=== PATIENT | female | born 1995 | race African-American/Black ===

== ENCOUNTER 2022-12-20 11:45 | Emergency (ER) | payer OTHER, SELFPAY ==
--- NOTE | ~2022-12-20 | CT_ITS ---
EXAMINATION: CT ABDOMEN AND PELVIS WITH CONTRAST CLINICAL INFORMATION: Abdominal pain. COMPARISON: None available. TECHNIQUE: Multidetector volumetric images were obtained from the superior aspect of the liver through the pubic symphysis following administration 85 mL of Omnipaque 350 intravenous contrast. Sagittal and coronal reformatted images were obtained on the technologist's workstation. Oral Contrast: No. This CT examination was performed using dose optimization techniques as appropriate, variously including the following: *Automated exposure control. *Adjustment of mA and/or kV according to patient size (this includes techniques or standardized protocols for targeted exams where dose is matched to indication/reason for exam; i.e. extremities or head). *Use of iterative reconstruction technique. DLP: 360.24 mGy-cm FINDINGS: LUNG BASES: Bilateral breast prosthesis. LIVER, GALLBLADDER, AND BILIARY TREE: The liver is normal in size, shape, and attenuation. No focal hepatic lesion or biliary ductal dilatation is present. The gallbladder is unremarkable with no evidence of radiopaque gallstones, gallbladder wall thickening, or obvious pericholecystic inflammatory changes. PANCREAS: Unremarkable. SPLEEN: Unremarkable. ADRENAL GLANDS: Unremarkable. KIDNEYS AND URETERS: The kidneys are normal in size, shape, and attenuation. No hydronephrosis, hydroureter, or calculi seen. No perinephric stranding. BLADDER: Unremarkable. GASTROINTESTINAL TRACT: Wall thickening and hyperemia of multiple loops of small bowel involving the lower abdomen as well as terminal ileum and sigmoid colon with mesenteric congestion and vasculature engorgement. No pneumatosis or organized extraluminal collection. The appendix is not confidentially identified. ABDOMINAL WALL: Cosmetic surgery in the anterior and posterior abdominal combs. Multiple soft tissue nodules, likely injection sites with fat necrosis in the gluteal regions; there is mild fat stranding surrounding some of these nodules. LYMPH NODES: No lymphadenopathy. VASCULAR: Abdominal aorta is normal in caliber. As above, there is diffuse mesenteric haziness with vasculature engorgement. PELVIC VISCERA: Ovaries are enlarged and heterogeneous with surrounding fat stranding and free fluid. The myometrium is heterogeneous with multiple low density observations. For instance, measuring 1.3 cm along the anterior uterine fundus on axial image 65, series 3 and 1.3 cm along the lower anterior uterus/cervix on axial image 72 series 3. Fat-containing nodules are noted in the right, greater than left, ischioanal fossae. For instance, measuring up to 2.2 cm on the right side on axial image 82 series 3, suspect related with sequela of cosmetic injections. OSSEOUS STRUCTURES: No acute or aggressive-appearing osseous findings. CT/CT abdomen pelvis w IV con IMPRESSION: Complex examination. Multiple loops of the small bowel as well as sigmoid colon are wall-thickened and hyperemic with associated mesenteric inflammatory changes. Additionally, there are inflammatory changes in the pelvis surrounding the uterus and adnexa. The ovaries are heterogeneous and enlarged and the myometrium is quite heterogeneous with multiple low density observations. There is a small amount of free-fluid in the abdomen/pelvis. Constellation of findings are nonspecific. Differential considerations include pelvic inflammatory disease with tubo-ovarian phlegmonous changes and reactive bowel changes versus inflammatory bowel disease/enteritis. The appendix is not confidentially identified and, therefore, acute appendicitis cannot be entirely excluded in this examination.
--- NOTE | 2022-12-20 11:49 | ED.ABDPAIN ---
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 Patient reports lower abdominal pain for the last 4 days. Reports she has abdominal pain with bowel movements but no rectal pain. Denies any rectal bleeding Reports remote history of appendectomy but no other abdominal surgeries. She states that she is sexually active and reports abnormal vaginal bleeding. She states that her last menstrual period was December 06 and then 1 week later she had further vaginal bleeding Denies any difficulty urinating Denies any fevers, chills nausea vomiting The patient reports her last bowel movement was yesterday and was normal for her with the exception of the abdominal pain The patient reports her pain is also worse after eating Related Data Previous Rx's Medication Instructions Recorded doxycycline hyclate 100 mg tablet 100 mg PO BID #28 tabs 12/20/22 hydroxychloroquine 200 mg tablet 200 mg PO DAILY #30 tabs 12/20/22 levothyroxine 25 mcg tablet 25 mcg PO DAILY #30 tabs 12/20/22 (Synthroid) metronidazole 500 mg tablet 500 mg PO BID #28 tabs 12/20/22 Allergies Allergy/AdvReac Type Severity Reaction Status Date / Time No Known Allergies Allergy Verified 12/20/22 11:56 Review of Systems Constitutional: Reports as per HPI, Denies chills, Denies fatigue, Denies fever(s) and Denies headache(s) Denies headache(s) Cardiovascular: Denies chest pain and Denies dyspnea Respiratory: Denies cough and Denies dyspnea Gastrointestinal: Reports abdominal pain, Denies hematochezia, Denies constipation, Denies nausea and Denies vomiting Genitourinary: Denies dysuria Denies headache(s) and Denies focal weakness Endocrine: Denies fatigue PMFSH Social History Social History Smoked in Last 30 Days: No Use of substances other than those prescribed or required for medical reasons: No Advance Directives: No Advance Directives Information Provided: No Patient : No Physical Exam ED Vital Signs: Vital Signs - 24 hr 12/20/22 11:50 12/20/22 16:08 12/20/22 18:44 Temperature 97.3 F 98.5 F 98.6 F Pulse Rate 89 83 78 Respiratory Rate 14 16 14 Blood Pressure 111/80 114/82 105/66 Pulse Oximetry 100 100 98 Oxygen Delivery Method Room Air Room Air Room Air BMI result Body Mass Index 20.0 Const General: healthy appearing, comfortable, no acute distress, alert and awake Nutritional Appearance: well nourished Orientation/consciousness: patient oriented x3 HENMT Head: Yes normocephalic and Yes atraumatic Eyes Eyelids: Yes eyelids normal Conjunctivae: conjunctivae normal Sclerae: sclerae normal Corneas: corneas normal Pupils: Equal, round and reactive pupils present EOM: EOMs intact bilaterally Neck Neck: Yes full ROM Resp Effort & Inspection: normal respiratory effort, able to speak in complete sentences and not labored GI Inspection: No distended Palpation (GI): Soft to palpation, Firmness to palpation present (GI), Tenderness to palpation present (GI) in the LLQ, in the RLQ and periumbilically and Guarding due to palpation present (GI) in the LLQ and in the RLQ External Female Exam: normal external appearance, normal appearance of the urethra and No erythema Speculum Exam - Vagina: normal appearance of the vagina, abnormal vaginal discharge white and clear; not boody, no cysts, no foreign bodies and No vaginal bleeding Speculum Exam - Cervix: normal appearance of the cervix and no masses OB/external & speculum: no foreign bodies and vaginal bleeding Skin General skin exam: no rashes or lesions noted and elasticity normal Neuro General: patient oriented x3 Cranial nerves: Yes Equal, round and reactive pupils present and Yes Bilaterally intact EOM present Cognition (Neuro): normal cognition Extrem Other: Moving all extremities well without any obvious deformities Course Course Course Narrative: RME: 27 yo female no sig PMHx, c/o constant b/l lower abdominal pain, back pain with BM, liquidy vaginal discharge x4 days. No N/V, constipation, diarrhea, vaginal bleeding. Admits sexually active, LMP 6/10. Sent here from this morning. Labs, UA, STI testing Full HPI, ROS and PE to be performed by primary ED provider. Reevaluation(s) Reevaluation #1: Received call from [facility] the patient has inflammation in the pelvis that is affecting the small bowel. The differential includes PID inflammatory bowel disease. The patient has no GI symptoms but does have pelvic pain and vaginal discharge. PID is the more likely diagnosis at this time. The patient is not septic. The radiologist specifically states that there is no evidence of free air or abscess. Will get a pelvic examination with gonorrhea and chlamydia swabs as well as BD and yeast. This was explain using the shell mold bonder and the patient is agreeable to pelvic examination. Time: 19:15 Reevaluation #2: Patient requested that I refill her outpatient medications of hydroxychloroquine 200 mg daily which he takes for lupus as well as Synthroid 25 mcg daily for hypothyroidism. She does not have a local PCP Time: 19:41 Medical Decision Making Medical Decision Making [facility] Narrative: 27-year-old female presents for evaluation abdominal pain. She reports irregular periods as well. She denies any nausea, vomiting, diarrhea or constipation. Denies any black or bloody stool. She is tender in the lower to mid abdomen bilaterally. But abdomen is soft and nondistended. Her labs are without significant abnormality. Given her level discomfort with a CT scan of the abdomen pelvis. A UA does not show any sign of infection or hematuria. Patient also had gonorrhea and chlamydia testing sent which will not result today. The patient is not Differential Diagnosis Constipation Colitis Diverticulitis Uterine fibroids Ovarian cyst PID less likely Dysmenorrhea Lab Data [facility] Lab Attestation statement: I reviewed the patient's lab results. (No leukocytosis, no anemia. No electrolyte abnormalities. Normal renal function) 12/20/22 12:08 12/20/22 12:08 Labs: Lab Results 12/20/22 12/20/22 12/20/22 Range/Units 12:08 12:08 13:48 WBC 5.7 (4.8-10.8) X10*3/uL RBC 4.16 L (4.20-5.50) X10*6/uL Hgb 12.7 (12.0-16.0) g/dl Hct 38.6 (37.0-47.0) % MCV 92.8 (80.0-98.0) fL MCH 30.5 (27.0-33.0) pg MCHC 32.9 (31.0-35.0) g/dl RDW 13.3 (11.0-16.0) % Plt Count 246 (160-400) X10*3/uL MPV 10.0 (9.4-12.3) fL Immature Gran % (Auto) 0.5 H (0.0-0.4) % Neut % (Auto) 74.7 H (45-73) % Lymph % (Auto) 13.8 L (20-40) % [place] % (Auto) 10.2 (2-11) % Eos % (Auto) 0.4 (0-4) % Baso % (Auto) 0.4 (0-2) % Lymph # (Auto) 0.8 L (1.2-4.9) X10*3/uL [place] # (Auto) 0.6 (0.1-1.2) X10*3/uL Eos # (Auto) 0.0 (0.0-0.4) X10*3/uL Baso # (Auto) 0.0 (0.0-0.2) X10*3/uL Abs Immat Gran (auto) 0.03 (0.00-0.03) X10*3/uL Absolute Neuts (auto) 4.2 (2.0-8.3) x10*3/uL Absolute Nucleated RBC 0.000 (0.0-0.012) X10*3/uL Nucleated RBC % (auto) 0.0 (0.0-0.2) /100WBC Sodium 140 (135-145) mmol/L Potassium 4.0 (3.3-5.1) mmol/L Chloride 105 (96-108) mmol/L Carbon Dioxide 27 (22-29) mmol/L Anion Gap 12 (12-20) BUN 10 (9-16) mg/dL Creatinine 0.71 (0.5-1.4) mg/dL Estim Creat Clear Calc 100.4 Estimated GFR > 60 Random Glucose 64 (60-115) mg/dL Calcium 10.4 H (8.4-10.2) mg/dL Magnesium 1.8 (1.6-2.6) mg/dL Total Bilirubin 0.4 (0.0-1.0) mg/dL Direct Bilirubin 0.1 (0.0-0.5) mg/dL AST 19 (5-31) U/L ALT 11 (0-31) U/L Alkaline Phosphatase 76 (39-117) U/L Total Protein 8.2 H (6.5-8.0) g/dL Albumin 4.4 (3.5-5.0) g/dL Lipase 15 (8-78) U/L Urine Color Yellow Urine Appearance Clear Urine pH 6.5 (5.0-9.0) Ur Specific [place] 1.010 (1.005-1.025) Urine Protein Negative (Neg-Trace) mg/dL Urine Glucose (UA) Negative (Negative) mg/dL Urine Ketones Negative (Negative) mg/dL Urine Blood Negative (Negative) Urine Nitrite Negative (Negative) Ur Leukocyte Esterase Negative (Negative) Urine Test (NEGATIVE) 12/20/22 Range/Units 13:48 WBC (4.8-10.8) X10*3/uL RBC (4.20-5.50) X10*6/uL Hgb (12.0-16.0) g/dl Hct (37.0-47.0) % MCV (80.0-98.0) fL MCH (27.0-33.0) pg MCHC (31.0-35.0) g/dl RDW (11.0-16.0) % Plt Count (160-400) X10*3/uL MPV (9.4-12.3) fL Immature Gran % (Auto) (0.0-0.4) % Neut % (Auto) (45-73) % Lymph % (Auto) (20-40) % [place] % (Auto) (2-11) % Eos % (Auto) (0-4) % Baso % (Auto) (0-2) % Lymph # (Auto) (1.2-4.9) X10*3/uL [place] # (Auto) (0.1-1.2) X10*3/uL Eos # (Auto) (0.0-0.4) X10*3/uL Baso # (Auto) (0.0-0.2) X10*3/uL Abs Immat Gran (auto) (0.00-0.03) X10*3/uL Absolute Neuts (auto) (2.0-8.3) x10*3/uL Absolute Nucleated RBC (0.0-0.012) X10*3/uL Nucleated RBC % (auto) (0.0-0.2) /100WBC Sodium (135-145) mmol/L Potassium (3.3-5.1) mmol/L Chloride (96-108) mmol/L Carbon Dioxide (22-29) mmol/L Anion Gap (12-20) BUN (9-16) mg/dL Creatinine (0.5-1.4) mg/dL Estim Creat Clear Calc Estimated GFR Random Glucose (60-115) mg/dL Calcium (8.4-10.2) mg/dL Magnesium (1.6-2.6) mg/dL Total Bilirubin (0.0-1.0) mg/dL Direct Bilirubin (0.0-0.5) mg/dL AST (5-31) U/L ALT (0-31) U/L Alkaline Phosphatase (39-117) U/L Total Protein (6.5-8.0) g/dL Albumin (3.5-5.0) g/dL Lipase (8-78) U/L Urine Color Urine Appearance Urine pH (5.0-9.0) Ur Specific [place] (1.005-1.025) Urine Protein (Neg-Trace) mg/dL Urine Glucose (UA) (Negative) mg/dL Urine Ketones (Negative) mg/dL Urine Blood (Negative) Urine Nitrite (Negative) Ur Leukocyte Esterase (Negative) Urine Test NEGATIVE (NEGATIVE) Medications Administered Discontinued Medications Generic Name Dose Route Start Last Admin Trade Name Freq PRN Reason Stop Dose Admin Iohexol 100 ml 12/20/22 17:35 12/20/22 17:36 Iohexol 350 Mg/Ml 100 Ml Infus..Btl IV 12/20/22 17:36 85 ml ONCE ONE Administration Ketorolac Tromethamine 30 mg 12/20/22 16:46 12/20/22 18:10 Ketorolac Tromethamine 30 Mg/Ml Vial IVPUSH 12/20/22 16:47 30 mg ONCE ONE Administration Discharge Plan Discharge Clinical Impression: Acute pelvic inflammatory disease, Hypothyroidism, Lupus Patient Disposition: Home, Self-Care Instructions: Pelvic Inflammatory Disease (ED) Additional Instructions: Your symptoms are likely related to pelvic inflammatory disease This is usually caused by gonorrhea and or chlamydia Take both antibiotics twice daily for the next 14 days Do not drink alcohol while taking these medications Take them with food as they may cause upset stomach Do not have sexual intercourse until you finish the antibiotic regimen Follow-up with Dr Angelique LOMBARDO at the number provided Prescriptions: New doxycycline hyclate 100 mg tablet 100 mg PO BID Qty: 28 0RF metronidazole 500 mg tablet 500 mg PO BID Qty: 28 0RF hydroxychloroquine 200 mg tablet 200 mg PO DAILY Qty: 30 0RF levothyroxine [Synthroid] 25 mcg tablet 25 mcg PO DAILY Qty: 30 0RF
[2022-12-20 11:50] VITALS: BP 111/80; PULSE 89; RESP 14; TEMP 36.3; O2SAT 100
[2022-12-20 12:11] LABS: MANUAL DIFF FLAG NO
[2022-12-20 12:14] LABS: Basophils Percent Auto 0.4 % (0-2); Eosinophils Percent Auto 0.4 % (0-4); Hematocrit 38.6 % (37.0-47.0); Hemoglobin 12.7 g/dl (12.0-16.0); Imm Gran Abs Auto 0.03 X10*3/uL (0.00-0.03); Imm Gran Pct Auto 0.5 % (0.0-0.4); Lymphocytes Absolute Auto 0.8 X10*3/uL (1.2-4.9); Lymphocytes Percent Auto 13.8 % (20-40); Mean Corpuscular HGB Conc 32.9 g/dl (31.0-35.0); Mean Corpuscular Hemoglobin 30.5 pg (27.0-33.0); Mean Corpuscular Volume 92.8 fL (80.0-98.0); Monocytes Absolute Auto 0.6 X10*3/uL (0.1-1.2); Monocytes Percent Auto 10.2 % (2-11); Neutrophils Absolute Auto 4.2 x10*3/uL (2.0-8.3); Neutrophils Percent Auto 74.7 % (45-73); Platelet Count 246 X10*3/uL (160-400); Red Blood Count 4.16 X10*6/uL (4.20-5.50); Red Cell Distribution Width 13.3 % (11.0-16.0); White Blood Count 5.7 X10*3/uL (4.8-10.8)
[2022-12-20 12:45] LABS: Alanine Aminotransferase 11 U/L (0-31); Albumin Level 4.4 g/dL (3.5-5.0); Alkaline Phosphatase 76 U/L (39-117); Anion Gap 12 (12-20); Aspartate Amino Transferase 19 U/L (5-31); Bilirubin Direct 0.1 mg/dL (0.0-0.5); Bilirubin Total 0.4 mg/dL (0.0-1.0); Blood Urea Nitrogen 10 mg/dL (9-16); Calcium 10.4 mg/dL (8.4-10.2); Carbon Dioxide 27 mmol/L (22-29); Chloride 105 mmol/L (96-108); Creatinine Clr Calc Pharmacy 100.4; Estimated Glomerular Filt Rate > 60; Glucose Random 64 mg/dL (60-115); Lipase 15 U/L (8-78); Magnesium 1.8 mg/dL (1.6-2.6); Sodium 140 mmol/L (135-145); Total Protein 8.2 g/dL (6.5-8.0)
[2022-12-20 13:57] LABS: UPreg QC Valid YES; Urine Pregnancy NEGATIVE (NEGATIVE)
[2022-12-20 13:58] LABS: Appearance Urine Clear; Color Urine Yellow; Glucose Urine UA Negative (Negative); Leukocyte Esterase Urine Negative (Negative); Nitrite Urine Negative (Negative); PH 6.5 (5.0-9.0); Urine Blood Negative (Negative); Urine Ketones Negative (Negative); Urine Protein Negative (Neg-Trace)
[2022-12-20 16:08] VITALS: BP 114/82; PULSE 83; RESP 16; TEMP 36.9; O2SAT 100
[2022-12-20] MEDS: iohexoL 350 MG/ML 100 ML INFUS..BTL IV (17:36)
[2022-12-20] MEDS: Ketorolac Tromethamine 30 MG/ML VIAL IVPUSH (18:10)
[2022-12-20 18:44] VITALS: BP 105/66; PULSE 78; RESP 14; TEMP 37; O2SAT 98
--- NOTE | 2022-12-20 18:46 | PC.NURSE ---
Pt resting, stated pain medication had positive effect. Call vargas with in reach.
[2022-12-20] MEDS: metroNIDAZOLE 500 MG TABLET PO (21:07)
[2022-12-20] MEDS: Doxycycline Monohydrate 100 MG CAPSULE PO (21:07)
[2022-12-20 21:17] VITALS: BP 115/80; PULSE 84; RESP 16; TEMP 36.5; O2SAT 98
[2022-12-20] MEDS: cefTRIAXone sodium 500 MG, Lidocaine HCl 1 % MPF 1 ML IM (21:40)
[2022-12-21 12:10] LABS: BV Int Neg Control Negative (Negative); BV Int Pos Control Positive (Positive)
[2022-12-21 12:32] LABS: CT PCR NOT DETECTED (Not Detect.); NG PCR NOT DETECTED (Not Detect.)
== END 2022-12-20 21:42 | disposition home or self-care (01) ==
PROVIDERS: Physician Assistant; Emergency Provider Emergency Medicine
DX: N73.9 Female pelvic inflammatory disease, unspecified (principal); R10.2 Pelvic and perineal pain; E03.9 Hypothyroidism, unspecified; A18.4 Tuberculosis of skin and subcutaneous tissue; Z79.899 Other long term (current) drug therapy
CPT/HCPCS: 0353U; 36415; 74177; 80048; 80076; 81003; 81025; 83690; 83735; 85025; 87480; 87510; 87660; 96372; 96374; 99285; J0696; J1885; Q9967

== ENCOUNTER 2023-01-28 11:57 | Outpatient (REF) | payer OTHER, SELFPAY | END 2023-01-28 11:58 | disposition home or self-care (01) | LOC: HO.LNP 11:57 | PROVIDERS: Visit Provider Obstetrics & Gynecology | DX: Z30.09 Encounter for other general counseling and advice on contraception (principal) | CPT/HCPCS: 99202 ==

== ENCOUNTER 2023-01-28 11:57 | Outpatient (AMB) | payer OTHER, SELFPAY ==
[2023-01-28 12:16] VITALS: BP 110/70; BMI 19.8
--- NOTE | 2023-01-28 12:16 | A.OFFVIS_ITS ---
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 PID with ceftriaxone 500 mg IM and Flagyl/doxycycline for 14 days. The patient's pain has completely resolved since then is doing well and is interested in discussing different options of control PFSH Medical History Thai's disease Lupus Surgical History History of appendectomy Hx of section Family History Maternal Grandmother Diabetes Maternal Grandfather Diabetes Mother Hypothyroidism Social History Household Members: Significant Other Housing: Apartment Alcohol intake: never Patient Tobacco Use Status: Never used Tobacco Substance Use Type: Marijuana Current occupational status: employed Current occupation: [employer] Sexual orientation: Straight/Heterosexual Gender identity: Female Female Reproductive History Menstrual Date of last menstrual period: 01/07/23 Total pregnancies: 1 Full term: 1 Number of Living Children: 1 Review of Systems Const All systems reviewed & are unremarkable except as noted in HPI and below Physical Exam Vital Signs: Last Vital Signs BP 110/70 01/28/23 12:16 BMI result Body Mass Index 19.8 General: Yes no CVA tenderness External Female Exam: normal external appearance and normal appearance of the urethra Speculum Exam - Vagina: normal appearance of the vagina, normal palpation, no lesions and no masses Speculum Exam - Cervix: normal appearance of the cervix, normal palpation, no lesions, no masses and nontender Bimanual exam- vagina & uterus: normal bimanual exam, normal palpation, uterine size normal, normal palpation, uterine shape normal, No Cervical tenderness present and non-tender Bimanual Exam- Adnexa, other: normal adnexae Back/Spine/Pelvis Back: no CVA tenderness Assessment & Plan Assessment & Plan (1) Screen for STD (sexually transmitted disease): Code(s): Z11.3 - Encounter for screening for infections with a predominantly sexual mode of transmission Plan: Since the patient was diagnosed ? PID will screen with STD. STD screening tests done includes: BV panel for trichomonas, GC/CT will send patient for s erology std screening for HIV, RPR, Hep b s Ag, HepC Ab. Instructions given the patient to schedule a follow-up appointment for repeat serology screen in 6 months for possible false negatives. (2) Family planning: Code(s): Z30.09 - Encounter for other general counseling and advice on contraception Plan: Discussed with the patient the different options of control including control pills/Nuvaring (contraindicated with lupus because of the risk of thrombosis), DMPA, different types of IUD ?s ( Cu vs Progesterone IUD). All the pros, cons, risks and benefits of each were discussed with the patient. The patient decided to think about but is leaning more towards Paraguard IUD, so a more detailed discussion about the mechanism of action, risks (infection, uterine perforation, failure with ectopic , septic AB, others) benefits (efficient contraceptive method, others) GC/CG were taken, the patient was instructed to call once she decides to proceed with ParaGard IUD for signing the paperwork for insurance and to call day one of next cycle for IUD insertion. All questions answered, the patient verbalized understanding Orders: Orders Hepatitis B Surface Antigen Today Z20.2 - Contact with and (suspected) exposure to infections with a predominantly sexual mode of transmission Hepatitis C Antibody Today Z20.2 - Contact with and (suspected) exposure to infections with a predominantly sexual mode of transmission HIV Ab/Ag Today Z20.2 - Contact with and (suspected) exposure to infections with a predominantly sexual mode of transmission Syphilis Screen Today Z20.2 - Contact with and (suspected) exposure to infections with a predominantly sexual mode of transmission Coding Level of Care Code New Pt Level 3 (70802) Diagnoses Screen for STD (sexually transmitted disease) Z11.3 Family planning Z30.09
== END 2023-01-28 12:54 | disposition home or self-care (01) ==
LOC: HO.HWS 11:58
PROVIDERS: Visit Provider Obstetrics & Gynecology
DX: Z30.09 Encounter for other general counseling and advice on contraception (principal)
CPT/HCPCS: 99203

== ENCOUNTER 2023-01-28 12:55 | Outpatient (REF) | payer OTHER, SELFPAY ==
[2023-01-28 15:41] LABS: CT PCR NOT DETECTED (Not Detect.); NG PCR NOT DETECTED (Not Detect.)
[2023-01-29 03:51] LABS: HBsAGNum1 0.35 S/CO (0.00-0.99); HIV AB/AG Nonreactive (Nonreactive); HIV Num 1 0.06 S/CO (0.00-0.99); Hepatitis B Surface Antigen Negative (Negative); ~HepC Num1 0.18 S/CO (0.00-0.79); ~Hepatitis C Antibody Nonreactive (Nonreactive)
[2023-01-29 04:09] LABS: Syphilis Screen Nonreactive (Nonreactive)
[2023-01-29 10:46] LABS: BV Int Neg Control Negative (Negative); BV Int Pos Control Positive (Positive)
== END 2023-01-28 12:56 | disposition home or self-care (01) ==
LOC: HO.LAB 12:55
PROVIDERS: Visit Provider Obstetrics & Gynecology
DX: Z11.3 Encounter for screening for infections with a predominantly sexual mode of transmission (principal); Z11.4 Encounter for screening for human immunodeficiency virus [HIV]; Z20.2 Contact with and (suspected) exposure to infections with a predominantly sexual mode of transmission
CPT/HCPCS: 0353U; 86780; 86803; 87340; 87389; 87480; 87510; 87660

== ENCOUNTER 2023-01-28 14:32 | Emergency (ER) | payer OTHER, SELFPAY ==
[2023-01-28 14:45] VITALS: BP 121/82; PULSE 92; RESP 19; TEMP 36.6; O2SAT 98; BMI 20.2
--- NOTE | 2023-01-28 14:45 | ED_ITS ---
HPI - General Adult General Chief complaint: General Medical Stated complaint: Rash Needs Medication for Lupus Time Seen by Provider: 01/28/23 15:00 Source: patient, RN notes reviewed and old records reviewed Mode of arrival: ambulatory History of Present Illness HPI narrative: 27-year-old female with past medical history of lupus, hypothyroid, presenting to ED requesting medication refill of her Hydrochloroquine, Synthroid, and Mycophenolate. Admits has been out of her Hydrochloroquine and Synthroid for 3 days. Admits recently moved here from [place], is having difficulty obtaining PCP and internal salesperson with current insurance, states soonest PCP appointment is in 1 year. Admits was previously prescribed Mycophenolate by her internal salesperson in [place]. Reports slight facial a erythematous lupus rash. Denies other complaints at present. Onset (ago): day(s) Related Data Previous Rx's Medication Instructions Recorded hydroxychloroquine 200 mg tablet 200 mg PO DAILY #30 tabs 12/20/22 levothyroxine 25 mcg tablet 25 mcg PO DAILY #30 tabs 12/20/22 (Synthroid) metronidazole 500 mg tablet 500 mg PO BID #28 tabs 12/20/22 hydroxychloroquine 200 mg tablet 200 mg PO DAILY 30 days #30 tabs 01/28/23 levothyroxine 25 mcg tablet 25 mcg PO DAILY 30 days #30 tabs 01/28/23 (Synthroid) Allergies Allergy/AdvReac Type Severity Reaction Status Date / Time No Known Allergies Allergy Verified 01/28/23 14:44 Review of Systems Review of Systems: Constitutional: No Fever, No Chills ENT/Mouth: No Ear Pain, No Nasal Congestion, No Sinus Pain, No sore throat, No Rhinorrhea, No Swallowing Difficulty Cardiovascular: No Chest Pain, No SOB Respiratory: No Cough Gastrointestinal: No Nausea, No Vomiting, No Abdominal pain Genitourinary: No Dysuria, No Urinary Frequency, No Flank Pain Musculoskeletal: No joint pain, No Myalgias, No Joint Swelling Skin: No Skin Lesions, + rash Neuro: No Weakness, No Numbness, No Paresthesias Yes all other systems are reviewed and are negative Constitutional: Constitutional: Reports as per [facility] Past Medical History Attestation statement: The following information was validated with the patient. Source: old records reviewed Medical History Thai's disease Lupus Surgical History History of appendectomy Hx of section Family History Family History Maternal Grandmother Diabetes Maternal Grandfather Diabetes Mother Hypothyroidism Social History Social History Household Members: Significant Other Housing: Apartment Alcohol intake: never Patient Tobacco Use Status: Never used Tobacco Substance Use Type: Marijuana Current occupational status: employed Current occupation: [employer] Sexual orientation: Straight/Heterosexual Gender identity: Female Physical Exam ED Vital Signs: Vital Signs - 24 hr 01/28/23 14:45 Temperature 98 F Pulse Rate 92 Respiratory Rate 19 Blood Pressure 121/82 Pulse Oximetry 98 Oxygen Delivery Method Room Air BMI result Body Mass Index 20.2 Const General: cooperative, healthy appearing and no acute distress Orientation/consciousness: patient oriented x3 Limitations: no limitations HENMT Other: + slight erythematous rash noted to forehead and bilateral cheeks. No sloughing, no warmth/cellulitis, no pustules/vesicles Head: Yes normal to inspection and Yes atraumatic Ears: hearing grossly normal bilaterally General nose exam: Normal external nose present Face and sinus: Yes normal facial exam Eyes General: appearance normal, both eyes and all related structures EOM: EOMs intact bilaterally Neck Neck: Yes normal visual inspection and Yes no meningeal signs Resp Effort & Inspection: normal respiratory effort and no respiratory distress Cardio Rate: regular rate Skin Wounds: no wounds Neuro General: patient oriented x3, tone normal and no meningeal signs Cranial nerves: Yes CN's II-XII intact bilaterally Gait exam (Neuro): Normal gait present Extrem General: Yes normal to inspection Medical Decision Making Medical Decision Making MDM Narrative: 27-year-old female with past medical history of lupus, hypothyroid, presenting to ED requesting medication refill of her Hydrochloroquine, Synthroid, and Mycophenolate. On exam vital signs stable, NAD, nontoxic appearing, physical exam as noted above. Patient admits rash is consistent with her lupus rash, unchanged. Patient presented with empty bottles, also Mycophenolate bottle with her which has a few tabs left. Discussed with patient can refill her Synthroid/hydrochloroquine when however other medication needs to be prescribed by internal salesperson/specialist due to black box warnings. Will provide patient with PCP/rheumatology and community navigator information Results discussed with patient including worrisome signs and symptoms and strict return precautions, and when to return to the emergency department. They verbalized understanding and feel safe for discharge at this time. Differential Diagnosis Differential Diagnoses: The differential diagnosis associated with the prese ntation includes As above External Record Review External record reviewed: Inpatient record, Office record, Outpatient record, Prior outpatient labs, Prior outpatient radiology, Primary care record and Outside ED record Tests considered The following testing was considered but not selected: As above Prescription Management I considered prescription management with: Other Chronic Conditions Patient?s care impacted by: Other (Lupus, hypothyroid) Discharge Plan Discharge Clinical Impression: Medication refill Patient Disposition: Home, Self-Care Additional Instructions: We refilled her to medications for 1 month Please establish care with a primary care doctor and rheumatology La recargamos con medicamentos por 1 mes. Favor establecer atenci?n con m?dico de atenci?n primaria y reumatolog?a Prescriptions: New hydroxychloroquine 200 mg tablet 200 mg PO DAILY 30 Days Qty: 30 0RF levothyroxine [Synthroid] 25 mcg tablet 25 mcg PO DAILY 30 Days Qty: 30 0RF No Action metronidazole 500 mg tablet 500 mg PO BID Qty: 28 0RF hydroxychloroquine 200 mg tablet 200 mg PO DAILY Qty: 30 0RF levothyroxine [Synthroid] 25 mcg tablet 25 mcg PO DAILY Qty: 30 0RF Referrals: [facility] [Provider Group] [facility] [place] Primary [facility] [Provider Group] [facility] [place] Primary [facility] [Provider Group] [facility] [Provider Group] Print Language: Tongan
== END 2023-01-28 15:05 | disposition home or self-care (01) ==
PROVIDERS: Emergency Provider Emergency Medicine
DX: Z76.0 Encounter for issue of repeat prescription (principal); R21 Rash and other nonspecific skin eruption; M32.9 Systemic lupus erythematosus, unspecified
CPT/HCPCS: 99282; 99283

== ENCOUNTER 2023-02-10 16:32 | Emergency (ER) | payer OTHER, SELFPAY ==
[2023-02-10 16:48] VITALS: BP 106/72; PULSE 92; RESP 16; TEMP 36.9; O2SAT 98
--- NOTE | 2023-02-10 16:48 | ED.GENADULT ---
HPI - General Adult General Chief complaint: General Medical Stated complaint: Has Lupus and it is affecting her right hand Time Seen by Provider: 02/10/23 21:28 Source: patient Mode of arrival: ambulatory Limitations: no limitations History of Present Illness HPI narrative: Patient with History of lupus and hypothyroidism complaining of increased joint pain for last 2 days the right hand also complaining of pain in right shoulder and right jaw Related Data Previous Rx's Medication Instructions Recorded hydroxychloroquine 200 mg tablet 200 mg PO DAILY #30 tabs 12/20/22 levothyroxine 25 mcg tablet 25 mcg PO DAILY #30 tabs 12/20/22 (Synthroid) metronidazole 500 mg tablet 500 mg PO BID #28 tabs 12/20/22 hydroxychloroquine 200 mg tablet 200 mg PO DAILY 30 days #30 tabs 01/28/23 levothyroxine 25 mcg tablet 25 mcg PO DAILY 30 days #30 tabs 01/28/23 (Synthroid) hydroxychloroquine 200 mg tablet 200 mg PO DAILY #90 tabs 02/10/23 levothyroxine 25 mcg capsule 25 mcg PO DAILY #90 caps 02/10/23 prednisone 20 mg tablet 40 mg PO DAILY #10 tabs 02/10/23 Allergies Allergy/AdvReac Type Severity Reaction Status Date / Time No Known Allergies Allergy Verified 02/10/23 16:54 Review of Systems Review of Systems: Yes all other systems are reviewed and are negative REPLACED BY [facility] Past Medical History Medical History Thai's disease Lupus Surgical History History of appendectomy Hx of section Family History Family History Maternal Grandmother Diabetes Maternal Grandfather Diabetes Mother Hypothyroidism Social History Social History Household Members: Significant Other Housing: Apartment Alcohol intake: never Patient Tobacco Use Status: Never used Tobacco Substance Use Type: Marijuana Advance Directives: No Advance Directives Information Provided: No Current occupational status: employed Current occupation: [employer] Sexual orientation: Straight/Heterosexual Gender identity: Female Physical Exam ED Vital Signs: Vital Signs - 24 hr 02/10/23 16:48 02/10/23 20:51 Temperature 98.5 F 98.6 F Pulse Rate 92 89 Respiratory Rate 16 17 Blood Pressure 106/72 103/73 Pulse Oximetry 98 99 Oxygen Delivery Method Room Air Room Air BMI result Body Mass Index 20.0 Appearance: Alert. Oriented X3. No acute distress. Neck: Normal inspection. Neck supple. CVS: Normal heart rate and rhythm. Pulses normal. Respiratory: No respiratory distress. Equal air entry bilateral, Abdomen: Soft and nontender. Bowel sounds are present, Skin: Skin warm and dry. Normal skin color. Normal skin turgor. Extremities: No lower extremity edema. No calf tenderness diffuse tenderness and synovial thickening of right hand fingers Neuro: Oriented X 3. No motor deficit. Course Course Course Narrative: This is a rapid medical exam: Additional HPI, ROS, PE not included below will be deferred to primary provider. Patient is a 27-year-old Romanian-speaking female with history of Lupus, hypothyroid presenting to the emergency department with complaint of joint pain and decreased ROM to right thumb at MCP joint. Reports pain to right shoulder and jaw as well. Patient was seen in this ED on 01/28 and given refills for some of her medications as she recently moved here from [place] and is having issues with insurance. Plan: labs Medications Administered Discontinued Medications Generic Name Dose Route Start Last Admin Trade Name Jony PRN Reason Stop Dose Admin Prednisone 40 mg 02/10/23 21:41 02/10/23 21:51 Prednisone 20 Mg Tablet PO 02/10/23 21:42 40 mg ONCE ONE Administration Medical Decision Making Medical Decision Making [facility] Narrative: Patient with lupus on Hydroxychloroquine possible CellCept before which she is not taking for last 2 months does not have any PCP or drier and grinder tender will prescribe prednisone advised to continue her hydroxychloroquine Lab Data [facility] Lab Attestation statement: I reviewed the patient's lab results. 02/10/23 17:17 02/10/23 17:17 Labs: Lab Results 02/10/23 02/10/23 02/10/23 Range/Units 17:17 17:17 17:17 WBC 2.9 L (4.8-10.8) X10*3/uL RBC 3.87 L (4.20-5.50) X10*6/uL Hgb 11.9 L (12.0-16.0) g/dl Hct 35.2 L (37.0-47.0) % MCV 91.0 (80.0-98.0) fL MCH 30.7 (27.0-33.0) pg MCHC 33.8 (31.0-35.0) g/dl RDW 14.1 (11.0-16.0) % Plt Count 231 (160-400) X10*3/uL MPV 10.1 (9.4-12.3) fL Immature Gran % (Auto) 0.3 (0.0-0.4) % Neut % (Auto) 62.6 (45-73) % Lymph % (Auto) 23.5 (20-40) % Reynolds % (Auto) 12.2 H (2-11) % Eos % (Auto) 0.7 (0-4) % Baso % (Auto) 0.7 (0-2) % Lymph # (Auto) 0.7 L (1.2-4.9) X10*3/uL Reynolds # (Auto) 0.4 (0.1-1.2) X10*3/uL Eos # (Auto) 0.0 (0.0-0.4) X10*3/uL Baso # (Auto) 0.0 (0.0-0.2) X10*3/uL Abs Immat Gran (auto) 0.01 (0.00-0.03) X10*3/uL Absolute Neuts (auto) 1.8 L (2.0-8.3) x10*3/uL Absolute Nucleated RBC 0.000 (0.0-0.012) X10*3/uL Nucleated RBC % (auto) 0.0 (0.0-0.2) /100WBC ESR 17 (0-20) MM/HR Sodium 142 (135-145) mmol/L Potassium 4.2 (3.3-5.1) mmol/L Chloride 110 H (96-108) mmol/L Carbon Dioxide 24 (22-29) mmol/L Anion Gap 12 (12-20) BUN 7 L (9-16) mg/dL Creatinine 0.75 (0.5-1.4) mg/dL Estim Creat Clear Calc 95.0 Estimated GFR > 60 Random Glucose 90 (60-115) mg/dL Calcium 9.6 D (8.4-10.2) mg/dL Total Bilirubin 0.4 (0.0-1.0) mg/dL AST 27 (5-31) U/L ALT 25 (0-31) U/L Alkaline Phosphatase 58 (39-117) U/L C-Reactive Protein 0.26 (< or = 0.50) mg/dL Total Protein 7.5 (6.5-8.0) g/dL Albumin 4.2 (3.5-5.0) g/dL Discharge Plan Discharge Clinical Impression: Exacerbation of systemic lupus erythematosus Patient Disposition: Home, Self-Care Instructions: Lupus Erythematosus (DC) Additional Instructions: Continue hydroxychloroquine and levothyroxine Start taking prednisone for 5 days as prescribed Follow-up with office services clerk and PCP Continuar con hidroxicloroquina y levotiroxina. Comience a gerald prednisona mayda 5 d?as seg?n lo recetado. Seguimiento con reumat?logo y PCP. Prescriptions: New hydroxychloroquine 200 mg tablet 200 mg PO DAILY Qty: 90 0RF levothyroxine 25 mcg capsule 25 mcg PO DAILY Qty: 90 0RF prednisone 20 mg tablet 40 mg PO DAILY Qty: 10 0RF No Action hydroxychloroquine 200 mg tablet 200 mg PO DAILY 30 Days Qty: 30 0RF levothyroxine [Synthroid] 25 mcg tablet 25 mcg PO DAILY 30 Days Qty: 30 0RF metronidazole 500 mg tablet 500 mg PO BID Qty: 28 0RF hydroxychloroquine 200 mg tablet 200 mg PO DAILY Qty: 30 0RF levothyroxine [Synthroid] 25 mcg tablet 25 mcg PO DAILY Qty: 30 0RF Referrals: Cari Patel MD [Physician] - 1 week Ralph Rees MD [Physician] - Stand Alone Forms: Work/School Release Interventions: ED Discharge Assessment Last Done: 02/10/23 22:26 Discharge Date/Time: 02/10/23 22:27 Print Language: Romanian
[2023-02-10 17:23] LABS: MANUAL DIFF FLAG NO
[2023-02-10 17:24] LABS: Basophils Percent Auto 0.7 % (0-2); Eosinophils Percent Auto 0.7 % (0-4); Hematocrit 35.2 % (37.0-47.0); Hemoglobin 11.9 g/dl (12.0-16.0); Imm Gran Abs Auto 0.01 X10*3/uL (0.00-0.03); Imm Gran Pct Auto 0.3 % (0.0-0.4); Lymphocytes Absolute Auto 0.7 X10*3/uL (1.2-4.9); Lymphocytes Percent Auto 23.5 % (20-40); Mean Corpuscular HGB Conc 33.8 g/dl (31.0-35.0); Mean Corpuscular Hemoglobin 30.7 pg (27.0-33.0); Mean Platelet Volume 10.1 fL (9.4-12.3); Monocytes Absolute Auto 0.4 X10*3/uL (0.1-1.2); Monocytes Percent Auto 12.2 % (2-11); Neutrophils Absolute Auto 1.8 x10*3/uL (2.0-8.3); Neutrophils Percent Auto 62.6 % (45-73); Platelet Count 231 X10*3/uL (160-400); Red Blood Count 3.87 X10*6/uL (4.20-5.50); Red Cell Distribution Width 14.1 % (11.0-16.0); White Blood Count 2.9 X10*3/uL (4.8-10.8)
[2023-02-10 17:50] LABS: Alanine Aminotransferase 25 U/L (0-31); Albumin Level 4.2 g/dL (3.5-5.0); Alkaline Phosphatase 58 U/L (39-117); Anion Gap 12 (12-20); Aspartate Amino Transferase 27 U/L (5-31); Bilirubin Total 0.4 mg/dL (0.0-1.0); Blood Urea Nitrogen 7 mg/dL (9-16); C Reactive Protein 0.26 mg/dL (< or = 0.50); Calcium 9.6 mg/dL (8.4-10.2); Carbon Dioxide 24 mmol/L (22-29); Chloride 110 mmol/L (96-108); Estimated Glomerular Filt Rate > 60; Glucose Random 90 mg/dL (60-115); Potassium 4.2 mmol/L (3.3-5.1); Sodium 142 mmol/L (135-145); Total Protein 7.5 g/dL (6.5-8.0)
[2023-02-10 18:05] LABS: Erythrocyte Sedimentation Rate 17 MM/HR (0-20)
[2023-02-10 20:51] VITALS: BP 103/73; PULSE 89; RESP 17; TEMP 37; O2SAT 99
[2023-02-10] MEDS: predniSONE 20 MG TABLET 40 MG PO (21:51)
--- NOTE | 2023-02-10 21:52 | PC.NURSE ---
pt medicated per MAR.
== END 2023-02-10 22:27 | disposition home or self-care (01) ==
PROVIDERS: Registered Nurse Emergency; Emergency Provider Internal Medicine
DX: M32.9 Systemic lupus erythematosus, unspecified (principal); Z79.899 Other long term (current) drug therapy
CPT/HCPCS: 36415; 80053; 85025; 85652; 86140; 99282; 99283

== ENCOUNTER 2023-03-10 14:28 | Emergency (ER) | payer OTHER, SELFPAY | END 2023-03-10 15:35 | disposition left against medical advice (07) | PROVIDERS: Emergency Provider Emergency Medicine | DX: Z76.0 Encounter for issue of repeat prescription (principal) ==

== ENCOUNTER 2023-03-12 16:14 | Emergency (ER) | payer OTHER, SELFPAY ==
[2023-03-12 16:55] VITALS: BP 112/81; PULSE 85; RESP 16; TEMP 36.9; O2SAT 100
--- NOTE | 2023-03-12 16:55 | ED.GENADULT ---
HPI - General Adult General Chief complaint: General Medical Stated complaint: lupus, seeking prescription Time Seen by Provider: 03/12/23 17:00 Source: patient, RN notes reviewed and old records reviewed Mode of arrival: ambulatory History of Present Illness HPI narrative: 27-year-old female with past medical history of lupus, hypothyroid, presenting to ED requesting medication refill of her Hydrochloroquine & Synthroid. Reports has been without medications x5 days. Recently moved here from [place], 1st PCP appointment in April. Patient has been evaluated in our ED for similar symptoms in the past, most recently had refills on 02/10/2023. Reports slight facial lupus rash. Denies other complaints at present Onset (ago): day(s) Related Data Previous Rx's Medication Instructions Recorded hydroxychloroquine 200 mg tablet 200 mg PO DAILY #30 tabs 12/20/22 levothyroxine 25 mcg tablet 25 mcg PO DAILY #30 tabs 12/20/22 (Synthroid) metronidazole 500 mg tablet 500 mg PO BID #28 tabs 12/20/22 hydroxychloroquine 200 mg tablet 200 mg PO DAILY 30 days #30 tabs 01/28/23 levothyroxine 25 mcg tablet 25 mcg PO DAILY 30 days #30 tabs 01/28/23 (Synthroid) hydroxychloroquine 200 mg tablet 200 mg PO DAILY #90 tabs 02/10/23 levothyroxine 25 mcg capsule 25 mcg PO DAILY #90 caps 02/10/23 prednisone 20 mg tablet 40 mg (2 x 20 mg) PO DAILY #10 tabs 02/10/23 hydroxychloroquine 200 mg tablet 200 mg PO DAILY 30 days #30 tabs 03/12/23 levothyroxine 25 mcg tablet 25 mcg PO DAILY 30 days #30 tabs 03/12/23 (Synthroid) Allergies Allergy/AdvReac Type Severity Reaction Status Date / Time No Known Allergies Allergy Verified 03/12/23 16:55 Review of Systems Review of Systems: Constitutional: No Fever, No Chills Cardiovascular: No Chest Pain, No SOB Respiratory: No Cough Gastrointestinal: No Nausea, No Vomiting, No Abdominal pain Musculoskeletal: No joint pain, No Myalgias, No Joint Swelling Skin: No Skin Lesions, + rash Neuro: No Weakness Yes all other systems are reviewed and are negative Constitutional: Constitutional: Reports as per [facility] Past Medical History Attestation statement: The following information was validated with the patient. Source: old records reviewed Medical History Thai's disease Lupus Surgical History History of appendectomy Hx of section Family History Family History Maternal Grandmother Diabetes Maternal Grandfather Diabetes Mother Hypothyroidism Social History Social History Household Members: Significant Other Housing: Apartment Alcohol intake: never Patient Tobacco Use Status: Never used Tobacco Substance Use Type: Marijuana Current occupational status: employed Current occupation: [employer] Sexual orientation: Straight/Heterosexual Gender identity: Female Physical Exam ED Vital Signs: Vital Signs - 24 hr 03/12/23 16:55 Temperature 98.4 F Pulse Rate 85 Respiratory Rate 16 Blood Pressure 112/81 Pulse Oximetry 100 Oxygen Delivery Method Room Air BMI result Body Mass Index 20.0 Const General: cooperative, healthy appearing and no acute distress Orientation/consciousness: patient oriented x3 Limitations: no limitations HENMT Other: + slight erythematous rash to bilateral cheeks. No warmth/cellulitis, no vesicles, no sloughing Head: Yes normal to inspection and Yes atraumatic Ears: hearing grossly normal bilaterally General nose exam: Normal external nose present Face and sinus: Yes normal facial exam Eyes General: appearance normal, both eyes and all related structures EOM: EOMs intact bilaterally Neck Neck: Yes normal visual inspection and Yes no meningeal signs Resp Effort & Inspection: normal respiratory effort and no respiratory distress Cardio Rate: regular rate Skin Rashes: no rashes Wounds: no wounds Neuro General: patient oriented x3, tone normal and no meningeal signs Cranial nerves: Yes CN's II-XII intact bilaterally Gait exam (Neuro): Normal gait present Extrem General: Yes normal to inspection Medical Decision Making Medical Decision Making MDM Narrative: 27-year-old female with past medical history of lupus, hypothyroid, presenting to ED requesting medication refill of her Hydrochloroquine & Synthroid. On exam NAD, nontoxic appearing, physical exam as noted above. Slight appreciable facial rash. Unchanged per patient. Will refill medications for 1 month. Recommended close PCP/rheumatology follow-up Results discussed with patient including worrisome signs and symptoms and strict return precautions, and when to return to the emergency department. They verbalized understanding and feel safe for discharge at this time. Differential Diagnosis Differential Diagnoses: The differential diagnosis associated with the presentation includes As above External Record Review External record reviewed: Inpatient record, Office record, Outpatient record, Prior outpatient labs, Prior outpatient radiology, Primary care record and Outside ED record Tests considered The following testing was considered but not selected: As above Discharge Plan Discharge Clinical Impression: Medication refill Patient Disposition: Home, Self-Care Instructions: Medicine Refill (ED) Additional Instructions: Your meds were refilled for 1 month. Please establish care with a primary care doctor and rheumatology Linda medicamentos fueron reabastecidos mayda 1 mes. Por favor establecer atenci?n con m?dico de atenci?n primaria y reumatolog?a. Prescriptions: New levothyroxine [Synthroid] 25 mcg tablet 25 mcg PO DAILY 30 Days Qty: 30 0RF hydroxychloroquine 200 mg tablet 200 mg PO DAILY 30 Days Qty: 30 0RF No Action hydroxychloroquine 200 mg tablet 200 mg PO DAILY 30 Days Qty: 30 0RF levothyroxine [Synthroid] 25 mcg tablet 25 mcg PO DAILY 30 Days Qty: 30 0RF metronidazole 500 mg tablet 500 mg PO BID Qty: 28 0RF hydroxychloroquine 200 mg tablet 200 mg PO DAILY Qty: 30 0RF levothyroxine [Synthroid] 25 mcg tablet 25 mcg PO DAILY Qty: 30 0RF hydroxychloroquine 200 mg tablet 200 mg PO DAILY Qty: 90 0RF levothyroxine 25 mcg capsule 25 mcg PO DAILY Qty: 90 0RF prednisone 20 mg tablet 40 mg PO DAILY Qty: 10 0RF Referrals: [facility] [Provider Group] [facility] Primary [facility] [Provider Group] [facility] Primary [facility] [Provider Group] Discharge Date/Time: 03/12/23 17:11 Print Language: Venezuelan
== END 2023-03-12 17:11 | disposition home or self-care (01) ==
PROVIDERS: Emergency Provider Emergency Medicine
DX: Z76.0 Encounter for issue of repeat prescription (principal)
CPT/HCPCS: 99282

== ENCOUNTER 2023-05-13 13:01 | Outpatient (AMB) | payer OTHER, SELFPAY ==
[2023-05-13 13:11] VITALS: BP 118/70; BMI 19.8
--- NOTE | 2023-05-13 13:11 | A.OFFVIS_ITS ---
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 Complaining of vulvovaginal itching associated with vaginal discharge with no foul smell Last Pap smear was many years ago [facility] Medical History Thai's disease Lupus Surgical History History of appendectomy Hx of section Family History Maternal Grandmother Diabetes Maternal Grandfather Diabetes Mother Hypothyroidism Social History Household Members: Significant Other Housing: Apartment Alcohol intake: never Patient Tobacco Use Status: Never used Tobacco Substance Use Type: Marijuana Current occupational status: employed Current occupation: [employer]. Sexual orientation: Straight/Heterosexual Gender identity: Female Female Reproductive History Menstrual Duration of menses: 3-5 days Date of last menstrual period: 05/07/23 control method: none Total pregnancies: 1 Full term: 1 Number of Living Children: 1 Review of Systems Const All systems reviewed & are unremarkable except as noted in HPI and below Card Reports as per HPI Resp Reports as per HPI GI Reports as per HPI and Reports no additional complaints Reports as per HPI Physical Exam Vital Signs: Last Vital Signs BP 118/70 05/13/23 13:11 BMI result Body Mass Index 19.8 Const General: cooperative, healthy appearing and comfortable Chest Chest palpation & inspection: normal inspection of the chest and normal palpation of entire chest wall Breast/axilla inspection: normal inspection of the breasts and normal inspection of the axillae Breast/axilla palpation: normal palpation of the breasts, normal palpation of the axillae and no axillary lymphadenopathy Resp Effort & Inspection: normal respiratory effort Auscultation: clear to auscultation bilaterally Percussion: percussion normal Cardio Palpation: normal PMI Rate: regular rate Rhythm: regular rhythm Heart sounds: no murmurs and no rubs Peripheral pulses: Peripheral pulses 2+ throughout GI Inspection: Yes normal to inspection Palpation (GI): Soft to palpation, nontender, no guarding, not rigid and No hepatosplenomegaly present Percussion: Yes normal to percussion Auscultation: normal bowel sounds Rectal Exam - Female: deferred General: Yes bladder normal to palpation External Female Exam: No lesion Speculum Exam - Vagina: normal appearance of the vagina, normal palpation, normal vaginal discharge and not erythematous Speculum Exam - Cervix: normal appearance of the cervix and normal palpation Bimanual exam- vagina & uterus: normal bimanual exam, normal palpation, uterine size normal, bladder normal to palpation, consistency normal and normal palpation Bimanual Exam- Adnexa, other: normal adnexae, no masses and no tenderness Assessment & Plan Assessment & Plan (1) Well woman exam: Code(s): Z01.419 - Encounter for gynecological examination (general) (routine) without abnormal findings Plan: Pap smear taken. Counseled the patient about the recommended dietary allowance of 1000 mg of Calcium & 600 IU of vitamin D. The patient was instructed to perform monthly self-breast exams , use a backup method for control till next IUD insertion and to call for any changes in menstrual patterns and to schedule an annual exam in a year; all questions answered and the patient verbalized understanding. (2) Vulvovaginitis: Code(s): N76.0 - Acute vaginitis Plan: GC/CT, Bacterial Vaginosis panel taken, Terazol 0.8% q.h.s. for 3 days was sent to the patient's pharmacy. The patient was instructed to call if symptoms don't improve in 48 hours. Medications: New terconazole 0.8% 1 appful vaginal BEDTIME 20 grams 0RF 3 days Coding Level of Care Code Est Pt Prev Care 18-39y(55386) Diagnoses Well woman exam Z01.419 Vulvovaginitis N76.0
== END 2023-05-13 13:59 | disposition home or self-care (01) ==
PROVIDERS: Visit Provider Obstetrics & Gynecology
DX: Z01.419 Encounter for gynecological examination (general) (routine) without abnormal findings (principal); N76.0 Acute vaginitis
CPT/HCPCS: 99395

== ENCOUNTER 2023-05-13 13:01 | Outpatient (REF) | payer OTHER, SELFPAY ==
[2023-05-13 18:49] LABS: CT PCR NOT DETECTED (Not Detect.); NG PCR NOT DETECTED (Not Detect.)
[2023-05-14 14:22] LABS: BV Int Neg Control Negative (Negative); BV Int Pos Control Positive (Positive)
[2023-05-24 00:48] LABS: HPV 16 RNA NOT DETECTED (NOT DETECTED); HPV mRNA E6/E7 rflx Detected (Not Detected)
== END 2023-05-13 13:02 | disposition home or self-care (01) ==
LOC: HO.LNP 13:01
PROVIDERS: Visit Provider Obstetrics & Gynecology
DX: Z01.419 Encounter for gynecological examination (general) (routine) without abnormal findings (principal); N76.0 Acute vaginitis; Z11.3 Encounter for screening for infections with a predominantly sexual mode of transmission
CPT/HCPCS: 0353U; 87480; 87510; 87624; 87625; 87660; 88142

== ENCOUNTER 2023-05-27 16:42 | Emergency (ER) | payer OTHER, SELFPAY ==
[2023-05-27 17:07] VITALS: BP 116/76; PULSE 94; RESP 18; TEMP 37; O2SAT 97; BMI 21.1
--- NOTE | 2023-05-27 17:07 | ED.GENADULT ---
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 is supposed to be on plaquenil 200mg and takes prednisone taper when she needs it. Comes in with joint pain, fatigue, rash on face and arms which occurs when her lupus flares. No fevers. complaint: lupus flare Onset (ago): week(s) (2) Radiation: non-radiation Severity: moderate Quality: aching Pain Consistency: intermittent Relieving factors: rest Exacerbating factors: none Associated symptoms: loss of appetite, malaise, rash and weakness Treatments prior to arrival: none Related Data Previous Rx's Medication Instructions Recorded hydroxychloroquine 200 mg tablet 200 mg PO DAILY 30 days #30 tabs 03/12/23 levothyroxine 25 mcg tablet 25 mcg PO DAILY 30 days #30 tabs 03/12/23 (Synthroid) terconazole 0.8 % vaginal cream 1 appful vaginal BEDTIME 3 days 05/13/23 #20 grams metronidazole 500 mg tablet 500 mg PO BID 7 days #14 tabs 05/14/23 hydroxychloroquine 200 mg tablet 200 mg PO DAILY #30 tabs 05/27/23 (Plaquenil) prednisone 10 mg tablets in a dose 10 mg PO DIRECTED #30 ea 05/27/23 pack Allergies Allergy/AdvReac Type Severity Reaction Status Date / Time No Known Allergies Allergy Verified 05/13/23 13:14 Review of Systems Review of Systems: Constitutional : No Fever, No Chills, pos fatigue ENT/Mouth : No sore throat, No Rhinorrhea Eyes: No Eye Pain, No Swelling, No Redness Cardiovascular : No Chest Pain, No SOB Respiratory : No Cough, No Sputum Gastrointestinal : No Nausea, No Vomiting, No Diarrhea, No abdominal Pain Genitourinary : No Dysuria, No Hematuria Musculoskeletal : pos joint pain, pos Myalgias, No Joint Swelling Skin : No Skin Lesions, positive skin rash Neuro : No Weakness, No Numbness, No Headache Psych : No Anxiety, No Depression Heme/Lymph: No Bruising, No Bleeding,No Lymphadenopathy All other systems reviewed and are negative [facility] Past Medical History Attestation statement: The following information was validated with the patient. Source: old records reviewed Medical History Thai's disease Lupus Surgical History History of appendectomy Hx of section Family History Family History Maternal Grandmother Diabetes Maternal Grandfather Diabetes Mother Hypothyroidism Social History Social History Household Members: Significant Other Housing: Apartment Alcohol intake: never Patient Tobacco Use Status: Never used Tobacco Substance Use Type: Marijuana Advance Directives: No Advance Directives Information Provided: No Current occupational status: employed Current occupation: [employer] Sexual orientation: Straight/Heterosexual Gender identity: Female Physical Exam ED Vital Signs: Vital Signs - 24 hr 05/27/23 17:07 05/27/23 19:27 Temperature 98.6 F 98.3 F Pulse Rate 94 86 Respiratory Rate 18 18 Blood Pressure 116/76 116/74 Pulse Oximetry 97 100 Oxygen Delivery Method Room Air Room Air BMI result Body Mass Index 21.1 Appearance: Alert. Oriented X3. No acute distress. Eyes: Pupils equal, round and reactive to light. ENT: Pharynx normal. Malar rash on both cheek areas Neck: Normal inspection. Neck supple. CVS: Normal heart rate and rhythm. Pulses normal. Respiratory: No respiratory distress. Breath sounds normal. Abdomen: Soft and nontender. Skin: Skin warm and dry. Normal skin color. Normal skin turgor. Extremities: No lower extremity edema. No calf ttp Rash noted on both upper arms scaly red rash not warm or hot to touch Neuro: Oriented X 3. No motor deficit. No sensory deficit. Course Course Course Narrative: RME- 27 year old female presents for evaluation of body aches and a sore throat Medical Decision Making Medical Decision Making MDM Narrative: 27 yo female with PMH of lupus here with c/o running out of her plaquenil and prednisone x 2 weeks as she does not have a PCP and no appointment x 2 weeks - she has joint pain and rash. She has no chest pain/dyspnea. She is not toxic but clearly has joint pain and malar rash with UE rash no signs of cellulitis. She has appointment on 06/18. At this time given concern her disease could worsen or cause renal issues she already has hematuria will start back on her home meds and prednisone taper. Benefits outweigh risks. Differential Diagnosis Differential Diagnoses: The differential diagnosis associated with the presentation includes lupus, joint pain Admission/Observation Consideration of admission/observation: Escalation of care including admission/observation considered VS stable, 2 weeks of symptoms, labs trending around baseline can be managed as outpatient Lab Data MDM Lab Attestation statement: I reviewed the patient's lab results. 05/27/23 18:56 05/27/23 18:56 Labs: Lab Results 05/27/23 05/27/23 Range/Units 18:55 18:56 WBC 3.2 L (4.8-10.8) X10*3/uL RBC 3.90 L (4.20-5.50) X10*6/uL Hgb 12.1 (12.0-16.0) g/dl Hct 36.2 L (37.0-47.0) % MCV 92.8 (80.0-98.0) fL MCH 31.0 (27.0-33.0) pg MCHC 33.4 (31.0-35.0) g/dl RDW 12.8 (11.0-16.0) % Plt Count 203 (160-400) X10*3/uL MPV 10.0 (9.4-12.3) fL Immature Gran % (Auto) 0.3 (0.0-0.4) % Neut % (Auto) 63.4 (45-73) % Lymph % (Auto) 25.7 (20-40) % [place] % (Auto) 10.0 (2-11) % Eos % (Auto) 0.3 (0-4) % Baso % (Auto) 0.3 (0-2) % Lymph # (Auto) 0.8 L (1.2-4.9) X10*3/uL [place] # (Auto) 0.3 (0.1-1.2) X10*3/uL Eos # (Auto) 0.0 (0.0-0.4) X10*3/uL Baso # (Auto) 0.0 (0.0-0.2) X10*3/uL Abs Immat Gran (auto) 0.01 (0.00-0.03) X10*3/uL Absolute Neuts (auto) 2.0 (2.0-8.3) x10*3/uL Absolute Nucleated RBC 0.000 (0.0-0.012) X10*3/uL Nucleated RBC % (auto) 0.0 (0.0-0.2) /100WBC ESR 18 (0-20) MM/HR Sodium 139 (135-145) mmol/L Potassium 3.9 (3.3-5.1) mmol/L Chloride 109 H (96-108) mmol/L Carbon Dioxide 25 (22-29) mmol/L Anion Gap 9 L (12-20) BUN 14 (9-16) mg/dL Creatinine 0.78 (0.5-1.4) mg/dL Estim Creat Clear Calc 95.7 Estimated GFR > 60 Random Glucose 138 H (60-115) mg/dL Calcium 9.0 D (8.4-10.2) mg/dL Total Bilirubin 0.3 (0.0-1.0) mg/dL AST 37 H (5-31) U/L ALT 34 H (0-31) U/L Alkaline Phosphatase 55 (39-117) U/L C-Reactive Protein < 0.10 (< or = 0.50) mg/dL Total Protein 7.2 (6.5-8.0) g/dL Albumin 3.9 (3.5-5.0) g/dL Lipase 16 (8-78) U/L Urine Color Dark Yellow Urine Appearance Clear Urine pH 6.5 (5.0-9.0) Ur Specific [place] >= 1.030 H (1.005-1.025) Urine Protein 300 (3+) H (Neg-Trace) mg/dL Urine Glucose (UA) Negative (Negative) mg/dL Urine Ketones 15 (Negative) mg/dL Urine Blood Moderate (2+) H (Negative) Urine Nitrite Negative (Negative) Ur Leukocyte Esterase Small (1+) H (Negative) Urine RBC >20 H (0-2) /HPF Urine WBC 6-10 H (0-5) /HPF Ur Squamous Epith Cells 6-10 (0-2) /HPF Urine Bacteria 1+ (None Seen) Hyaline Casts 0-2 (0-2) /LPF Influenza Type A (PCR) NEGATIVE (Negative) Influenza Type B (PCR) NEGATIVE (Negative) RSV RNA Qual (PCR) NEGATIVE (Negative) SARS-CoV-2 RNA (RT-PCR) NEGATIVE (Negative) S. pyogenes GrpA HAZEL Negative (Negative) External Record Review External record reviewed: Inpatient record Prescription Management I considered prescription management with: Other Discharge Plan Discharge Clinical Impression: Lupus Patient Disposition: Home, Self-Care Instructions: Lupus Erythematosus (DC) Additional Instructions: return for fevers, worsening pain, yellow eyes, unable to urinate. you need to keep your appointment in June - you need your kidneys and liver rechecked at that time. Please do not miss appointment. Regresa por fiebre, dolor que empeora, ojos amarillos, incapacidad para orinar. debe acudir a aden kulwinder en enero; necesita que le vuelvan a examinar los ri?ones y el h?gado en beti momento. Por favor no falte a la kulwinder. Prescriptions: New hydroxychloroquine [Plaquenil] 200 mg tablet 200 mg PO DAILY Qty: 30 0RF prednisone 10 mg tablets,dose pack 10 mg PO DIRECTED Qty: 30 0RF Rx Instructions: see taper instructions 40mg every day for 3 days, 30mg every day for 3 days, 20mg every day for 3 days, 10mg every day for 3 days. No Action metronidazole 500 mg tablet 500 mg PO BID 7 Days Qty: 14 0RF levothyroxine [Synthroid] 25 mcg tablet 25 mcg PO DAILY 30 Days Qty: 30 0RF hydroxychloroquine 200 mg tablet 200 mg PO DAILY 30 Days Qty: 30 0RF terconazole 0.8 % cream 1 appful vaginal BEDTIME 3 Days Qty: 20 0RF Print Language: Pashto
[2023-05-27 19:08] LABS: MANUAL DIFF FLAG NO
[2023-05-27 19:11] LABS: Basophils Percent Auto 0.3 % (0-2); Eosinophils Percent Auto 0.3 % (0-4); Hematocrit 36.2 % (37.0-47.0); Hemoglobin 12.1 g/dl (12.0-16.0); Imm Gran Abs Auto 0.01 X10*3/uL (0.00-0.03); Imm Gran Pct Auto 0.3 % (0.0-0.4); Lymphocytes Absolute Auto 0.8 X10*3/uL (1.2-4.9); Lymphocytes Percent Auto 25.7 % (20-40); Mean Corpuscular HGB Conc 33.4 g/dl (31.0-35.0); Mean Corpuscular Volume 92.8 fL (80.0-98.0); Monocytes Absolute Auto 0.3 X10*3/uL (0.1-1.2); Neutrophils Percent Auto 63.4 % (45-73); Platelet Count 203 X10*3/uL (160-400); Red Cell Distribution Width 12.8 % (11.0-16.0); White Blood Count 3.2 X10*3/uL (4.8-10.8)
[2023-05-27 19:12] LABS: Appearance Urine Clear; Color Urine Dark Yellow; Glucose Urine UA Negative (Negative); Leukocyte Esterase Urine Small (1+) (Negative); Nitrite Urine Negative (Negative); PH 6.5 (5.0-9.0); Specific Gravity - Urine >= 1.030 (1.005-1.025); UMIC TRIGGER UACC YES; Urine Blood Moderate (2+) (Negative); Urine Ketones 15 mg/dL (Negative); Urine Protein 300 (3+) mg/dL (Neg-Trace)
[2023-05-27 19:14] LABS: Bacteria Urine 1+ (None Seen); Hyaline Casts Urine 0-2 /LPF (0-2); RBC Urine >20 /HPF (0-2); UACC Culture Trigger YES
[2023-05-27 19:24] LABS: Alanine Aminotransferase 34 U/L (0-31); Albumin Level 3.9 g/dL (3.5-5.0); Alkaline Phosphatase 55 U/L (39-117); Anion Gap 9 (12-20); Aspartate Amino Transferase 37 U/L (5-31); Bilirubin Total 0.3 mg/dL (0.0-1.0); Blood Urea Nitrogen 14 mg/dL (9-16); C Reactive Protein < 0.10 mg/dL (< or = 0.50); Carbon Dioxide 25 mmol/L (22-29); Chloride 109 mmol/L (96-108); Creatinine Clr Calc Pharmacy 95.7; Estimated Glomerular Filt Rate > 60; Glucose Random 138 mg/dL (60-115); Lipase 16 U/L (8-78); Potassium 3.9 mmol/L (3.3-5.1); Sodium 139 mmol/L (135-145); Total Protein 7.2 g/dL (6.5-8.0)
[2023-05-27 19:27] VITALS: BP 116/74; PULSE 86; RESP 18; TEMP 36.8; O2SAT 100
[2023-05-27 19:28] LABS: IDNOW Serial# 08D9AD1C; Strep A Nucleic Acid Negative (Negative)
[2023-05-27 19:46] LABS: Influenza A PCR NEGATIVE (Negative); Influenza B PCR NEGATIVE (Negative); Resp Syncy Virus RNA Qual PCR NEGATIVE (Negative); SARS COV2 PCR INHOUSE NEGATIVE (Negative)
[2023-05-27 19:50] LABS: Erythrocyte Sedimentation Rate 18 MM/HR (0-20)
== END 2023-05-27 21:40 | disposition home or self-care (01) ==
PROVIDERS: Physician Assistant; Emergency Provider Emergency Medicine
DX: M32.9 Systemic lupus erythematosus, unspecified (principal); M79.10 Myalgia, unspecified site; Z79.899 Other long term (current) drug therapy; Z20.822 Contact with and (suspected) exposure to COVID-19; Z20.828 Contact with and (suspected) exposure to other viral communicable diseases
CPT/HCPCS: 0241U; 36415; 80053; 81001; 83690; 85025; 85652; 86140; 87086; 87147; 87651; 99283

== ENCOUNTER 2023-06-23 12:09 | Outpatient (REF) | payer OTHER, SELFPAY ==
[2023-06-24 08:06] LABS: Syphilis Screen Nonreactive (Nonreactive)
[2023-06-24 08:07] LABS: HBsAGNum1 0.34 S/CO (0.00-0.99); HIV AB/AG Nonreactive (Nonreactive); HIV Num 1 0.05 S/CO (0.00-0.99); Hepatitis B Surface Antigen Negative (Negative)
[2023-06-24 10:00] LABS: ~HepC Num1 0.18 S/CO (0.00-0.79); ~Hepatitis C Antibody Nonreactive (Nonreactive)
== END 2023-06-23 12:10 | disposition home or self-care (01) ==
LOC: HO.LAB 12:09
PROVIDERS: PCP Internal Medicine; Visit Provider Obstetrics & Gynecology
DX: Z20.2 Contact with and (suspected) exposure to infections with a predominantly sexual mode of transmission (principal)
CPT/HCPCS: 36415; 86780; 86803; 87340; 87389

== ENCOUNTER 2023-06-30 11:50 | Outpatient (REF) | payer OTHER, SELFPAY | END 2023-06-30 11:51 | disposition home or self-care (01) | LOC: HO.LNP 11:50 | PROVIDERS: PCP Internal Medicine; Visit Provider Obstetrics & Gynecology | DX: R87.810 Cervical high risk human papillomavirus (HPV) DNA test positive (principal); R87.610 Atypical squamous cells of undetermined significance on cytologic smear of cervix (ASC-US) | CPT/HCPCS: 57454; 81025; 88305 ==

== ENCOUNTER 2023-06-30 11:50 | Outpatient (AMB) | payer OTHER, SELFPAY ==
--- NOTE | 2023-06-30 12:07 | MHC.OFFVIS ---
Intake Vital Signs 06/30/23 12:14 Height 5 ft 5 in Weight 125 lb 10.616 oz BMI 20.9 BP 110/60 Intake Visit Reasons: Colposcopy Laydown Machine Operator Required: Yes Laydown Machine Operator Language: Corn Husker Machine Operator Name: Reyna CHACON Information Interpreted: non-clinical & clinical Putaway Driver: Putaway Driver Present (Reyna CHACON) Accompanied by: Self / Same As Patient Allergies No Known Allergies Allergy (Verified 06/30/23 12:15) Is last menstrual period known: Yes Last menstrual period: 06/07/23 HPI HPI Comments History of Present Illness Details Presenting for colposcopy for abnormal Pap smear, ascus/HPV E6/E7 positive, HPV 16/18/45 negative PFSH Medical History Thai's disease Lupus Surgical History History of appendectomy Hx of section Family History Maternal Grandmother Diabetes Maternal Grandfather Diabetes Mother Hypothyroidism Social History Household Members: Significant Other Housing: Apartment Alcohol intake: never Patient Tobacco Use Status: Never used Tobacco Substance Use Type: Marijuana Current occupational status: employed Current occupation: [employer] Sexual orientation: Straight/Heterosexual Gender identity: Female Female Reproductive History Menstrual Date of last menstrual period: 06/07/23 Review of Systems Const All systems reviewed & are unremarkable except as noted in HPI and below Reports as per HPI and Reports no additional complaints GI Reports no additional complaints Reports no additional complaints Office Procedures Colposcopy Before the procedure was started discussed with the patient the procedure, alternatives & all the risks associated with the procedure (bleeding, infection, injury to vagina, bladder, vessels, possible need for transfusion with all its risks) then patient signed the consent Pap smear = ascus/HPV positive Urine test done in the office was negative Speculum inserted, acetic acid used Colposcopy done Transformation zone seen, acetowhite lesions identified at 12+6 o?clock, cervical biopsies taken from 12+6 o?clock, ECC done afterwards. Vaginoscopy of the upper vagina showed no evidence of any aceto-white lesions Monsel solution used for hemostasis. The patient tolerated well . At the end the patient was instructed to call if temp>100.4, abdominal pain, n/v, bleeding; The patient was given the following instructions: nothing per vagina, no intercourse or bath tub use. All questions answered the patient verbalized understanding. Instructed the patient to make an appointment in 2 weeks for follow-up This note was generated with a voice recognition program. Some errors may have been overlooked during the review of this note. Sometimes these errors may affect the content or meaning of a given sentence. 02139-[id number] of cervix including upper vagina with biopsy and ECC Procedure code (CPT) selection complete Assessment & Plan Assessment & Plan (1) ASCUS with positive high risk HPV cervical: Code(s): R87.610 - Atypical squamous cells of undetermined significance on cytologic smear of cervix (ASC-US); R87.810 - Cervical high risk human papillomavirus (HPV) DNA test positive Plan: Discussed with the patient the result of her abnormal pap, its significance, risk of progression, persistence, and regression if untreated. the false positive/negative rate being a screening test, the indication for diagnostic test -colposcopy, biopsy, endocervical curettage. The patient verbalized understanding and agreed with the plan, all questions answered. Colposcopy done, see procedure note Orders: Orders AMB Colposcopy Today R87.610 - Atypical squamous cells of undetermined significance on cytologic smear of cervix (ASC-US), R87.810 - Cervical high risk human papillomavirus (HPV) DNA test positive Coding Level of Care Code Procedure Only Diagnoses ASCUS with positive high risk HPV cervical R87.610; R87.810 CPT Codes Colposcopy - CPT: 08809-Wsblscosu of cervix including upper vagina with biopsy and ECC ([id number])
[2023-06-30 12:14] VITALS: BP 110/60; BMI 20.9
== END 2023-06-30 12:32 | disposition home or self-care (01) ==
LOC: HO.HWS 11:50
PROVIDERS: PCP Internal Medicine; Visit Provider Obstetrics & Gynecology
DX: R87.610 Atypical squamous cells of undetermined significance on cytologic smear of cervix (ASC-US) (principal); R87.810 Cervical high risk human papillomavirus (HPV) DNA test positive; Z32.02 Encounter for pregnancy test, result negative
CPT/HCPCS: 57454

== ENCOUNTER 2023-07-08 11:40 | Outpatient (AMB) | payer OTHER, SELFPAY ==
--- NOTE | 2023-07-08 11:52 | MHC.OFFVIS ---
Intake Vital Signs 07/08/23 11:57 Height 5 ft 5 in Weight 125 lb 10.616 oz BMI 20.9 BP 112/66 Intake Visit Reasons: Paragard insertion Hat Body Inspector Required: Yes Hat Body Inspector Language: Events And Promotions Assistant Name: Reyna CHACON Information Interpreted: non-clinical & clinical Child Center Assistant: Child Center Assistant Present (Reyna Travis CHACON) Accompanied by: Self / Same As Patient Allergies No Known Allergies Allergy (Verified 07/08/23 11:58) Is last menstrual period known: Yes Last menstrual period: 07/06/23 HPI HPI Comments History of Present Illness Details Presenting for ParaGard IUD insertion, LMP was 2 days ago PFSH Medical History Thai's disease Lupus Surgical History History of appendectomy Hx of section Family History Maternal Grandmother Diabetes Maternal Grandfather Diabetes Mother Hypothyroidism Social History Household Members: Significant Other Housing: Apartment Alcohol intake: never Patient Tobacco Use Status: Never used Tobacco Substance Use Type: Marijuana Current occupational status: employed Current occupation: [employer] Sexual orientation: Straight/Heterosexual Gender identity: Female Female Reproductive History Menstrual Date of last menstrual period: 07/06/23 Physical Exam Vital Signs: Last Vital Signs BP 112/66 07/08/23 11:57 BMI result Body Mass Index 20.9 Office Procedures IUD Insert/Removal Details Details: The patient is presenting for Paraguard IUD insertion. Her last menstrual period was within the last 5 days, Urine test was done in the office and was negative; All the contraindications were excluded. The following possible complications were discussed with the patient: Intrauterine , Ectopic , Sepsis, Pelvic Infection, Irregular Bleeding, Perforation, Expulsion. The possible adverse effects were discussed with the patient including but not limited to: increased uterine bleeding, dysmenorrhea , others Alternative options were discussed with the patient including but not limited: control pills, patch, NuvaRing, Depo-medroxyprogesterone acetate, Nexplanon, copper IUD, sterilization, vasectomy, others The procedure was explained in detail to patient , at the end patient signed the informed consent obtained. Urine test was done in the office and was negative A no touch technique was used throughout the procedure. A speculum was placed into vagina and cervix was cleaned with betadine). A tenaculum was placed. A plastic sound was advanced through the external and internal os until it reached the fundus of the uterus, the depth was 7 cm. The sound was then withdrawn. The ParaGard IUD was loaded in a sterile manner and advanced into position. The string was visualized and cut to 3 cm. Tenaculum site hemostatic. All instruments removed from vagina. Patient tolerated the procedure well. NO complications were noted. Patient was instructed to call for fever over 100.4, significant pain unrelieved by Motrin, IUD expulsion, heavy bleeding, or abnormal discharge. In addition, the following clinical considerations were discussed with the patient to call for removal: Unexplained fever , or suspected , Pelvic pain or pain during sex ,HIV positive seroconversion in herself or her partner , Possible exposure to sexually transmitted infections Unusual vaginal discharge or genital sores , severe vaginal bleeding or bleeding that lasts a long time, or if she misses a menstrual period, Inability to feel IUD s threads Counseled the patient that the IUD does not protect against STI's, recommended use of condoms for the first 7 days post insertion and explained to the patient that condoms are recommended for patients at risk for sexually transmitted infections. Follow up appointment made for 6 weeks following insertion. This note was generated with a voice recognition program. Some errors may have been overlooked during the review of this note. Sometimes these errors may affect the content or meaning of a given sentence. [id number] Insertion Procedure code (CPT) selection complete Office Meds ParaGard T 380A 380 square mm intrauterine device Performing Provider: Ludwig Merino MD Performing Location: [facility] – [place] [facility] Documented (not given) by: Ludwig Merino MD on 07/08/23 12:14 Dose Route Admin Location Dispensed Lot Number Expiration Date [facility] [place] [employer] 1 device intrauterine ea Assessment & Plan Assessment & Plan (1) Encounter for IUD insertion: Code(s): Z30.430 - Encounter for insertion of intrauterine contraceptive device Plan: ParaGard IUD inserted, see procedure note Orders: Orders AMB IUD Insertion/Removal - Practice Supplied Today Z30.430 - Encounter for insertion of intrauterine contraceptive device Medications: New ParaGard T 380A (copper) 1 device intrauterine ONCE 1 ea 0RF IUD insertion NS Z30.430 - Encounter for insertion of intrauterine contraceptive device Coding Level of Care Code Procedure Only Diagnoses Encounter for IUD insertion Z30.430 CPT Codes Details - CPT: 78263-ZCN Insertion ([id number])
[2023-07-08 11:57] VITALS: BP 112/66; BMI 20.9
== END 2023-07-08 12:18 | disposition home or self-care (01) ==
LOC: HO.HWS 11:40
PROVIDERS: PCP Internal Medicine; Visit Provider Obstetrics & Gynecology
DX: Z30.430 Encounter for insertion of intrauterine contraceptive device (principal)
CPT/HCPCS: 58300

== ENCOUNTER → 2023-07-08 11:40 | Outpatient (BNVA) | payer OTHER, SELFPAY | PROVIDERS: PCP Internal Medicine; Visit Provider Obstetrics & Gynecology | DX: Z30.430 Encounter for insertion of intrauterine contraceptive device (principal) | CPT/HCPCS: 58300; 81025; J7300 ==

== ENCOUNTER 2023-07-11 18:43 | Emergency (ER) | payer OTHER, SELFPAY ==
[2023-07-11 19:42] VITALS: BP 134/89; PULSE 103; RESP 18; TEMP 36.8; O2SAT 99; BMI 21.2
--- NOTE | 2023-07-11 19:52 | ED.GENADULT ---
HPI - General Adult General Chief complaint: Skin/Abscess/Foreign Body Stated complaint: chest and back rash Time Seen by Provider: 07/11/23 21:05 Source: patient, old records reviewed and site interpreter Mode of arrival: ambulatory Limitations: no limitations History of Present Illness HPI narrative: 27 yo female with PMH of lupus currently on plaquenil has been having confluent pruritic hives across face and back along chest - her joints are swollen she is due to see rheum hopefully in october her PCP refuses per her reports to start prednisone. she is able to get plaquenil Rx now MD complaint: rash Onset (ago): week(s) (1) Location: face, chest, back, left, right and upper extremity Radiation: non-radiation Severity: moderate Quality: other (pruritic) Pain Consistency: constant Relieving factors: none Exacerbating factors: none Associated symptoms: other (hx of similar episodes with lupus) Treatments prior to arrival: none Related Data Previous Rx's Medication Instructions Recorded levothyroxine 25 mcg tablet 25 mcg PO DAILY 30 days #30 tabs 03/12/23 (Synthroid) terconazole 0.8 % vaginal cream 1 appful vaginal BEDTIME 3 days 05/13/23 #20 grams metronidazole 500 mg tablet 500 mg PO BID 7 days #14 tabs 05/14/23 hydroxychloroquine 200 mg tablet 200 mg PO DAILY #30 tabs 05/27/23 (Plaquenil) levothyroxine 25 mcg tablet 25 mcg PO DAILY #30 tabs 05/27/23 (Synthroid) prednisone 10 mg tablets in a dose 10 mg PO DIRECTED #30 ea 05/27/23 pack mupirocin 2 % topical ointment 1 appl topical BID 7 days #15 grams 07/11/23 prednisone 10 mg tablet 10 mg PO DIRECTED #30 tabs 07/11/23 Allergies Allergy/AdvReac Type Severity Reaction Status Date / Time No Known Allergies Allergy Verified 07/11/23 19:42 Review of Systems Review of Systems: Constitutional : No Fever, No Chills ENT/Mouth : No sore throat, No Rhinorrhea Eyes: No Eye Pain, No Swelling, No Redness Cardiovascular : No Chest Pain, No SOB Respiratory : No Cough, No Sputum Gastrointestinal : No Nausea, No Vomiting, No Diarrhea, No abdominal Pain Genitourinary : No Dysuria, No Hematuria Musculoskeletal : pos joint pain, No Myalgias, No Joint Swelling Skin : pos Skin Lesions, positive skin rash Neuro : No Weakness, No Numbness, No Headache Psych : No Anxiety, No Depression Heme/Lymph: No Bruising, No Bleeding,No Lymphadenopathy Endocrine : No Polyuria, No Polydipsia All other systems reviewed and are negative PENDING SALE TO [facility] Past Medical History Attestation statement: The following information was validated with the patient. Source: old records reviewed Medical History Thai's disease Lupus Surgical History History of appendectomy Hx of section Family History Family History Maternal Grandmother Diabetes Maternal Grandfather Diabetes Mother Hypothyroidism Social History Social History Household Members: Significant Other Housing: Apartment Alcohol intake: never Patient Tobacco Use Status: Never used Tobacco Substance Use Type: Marijuana Current occupational status: employed Current occupation: [employer] Sexual orientation: Straight/Heterosexual Gender identity: Female Physical Exam ED Vital Signs: Vital Signs - 24 hr 07/11/23 19:42 07/11/23 20:47 Temperature 98.3 F 99.1 F Pulse Rate 103 H 84 Respiratory Rate 18 16 Blood Pressure 134/89 137/91 H Pulse Oximetry 99 99 Oxygen Delivery Method Room Air Room Air BMI result Body Mass Index 21.2 Appearance: Alert. Oriented X3. No acute distress. Eyes: Pupils equal, round and reactive to light. ENT: Pharynx normal. malar type rash to face on both cheeks but spotty not confluent no petechia Neck: Normal inspection. Neck supple. CVS: Normal heart rate and rhythm. Pulses normal. Respiratory: No respiratory distress. Breath sounds normal. Abdomen: Soft and nontender. Skin: Skin warm and dry. Normal skin color. across chest back and both arms confluent pink raised patches on R upper arm one area is excoriated open but no abscess, purulence or signs of infection Extremities: No lower extremity edema. No calf ttp Neuro: Oriented X 3. No motor deficit. No sensory deficit. Course Course Course Narrative: RME performed by Pamela Webb PA-C. Patient is a 27 year old assigned female at presenting to the emergency department with bilateral hand swelling, pain, and diffuse rash. Patient does have a history of lupus. Detailed physical exam and review of systems are deferred to the supervisor type photography. [Labs/imaging/swabs] ordered. Patient placed back in the waiting room pending room availability and results. Medications Administered Discontinued Medications Generic Name Dose Route Start Last Admin Trade Name Jony PRN Reason Stop Dose Admin Methylprednisolone Sodium Succinate 125 mg 07/11/23 21:22 07/11/23 21:38 Methylprednisolone Sod Succ 125 Mg/2 Ml Vial IVPUSH 07/11/23 21:23 125 mg ONCE ONE Administration Medical Decision Making Medical Decision Making [facility] Narrative: 27 yo female with PMH of lupus here with confluent pruritic rash and painful joints she is already on plaquenil no fevers or chest pain - labs reassuring at baseline normal kidney function ESR and CRP negative at this time she is hopefully going to see rheum but based off symptoms and rash she will need steroid taper and continue her prednisone. she is aware, no signs of cellulitis, mupirocin Rx for open lesions Differential Diagnosis Differential Diagnoses: The differential diagnosis associated with the presentation includes lupus exacerbation Admission/Observation Consideration of admission/observation: Escalation of care including admission/observation considered no chest pain, VS stable, kidney function normal, can be managed as outpatient Lab Data [facility] Lab Attestation statement: I reviewed the patient's lab results. 07/11/23 20:15 07/11/23 20:15 Labs: Lab Results 07/11/23 Range/Units 20:15 WBC 2.8 L (4.8-10.8) X10*3/uL RBC 3.46 L (4.20-5.50) X10*6/uL Hgb 10.9 L (12.0-16.0) g/dl Hct 31.0 L (37.0-47.0) % MCV 89.6 (80.0-98.0) fL MCH 31.5 (27.0-33.0) pg MCHC 35.2 H (31.0-35.0) g/dl RDW 12.4 (11.0-16.0) % Plt Count 179 (160-400) X10*3/uL MPV 10.1 (9.4-12.3) fL Immature Gran % (Auto) 0.4 (0.0-0.4) % Neut % (Auto) 56.6 (45-73) % Lymph % (Auto) 29.2 (20-40) % Bryan % (Auto) 11.3 H (2-11) % Eos % (Auto) 2.1 (0-4) % Baso % (Auto) 0.4 (0-2) % Lymph # (Auto) 0.8 L (1.2-4.9) X10*3/uL Bryan # (Auto) 0.3 (0.1-1.2) X10*3/uL Eos # (Auto) 0.1 (0.0-0.4) X10*3/uL Baso # (Auto) 0.0 (0.0-0.2) X10*3/uL Abs Immat Gran (auto) 0.01 (0.00-0.03) X10*3/uL Absolute Neuts (auto) 1.6 L (2.0-8.3) x10*3/uL Absolute Nucleated RBC 0.000 (0.0-0.012) X10*3/uL Nucleated RBC % (auto) 0.0 (0.0-0.2) /100WBC ESR 16 (0-20) MM/HR Sodium 140 (135-145) mmol/L Potassium 3.9 (3.3-5.1) mmol/L Chloride 109 H (96-108) mmol/L Carbon Dioxide 26 (22-29) mmol/L Anion Gap 9 L (12-20) BUN 17 H (9-16) mg/dL Creatinine 0.85 (0.5-1.4) mg/dL Estim Creat Clear Calc 87.8 Estimated GFR > 60 Random Glucose 98 (60-115) mg/dL Calcium 8.3 L D (8.4-10.2) mg/dL Total Bilirubin 0.2 (0.0-1.0) mg/dL AST 23 (5-31) U/L ALT 15 (0-31) U/L Alkaline Phosphatase 53 (39-117) U/L C-Reactive Protein < 0.04 (< or = 0.50) mg/dL Total Protein 6.0 L (6.5-8.0) g/dL Albumin 3.1 L (3.5-5.0) g/dL External Record Review External record reviewed: Inpatient record Prescription Management I considered prescription management with: Other Discharge Plan Discharge Clinical Impression: Exacerbation of systemic lupus Patient Disposition: Home, Self-Care Instructions: Lupus Erythematosus (DC) Additional Instructions: continue your plaquenil. return for worsening rash, chest pain, difficulty urinating, increased redness, swelling, fevers or any other complaints. follow up and call the chip mucker to confirm your appointment contin?a con tu plaquenil. Regrese si el sarpullido empeora, dolor en el pecho, dificultad para orinar, aumento del enrojecimiento, hinchaz?n, fiebre o cualquier otra queja. marybel un seguimiento y llame al reumat?logo para confirmar aden kulwinder Prescriptions: New mupirocin 2 % ointment 1 appl topical BID 7 Days Qty: 15 0RF prednisone 10 mg tablet 10 mg PO DIRECTED Qty: 30 0RF Rx Instructions: see taper instructions 40mg for 3 days, 30mg for 3 days, 20mg for 3 days, 10mg for 3 days No Action metronidazole 500 mg tablet 500 mg PO BID 7 Days Qty: 14 0RF levothyroxine [Synthroid] 25 mcg tablet 25 mcg PO DAILY 30 Days Qty: 30 0RF hydroxychloroquine [Plaquenil] 200 mg tablet 200 mg PO DAILY Qty: 30 0RF prednisone 10 mg tablets,dose pack 10 mg PO DIRECTED Qty: 30 0RF Rx Instructions: see taper instructions 40mg every day for 3 days, 30mg every day for 3 days, 20mg every day for 3 days, 10mg every day for 3 days. levothyroxine [Synthroid] 25 mcg tablet 25 mcg PO DAILY Qty: 30 0RF terconazole 0.8 % cream 1 appful vaginal BEDTIME 3 Days Qty: 20 0RF Print Language: Azeri
[2023-07-11 20:20] LABS: Basophils Percent Auto 0.4 % (0-2); Eosinophils Absolute Auto 0.1 X10*3/uL (0.0-0.4); Eosinophils Percent Auto 2.1 % (0-4); Hemoglobin 10.9 g/dl (12.0-16.0); Imm Gran Abs Auto 0.01 X10*3/uL (0.00-0.03); Imm Gran Pct Auto 0.4 % (0.0-0.4); Lymphocytes Absolute Auto 0.8 X10*3/uL (1.2-4.9); Lymphocytes Percent Auto 29.2 % (20-40); MANUAL DIFF FLAG NO; Mean Corpuscular HGB Conc 35.2 g/dl (31.0-35.0); Mean Corpuscular Hemoglobin 31.5 pg (27.0-33.0); Mean Corpuscular Volume 89.6 fL (80.0-98.0); Mean Platelet Volume 10.1 fL (9.4-12.3); Monocytes Absolute Auto 0.3 X10*3/uL (0.1-1.2); Monocytes Percent Auto 11.3 % (2-11); Neutrophils Absolute Auto 1.6 x10*3/uL (2.0-8.3); Neutrophils Percent Auto 56.6 % (45-73); Platelet Count 179 X10*3/uL (160-400); Red Blood Count 3.46 X10*6/uL (4.20-5.50); Red Cell Distribution Width 12.4 % (11.0-16.0); White Blood Count 2.8 X10*3/uL (4.8-10.8)
[2023-07-11 20:36] LABS: Alanine Aminotransferase 15 U/L (0-31); Albumin Level 3.1 g/dL (3.5-5.0); Alkaline Phosphatase 53 U/L (39-117); Anion Gap 9 (12-20); Aspartate Amino Transferase 23 U/L (5-31); Bilirubin Total 0.2 mg/dL (0.0-1.0); Blood Urea Nitrogen 17 mg/dL (9-16); C Reactive Protein < 0.04 mg/dL (< or = 0.50); Calcium 8.3 mg/dL (8.4-10.2); Carbon Dioxide 26 mmol/L (22-29); Chloride 109 mmol/L (96-108); Creatinine Clr Calc Pharmacy 87.8; Estimated Glomerular Filt Rate > 60; Glucose Random 98 mg/dL (60-115); Potassium 3.9 mmol/L (3.3-5.1); Sodium 140 mmol/L (135-145)
[2023-07-11 20:47] VITALS: BP 137/91; PULSE 84; RESP 16; TEMP 37.3; O2SAT 99
[2023-07-11 20:57] LABS: Erythrocyte Sedimentation Rate 16 MM/HR (0-20)
[2023-07-11] MEDS: methylPREDNISolone Sod Succ 125 MG/2 ML VIAL IVPUSH (21:38)
[2023-07-11 21:59] VITALS: BP 126/88; PULSE 82; RESP 16; TEMP 36.8; O2SAT 99
== END 2023-07-11 22:06 | disposition home or self-care (01) ==
PROVIDERS: Physician Assistant Medical; Emergency Provider Emergency Medicine
DX: M32.9 Systemic lupus erythematosus, unspecified (principal); Z79.899 Other long term (current) drug therapy
CPT/HCPCS: 36415; 80053; 85025; 85652; 86140; 96374; 99284; J2930

== ENCOUNTER 2023-07-24 10:46 | Outpatient (AMB) | payer OTHER, SELFPAY ==
[2023-07-24 10:53] VITALS: BP 120/80; BMI 21.1
--- NOTE | 2023-07-24 10:53 | MHC.OFFVIS ---
Intake Vital Signs 07/24/23 10:53 Height 5 ft 5 in Weight 127 lb BMI 21.1 BP 120/80 Intake Visit Reasons: colpo results County Commissioner Required: Yes County Commissioner Language: Environmental Compliance Officer Name: Reyna Robles Allergies No Known Allergies Allergy (Verified 07/24/23 10:53) Is last menstrual period known: Yes Last menstrual period: 07/06/23 Post menopausal: No HPI HPI Comments History of Present Illness Details Presenting post colpo for follow-up. The patient is doing well with no complaints. The pathology showed the following: A. Endocervix, curettage: Endocervical glandular and squamous epithelium with inflammation and reactive changes; negative for dysplasia. B. Cervix, 6:00, biopsy: Squamous and endocervical glandular mucosa with inflammation and reactive changes; negative for dysplasia. C. Cervix, 12:00, biopsy: Squamous and endocervical glandular mucosa with focal reactive changes; negative for dysplasia PFSH Medical History Thai's disease Lupus Surgical History History of appendectomy Hx of section Family History Maternal Grandmother Diabetes Maternal Grandfather Diabetes Mother Hypothyroidism Social History Household Members: Significant Other Housing: Apartment Alcohol intake: never Patient Tobacco Use Status: Never used Tobacco Substance Use Type: Marijuana Current occupational status: employed Current occupation: [employer] Sexual orientation: Straight/Heterosexual Gender identity: Female Female Reproductive History Menstrual Date of last menstrual period: 07/06/23 control method: none Date of last pap smear: 05/15/23 (negative) Review of Systems Const All systems reviewed & are unremarkable except as noted in HPI and below Reports as per HPI and Reports no additional complaints GI Reports no additional complaints Reports no additional complaints Physical Exam Vital Signs: BMI result Body Mass Index 21.1 Assessment & Plan Assessment & Plan (1) ASCUS with positive high risk HPV cervical: Code(s): R87.610 - Atypical squamous cells of undetermined significance on cytologic smear of cervix (ASC-US); R87.810 - Cervical high risk human papillomavirus (HPV) DNA test positive Plan: Discussed with the patient the pathology results of the colposcopy biopsies & endocervical curettage (negative). Discussed with the patient the sensitivity specificity, positive and negative predictive value in detecting cervical cancer in addition discussed the regression, persistence and progression rates. Recommended co-testing in 12 months, if cytology and or HPV are abnormal will proceed was colposcopy biopsy and endocervical curettage. Instructions given to the patient to schedule a co test appointment in 1 year. All questions answered the patient verbalized understanding. Coding Level of Care Code Est Pt Level 3 (44646) Diagnoses ASCUS with positive high risk HPV cervical R87.610; R87.810
== END 2023-07-24 12:33 | disposition home or self-care (01) ==
LOC: HO.HWS 10:46
PROVIDERS: Visit Provider Obstetrics & Gynecology
DX: R87.610 Atypical squamous cells of undetermined significance on cytologic smear of cervix (ASC-US) (principal); R87.810 Cervical high risk human papillomavirus (HPV) DNA test positive
CPT/HCPCS: 99213

== ENCOUNTER → 2023-07-24 10:46 | Outpatient (BNVA) | payer OTHER, SELFPAY | PROVIDERS: Visit Provider Obstetrics & Gynecology | DX: R87.610 Atypical squamous cells of undetermined significance on cytologic smear of cervix (ASC-US) (principal); R87.810 Cervical high risk human papillomavirus (HPV) DNA test positive | CPT/HCPCS: 99212 ==

== ENCOUNTER 2023-09-09 10:12 | Outpatient (AMB) | payer OTHER, SELFPAY ==
--- NOTE | 2023-09-09 10:16 | MHC.OFFVIS ---
Intake Vital Signs 09/09/23 10:24 Height 5 ft 5 in Weight 125 lb 10.616 oz BMI 20.9 BP 140/92 H Intake Visit Reasons: IUD Check Household Manager Required: Yes Household Manager Language: Floor Waxer Name: Reyna HOGANJany Information Interpreted: non-clinical & clinical Handkerchief Maker: Handkerchief Maker Present (Reyna Travis EDISONJany) Accompanied by: Self / Same As Patient Allergies No Known Allergies Allergy (Verified 09/09/23 10:25) HPI HPI Comments History of Present Illness Details The patient is presenting for IUD check after 1 st period following IUD insertion. The patient has no complaints periods are normal, not painful, and flow is normal [facility] Medical History Thai's disease Lupus Surgical History History of appendectomy Hx of section Family History Maternal Grandmother Diabetes Maternal Grandfather Diabetes Mother Hypothyroidism Social History Household Members: Significant Other Housing: Apartment Alcohol intake: never Patient Tobacco Use Status: Never used Tobacco Substance Use Type: Marijuana Current occupational status: employed Current occupation: [employer] Sexual orientation: Straight/Heterosexual Gender identity: Female Review of Systems Const All systems reviewed & are unremarkable except as noted in HPI and below Physical Exam Vital Signs: Last Vital Signs BP 140/92 H 09/09/23 10:24 BMI result Body Mass Index 20.9 General: Yes no CVA tenderness External Female Exam: normal external appearance and normal appearance of the urethra Speculum Exam - Vagina: normal appearance of the vagina, normal palpation, no lesions and no masses Speculum Exam - Cervix: normal appearance of the cervix, normal palpation, no lesions, no masses, nontender and Other cervical findings present (IUD string in place) Bimanual exam- vagina & uterus: normal bimanual exam, normal palpation, uterine size normal, normal palpation, uterine shape normal, No Cervical tenderness present and non-tender Bimanual Exam- Adnexa, other: normal adnexae Back/Spine/Pelvis Back: no CVA tenderness Results AMB Test Urine AMB Test Urine Negative Last Edit by Reyna Robles CMA on 09/09/23 10:27 Assessment & Plan Assessment & Plan (1) IUD check up: Code(s): Z30.431 - Encounter for routine checking of intrauterine contraceptive device Plan: UPT done in the office was negative. Discussed with the patient the finding on physical exam, IUD string in place, the patient was reassured. Instructions given to patient to call in case of temperature above 100.4, severe cramping/pelvic pain, abnormal discharge or abnormal uterine bleeding or if she misses her. Otherwise follow-up at her annual exam appointment. All questions answered, the patient verbalized understanding. Orders: Orders AMB HCG Urine Test Today Z32.02 - Encounter for test, result negative Coding Level of Care Code Est Pt Level 3 (98811) Diagnoses IUD check up Z30.431
[2023-09-09 10:24] VITALS: BP 140/92; BMI 20.9
== END 2023-09-09 12:59 | disposition home or self-care (01) ==
PROVIDERS: Visit Provider Obstetrics & Gynecology
DX: Z30.431 Encounter for routine checking of intrauterine contraceptive device (principal); Z32.02 Encounter for pregnancy test, result negative
CPT/HCPCS: 99213

== ENCOUNTER → 2023-09-09 10:12 | Outpatient (BNVA) | payer OTHER, SELFPAY | PROVIDERS: Visit Provider Obstetrics & Gynecology | DX: Z30.431 Encounter for routine checking of intrauterine contraceptive device (principal) | CPT/HCPCS: 81025; 99212 ==

== ENCOUNTER 2023-09-11 14:37 | Emergency (ER) | payer OTHER, SELFPAY ==
[2023-09-11 14:52] VITALS: BP 162/112; PULSE 106; RESP 18; TEMP 36.9; O2SAT 99; BMI 21.2
--- NOTE | 2023-09-11 14:52 | ED_ITS ---
HPI - General Adult General Chief complaint: Arrhythmia/Palpitations Stated complaint: high bp Time Seen by Provider: 09/11/23 16:08 Source: patient Mode of arrival: ambulatory Limitations: language barrier History of Present Illness HPI narrative: Lisa is a 27 year old female with history of SLE, hypothyroidism, PID who presents today for evaluation of palpitations for three days. She reports that she went to her OBGYN about 1 month ago when they noted her HR and BP to be elevated. She went to her OBGYN again on Friday and her HR and BP were elevated again. She reports that the past three days she has noticed the palpitations but thinks she has been having them for a month. Woke up in the middle of the night with palpitations and diaphoretic. Reports an episode of nasal congestion yesterday with blood. Had one episode of abdominal pain yesterday with diarrhea, has resolved now. Denies fevers, chest pain, shortness of breath. No nausea or vomiting. Denies anxiety or history of anxiety. No syncope but reports occasional blurred vision. Has nonspecific head pain but denies dizziness. MD complaint: palpitations Onset (ago): day(s) Location: chest Radiation: non-radiation Pain Consistency: intermittent Relieving factors: rest Treatments prior to arrival: none Related Data Home Medications ?Medication ?Instructions ?Recorded ?Confirmed levonorgestrel 21 mcg/24 hours (8 intrauterine 09/09/23 yrs) 52 mg intrauterine device (Mirena) Previous Rx's ?Medication ?Instructions ?Recorded levothyroxine 25 mcg tablet 25 mcg PO DAILY 30 days #30 tabs 03/12/23 (Synthroid) terconazole 0.8 % vaginal cream 1 appful vaginal BEDTIME 3 days 05/13/23 #20 grams metronidazole 500 mg tablet 500 mg PO BID 7 days #14 tabs 05/14/23 hydroxychloroquine 200 mg tablet 200 mg PO DAILY #30 tabs 05/27/23 (Plaquenil) levothyroxine 25 mcg tablet 25 mcg PO DAILY #30 tabs 05/27/23 (Synthroid) prednisone 10 mg tablets in a dose 10 mg PO DIRECTED #30 ea 05/27/23 pack mupirocin 2 % topical ointment 1 appl topical BID 7 days #15 grams 07/11/23 prednisone 10 mg tablet 10 mg PO DIRECTED #30 tabs 07/11/23 Allergies Allergy/AdvReac Type Severity Reaction Status Date / Time No Known Allergies Allergy Verified 09/11/23 14:54 Review of Systems 2 Review of Systems: Yes all other systems are reviewed and are negative [facility] Past Medical History Medical History Thai's disease Lupus Surgical History History of appendectomy Hx of section Family History Family History Maternal Grandmother Diabetes Maternal Grandfather Diabetes Mother Hypothyroidism Social History Social History Household Members: Significant Other Housing: Apartment Alcohol intake: never Patient Tobacco Use Status: Never used Tobacco Substance Use Type: Marijuana Advance Directives: No Advance Directives Information Provided: No Current occupational status: employed Current occupation: [employer] Sexual orientation: Straight/Heterosexual Gender identity: Female Physical Exam ED Vital Signs: Vital Signs - 24 hr 09/11/23 14:52 09/11/23 16:06 Temperature 98.5 F 98.1 F Pulse Rate 106 H 90 Respiratory Rate 18 19 Blood Pressure 162/112 H 159/107 H Pulse Oximetry 99 100 Oxygen Delivery Method Room Air Room Air BMI result Body Mass Index 21.2 Appearance: Alert. Oriented X3. No acute distress. Head: normocephalic, atraumatic. Eyes: Pupils equal, round and reactive to light. ENT: Pharynx normal. No tonsillar swelling or exudate. Neck: Normal inspection. Neck supple. No thyromegaly or goiter palpated CVS: Normal heart rate and rhythm. Pulses normal. Respiratory: No respiratory distress. Breath sounds normal. Abdomen: Soft and nontender. Skin: Skin warm and dry. Normal skin color. Normal skin turgor. Spotchy, erythematous malar rash. Extremities: No lower extremity edema. No joint swelling. Neuro/psych: Oriented X 3. Normal speech and cognition. Course Course Course Narrative: RME:?27 yo female w/ hx of lupus, hypothyroid here for eval of I have tachycardia x3 days. Endorses associated headache and intermittent blurred vision. Denies vision changes, chest pain, n/v. States she was at the OBGYN 2 days ago and was noted to have elevated BP. At her last OBGYN appointment 1 mo ago, her bp was noted to elevated at that time as well. She is not currently on BP meds.No recent illness. Denies anxiety/ stressors. denies recent travel or long car rides. denies OCP use. labs, EKG ordered Full HPI, ROS and PE to be performed by the primary ED provider. Medical Decision Making Medical Decision Making [facility] Narrative: Lisa is a 27 year old female with history hypothyroidism and SLE who presents today for evaluation of palpitations for 3 days. Reports repeated elevated BP and HR at OBGYN appointments, first recorded about 1 month ago and last being Friday 09/08. Last three days she has been having intermittent palpitations, some happening at nighttime and she wakes up diaphoretic. ECG obtained in ER is sinus rhythm with ventricular rate of 97 BPM. Resting on stretcher in ED, her HR ranges from 90-110 bpm. Reports palpitations and headache. BP is persistently elevated. Ordered ESR and CRP to assess for inflammation. Considering patient's history, palpitations could be manifestation of SLE such as myocarditis. Patient is hemodynamically stable, no chest pain, no shortness of breath. Will refer to cardiology for further evaluation. Patient would benefit from stress test, 24 hr holter monitor. Differential Diagnosis Differential Diagnoses: The differential diagnosis associated with the presentation includes hyperthyroid, sinus tachycardia, atrial fibrillation, viral URI, covid, flu, myocarditis, essential HTN, secondary HTN Admission/Observation Consideration of admission/observation: Escalation of care including admission/observation considered new HTN Lab Data [facility] Lab Attestation statement: I reviewed the patient's lab results. 09/11/23 15:06 09/11/23 15:06 Labs: Lab Results 09/11/23 Range/Units 15:06 WBC 4.7 L (4.8-10.8) X10*3/uL RBC 3.17 L (4.20-5.50) X10*6/uL Hgb 10.3 L (12.0-16.0) g/dl Hct 30.3 L (37.0-47.0) % MCV 95.6 (80.0-98.0) fL MCH 32.5 (27.0-33.0) pg MCHC 34.0 (31.0-35.0) g/dl RDW 14.6 (11.0-16.0) % Plt Count 252 D (160-400) X10*3/uL MPV 9.5 (9.4-12.3) fL Immature Gran % (Auto) 1.9 H (0.0-0.4) % Neut % (Auto) 65.9 (45-73) % Lymph % (Auto) 21.0 (20-40) % [place] % (Auto) 10.6 (2-11) % Eos % (Auto) 0.2 (0-4) % Baso % (Auto) 0.4 (0-2) % Lymph # (Auto) 1.0 L (1.2-4.9) X10*3/uL [place] # (Auto) 0.5 (0.1-1.2) X10*3/uL Eos # (Auto) 0.0 (0.0-0.4) X10*3/uL Baso # (Auto) 0.0 (0.0-0.2) X10*3/uL Abs Immat Gran (auto) 0.09 H (0.00-0.03) X10*3/uL Absolute Neuts (auto) 3.1 (2.0-8.3) x10*3/uL Absolute Nucleated RBC 0.000 (0.0-0.012) X10*3/uL Nucleated RBC % (auto) 0.0 (0.0-0.2) /100WBC PT 10.2 L (11.1-13.3) SEC INR 0.8 L (0.9-1.1) Sodium 142 (135-145) mmol/L Potassium 3.7 (3.3-5.1) mmol/L Chloride 108 (96-108) mmol/L Carbon Dioxide 29 (22-29) mmol/L Anion Gap 9 L (12-20) BUN 17 H (9-16) mg/dL Creatinine 0.82 (0.5-1.4) mg/dL Estim Creat Clear Calc 91.0 Estimated GFR > 60 Random Glucose 88 (60-115) mg/dL Calcium 8.3 L (8.4-10.2) mg/dL Total Bilirubin 0.3 (0.0-1.0) mg/dL AST 26 (5-31) U/L ALT 31 (0-31) U/L Alkaline Phosphatase 47 (39-117) U/L Troponin I High Sens < 2.7 (<3.5-17.0) ng/L Total Protein 4.8 L (6.5-8.0) g/dL Albumin 2.5 L (3.5-5.0) g/dL TSH 2.53 (0.32-4.0) uIU/mL Beta HCG, Quant < 2 mIU/mL Influenza Type A (PCR) NEGATIVE (Negative) Influenza Type B (PCR) NEGATIVE (Negative) RSV RNA Qual (PCR) NEGATIVE (Negative) SARS-CoV-2 RNA (RT-PCR) NEGATIVE (Negative) Independent Interpretation I performed an independent interpretation of an: EKG Interpretation: Normal sinus rhythm with ventricular rate of [address] elevation or depression. External Record Review External record reviewed: Office record, Outpatient record and Prior outpatient labs Prescription Management I considered prescription management with: Other (Antihypertensive) Chronic Conditions Patient?s care impacted by: Other (SLE) Critical Care Time Critical Care Time Critical Care Time: No Discharge Plan Discharge Clinical Impression: Palpitations Hypertension Qualifiers: Hypertension type: unspecified Qualified Code(s): I10 - Essential (primary) hypertension Patient Disposition: Home, Self-Care Instructions: Heart Palpitations (DC), Hypertension (ED) Additional Instructions: Your workup today was unremarkable. Recommend following up with your primary care doctor as scheduled on the 16. Follow-up with Cardiology for further evaluation and treatment. If you develop new or worsening symptoms call 911 or come back to the ER for further evaluation. Prescriptions: No Action metronidazole 500 mg tablet 500 mg PO BID 7 Days Qty: 14 0RF levothyroxine [Synthroid] 25 mcg tablet 25 mcg PO DAILY 30 Days Qty: 30 0RF hydroxychloroquine [Plaquenil] 200 mg tablet 200 mg PO DAILY Qty: 30 0RF prednisone 10 mg tablets,dose pack 10 mg PO DIRECTED Qty: 30 0RF Rx Instructions: see taper instructions 40mg every day for 3 days, 30mg every day for 3 days, 20mg every day for 3 days, 10mg every day for 3 days. levothyroxine [Synthroid] 25 mcg tablet 25 mcg PO DAILY Qty: 30 0RF mupirocin 2 % ointment 1 appl topical BID 7 Days Qty: 15 0RF prednisone 10 mg tablet 10 mg PO DIRECTED Qty: 30 0RF Rx Instructions: see taper instructions 40mg for 3 days, 30mg for 3 days, 20mg for 3 days, 10mg for 3 days terconazole 0.8 % cream 1 appful vaginal BEDTIME 3 Days Qty: 20 0RF Mirena 21 mcg/24 hours (8 yrs) 52 mg intrauterine device intrauterine Referrals: [facility] [place] Group] (Palpitations, tachycardia, hypertension, history of lupus) Liza Rahman MD [Primary Care Provider] - Print Language: Dominican
--- NOTE | 2023-09-11 14:56 | ECG_ITS ---
Test Reason : PALPITATIONS Blood Pressure : / mmHG Vent. Rate : 097 BPM Atrial Rate : 097 BPM P-R Int : 132 ms QRS Dur : 074 ms QT Int : 328 ms P-R-T Axes : 070 068 036 degrees QTc Int : 416 ms Normal sinus rhythm Nonspecific T wave abnormality Abnormal ECG No previous ECGs available Referred By: Ashlyn Kern Electronically Signed By:CHIDI SHELBY MD
[2023-09-11 15:15] LABS: MANUAL DIFF FLAG NO
[2023-09-11 15:20] LABS: Basophils Percent Auto 0.4 % (0-2); Eosinophils Percent Auto 0.2 % (0-4); Hematocrit 30.3 % (37.0-47.0); Hemoglobin 10.3 g/dl (12.0-16.0); Imm Gran Abs Auto 0.09 X10*3/uL (0.00-0.03); Imm Gran Pct Auto 1.9 % (0.0-0.4); Mean Corpuscular Hemoglobin 32.5 pg (27.0-33.0); Mean Corpuscular Volume 95.6 fL (80.0-98.0); Mean Platelet Volume 9.5 fL (9.4-12.3); Monocytes Absolute Auto 0.5 X10*3/uL (0.1-1.2); Monocytes Percent Auto 10.6 % (2-11); Neutrophils Absolute Auto 3.1 x10*3/uL (2.0-8.3); Neutrophils Percent Auto 65.9 % (45-73); Platelet Count 252 X10*3/uL (160-400); Red Blood Count 3.17 X10*6/uL (4.20-5.50); Red Cell Distribution Width 14.6 % (11.0-16.0); White Blood Count 4.7 X10*3/uL (4.8-10.8)
[2023-09-11 15:26] LABS: INTERNATIONAL NORM RATIO 0.8 (0.9-1.1); Prothrombin Time 10.2 SEC (11.1-13.3)
[2023-09-11 15:41] LABS: Alanine Aminotransferase 31 U/L (0-31); Albumin Level 2.5 g/dL (3.5-5.0); Alkaline Phosphatase 47 U/L (39-117); Anion Gap 9 (12-20); Aspartate Amino Transferase 26 U/L (5-31); Bilirubin Total 0.3 mg/dL (0.0-1.0); Blood Urea Nitrogen 17 mg/dL (9-16); Calcium 8.3 mg/dL (8.4-10.2); Carbon Dioxide 29 mmol/L (22-29); Chloride 108 mmol/L (96-108); Estimated Glomerular Filt Rate > 60; Glucose Random 88 mg/dL (60-115); HCG Quantitative < 2 mIU/mL; Potassium 3.7 mmol/L (3.3-5.1); Sodium 142 mmol/L (135-145); Total Protein 4.8 g/dL (6.5-8.0); Troponin-I High Sensitivity < 2.7 ng/L (<3.5-17.0)
[2023-09-11 15:57] LABS: Influenza A PCR NEGATIVE (Negative); Influenza B PCR NEGATIVE (Negative); Resp Syncy Virus RNA Qual PCR NEGATIVE (Negative); SARS COV2 PCR INHOUSE NEGATIVE (Negative)
[2023-09-11 16:06] VITALS: BP 159/107; PULSE 90; RESP 19; TEMP 36.7; O2SAT 100
[2023-09-11 17:48] LABS: Thyroid Stimulating Hormone 2.53 uIU/mL (0.32-4.0)
[2023-09-11 18:23] VITALS: BP 146/102; PULSE 98; RESP 18; TEMP 36.9; O2SAT 98
[2023-09-11 18:30] LABS: C Reactive Protein < 0.04 mg/dL (< or = 0.50)
[2023-09-11 18:48] VITALS: BP 146/102; PULSE 98; RESP 18; TEMP 36.9; O2SAT 98
[2023-09-11 19:20] LABS: Erythrocyte Sedimentation Rate 9 MM/HR (0-20)
== END 2023-09-11 18:49 | disposition home or self-care (01) ==
PROVIDERS: Physician Assistant; Physician Assistant Medical; Emergency Provider Emergency Medicine; PCP Internal Medicine
DX: I49.9 Cardiac arrhythmia, unspecified (principal); R00.2 Palpitations; I10 Essential (primary) hypertension; Z79.899 Other long term (current) drug therapy; Z11.52 Encounter for screening for COVID-19; Z20.822 Contact with and (suspected) exposure to COVID-19
CPT/HCPCS: 0241U; 36415; 80053; 84443; 84484; 84702; 85025; 85610; 85652; 86140; 93005; 99283

== ENCOUNTER → 2023-09-11 14:56 | Outpatient (BNV) | payer OTHER, SELFPAY | PROVIDERS: Emergency Provider Emergency Medicine; PCP Internal Medicine; Visit Provider Internal Medicine Cardiovascular Disease | DX: R94.31 Abnormal electrocardiogram [ECG] [EKG] (principal) | CPT/HCPCS: 93010 ==

== ENCOUNTER 2023-09-18 11:24 | Outpatient (REF) | payer OTHER, SELFPAY ==
[2023-09-18 12:54] LABS: MANUAL DIFF FLAG NO
[2023-09-18 13:52] LABS: Basophils Percent Auto 0.5 % (0-2); Eosinophils Percent Auto 0.3 % (0-4); Hematocrit 30.2 % (37.0-47.0); Hemoglobin 10.2 g/dl (12.0-16.0); Imm Gran Abs Auto 0.05 X10*3/uL (0.00-0.03); Imm Gran Pct Auto 1.3 % (0.0-0.4); Lymphocytes Absolute Auto 0.9 X10*3/uL (1.2-4.9); Lymphocytes Percent Auto 24.9 % (20-40); Mean Corpuscular HGB Conc 33.8 g/dl (31.0-35.0); Mean Corpuscular Hemoglobin 32.2 pg (27.0-33.0); Mean Corpuscular Volume 95.3 fL (80.0-98.0); Mean Platelet Volume 9.9 fL (9.4-12.3); Monocytes Absolute Auto 0.5 X10*3/uL (0.1-1.2); Monocytes Percent Auto 12.2 % (2-11); Neutrophils Absolute Auto 2.3 x10*3/uL (2.0-8.3); Neutrophils Percent Auto 60.8 % (45-73); Platelet Count 217 X10*3/uL (160-400); Red Blood Count 3.17 X10*6/uL (4.20-5.50); Red Cell Distribution Width 14.4 % (11.0-16.0); White Blood Count 3.8 X10*3/uL (4.8-10.8)
[2023-09-18 14:31] LABS: Erythrocyte Sedimentation Rate 15 MM/HR (0-20)
[2023-09-18 14:40] LABS: Alanine Aminotransferase 23 U/L (0-31); Albumin Level 2.6 g/dL (3.5-5.0); Alkaline Phosphatase 53 U/L (39-117); Anion Gap 8 (12-20); Aspartate Amino Transferase 19 U/L (5-31); Bilirubin Total 0.2 mg/dL (0.0-1.0); Blood Urea Nitrogen 16 mg/dL (9-16); C Reactive Protein < 0.10 mg/dL (< or = 0.50); Carbon Dioxide 28 mmol/L (22-29); Chloride 110 mmol/L (96-108); Estimated Glomerular Filt Rate > 60; Glucose Random 74 mg/dL (60-115); Potassium 3.9 mmol/L (3.3-5.1); Sodium 142 mmol/L (135-145); Total Protein 4.9 g/dL (6.5-8.0)
[2023-09-18 14:56] LABS: Appearance Urine Cloudy; Color Urine Yellow; Glucose Urine UA Negative (Negative); Leukocyte Esterase Urine Trace (Negative); Nitrite Urine Negative (Negative); PH 6.5 (5.0-9.0); Specific Gravity - Urine >= 1.030 (1.005-1.025); UMIC TRIGGER UA YES; Urine Blood Moderate (2+) (Negative); Urine Ketones Negative (Negative); Urine Protein >=1000 (4+) mg/dL (Neg-Trace)
[2023-09-18 15:29] LABS: Bacteria Urine None Seen (None Seen); RBC Urine >20 /HPF (0-2); WBC Urine 21-50 /HPF (0-5)
[2023-09-18 17:01] LABS: Protein/Creatinine Ratio, Ur 3.16 (<0.2); Total Protein Urine Random 968 mg/dL (<12)
[2023-09-19 13:38] LABS: Complement C3 39 mg/dL (83-193)
[2023-09-19 21:05] LABS: Anti DNA DS Antibody 101 IU/mL; Anti-Centromere B Antibodies <1.0 NEG AI (<1.0 NEG); Antibody to SS-A Antigen >8.0 POS AI (<1.0 NEG); Antibody to SS-B Antigen <1.0 NEG AI (<1.0 NEG); SM/Ribonucleoprotein Ab >8.0 POS AI (<1.0 NEG); Scleroderma 70 Antibody <1.0 NEG AI (<1.0 NEG); Smith Protein >8.0 POS AI (<1.0 NEG)
[2023-09-19 22:18] LABS: Prot Elec - Albumin 2.7 g/dL (3.8-4.8); Prot Elec - Alpha1 0.3 g/dL (0.2-0.3); Prot Elec - Alpha2 0.5 g/dL (0.5-0.9); Prot Elec - Beta 1 0.3 g/dL (0.4-0.6); Prot Elec - Beta 2 0.3 g/dL (0.2-0.5); Prot Elec - Gamma 0.5 g/dL (0.8-1.7); Prot Elec - Total Protein 4.6 g/dL (6.1-8.1)
[2023-09-22 11:43] LABS: ANA Pattern 2 Nuclear, Speckled; Anti Nuclear Antibody Pattern Nuclear, Homogeneous; Anti Nuclear Antibody Screen POSITIVE (NEGATIVE)
[2023-09-22 15:14] LABS: IgA 241 mg/dL (47-310); IgG 594 mg/dL (600-1640); IgM 21 mg/dL (50-300)
[2023-09-23 22:13] LABS: Angiotensin Converting Enzyme 35 U/L (9-67)
[2023-09-23 22:18] LABS: PTT (LAC) Screen 29 sec (<=40)
== END 2023-09-18 11:25 | disposition home or self-care (01) ==
LOC: HO.LAB 11:24
PROVIDERS: PCP Internal Medicine; Visit Provider Nurse Practitioner Family
DX: M32.8 Other forms of systemic lupus erythematosus (principal); K21.9 Gastro-esophageal reflux disease without esophagitis; R80.8 Other proteinuria; Z79.60 Long term (current) use of unspecified immunomodulators and immunosuppressants
CPT/HCPCS: 36415; 80053; 81001; 82164; 82570; 82784; 84156; 84165; 85025; 85597; 85598; 85613; 85652; 85730; 86038; 86039; 86140; 86160; 86225; 86235; 86334; 99202

== ENCOUNTER 2023-09-18 11:24 | Outpatient (AMB) | payer OTHER, SELFPAY ==
--- NOTE | 2023-09-18 11:26 | A.OFFVIS_ITS ---
Intake Vital Signs 3 09/18/23 11:27 Height 5 ft 5 in Weight 126 lb 15.78 oz BMI 21.1 BP 148/90 H Blood Pressure Location Rt brachial Position Sitting Intake Visit Reasons: lupus Intake Note: New patient, externally referred by Dr. Scott, presents today for lupus. Last seen by Rheum in [place] about a year ago. Slate Picker Required: Yes Slate Picker Language: Operations Officer Afloat Name: [id number] Mcneal Information Interpreted: clinical only Accompanied by: Self / Same As Patient Allergies No Known Allergies Allergy (Verified 09/18/23 11:32) Referred by: Dr. Trent Scott HPI HPI Comments 2 History of Present Illness0 Details Ms. Juan 27-year-old female presents today for transfer of care for SLE. She has immigrated from [place] about a year ago and has been taking hydroxychloroquine 200 mg b.i.d.. She has an extensive rash with her lupus and usually gets pulse steroid therapy in the ER when it erupts. 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 She is experiencing increased joint pains. She does stay out of the sun and wears protective clothing. --Lups 10 years --took Prednisone and Cellcept not effec tive - took Cellcept for two years before they tried Benlysta --then Benlysta with cellcept - only gambino d 2 injections at time, other two injections were not used when she migrated due to non refrigeration and she was scared that would be unstable --Was on MTX but got and then w as started HCQ in 2015. --Pepcid needed prednisone; has upset [facility] Medical History (Updated 09/24/23 @ 12:42 by JAIME Quevedo) Rash due to systemic lupus erythematosus (SLE) Long-term use of immunosuppressant medication SLE (systemic lupus erythematosus) Proteinuria GERD (gastroesophageal reflux disease) SLE (systemic lupus erythematosus related syndrome) Thai's disease Lupus Surgical History History of appendectomy Hx of section Family History Maternal Grandmother Diabetes Maternal Grandfather Diabetes Mother Hypothyroidism Social History Household Members: Significant Other Housing: Apartment Alcohol intake: never Patient Tobacco Use Status: Never used Tobacco Substance Use Type: Marijuana Current occupational status: employed Current occupation: [email or web address] Sexual orientation: Straight/Heterosexual Gender identity: Female Review of Systems Const All systems reviewed & are unremarkable except as noted in HPI and below Physical Exam Vital Signs: Last Vital Signs BP 148/90 H 09/18/23 11:27 BMI result Body Mass Index 21.1 APPEARANCE: Patient in no acute distress EYES no redness, normal EARS:? External ear normal. NOSE/SINUS:? Airflow through both nares, no nasal discharge, no bleeding THROAT:? Oral mucosa moist, no ulcerations NECK:? No thyromegaly or masses, no adenopathy, trachea midline. HEART:? Regular rhythm, S1-S2 heard, no murmurs, rubs or gallops. LUNG:? Clear to percussion and auscultation EXTREMITIES:? No edema, no calf tenderness, normal peripheral pulses. NEURO:? Oriented and alert x3.? No focal weakness.? Reflexes symmetric.? Gait normal. SKIN:? Scaly erythematous large patches covering shoulders, neck, upper arms her face. No objective signs of Raynaud's phenomenon. JOINT EXAM: Cervical Spine:.? Full range of motion without pain; no tenderness. Thoracic Spine:.? No scoliosis.? No tenderness on palpation. Lumbar Spine:.? Alignment normal.? Full range of motion without pain, no tenderness. Chest Wall:.? No tenderness, swelling, increased warmth or erythema. Hands:.? Normal pain-free range of motion without tenderness, swelling, increased warmth or erythema. Able to make a full fist and has a good belt sander strength. Mild diffuse tenderness to IP joint Wrists:.? Normal pain-free range of motion without tenderness, swelling, increased warmth or erythema. Elbows:. Normal pain-free range of motion without tenderness, swelling, increased warmth or erythema. Shoulders:.?? Full range of motion without pain. No tenderness, weakness, swelling, increased warmth or erythema. Hips:.? Full range of motion without pain. Hip bursa:.? No tenderness. Knees:.?? Normal pain-free range of motion without tenderness, swelling, increased warmth or erythema.? There is no effusion or crepitation Ankles:.? Normal pain-free range of motion without tenderness, swelling, increased warmth or erythema. Feet:.? Normal pain-free range of motion without tenderness, swelling, increased warmth or erythema. Tender points:? No tenderness to digital palpation at the occiput, trapezius, second rib, lateral epicondyle, knees, greater trochanter and gluteal area bilaterally. Assessment & Plan Assessment & Plan (1) SLE (systemic lupus erythematosus): Code(s): M32.9 - Systemic lupus erythematosus, unspecified Qualifiers: Systemic lupus erythematosus type: other Systemic lupus erythematosus organ involvement: unspecified Qualified Code(s): M32.8 - Other forms of systemic lupus erythematosus (2) Long-term use of immunosuppressant medication: Code(s): Z79.60 - skilled nursing (current) use of unspecified immunomodulators and immunosuppressants (3) Proteinuria: Code(s): R80.9 - Proteinuria, unspecified Qualifiers: Proteinuria type: other Qualified Code(s): R80.8 - Other proteinuria (4) Rash due to systemic lupus erythematosus (SLE): Code(s): M32.9 - Systemic lupus erythematosus, unspecified (5) GERD (gastroesophageal reflux disease): Code(s): K21.9 - Gastro-esophageal reflux disease without esophagitis Qualifiers: Esophagitis presence: without esophagitis Qualified Code(s): K21.9 - Gastro-esophageal reflux disease without esophagitis Plan #SLE: She is currently on hydroxychloroquine 200 mg b.i.d.. She does need additional immuno therapy. She was started on Benlysta but it is propose that Saphnelo may be better with rashes. So I will start a PA Saphnelo. I have also obtain updated lab panel to assess her lupus measures. They are significant for active disease with low C3 and C4 and elevated it double-stranded DNA >100. Labs positive for SM/SMRNP and MEHREEN. The patient has some proteinura that may be because the lupus is uncontrolled and will improved once the Lupus is well managed. Nonetheless, a referral to nephrology will also be beneficial. I will give some prednisone in the interim with pepcid. #Youth Nutritional Monitor Use: Will monitor CBC , CMP and ANC. I spent 60 minutes reviewing history and records from [place], evaluating patient and documenting. Dr. Hayes was also brought in the room for added consult. F/u 3 weeks. Orders: Orders 2 MEHREEN Reflex Titer and Pattern 09/18/23 M3.9 - Systemic lupus erythematosus, unspecified Anti DNA DS Antibody 09/18/23 M32.9 - Systemic lupus erythematosus, unspecified Complement C4 09/18/23 M32.9 - Systemic lupus erythematosus, unspecified Complete Blood Count Auto Diff 09/18/23 M32.9 - Systemic lupus erythematosus, unspecified Comprehensive Met. Panel 09/18/23 M32.9 - Systemic lupus erythematosus, unspecified C Reactive Protein 09/18/23 M32.9 - Systemic lupus erythematosus, unspecified Erythrocyte Sedimentation Rate 09/18/23 M32.9 - Systemic lupus erythematosus, unspecified Sjogren's Antibodies 09/18/23 M32.9 - Systemic lupus erythematosus, unspecified Scleroderma 70 Antibody 09/18/232.9 - Systemic lupus erythematosus, unspecified XR chest 2V 09/18/23 M32.9 - Systemic lupus erythematosus, unspecified Anti-Centromere B Antibodies 09/18/23 M32.9 - Systemic lupus erythematosus, unspecified Anti Extractable Nuclear Ag 09/18/23 M32.9 - Systemic lupus erythematosus, unspecified Angiotensin Converting Enzyme 09/18/23 M32.9 - Systemic lupus erythematosus, unspecified Complement C3 09/18/232.9 - Systemic lupus erythematosus, unspecified Immunofixation Pnl, Serum 09/18/232.9 - Systemic lupus erythematosus, unspecified Immunoglobulins,IgG IgA IgM 09/18/23. - Systemic lupus erythematosus, unspecified Protein Electrophoresis, Serum 09/18/23 M32.9 - Systemic lupus erythematosus, unspecified UA w Microscopic 09/18/23 M32.9 - Systemic lupus erythematosus, unspecified Protein Creatinine Ratio, Ur 09/18/23 M32.9 - Systemic lupus erythematosus, unspecified Lupus Anticoagulant Panel 09/18/23 M32.9 - Systemic lupus erythematosus, unspecified Medications: New 2 prednisone 3 pills per day x 10 days, 2 1/2 pills per day x 10 days. 2 pills per day 60 mg (3 x 20 mg) PO DAILY 180 tabs 1RF M32.9 - Systemic lupus erythematosus, unspecified famotidine (Pepcid) Use while taking Prednisone 20 mg PO DAILY 90 tabs 0RF K21.9 - Gastro- esophageal reflux disease without esophagitis Coding Level of Care Code New Pt Level 5 (23633) Diagnoses Other forms of systemic lupus erythematosus, unspecified organ involvement status M32.8 Systemic lupus erythematosus type: other Systemic lupus erythematosus organ involvement: unspecified Long-term use of immunosuppressant medication Z79.60 Other proteinuria R80.8 Proteinuria type: other Rash due to systemic lupus erythematosus (SLE) M32.9 Gastroesophageal reflux disease without esophagitis K21.9 Esophagitis presence: without esophagitis
[2023-09-18 11:27] VITALS: BP 148/90; BMI 21.1
== END 2023-09-18 12:14 | disposition home or self-care (01) ==
PROVIDERS: Visit Provider Nurse Practitioner Family
DX: M32.8 Other forms of systemic lupus erythematosus (principal); Z79.60 Long term (current) use of unspecified immunomodulators and immunosuppressants; R80.8 Other proteinuria; M32.9 Systemic lupus erythematosus, unspecified; K21.9 Gastro-esophageal reflux disease without esophagitis
CPT/HCPCS: 99205; 99417

== ENCOUNTER 2023-10-14 11:04 | Outpatient (AMB) | payer OTHER, SELFPAY ==
[2023-10-14 11:13] VITALS: BP 138/94; PULSE 101; O2SAT 99; BMI 22.8
--- NOTE | 2023-10-14 11:13 | HO.NEPHOV_ITS ---
Vital Signs 10/14/23 11:13 Height 5 ft 5 in Weight 137 lb BMI 22.8 BP 138/94 H Blood Pressure Location Lt brachial Position Sitting Pulse 101 H Pulse Source Pulse Oximeter Pulse Oximetry (%) 99 Oxygen Delivery Method Room Air Intake Visit Reasons: Proteinuria/ Confirmed Junior Network Engineer Required: Yes Junior Network Engineer Name: [id number] Accompanied by: Self / Same As Patient Allergies No Known Allergies Allergy (Verified 10/14/23 11:15) HPI Comments Details: Lisa is a pleasant 27-year-old woman with a history of SLE for almost 10 years She has been referred for proteinuria. In the past she was seen by a pediatric intensive physician in [place]. She did not undergo kidney biopsy no specific diagnosis was there. Recently scheduled to see Rheumatology. She was started on prednisone 60 mg which has been tapered down to 40 mg. She is due to receive Saphnelo infusion tomorrow During routine workup she was found to have low serum complements C3 and C4 along with nephrotic range proteinuria of about 3.1 g. She had low serum protein as well. Serum creatinine was normal between 0.8 and 0.9 mg/dL. She was seen by coating and baking operator for skin lesions. She was given minoxidil 1.25 mg. History of mucosal ulcers. She is 1 daughter age 7 years . Normal delivery. No history of miscarriage Today she has no joint pains. No shortness of breath cough hemoptysis. No history of gross hematuria. She does have foamy urination. Mild ankle edema. 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 Surgical History History of appendectomy Hx of section Family History Maternal Grandmother Diabetes Maternal Grandfather Diabetes Mother Hypothyroidism Social History Household Members: Significant Other Housing: Apartment Alcohol intake: never Patient Tobacco Use Status: Never used Tobacco Substance Use Type: Marijuana Current occupational status: employed Current occupation: [employer] Sexual orientation: Straight/Heterosexual Gender identity: Female Physical Exam Vital Signs: Last Vital Signs Pulse 101 H 10/14/23 11:13 BP 138/94 H 10/14/23 11:13 Pulse Ox 99 10/14/23 11:13 Oxygen Delivery Method Room Air 10/14/23 11:13 BMI result Body Mass Index 22.8 Const General: cooperative Nutritional Appearance: well nourished Orientation/consciousness: oriented to person HEENT Teeth and gingiva: dentition normal Eyes General: appearance normal, both eyes and all related structures Neck Neck: Yes full ROM and Yes supple Thyroid: Thyroid normal Resp Effort & Inspection: normal respiratory effort Auscultation: clear to auscultation bilaterally and no rhonchi Cardio Jugular venous distension: no JVD Rate: regular rate Heart sounds: S1 normal heart sound present, S2 normal heart sound present and no murmurs GI Inspection: Yes normal to inspection Palpation (GI): Soft to palpation Auscultation: normal bowel sounds General: Yes no CVA tenderness Back/Spine/Pelvis Back: no CVA tenderness Skin General skin exam: dry skin Rashes: rashes noted Neuro General: oriented to person Cranial nerves: Yes CN's II-XII intact bilaterally Results Reviewed Nephrology Results: Hgb 10.2 g/dl (12.0-16.0) L 09/18/23 WBC 3.8 X10*3/uL (4.8-10.8) L 09/18/23 Plt Count 217 X10*3/uL (160-400) 09/18/23 Sodium 142 mmol/L (135-145) 09/18/23 Potassium 3.9 mmol/L (3.3-5.1) 09/18/23 Chloride 110 mmol/L (96-108) H 09/18/23 Carbon Dioxide 28 mmol/L (22-29) 09/18/23 BUN 16 mg/dL (9-16) 09/18/23 Creatinine 0.84 mg/dL (0.5-1.4) 09/18/23 Calcium 8.0 mg/dL (8.4-10.2) L 09/18/23 Urine Protein >=1000 (4+) mg/dL (Neg-Trace) H 4 Urine Creatinine 306.38 mg/dL 04/11/24 Protein/Creatinin Ratio 3.16 (<0.2) H 09/18/23 Assessment & Plan Assessment & Plan (1) SLE (systemic lupus erythematosus): Code(s): M32.9 - Systemic lupus erythematosus, unspecified Category: Medical Qualifiers: Systemic lupus erythematosus organ involvement: unspecified Systemic lupus erythematosus type: other Qualified Code(s): M32.8 - Other forms of systemic lupus erythematosus (2) Proteinuria: Code(s): R80.9 - Proteinuria, unspecified Category: Medical Qualifiers: Proteinuria type: other Qualified Code(s): R80.8 - Other proteinuria Plan Lisa is a pleasant 27-year-old woman with a history of longstanding SLE currently has nephrotic range proteinuria with low serum albumin suggestive of nephrotic syndrome. Differential diagnosis would include membranous nephropathy secondary to SLE. Plan Initiate a workup as outlined below. Agree with current management per rheumatology. Once we receive the lab results she will require a kidney biopsy for a definite diagnosis. I have explained this to her and she understands the plan. Junior Network Engineer service was used. Orders: Orders Proteinase 3 PR3 Antibodies 1 Day M32.8 - Other forms of systemic lupus erythematosus, R80.8 - Other proteinuria Myeloperoxidase Antibody 1 Day M32.8 - Other forms of systemic lupus erythematosus, R80.8 - Other proteinuria Basic Metabolic Panel 1 Day M32.8 - Other forms of systemic lupus erythematosus, R80.8 - Other proteinuria Lipid Panel 1 Day M32.8 - Other forms of systemic lupus erythematosus, R80.8 - Other proteinuria Phospholipase A2 Receptor Pnl 1 Day M32.8 - Other forms of systemic lupus erythematosus, R80.8 - Other proteinuria Coding Level of Care Code New Pt Level 4 (96305) Diagnoses Other forms of systemic lupus erythematosus, unspecified organ involvement status M32.8 Systemic lupus erythematosus organ involvement: unspecified Systemic lupus erythematosus type: other Other proteinuria R80.8 Proteinuria type: other
== END 2023-10-14 11:38 | disposition home or self-care (01) ==
PROVIDERS: PCP Internal Medicine; Referring Provider Nurse Practitioner Family; Visit Provider Internal Medicine Hypertension Specialist
DX: M32.8 Other forms of systemic lupus erythematosus (principal); R80.8 Other proteinuria
CPT/HCPCS: 99204

== ENCOUNTER → 2023-10-14 11:04 | Outpatient (BNVA) | payer OTHER, SELFPAY | PROVIDERS: PCP Internal Medicine; Referring Provider Nurse Practitioner Family; Visit Provider Internal Medicine Hypertension Specialist | DX: M32.8 Other forms of systemic lupus erythematosus (principal); R80.8 Other proteinuria | CPT/HCPCS: 99202 ==

== ENCOUNTER 2023-10-15 12:24 | Outpatient (REF) | payer OTHER, SELFPAY ==
[2023-10-15 13:09] LABS: Anion Gap 10 (12-20); Blood Urea Nitrogen 16 mg/dL (9-16); Calcium 8.5 mg/dL (8.4-10.2); Carbon Dioxide 27 mmol/L (22-29); Chloride 108 mmol/L (96-108); Cholesterol 300 mg/dL (<200); Estimated Glomerular Filt Rate > 60; Glucose Random 82 mg/dL (60-115); HDL Cholesterol 82 mg/dL (>40); LDL Cholesterol Calculated 192 mg/dL (<100); Sodium 141 mmol/L (135-145); Triglycerides 133 mg/dL (<150)
[2023-10-16 21:38] LABS: Myeloperoxidase Antibody <1.0 AI; Proteinase 3 PR3 Antibodies <1.0 AI
[2023-10-21 23:33] LABS: Phospholipase A2 IgG ELISA <4 RU/mL; Phospholipase A2 IgG IFA NEGATIVE (NEGATIVE)
== END 2023-10-15 12:25 | disposition home or self-care (01) ==
LOC: HO.LAB 12:24
PROVIDERS: PCP Internal Medicine; Visit Provider Internal Medicine Hypertension Specialist
DX: R80.8 Other proteinuria (principal); M32.8 Other forms of systemic lupus erythematosus
CPT/HCPCS: 36415; 80048; 80061; 83520; 86021; 86255

== ENCOUNTER 2023-10-28 10:26 | Outpatient (AMB) | payer OTHER, SELFPAY ==
[2023-10-28 10:32] VITALS: BP 138/100; PULSE 110; O2SAT 99; BMI 21.6
--- NOTE | 2023-10-28 10:32 | HO.NEPHOV ---
Vital Signs 10/28/23 10:32 Height 5 ft 5 in Weight 130 lb BMI 21.6 BP 138/100 H Blood Pressure Location Lt brachial Position Sitting Pulse 110 H Pulse Source Pulse Oximeter Pulse Oximetry (%) 99 Oxygen Delivery Method Room Air Intake Visit Reasons: Proteinuria/ 2 weeks fu/ Confirmed Store Merchandiser Required: Yes Store Merchandiser Name: Dustin [id number] Accompanied by: Self / Same As Patient Allergies No Known Allergies Allergy (Verified 10/28/23 10:34) HPI Comments Details: Lisa is a pleasant 27-year-old woman with a history of SLE for almost 10 years She has been referred for proteinuria. In the past she was seen by a pediatrics physician in [place]. She did not undergo kidney biopsy no specific diagnosis was there. Recently scheduled to see Rheumatology. She was started on prednisone 60 mg which has been tapered down to 40 mg. She is due to receive Saphnelo infusion tomorrow During routine workup she was found to have low serum complements C3 and C4 along with nephrotic range proteinuria of about 3.1 g. She had low serum protein as well. Serum creatinine was normal between 0.8 and 0.9 mg/dL. She was seen by ankle patch molder for skin lesions. She was given minoxidil 1.25 mg. History of mucosal ulcers. She is 1 daughter age 7 years . Normal delivery. No history of miscarriage Today she has no joint pains. No shortness of breath cough hemoptysis. No history of gross hematuria. She does have foamy urination. Mild ankle edema. 10/28/23 Received Saphnelo 2 weeks ago. 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 Surgical History History of appendectomy Hx of section Family History Maternal Grandmother Diabetes Maternal Grandfather Diabetes Mother Hypothyroidism Social History Household Members: Significant Other Housing: Apartment Alcohol intake: never Patient Tobacco Use Status: Never used Tobacco Substance Use Type: Marijuana Current occupational status: employed Current occupation: [employer] Sexual orientation: Straight/Heterosexual Gender identity: Female Physical Exam Vital Signs: Last Vital Signs Pulse 110 H 10/28/23 10:32 BP 138/100 H 10/28/23 10:32 Pulse Ox 99 10/28/23 10:32 Oxygen Delivery Method Room Air 10/28/23 10:32 BMI result Body Mass Index 21.6 Const General: cooperative Nutritional Appearance: well nourished Orientation/consciousness: oriented to person HEENT Teeth and gingiva: dentition normal Eyes General: appearance normal, both eyes and all related structures Neck Neck: Yes full ROM and Yes supple Thyroid: Thyroid normal Resp Effort & Inspection: normal respiratory effort Auscultation: clear to auscultation bilaterally and no rhonchi Cardio Jugular venous distension: no JVD Rate: regular rate Heart sounds: S1 normal heart sound present, S2 normal heart sound present and no murmurs GI Inspection: Yes normal to inspection Palpation (GI): Soft to palpation Auscultation: normal bowel sounds General: Yes no CVA tenderness Back/Spine/Pelvis Back: no CVA tenderness Skin General skin exam: dry skin Rashes: rashes noted Neuro General: oriented to person Cranial nerves: Yes CN's II-XII intact bilaterally Results Reviewed Nephrology Results: Hgb 10.2 g/dl (12.0-16.0) L 09/18/23 WBC 3.8 X10*3/uL (4.8-10.8) L 09/18/23 Plt Count 217 X10*3/uL (160-400) 09/18/23 Sodium 141 mmol/L (135-145) 10/15/23 Potassium 4.0 mmol/L (3.3-5.1) 10/15/23 Chloride 108 mmol/L (96-108) 10/15/23 Carbon Dioxide 27 mmol/L (22-29) 10/15/23 BUN 16 mg/dL (9-16) 10/15/23 Creatinine 0.77 mg/dL (0.5-1.4) 10/15/23 Calcium 8.5 mg/dL (8.4-10.2) 10/15/23 Urine Protein >=1000 (4+) mg/dL (Neg-Trace) H 09/18/23 Urine Creatinine 306.38 mg/dL 09/18/23 Protein/Creatinin Ratio 3.16 (<0.2) H 09/18/23 Assessment & Plan Assessment & Plan (1) SLE (systemic lupus erythematosus): Code(s): M32.9 - Systemic lupus erythematosus, unspecified Category: Medical Qualifiers: Systemic lupus erythematosus type: other Systemic lupus erythematosus organ involvement: unspecified Qualified Code(s): M32.8 - Other forms of systemic lupus erythematosus (2) Proteinuria: Code(s): R80.9 - Proteinuria, unspecified Category: Medical Qualifiers: Proteinuria type: other Qualified Code(s): R80.8 - Other proteinuria Plan Lisa is a pleasant 27-year-old woman with a history of longstanding SLE currently has nephrotic range proteinuria of 3.1 gm with low serum albumin suggestive of nephrotic syndrome. Differential diagnosis would include membranous nephropathy secondary to SLE. Shall arrange for a kidney biopsy for a definitive diagnosis Agree with current management per rheumatology. I have explained this to her and she understands the plan. Store Merchandiser service was used. Would add a statin- Atorvastatin 10 mg QD and titrate dose Start Aspirin /anticoagulation after biopsy Coding Level of Care Code Est Pt Level 4 (28756) Diagnoses Other forms of systemic lupus erythematosus, unspecified organ involvement status M32.8 Systemic lupus erythematosus type: other Systemic lupus erythematosus organ involvement: unspecified Other proteinuria R80.8 Proteinuria type: other
== END 2023-10-28 10:54 | disposition home or self-care (01) ==
PROVIDERS: PCP Internal Medicine; Visit Provider Internal Medicine Hypertension Specialist
DX: M32.8 Other forms of systemic lupus erythematosus (principal); R80.8 Other proteinuria
CPT/HCPCS: 99214

== ENCOUNTER → 2023-10-28 10:26 | Outpatient (BNVA) | payer OTHER, SELFPAY | PROVIDERS: PCP Internal Medicine; Visit Provider Internal Medicine Hypertension Specialist | DX: M32.8 Other forms of systemic lupus erythematosus (principal); R80.8 Other proteinuria | CPT/HCPCS: 99212 ==

== ENCOUNTER 2023-11-11 10:00 | Day surgery (SDC) | payer OTHER, SELFPAY ==
[2023-11-11] VITALS (9 sets, daily range): BP systolic 128–142; BP diastolic 81–92; PULSE 100–120; RESP 17–19; TEMP 36.6–37.4; O2SAT 99–100; BMI 23.4
--- NOTE | ~2023-11-11 | CT_ITS ---
Systemic lupus erythematosus. Nephrotic range proteinuria PROCEDURES: 1. Limited preprocedure CT of the abdomen. Permanent images saved in PACS. 2. CT-guided nontargeted biopsy of the left kidney. 3. Limited preprocedure CT of the abdomen. Permanent images saved in PACS. CLINICIANS: El Valencia PA-C MEDICATIONS: -Versed 2 mg, Fentanyl 100 mcg, and lidocaine 1% 10 mL SQ, 20 mg hydralazine -Antibiotics: None -For additional details, please see nursing flowsheet. COMPLICATIONS: None ESTIMATED BLOOD LOSS: < 5 ml CONTRAST: None SPECIMENS: 3 x 18 g cores were placed in saline MODERATE SEDATION TIME: 35 min PROCEDURE NOTE: The procedure, risks, benefits, and alternatives were carefully explained to the patient and written informed consent was obtained. The patient was placed prone on the CT table. A timeout was performed. A limited CT of the abdomen was performed to localize the left kidney and choose appropriate needle entry and trajectory. The patient was prepped and draped in usual sterile fashion. The skin and deeper soft tissues were anesthetized with lidocaine. Under CT guidance, a 17 gague trocar needle was advanced to the left kidney. An 18 gauge biopsy device was inserted through the trocar needle and advanced into the left kidney. A total of 3, 18 gague cores were performed. The specimens was placed in saline soaked Telfa. A Gelfoam slurry was then administered through the trocar needle and into the left perinephric space. The needle was removed. A dry dressing was applied and secured with Tegaderm. There were no immediate complications. The patient was stable after the procedure and was transferred to the post anesthesia care unit. The procedure was done under moderate sedation with a dedicated nurse for monitoring of vital signs. CT/CT biopsy renal RT Impression: CT-guided nontargeted left renal biopsy This procedure was performed by El Valencia PA-C and supervised by Dr. Bhagat.
[2023-11-11 10:36] LABS: UPreg QC Valid YES; Urine Pregnancy NEGATIVE (NEGATIVE)
--- NOTE | 2023-11-11 11:13 | MHC.SHP ---
Pre-Procedural Eval Section A - 24 Hr Update-Section A only Date of Service: 11/11/23 Section B - Complete if H&P > 30 days Chief Complaint: RENAL, SYSTEMIC LUPUS ERYTHEMATOSUS Details of Present Illness: 28 y/o female with SLE and nephrotic range proteinuria. Nephrology request a renal biopsy Relevant Family History (Specify if Yes): No Relevant Social History: None Present Medications: see Short Stay Collaborative assessment Medical History: Significant History (SLE) History of Previous Operations: No relevant previous surgery Allergies: Allergies Allergy/AdvReac Type Severity Reaction Status Date / Time No Known Allergies Allergy Verified 11/11/23 10:45 Review of Systems Sugical H&P ROS: Negative: Cardiovascular, Respiratory and Gastrointestinal Exam Surgical H&P Exam: Normal: Heart, Normal: Lungs, Normal: Skin and Normal: Neurological and Not Evaluated: HEENT Plan Diagnosis/Plan: Unchanged I have reviewed the history and physical and performed a pertinent physical examination on my patient. No changes have occurred unless specified. Non-targeted renal biopsy Time Spent With Patient Time: Total time managing care of this patient today ____ minutes.
--- NOTE | 2023-11-11 14:44 | PM.EVENT ---
Event Note Date of Service: 11/11/23 Event Note: Seen and examined almost 3 hr post left renal biopsy. She denies of any pain at this time. Her BP remains mildly elevated in the 140s. She required hydralazine prior to the biopsy due to BP >160/100. She remains slightly tachycardic, however, this was present pre-procedure and after 20 mg hydralazine was given. Will plan for discharge after full 3 hour observation. El PETERSON Time Spent With Patient Time: Total time managing care of this patient today ____ minutes.
== END 2023-11-11 15:03 | disposition home or self-care (01) ==
PROVIDERS: Physician Assistant Surgical; PCP Internal Medicine; Visit Provider Internal Medicine Hypertension Specialist
DX: M32.8 Other forms of systemic lupus erythematosus (principal); R80.8 Other proteinuria; R03.0 Elevated blood-pressure reading, without diagnosis of hypertension
CPT/HCPCS: 50200; 77012; 81025; 86850; 86900; 86901; 88300; 99152; 99153; J0360; J2250; J2310; J3010

== ENCOUNTER → 2023-11-11 10:00 | Outpatient (BNV) | payer OTHER, SELFPAY | PROVIDERS: PCP Internal Medicine; Visit Provider Physician Assistant Surgical | DX: M32.8 Other forms of systemic lupus erythematosus (principal) | CPT/HCPCS: 50200; 77012; 99499 ==

== ENCOUNTER 2023-11-18 10:24 | Outpatient (AMB) | payer OTHER, SELFPAY ==
--- NOTE | 2023-11-18 10:28 | HO.NEPHOV ---
Vital Signs 11/18/23 10:29 Weight 127 lb BP 130/88 Blood Pressure Location Lt brachial Position Sitting Pulse 105 H Pulse Source Pulse Oximeter Pulse Oximetry (%) 99 Oxygen Delivery Method Room Air Intake Visit Reasons: Proteinuria/ 3 weeks fu/ Confirmed Vp Global Required: Yes Vp Global Name: Eloina [id number] Accompanied by: Self / Same As Patient Allergies No Known Allergies Allergy (Verified 11/18/23 10:30) HPI Comments Details: Lisa is a pleasant 27-year-old woman with a history of SLE for almost 10 years She has been referred for proteinuria. In the past she was seen by a pediatric anesthesiologist in [place]. She did not undergo kidney biopsy no specific diagnosis was there. Recently scheduled to see Rheumatology. She was started on prednisone 60 mg which has been tapered down to 40 mg. She is due to receive Saphnelo infusion tomorrow During routine workup she was found to have low serum complements C3 and C4 along with nephrotic range proteinuria of about 3.1 g. She had low serum protein as well. Serum creatinine was normal between 0.8 and 0.9 mg/dL. She was seen by group insurance special agent for skin lesions. She was given minoxidil 1.25 mg. History of mucosal ulcers. She is 1 daughter age 7 years . Normal delivery. No history of miscarriage Today she has no joint pains. No shortness of breath cough hemoptysis. No history of gross hematuria. She does have foamy urination. Mild ankle edema. 10/28/23 Received Saphnelo 2 weeks ago. Doing about the same 11/18/2023 She underwent kidney biopsy which was uneventful. No new issues today. 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 Surgical History History of appendectomy Hx of section Family History Maternal Grandmother Diabetes Maternal Grandfather Diabetes Mother Hypothyroidism Social History Household Members: Significant Other Housing: Apartment Alcohol intake: never Patient Tobacco Use Status: Never used Tobacco Substance Use Type: Marijuana Current occupational status: employed Current occupation: [employer] Sexual orientation: Straight/Heterosexual Gender identity: Female Physical Exam Vital Signs: Last Vital Signs Pulse 105 H 11/18/23 10:29 BP 130/88 11/18/23 10:29 Pulse Ox 99 11/18/23 10:29 Oxygen Delivery Method Room Air 11/18/23 10:29 Const General: cooperative Nutritional Appearance: well nourished Orientation/consciousness: oriented to person HEENT Teeth and gingiva: dentition normal Eyes General: appearance normal, both eyes and all related structures Neck Neck: Yes full ROM and Yes supple Thyroid: Thyroid normal Resp Effort & Inspection: normal respiratory effort Auscultation: clear to auscultation bilaterally and no rhonchi Cardio Jugular venous distension: no JVD Rate: regular rate Heart sounds: S1 normal heart sound present, S2 normal heart sound present and no murmurs GI Inspection: Yes normal to inspection Palpation (GI): Soft to palpation Auscultation: normal bowel sounds General: Yes no CVA tenderness Back/Spine/Pelvis Back: no CVA tenderness Skin General skin exam: dry skin Rashes: rashes noted Neuro General: oriented to person Cranial nerves: Yes CN's II-XII intact bilaterally Results Reviewed Nephrology Results: Hgb 10.2 g/dl (12.0-16.0) L 09/18/23 WBC 3.8 X10*3/uL (4.8-10.8) L 09/18/23 Plt Count 217 X10*3/uL (160-400) 09/18/23 Sodium 141 mmol/L (135-145) 10/15/23 Potassium 4.0 mmol/L (3.3-5.1) 10/15/23 Chloride 108 mmol/L (96-108) 10/15/23 Carbon Dioxide 27 mmol/L (22-29) 10/15/23 BUN 16 mg/dL (9-16) 10/15/23 Creatinine 0.77 mg/dL (0.5-1.4) 10/15/23 Calcium 8.5 mg/dL (8.4-10.2) 10/15/23 Urine Protein >=1000 (4+) mg/dL (Neg-Trace) H 09/18/23 Urine Creatinine 306.38 mg/dL 09/18/23 Protein/Creatinin Ratio 3.16 (<0.2) H 09/18/23 Assessment & Plan Assessment & Plan (1) SLE (systemic lupus erythematosus): Code(s): M32.9 - Systemic lupus erythematosus, unspecified Category: Medical Qualifiers: Systemic lupus erythematosus type: other Systemic lupus erythematosus organ involvement: unspecified Qualified Code(s): M32.8 - Other forms of systemic lupus erythematosus (2) Proteinuria: Code(s): R80.9 - Proteinuria, unspecified Category: Medical Qualifiers: Proteinuria type: other Qualified Code(s): R80.8 - Other proteinuria Plan Lisa is a pleasant 27-year-old woman with a history of longstanding SLE currently has nephrotic range proteinuria of 3.1 gm with low serum albumin suggestive of nephrotic syndrome. 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 There was no global sclerosis. Tubular atrophy interstitial fibrosis 2% vascular sclerosis none. Light microscopy no collapse or crescents; no glomerular nephritis or thrombosis. No spikes or double contouring basement membrane NIH lupus nephritis activity index chronicity index 0 / 12 Electron microscopy showed foot process effacement Discussed treatment options for membranous nephropathy. She will require steroids with the immunosuppression. Currently she is on prednisone. She has in the childbearing age. We discussed the possibilities and she will bring her next week to discuss further regarding this. Agree with current management per rheumatology. Vp Global service was used. Would add a statin- Atorvastatin 10 mg QD and titrate dose Need to add Aspirin /anticoagulation Coding Level of Care Code Est Pt Level 4 (53209) Diagnoses Other forms of systemic lupus erythematosus, unspecified organ involvement status M32.8 Systemic lupus erythematosus type: other Systemic lupus erythematosus organ involvement: unspecified Other proteinuria R80.8 Proteinuria type: other
[2023-11-18 10:29] VITALS: BP 130/88; PULSE 105; O2SAT 99
== END 2023-11-18 10:58 | disposition home or self-care (01) ==
PROVIDERS: PCP Internal Medicine; Visit Provider Internal Medicine Hypertension Specialist
DX: M32.8 Other forms of systemic lupus erythematosus (principal); R80.8 Other proteinuria
CPT/HCPCS: 99214

== ENCOUNTER → 2023-11-18 10:24 | Outpatient (BNVA) | payer OTHER, SELFPAY | PROVIDERS: PCP Internal Medicine; Visit Provider Internal Medicine Hypertension Specialist | DX: M32.8 Other forms of systemic lupus erythematosus (principal); R80.8 Other proteinuria; Z79.60 Long term (current) use of unspecified immunomodulators and immunosuppressants | CPT/HCPCS: 99212 ==

== ENCOUNTER 2023-12-01 10:10 | Outpatient (AMB) | payer OTHER, SELFPAY ==
[2023-12-01 10:12] VITALS: BP 128/80; PULSE 95; O2SAT 100
--- NOTE | 2023-12-01 10:12 | A.OFFVIS_ITS ---
Vital Signs 12/01/23 10:12 Weight 130 lb 1.164 oz BP 128/80 Blood Pressure Location Rt brachial Position Sitting Pulse 95 Pulse Source Pulse Oximeter Pulse Oximetry (%) 100 Oxygen Delivery Method Room Air Intake Visit Reasons: SLE/CM Intake Note: Pt seen today for follow up, currently on prednisone 10mg. Reports issues with BP Room Service Attendant Required: Yes Room Service Attendant Name: Dung [id number] Accompanied by: Self / Same As Patient Allergies No Known Allergies Allergy (Verified 12/01/23 10:22) Medication List - Last Reconciled 12/01/23 by Stefani Hayes MD betamethasone dipropionate 0.05% appl topical famotidine (Pepcid) 20 mg PO DAILY hydrocortisone 1% (Anti-Itch (hydrocortisone)) 1 appl topical TID PRN hydroxychloroquine (Plaquenil) 200 mg PO BID levonorgestrel (Mirena) intrauterine levothyroxine (Synthroid) 25 mcg PO DAILY minoxidil 1.25 mg PO DAILY mupirocin 2% 1 appl topical BID 7 days prednisone 60 mg (3 x 20 mg) PO DAILY HPI Comments Details: This is a 28-year-old female with SLE who presents for follow-up. She received 2 Saphnelo infusions so far. That they were uneventful. She states that her skin feels much better. Overall she feels very well. She recently had a kidney biopsy. She is on prednisone 10 mg daily. She was started on minoxidil for her hair loss by quality assurance nurse and it is causing some hirsutism on her face. Initial history by Carolyn Heard 09/2023: Ms. Juan 27-year-old female presents today for transfer of care for SLE. She has immigrated from [place] about a year ago and has been taking hydroxychloroquine 200 mg b.i.d.. She has an extensive rash with her lupus and usually gets pulse steroid therapy in the ER when it erupts. Her installer molding and trim in [place] was started on Benlysta at the time of her immigration but has not been able to continue the therapy. She is experiencing increased joint pains. She does stay out of the sun and wears protective clothing. --Lups 10 years --took Prednisone and Cellcept not effective - took Cellcept for two years before they tried Benlysta --then Benlysta with cellcept - only had 2 injections at time, other two injections were not used when she migrated due to non refrigeration and she was scared that would be unstable --Was on MTX but got and then was started HCQ in [place] 2016. 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 Surgical History History of appendectomy Hx of section Family History Maternal Grandmother Diabetes Maternal Grandfather Diabetes Mother Hypothyroidism Social History Household Members: Significant Other Housing: Apartment Alcohol intake: never Patient Tobacco Use Status: Never used Tobacco Substance Use Type: Marijuana Current occupational status: employed Current occupation: [employer] Sexual orientation: Straight/Heterosexual Gender identity: Female Female Reproductive History Menstrual Date of last menstrual period: 07/06/23 control method: none Date of last pap smear: 05/15/23 (negative) Review of Systems Musc Denies arthralgias and Denies joint swelling Skin/Breast Reports rash Physical Exam Vital Signs: Last Vital Signs Pulse 95 12/01/23 10:12 BP 128/80 12/01/23 10:12 Pulse Ox 100 12/01/23 10:12 Oxygen Delivery Method Room Air 12/01/23 10:12 Const General: cooperative, healthy appearing and comfortable Nutritional Appearance: average body habitus Orientation/consciousness: patient oriented x3 Limitations: no limitations HEENT Head: Yes normocephalic and Yes atraumatic Mouth: moist mucous membranes Resp Effort & Inspection: normal respiratory effort and able to speak in complete sentences Auscultation: clear to auscultation bilaterally Skin Other: Rashes on arms, chest, face much improved compared to last visit Hirsutism on face Some alopecia Neuro General: patient oriented x3 Extrem Other: No active synovitis Normal nailfold capillaroscopy Assessment & Plan Assessment & Plan (1) SLE (systemic lupus erythematosus): Comment: dx approx 2014 in [place] (lupus nephritis, rashes, arhtralgias, +++SSa+++Madrigal+++FLEET SERVICE CLERK +++DSdna low C3 & low C4) took Prednisone and Cellcept not effective for rashes --then Benlysta with cellcept - only had 2 injections at time, other two injections were not used when she migrated due to non refrigeration and she was scared that would be unstable --Was on MTX but got and then was started HCQ in [place] 2015 Saphnelo 10/2023 effective for rashes Code(s): M32.9 - Systemic lupus erythematosus, unspecified Category: Medical Qualifiers: Systemic lupus erythematosus type: other Systemic lupus erythematosus organ involvement: unspecified Qualified Code(s): M32.8 - Other forms of systemic lupus erythematosus Plan: This is a 28-year-old female with SLE who presents for follow-up. This is her 1st visit with me. Patient took 2 infusions of Saphnelo so far. They were uneventful. Her rashes are significantly improved. 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 Per Nephrology she will need further immune suppression. She is currently on prednisone 10 mg daily. Continue Saphnelo monthly. Continue prednisone 10 mg a day. Labs today. 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 Patient will have an appointment soon with manager coding to discuss immune suppression. (3) Long-term use of hydroxychloroquine: Code(s): Z79.899 - Other terminal manager (current) drug therapy Category: Medical Plan: Patient is on hydroxychloroquine 20 mg Twice daily which is likely a high dose, she needs to be on approximately 300 mg daily. Will discuss further next visit and discuss evaluation by manager coding Plan I spent 46 minutes reviewing patient's chart, evaluating patient, ordering diagn ostic workup, counseling patient and documenting in the chart Orders: Orders Complement C3 Today M32.8 - Other forms of systemic lupus erythematosus Complement C4 Today M32.8 - Other forms of systemic lupus erythematosus Erythrocyte Sedimentation Rate Today M32.8 - Other forms of systemic lupus erythematosus Protein Creatinine Ratio, Ur Today M32.8 - Other forms of systemic lupus erythematosus UA w Microscopic Today M32.8 - Other forms of systemic lupus erythematosus Complete Blood Count Auto Diff Today M32.8 - Other forms of systemic lupus erythematosus Comprehensive Met. Panel Today M32.8 - Other forms of systemic lupus erythematosus Hepatitis A,B,C Profile Today Z11.59 - Encounter for screening for other viral diseases Beta-2 Glycoprotein Antibody Today D68.61 - Antiphospholipid syndrome Lupus Anticoagulant Panel Today D68.61 - Antiphospholipid syndrome Anti DNA DS Antibody Today M32.8 - Other forms of systemic lupus erythematosus C Reactive Protein Today M32.8 - Other forms of systemic lupus erythematosus T Spot TB Today Z11.7 - Encounter for testing for latent tuberculosis infection Cardiolipin Antibodies Today D68.61 - Antiphospholipid syndrome Medications: Refilled famotidine (Pepcid) Use while taking Prednisone 20 mg PO DAILY 90 tabs 1RF K21.9 - Gastro- esophageal reflux disease without esophagitis Coding Level of Care Code Est Pt Level 5 (34631) Complex EM visit Add On G2211 Diagnoses Other forms of systemic lupus erythematosus, unspecified organ involvement status M32.8 Systemic lupus erythematosus type: other Systemic lupus erythematosus organ involvement: unspecified Lupus nephritis M32.14 Long-term use of hydroxychloroquine Z79.899
== END 2023-12-01 10:38 | disposition home or self-care (01) ==
PROVIDERS: PCP Internal Medicine; Visit Provider Student in an Organized Health Care Education/Training Program
DX: M32.8 Other forms of systemic lupus erythematosus (principal); M32.14 Glomerular disease in systemic lupus erythematosus; Z79.899 Other long term (current) drug therapy
CPT/HCPCS: 99215; G2211

== ENCOUNTER 2023-12-01 10:10 | Outpatient (REF) | payer OTHER, SELFPAY ==
[2023-12-01 11:28] LABS: MANUAL DIFF FLAG NO
[2023-12-01 12:41] LABS: Basophils Absolute Auto 0.1 X10*3/uL (0.0-0.2); Basophils Percent Auto 0.9 % (0-2); Eosinophils Percent Auto 0.5 % (0-4); Hematocrit 38.4 % (37.0-47.0); Hemoglobin 12.8 g/dl (12.0-16.0); Imm Gran Pct Auto 1.3 % (0.0-0.4); Lymphocytes Absolute Auto 2.5 X10*3/uL (1.2-4.9); Lymphocytes Percent Auto 31.6 % (20-40); Mean Corpuscular HGB Conc 33.3 g/dl (31.0-35.0); Mean Corpuscular Hemoglobin 32.2 pg (27.0-33.0); Mean Corpuscular Volume 96.5 fL (80.0-98.0); Mean Platelet Volume 9.4 fL (9.4-12.3); Monocytes Absolute Auto 0.7 X10*3/uL (0.1-1.2); Monocytes Percent Auto 8.2 % (2-11); Neutrophils Absolute Auto 4.6 x10*3/uL (2.0-8.3); Neutrophils Percent Auto 57.5 % (45-73); Platelet Count 343 X10*3/uL (160-400); Red Blood Count 3.98 X10*6/uL (4.20-5.50); Red Cell Distribution Width 12.1 % (11.0-16.0)
[2023-12-01 13:08] LABS: Appearance Urine Clear; Color Urine Yellow; Glucose Urine UA Negative (Negative); Leukocyte Esterase Urine Negative (Negative); Nitrite Urine Negative (Negative); Specific Gravity - Urine 1.025 (1.005-1.025); UMIC TRIGGER UA YES; Urine Blood Moderate (2+) (Negative); Urine Ketones Negative (Negative); Urine Protein 300 (3+) mg/dL (Neg-Trace)
[2023-12-01 13:14] LABS: Bacteria Urine Trace (None Seen); Hyaline Casts Urine 0-2 /LPF (0-2); WBC Urine 0-5 /HPF (0-5)
[2023-12-01 13:19] LABS: Erythrocyte Sedimentation Rate 10 MM/HR (0-20)
[2023-12-01 13:48] LABS: Alanine Aminotransferase 14 U/L (0-31); Albumin Level 3.9 g/dL (3.5-5.0); Alkaline Phosphatase 56 U/L (39-117); Anion Gap 13 (12-20); Aspartate Amino Transferase 14 U/L (5-31); Bilirubin Total 0.2 mg/dL (0.0-1.0); Blood Urea Nitrogen 15 mg/dL (9-16); C Reactive Protein < 0.04 mg/dL (< or = 0.50); Calcium 9.3 mg/dL (8.4-10.2); Carbon Dioxide 28 mmol/L (22-29); Chloride 104 mmol/L (96-108); Estimated Glomerular Filt Rate > 60; Glucose Random 72 mg/dL (60-115); Potassium 3.9 mmol/L (3.3-5.1); Sodium 141 mmol/L (135-145); Total Protein 6.8 g/dL (6.5-8.0)
[2023-12-01 13:57] LABS: HBS Num1 1.93 mIU/mL (0-7.99); HBc Num1 0.07 S/CO (0.00-0.79); HBsAGNum1 0.22 S/CO (0.00-0.99); Hepatitis A Antibody IgM 0.28 Index (0-0.79); Hepatitis B Core Antibody Nonreactive (Nonreactive); Hepatitis B Surface Antigen Negative (Negative); ~HepC Num1 0.16 S/CO (0.00-0.79); ~Hepatitis A Antibody IgM Nonreactive (Nonreactive); ~Hepatitis B Surface Antibody NONREACTIVE (Nonreactive); ~Hepatitis C Antibody Nonreactive (Nonreactive)
[2023-12-01 14:04] LABS: Creatinine Urine 264.06 mg/dL
[2023-12-01 14:31] LABS: Protein/Creatinine Ratio, Ur 1.64 (<0.2); Total Protein Urine Random 434 mg/dL (<12)
[2023-12-02 10:38] LABS: Complement C3 59 mg/dL (83-193)
[2023-12-02 20:02] LABS: Anti DNA DS Antibody 154 IU/mL
[2023-12-03 23:18] LABS: TS Negative Control Passed; TS Panel A 0; TS Panel B 0; TS Positive Control Passed; TSpotTB Negative (Negative)
[2023-12-05 21:48] LABS: Beta-2 Glycoprotein IgG 3.2 U/mL (<20.0); Beta-2 Glycoprotein IgM 4.7 U/mL (<20.0)
[2023-12-07 06:14] LABS: PTT (LAC) Screen 36 sec (<=40)
== END 2023-12-01 10:11 | disposition home or self-care (01) ==
LOC: HO.LAB 10:10
PROVIDERS: PCP Internal Medicine; Visit Provider Student in an Organized Health Care Education/Training Program
DX: M32.8 Other forms of systemic lupus erythematosus (principal); D68.61 Antiphospholipid syndrome; M32.14 Glomerular disease in systemic lupus erythematosus; Z11.7 Encounter for testing for latent tuberculosis infection; Z11.59 Encounter for screening for other viral diseases; Z79.52 Long term (current) use of systemic steroids; Z79.899 Other long term (current) drug therapy
CPT/HCPCS: 36415; 80053; 81001; 82570; 84156; 85025; 85597; 85598; 85613; 85652; 85730; 86140; 86146; 86147; 86160; 86225; 86481; 86704; 86706; 86709; 86803; 87340; 99212

== ENCOUNTER 2023-12-02 09:50 | Outpatient (AMB) | payer OTHER, SELFPAY ==
--- NOTE | 2023-12-02 10:00 | HO.NEPHOV_ITS ---
Vital Signs 12/02/23 10:01 Weight 130 lb BP 116/86 Blood Pressure Location Lt brachial Position Sitting Pulse 99 Pulse Source Pulse Oximeter Pulse Oximetry (%) 99 Oxygen Delivery Method Room Air Intake Visit Reasons: Proteinuria/ Conf Managed Services Consultant Required: Yes Managed Services Consultant Name: Sada [id number] Accompanied by: Self / Same As Patient Allergies No Known Allergies Allergy (Verified 12/02/23 10:02) HPI Comments Details: Lisa is a pleasant 27-year-old woman with a history of SLE for almost 10 years She has been referred for proteinuria. In the past she was seen by a high school english teacher in [place]. She did not undergo kidney biopsy no specific diagnosis was there. Recently scheduled to see Rheumatology. She was started on prednisone 60 mg which has been tapered down to 40 mg. She is due to receive Saphnelo infusion tomorrow During routine workup she was found to have low serum complements C3 and C4 along with nephrotic range proteinuria of about 3.1 g. She had low serum protein as well. Serum creatinine was normal between 0.8 and 0.9 mg/dL. She was seen by studio control operator for skin lesions. She was given minoxidil 1.25 mg. History of mucosal ulcers. She is 1 daughter age 7 years . Normal delivery. No history of miscarriage Today she has no joint pains. No shortness of breath cough hemoptysis. No history of gross hematuria. She does have foamy urination. Mild ankle edema. 10/28/23 Received Saphnelo 2 weeks ago. Doing about the same 11/18/2023 She underwent kidney biopsy which was uneventful. No new issues today. 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 Surgical History History of appendectomy Hx of section Family History Maternal Grandmother Diabetes Maternal Grandfather Diabetes Mother Hypothyroidism Social History Household Members: Significant Other Housing: Apartment Alcohol intake: never Patient Tobacco Use Status: Never used Tobacco Substance Use Type: Marijuana Current occupational status: employed Current occupation: [employer] Sexual orientation: Straight/Heterosexual Gender identity: Female Physical Exam Vital Signs: Last Vital Signs Pulse 99 12/02/23 10:01 BP 116/86 12/02/23 10:01 Pulse Ox 99 12/02/23 10:01 Oxygen Delivery Method Room Air 12/02/23 10:01 Const General: comfortable; No acute distress Orientation/consciousness: patient oriented x3 Eyes General: appearance normal, both eyes and all related structures Visual Jorge: normal visual jorge by confrontation Neck Neck: Yes supple and Yes no JVD Resp Effort & Inspection: normal respiratory effort and respiratory effort not decreased Auscultation: rhonchi Cardio Palpation: no palpable S3 and no palpable S4 Heart sounds: no rubs GI Inspection: Yes normal to inspection Palpation (GI): Soft to palpation Percussion: Yes normal to percussion Auscultation: normal bowel sounds General: Yes no CVA tenderness Back/Spine/Pelvis Back: no CVA tenderness Neuro General: patient oriented x3 and no focal motor deficits Extrem General: No clubbing and No edema Results Reviewed Nephrology Results: Hgb 12.8 g/dl (12.0-16.0) 12/01/23 WBC 8.0 X10*3/uL (4.8-10.8) 12/01/23 Plt Count 343 X10*3/uL (160-400) 12/01/23 Sodium 141 mmol/L (135-145) 12/01/23 Potassium 3.9 mmol/L (3.3-5.1) 12/01/23 Chloride 104 mmol/L (96-108) 12/01/23 Carbon Dioxide 28 mmol/L (22-29) 12/01/23 BUN 15 mg/dL (9-16) 12/01/23 Creatinine 0.75 mg/dL (0.5-1.4) 12/01/23 Calcium 9.3 mg/dL (8.4-10.2) 12/01/23 Urine Protein 300 (3+) mg/dL (Neg-Trace) H 12/01/23 Urine Creatinine 264.06 mg/dL 12/01/23 Protein/Creatinin Ratio 1.64 (<0.2) H 12/01/23 Assessment & Plan Assessment & Plan (1) Long-term use of immunosuppressant medication: Code(s): Z79.60 - shelter (current) use of unspecified immunomodulators and immunosuppressants Category: Medical (2) SLE (systemic lupus erythematosus): Comment: dx approx 2014 in [place] (lupus nephritis, rashes, arhtralgias, +++SSa+++Madrigal+++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 +++DSdna low C3 & low C4) took Prednisone and Cellcept not effective for rashes --then Benlysta with cellcept - only had 2 injections at time, other two injections were not used when she migrated due to non refrigeration and she was scared that would be unstable --Was on MTX but got and then was started HCQ in [place] 2015 Saphnelo 10/2023 effective for rashes Code(s): M32.9 - Systemic lupus erythematosus, unspecified Category: Medical Qualifiers: Systemic lupus erythematosus type: other Systemic lupus erythematosus organ involvement: unspecified Qualified Code(s): M32.8 - Other forms of syste valarie lupus erythematosus (3) Proteinuria: Code(s): R80.9 - Proteinuria, unspecified Category: Medical Qualifiers: Proteinuria type: other Qualified Code(s): R80.8 - Other proteinuria Plan Lisa is a pleasant 27-year-old woman with a history of longstanding SLE currently has nephrotic range proteinuria of 3.1 gm with low serum albumin suggestive of nephrotic syndrome. 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 There was no global sclerosis. Tubular atrophy interstitial fibrosis 2% vascular sclerosis none. Light microscopy no collapse or crescents; no glomerular nephritis or thrombosis. No spikes or double contouring basement membrane NIH lupus nephritis activity index chronicity index 0 / 12 Electron microscopy showed foot process effacement Discussed treatment options for membranous nephropathy. She will do immunosuppression. Currently she is on prednisone. She has in the childbearing age. She is currently on contraception. We agreed on starting on mycophenolate. Initial dose 500 mg p.o. b.i.d. for 1 week and I will titrate it up to 1 g b.i.d.. Discussed side effects including diarrhea. Ordered test prior to initiating mycophenolate. If she gets mycophenolate needs to be stopped I have explained this to her in detail with the help of her svp innovation partnerships. Will monitor renal function and urine protein excretion closely. Added Bactrim 3 times a week for prophylaxis Concur with current management per rheumatology. Managed Services Consultant service was used. Would add a statin- Atorvastatin 10 mg QD and titrate dose Need to add Aspirin /anticoagulation based on urine protein excretion. Orders: Orders Complete Blood Count Auto Diff 1 Week Z79.60 - tool procurement coordinator (current) use of unspecified immunomodulators and immunosuppressants AMB HCG Urine Test Today Z79.60 - shelter (current) use of unspecified immunomodulators and immunosuppressants Medications: New sulfamethoxazole-trimethoprim 400-80 mg (Bactrim) 1 tab PO 3XW 90 tabs 0RF mycophenolate mofetil 500 mg PO BID 14 tabs 0RF Coding Level of Care Code Est Pt Level 4 (43514) Diagnoses Long-term use of immunosuppressant medication Z79.60 Other forms of systemic lupus erythematosus, unspecified organ involvement status M32.8 Systemic lupus erythematosus type: other Systemic lupus erythematosus organ involvement: unspecified Other proteinuria R80.8 Proteinuria type: other
[2023-12-02 10:01] VITALS: BP 116/86; PULSE 99; O2SAT 99
== END 2023-12-02 10:18 | disposition home or self-care (01) ==
PROVIDERS: PCP Internal Medicine; Visit Provider Internal Medicine Hypertension Specialist
DX: Z79.60 Long term (current) use of unspecified immunomodulators and immunosuppressants (principal); M32.8 Other forms of systemic lupus erythematosus; R80.8 Other proteinuria
CPT/HCPCS: 99214

== ENCOUNTER 2023-12-02 09:50 | Outpatient (REF) | payer OTHER, SELFPAY ==
[2023-12-02 11:03] LABS: MANUAL DIFF FLAG NO
[2023-12-02 11:52] LABS: Basophils Absolute Auto 0.1 X10*3/uL (0.0-0.2); Basophils Percent Auto 1.1 % (0-2); Eosinophils Percent Auto 0.6 % (0-4); Hematocrit 39.5 % (37.0-47.0); Hemoglobin 13.3 g/dl (12.0-16.0); INTERNATIONAL NORM RATIO 0.9 (0.9-1.1); Imm Gran Abs Auto 0.09 X10*3/uL (0.00-0.03); Imm Gran Pct Auto 1.4 % (0.0-0.4); Lymphocytes Absolute Auto 2.3 X10*3/uL (1.2-4.9); Lymphocytes Percent Auto 34.8 % (20-40); Mean Corpuscular HGB Conc 33.7 g/dl (31.0-35.0); Mean Corpuscular Hemoglobin 32.1 pg (27.0-33.0); Mean Corpuscular Volume 95.4 fL (80.0-98.0); Monocytes Absolute Auto 0.6 X10*3/uL (0.1-1.2); Monocytes Percent Auto 8.7 % (2-11); Neutrophils Absolute Auto 3.6 x10*3/uL (2.0-8.3); Neutrophils Percent Auto 53.4 % (45-73); Platelet Count 356 X10*3/uL (160-400); Prothrombin Time 10.9 SEC (11.1-13.3); Red Blood Count 4.14 X10*6/uL (4.20-5.50); Red Cell Distribution Width 12.2 % (11.0-16.0); White Blood Count 6.7 X10*3/uL (4.8-10.8)
== END 2023-12-02 09:51 | disposition home or self-care (01) ==
LOC: HO.LAB 09:50
PROVIDERS: PCP Internal Medicine; Visit Provider Internal Medicine Hypertension Specialist
DX: M32.8 Other forms of systemic lupus erythematosus (principal); R80.8 Other proteinuria; Z79.60 Long term (current) use of unspecified immunomodulators and immunosuppressants
CPT/HCPCS: 36415; 85025; 85610; 99212

== ENCOUNTER 2023-12-03 12:32 | Outpatient (REF) | payer OTHER, SELFPAY ==
[2023-12-03 13:05] LABS: UPreg QC Valid YES; Urine Pregnancy NEGATIVE (NEGATIVE)
== END 2023-12-03 12:33 | disposition home or self-care (01) ==
LOC: HO.LAB 12:32
PROVIDERS: PCP Internal Medicine; Visit Provider Internal Medicine Hypertension Specialist
DX: Z79.60 Long term (current) use of unspecified immunomodulators and immunosuppressants (principal)
CPT/HCPCS: 81025

== ENCOUNTER 2023-12-09 10:15 | Outpatient (AMB) | payer OTHER, SELFPAY ==
--- NOTE | 2023-12-09 10:15 | HO.NEPHOV_ITS ---
Vital Signs 12/09/23 10:16 Height 5 ft 5 in Weight 130 lb BMI 21.6 BP 114/86 Blood Pressure Location Rt brachial Position Sitting Pulse 96 Pulse Source Pulse Oximeter Pulse Oximetry (%) 99 Oxygen Delivery Method Room Air Intake Visit Reasons: Proteinuria/ Conf Bioinformatics Research Technician Required: Yes Bioinformatics Research Technician Name: Robert [id number] Accompanied by: Self / Same As Patient Allergies No Known Allergies Allergy (Verified 12/09/23 10:16) Medication List - Last Reconciled 12/09/23 by Valentín Wagner MD betamethasone dipropionate 0.05% appl topical famotidine (Pepcid) 20 mg PO DAILY hydrocortisone 1% (Anti-Itch (hydrocortisone)) 1 appl topical TID PRN hydroxychloroquine (Plaquenil) 200 mg PO BID levonorgestrel (Mirena) intrauterine levothyroxine (Synthroid) 25 mcg PO DAILY minoxidil 1.25 mg PO DAILY mupirocin 2% 1 appl topical BID 7 days mycophenolate mofetil 500 mg PO BID prednisone 60 mg (3 x 20 mg) PO DAILY sulfamethoxazole-trimethoprim 400-80 mg (Bactrim) 1 tab PO 3XW HPI Comments Details: Lisa is a pleasant 27-year-old woman with a history of SLE for almost 10 years She has been referred for proteinuria. In the past she was seen by a pediatric psychologist in [place]. She did not undergo kidney biopsy no specific diagnosis was there. Recently scheduled to see Rheumatology. She was started on prednisone 60 mg which has been tapered down to 40 mg. She is due to receive Saphnelo infusion tomorrow During routine workup she was found to have low serum complements C3 and C4 along with nephrotic range proteinuria of about 3.1 g. She had low serum protein as well. Serum creatinine was normal between 0.8 and 0.9 mg/dL. She was seen by narrow gauge operator for skin lesions. She was given minoxidil 1.25 mg. History of mucosal ulcers. She is 1 daughter age 7 years . Normal delivery. No history of miscarriage Today she has no joint pains. No shortness of breath cough hemoptysis. No history of gross hematuria. She does have foamy urination. Mild ankle edema. 10/28/23 Received Saphnelo 2 weeks ago. Doing about the same 11/18/2023 She underwent kidney biopsy which was uneventful. No new issues today. 12/09/2023 She was started on mycophenolate last week at 5 mg twice a day. She is tolerating well. No new issues. 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 Lupus Surgical History History of appendectomy Hx of section Family History Maternal Grandmother Diabetes Maternal Grandfather Diabetes Mother Hypothyroidism Social History Household Members: Significant Other Housing: Apartment Alcohol intake: never Patient Tobacco Use Status: Never used Tobacco Substance Use Type: Marijuana Current occupational status: employed Current occupation: [employer] Sexual orientation: Straight/Heterosexual Gender identity: Female Physical Exam Vital Signs: Last Vital Signs Pulse 96 12/09/23 10:16 BP 114/86 12/09/23 10:16 Pulse Ox 99 12/09/23 10:16 Oxygen Delivery Method Room Air 12/09/23 10:16 BMI result Body Mass Index 21.6 Const General: comfortable; No acute distress Orientation/consciousness: patient oriented x3 Eyes General: appearance normal, both eyes and all related structures Visual Jorge: normal visual jorge by confrontation Neck Neck: Yes supple and Yes no JVD Resp Effort & Inspection: normal respiratory effort and respiratory effort not decreased Auscultation: rhonchi Cardio Palpation: no palpable S3 and no palpable S4 Heart sounds: no rubs GI Inspection: Yes normal to inspection Palpation (GI): Soft to palpation Percussion: Yes normal to percussion Auscultation: normal bowel sounds General: Yes no CVA tenderness Back/Spine/Pelvis Back: no CVA tenderness Skin General skin exam: no petechiae and no purpura Neuro General: patient oriented x3 and no focal motor deficits Extrem General: No clubbing and No edema Results Reviewed Nephrology Results: Hgb 13.3 g/dl (12.0-16.0) 12/02/23 WBC 6.7 X10*3/uL (4.8-10.8) 12/02/23 Plt Count 356 X10*3/uL (160-400) 12/02/23 Sodium 141 mmol/L (135-145) 12/01/23 Potassium 3.9 mmol/L (3.3-5.1) 12/01/23 Chloride 104 mmol/L (96-108) 12/01/23 Carbon Dioxide 28 mmol/L (22-29) 12/01/23 BUN 15 mg/dL (9-16) 12/01/23 Creatinine 0.75 mg/dL (0.5-1.4) 12/01/23 Calcium 9.3 mg/dL (8.4-10.2) 12/01/23 Urine Protein 300 (3+) mg/dL (Neg-Trace) H 12/01/23 Urine Creatinine 264.06 mg/dL 12/01/23 Protein/Creatinin Ratio 1.64 (<0.2) H 12/01/23 Assessment & Plan Assessment & Plan (1) Long-term use of immunosuppressant medication: Code(s): Z79.60 - exterminator termite (current) use of unspecified immunomodulators and immunosuppressants Category: Medical (2) SLE (systemic lupus erythematosus): Comment: dx approx 2014 in [place] (lupus nephritis, rashes, arhtralgias, +++SSa+++Madrigal+++REDRAWER +++DSdna low C3 & low C4) took Prednisone and Cellcept not effective for rashes --then Benlysta with cellcept - only had 2 injections at time, other two injections were not used when she migrated due to non refrigeration and she was scared that would be unstable --Was on MTX but got and then was started HCQ in [place] [facility] effective for rashes Code(s): M32.9 - Systemic lupus erythematosus, unspecified Category: Medical Qualifiers: Systemic lupus erythematosus type: other Systemic lupus erythematosus organ involvement: unspecified Qualified Code(s): M32.8 - Other forms of systemic lupus erythematosus (3) Proteinuria: Code(s): R80.9 - Proteinuria, unspecified Category: Medical Qualifiers: Proteinuria type: other Qualified Code(s): R80.8 - Other proteinuria Plan Lisa is a pleasant 27-year-old woman with a history of longstanding SLE currently has nephrotic range proteinuria of 3.1 gm with low serum albumin suggestive of nephrotic syndrome. 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 There was no global sclerosis. Tubular atrophy interstitial fibrosis 2% vascula r sclerosis none. Light microscopy no collapse or crescents; no glomerular nephritis or thrombosis. No spikes or double contouring basement membrane NIH lupus nephritis activity index chronicity index 0 12 Electron microscopy showed foot process effacement Discussed treatment options for membranous nephropathy. She will do immunosuppression. Currently she is on prednisone. She has in the childbearing age. She is currently on contraception. We agreed on starting on mycophenolate. Started Initial dose 500 mg p.o. b.i.d. for 1 week Increase to 1 g b.i.d. starting today(12/09/23) Discussed side effects including diarrhea. If she gets mycophenolate needs to be stopped I have explained this to her in detail with the help of her social media director. Will monitor renal function and urine protein excretion closely. Bactrim 3 times a week for prophylaxis Concur with current management per rheumatology. Bioinformatics Research Technician service was used. Added Atorvastatin 10 mg QD and titrate dose: 12/09/23 Added Aspirin 12/09/23 Orders: Orders Basic Metabolic Panel Today R80.8 - Other proteinuria, Z79.60 - exterminator termite (current) use of unspecified immunomodulators and immunosuppressants Total Protein Urine Random Today R80.8 - Other proteinuria, Z79.60 - exterminator termite (current) use of unspecified immunomodulators and immunosuppressants Creatinine Urine Today R80.8 - Other proteinuria, Z79.60 - exterminator termite (current) use of unspecified immunomodulators and immunosuppressants Medications: New aspirin 81 mg PO DAILY 90 tabs 3RF atorvastatin (Lipitor) 10 mg PO DAILY 90 tabs 1RF Changed From mycophenolate mofetil 500 mg PO BID 14 tabs 0RF To mycophenolate mofetil 1,000 mg (2 x 500 mg) PO BID 180 tabs 2RF Coding Level of Care Code Est Pt Level 4 (56560) Diagnoses Long-term use of immunosuppressant medication Z79.60 Other forms of systemic lupus erythematosus, unspecified organ involvement status M32.8 Systemic lupus erythematosus type: other Systemic lupus erythematosus organ involvement: unspecified Other proteinuria R80.8 Proteinuria type: other
[2023-12-09 10:16] VITALS: BP 114/86; PULSE 96; O2SAT 99; BMI 21.6
== END 2023-12-09 10:33 | disposition home or self-care (01) ==
PROVIDERS: PCP Internal Medicine; Visit Provider Internal Medicine Hypertension Specialist
DX: Z79.60 Long term (current) use of unspecified immunomodulators and immunosuppressants (principal); M32.8 Other forms of systemic lupus erythematosus; R80.8 Other proteinuria
CPT/HCPCS: 99214

== ENCOUNTER → 2023-12-09 10:15 | Outpatient (BNVA) | payer OTHER, SELFPAY | PROVIDERS: PCP Internal Medicine; Visit Provider Internal Medicine Hypertension Specialist | DX: M32.8 Other forms of systemic lupus erythematosus (principal); R80.8 Other proteinuria; Z79.60 Long term (current) use of unspecified immunomodulators and immunosuppressants | CPT/HCPCS: 99212 ==

== ENCOUNTER 2023-12-22 13:18 | Outpatient (REF) | payer OTHER, SELFPAY ==
[2023-12-22 14:25] LABS: Anion Gap 11 (12-20); Blood Urea Nitrogen 10 mg/dL (9-16); Calcium 9.3 mg/dL (8.4-10.2); Carbon Dioxide 28 mmol/L (22-29); Chloride 107 mmol/L (96-108); Estimated Glomerular Filt Rate > 60; Glucose Random 84 mg/dL (60-115); Potassium 3.9 mmol/L (3.3-5.1); Sodium 142 mmol/L (135-145)
[2023-12-22 17:05] LABS: Total Protein Urine Random 279 mg/dL (<12)
== END 2023-12-22 13:19 | disposition home or self-care (01) ==
LOC: HO.LAB 13:18
PROVIDERS: Visit Provider Internal Medicine Hypertension Specialist
DX: R80.8 Other proteinuria (principal); Z79.60 Long term (current) use of unspecified immunomodulators and immunosuppressants
CPT/HCPCS: 36415; 80048; 82570; 84156; 99202

== ENCOUNTER 2023-12-22 13:44 | Outpatient (AMB) | payer OTHER, SELFPAY ==
--- NOTE | 2023-12-22 14:46 | MHC.OFFVIS ---
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/edilson diaz/monica/cp Cleaning Attendant Required: Yes Cleaning Attendant Services: Cleaning Attendant Present Cleaning Attendant Name: [id number]/[place]/amharic Accompanied by: Self / Same As Patient Allergies No Known Allergies Allergy (Verified 12/09/23 10:16) Medication List - Last Reconciled 12/22/23 by Vitaliy Ashley MD aspirin 81 mg PO DAILY atorvastatin (Lipitor) 10 mg PO DAILY betamethasone dipropionate 0.05% appl topical famotidine (Pepcid) 20 mg PO DAILY hydrocortisone 1% (Anti-Itch (hydrocortisone)) 1 appl topical TID PRN hydroxychloroquine (Plaquenil) 200 mg PO BID levonorgestrel (Mirena) intrauterine levothyroxine (Synthroid) 25 mcg PO DAILY minoxidil 2.5 mg PO DAILY mupirocin 2% 1 appl topical BID 7 days mycophenolate mofetil 1,000 mg (2 x 500 mg) PO BID prednisone 60 mg (3 x 20 mg) PO DAILY sulfamethoxazole-trimethoprim 400-80 mg (Bactrim) 1 tab PO 3XW HPI Comments Details: This is a cardiology consultation regarding lupus. Patient herself does not have any known cardiac issues. But referral, there is mention of occasional chest pain/shortness of breath but patient totally denies this. Apparently, she has done an echocardiogram and Holter monitor at [place] but we do not have the results. 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 Lupus Surgical History History of appendectomy Hx of section Family History Maternal Grandmother Diabetes Maternal Grandfather Diabetes Mother Hypothyroidism Social History Household Members: Significant Other Housing: Apartment Alcohol intake: never Patient Tobacco Use Status: Never used Tobacco Substance Use Type: Marijuana Current occupational status: employed Current occupation: [employer] Sexual orientation: Straight/Heterosexual Gender identity: Female Review of Systems Const Denies chills, Denies daytime sleepiness, Denies fatigue, Denies fever(s), Denies poor appetite, Denies snoring, Denies stops breathing during sleep, Denies weakness, Denies weight gain and Denies weight loss Eyes Denies loss of vision ENT Denies dizziness and Reports hearing loss Card Denies chest pain, Denies irregular heart rhythm, Denies claudication, Denies leg edema, Denies lightheadedness, Denies palpitations, Denies dyspnea on exertion and Denies orthopnea Resp Denies cough, Denies excessive phlegm production, Denies dyspnea on exertion, Denies snoring and Denies wheezing GI Denies abdominal pain, Denies hematochezia, Denies change in bowel habits, Denies nausea and Denies vomiting Denies urinary frequency and Denies dysuria Musc Denies arthralgias, Denies muscle weakness, Denies numbness and Denies other Skin/Breast Denies nail changes and Denies rash Neuro Denies Abnormal speech present, Denies dizziness, Denies loss of vision, Denies memory loss, Denies numbness and Denies weakness Psych Denies depression and Denies memory loss Endo Denies fatigue and Denies palpitations Shahab/Lymph Denies easy bruising Aller/Immun Denies wheezing Physical Exam Vital Signs: Last Vital Signs Pulse 100 12/22/23 14:48 BP 124/80 12/22/23 14:48 BMI result Body Mass Index 21.3 Const General: comfortable and no acute distress Orientation/consciousness: patient oriented x3 HEENT Other: Unremarkable Head: Yes normal to inspection Neck Neck: Yes normal visual inspection Chest Chest palpation & inspection: normal inspection of the chest Resp Auscultation: clear to auscultation bilaterally Cardio Palpation: normal PMI Heart sounds: S1 normal heart sound present, S2 normal heart sound present, no gallops, no murmurs and no rubs GI Palpation (GI): Soft to palpation Back/Spine/Pelvis Other: unremarkable Skin General skin exam: no rashes or lesions noted Neuro General: patient oriented x3 Speech: No Abnormal speech present Extrem General: Yes normal to inspection Psych Mental Status: mental status grossly normal Assessment & Plan Assessment & Plan (1) SLE (systemic lupus erythematosus): Code(s): M32.9 - Systemic lupus erythematosus, unspecified Category: Medical Qualifiers: Systemic lupus erythematosus type: other Systemic lupus erythematosus organ involvement: unspecified Qualified Code(s): M32.8 - Other forms of systemic lupus erythematosus Plan: Recent EKG shows sinus rhythm at 97/Min; nonspecific ST-T changes in anterior leads. Referral states occasional chest pain/shortness of breath but repeatedly asked her with ibm mainframe developer and she denies these. Overall, it is possible that she may have some pleuritic/pericardial type pain. As she has already had an echocardiogram and Holter, we will get those from [place]. Plan based on findings. Care for lupus through rheumatology/Nephrology. Coding Level of Care Code New Pt Level 3 (93117) Diagnoses Other forms of systemic lupus erythematosus, unspecified organ involvement status M32.8 Systemic lupus erythematosus type: other Systemic lupus erythematosus organ involvement: unspecified
[2023-12-22 14:48] VITALS: BP 124/80; PULSE 100; BMI 21.3
== END 2023-12-22 15:16 | disposition home or self-care (01) ==
PROVIDERS: PCP Internal Medicine; Visit Provider Internal Medicine
DX: M32.8 Other forms of systemic lupus erythematosus (principal)
CPT/HCPCS: 99203

== ENCOUNTER 2024-01-29 07:46 | Outpatient (REF) | payer OTHER, SELFPAY ==
[2024-01-29 13:21] LABS: Bacterial Vaginosis PCR POSITIVE (Negative); Candida Group PCR NOT DETECTED (Not Detect); Candida glab krusei PCR NOT DETECTED (Not Detect); Trichomonas vaginalis PCR NOT DETECTED (Not Detect)
[2024-01-29 13:51] LABS: CT PCR NOT DETECTED (Not Detect.); NG PCR NOT DETECTED (Not Detect.)
== END 2024-01-29 07:47 | disposition home or self-care (01) ==
LOC: HO.LNP 07:46
PROVIDERS: PCP Internal Medicine; Visit Provider Advanced Practice Midwife
DX: N89.8 Other specified noninflammatory disorders of vagina (principal); R80.8 Other proteinuria; M32.8 Other forms of systemic lupus erythematosus; Z79.60 Long term (current) use of unspecified immunomodulators and immunosuppressants; Z11.3 Encounter for screening for infections with a predominantly sexual mode of transmission
CPT/HCPCS: 0352U; 87491; 87591; 99212

== ENCOUNTER 2024-01-29 07:46 | Outpatient (AMB) | payer OTHER, SELFPAY ==
[2024-01-29 07:49] VITALS: BP 120/82; BMI 21.3
--- NOTE | 2024-01-29 07:49 | A.OFFVIS_ITS ---
Vital Signs 01/29/24 07:49 Height 5 ft 5 in Weight 127 lb 13.89 oz BMI 21.3 BP 120/82 Intake Visit Reasons: vaginal discharge Public Health Outreach Worker Required: Yes Public Health Outreach Worker Language: Steel Molder Services: Public Health Outreach Worker Present (in person) Public Health Outreach Worker Name: Reyna CHACON Information Interpreted: non-clinical & clinical Chiropractic Physician: Chiropractic Physician Present (Reyna CHACON) Accompanied by: Self / Same As Patient Allergies No Known Allergies Allergy (Verified 01/29/24 07:53) Is last menstrual period known: Yes Last menstrual period: 01/11/24 HPI Comments Details: Patient is here today with concerns over increased vaginal discharge with slight external irritation, denies any current pelvic pain, has regular menses with the ParaGard. Denies any urinary symptoms or odors. 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 Lupus Surgical History History of appendectomy Hx of section Family History Maternal Grandmother Diabetes Maternal Grandfather Diabetes Mother Hypothyroidism Social History Household Members: Significant Other Housing: Apartment Alcohol intake: never Patient Tobacco Use Status: Never used Tobacco Substance Use Type: Marijuana Current occupational status: employed Current occupation: [employer] Sexual orientation: Straight/Heterosexual Gender identity: Female Female Reproductive History Menstrual Date of last menstrual period: 01/11/24 Review of Systems Const All systems reviewed & are unremarkable except as noted in HPI and below Physical Exam Vital Signs: Last Vital Signs BP 120/82 01/29/24 07:49 BMI result Body Mass Index 21.3 Const General: cooperative, healthy appearing and no acute distress Orientation/consciousness: patient oriented x3 GI Inspection: Yes normal to inspection Palpation (GI): Soft to palpation and Other GI palpation findings present (Nontender) Rectal Exam - Female: visual inspection normal General: Yes bladder normal to palpation External Female Exam: normal appearance of the urethra Speculum Exam - Vagina: normal appearance of the vagina, normal palpation and normal vaginal discharge (Thin white) Speculum Exam - Cervix: normal appearance of the cervix, normal palpation and Other cervical findings present (IUD strings present) Bimanual exam- vagina & uterus: normal bimanual exam, normal palpation, uterine size normal, bladder normal to palpation, normal palpation, uterine shape normal and non-tender Bimanual Exam- Adnexa, other: normal adnexae Neuro General: patient oriented x3 Assessment & Plan Assessment & Plan (1) Vaginal irritation: Code(s): N89.8 - Other specified noninflammatory disorders of vagina Plan Plan BV and GC chlamydia cultures await results for plan of care. All of her questions and concerns were addressed to the best of my ability and shared decision making. She is agreeable to the plan of care. This note is constructed using voice recognition software. While every effort has been made to ensure accuracy, lead enterprise architect errors may have been included. Orders: Orders CT NG by PCR Today N89.8 - Other specified noninflammatory disorders of vagina Bacterial Vaginosis Panel Today N89.8 - Other specified noninflammatory disorders of vagina Coding Level of Care Code Est Pt Level 3 (23001) Diagnoses Vaginal irritation N89.8
== END 2024-01-29 08:34 | disposition home or self-care (01) ==
PROVIDERS: PCP Internal Medicine; Visit Provider Advanced Practice Midwife
DX: N89.8 Other specified noninflammatory disorders of vagina (principal)
CPT/HCPCS: 99213

== ENCOUNTER 2024-01-29 15:30 | Outpatient (AMB) | payer OTHER, SELFPAY ==
[2024-01-29 15:38] VITALS: BP 118/68; PULSE 113; O2SAT 98; BMI 21.6
--- NOTE | 2024-01-29 15:38 | HO.NEPHOV_ITS ---
Vital Signs 01/29/24 15:38 Height 5 ft 5 in Weight 130 lb BMI 21.6 BP 118/68 Blood Pressure Location Lt brachial Position Sitting Pulse 113 H Pulse Source Pulse Oximeter Pulse Oximetry (%) 98 Oxygen Delivery Method Room Air Intake Visit Reasons: Proteinuria/ Conf Assistant Produce Manager Required: Yes Assistant Produce Manager Name: [id number] Fredis Accompanied by: Self / Same As Patient Allergies No Known Allergies Allergy (Verified 01/29/24 15:40) Medication List - Last Reconciled 01/29/24 by Valentín Wagner MD aspirin 81 mg PO DAILY atorvastatin (Lipitor) 10 mg PO DAILY betamethasone dipropionate 0.05% appl topical famotidine (Pepcid) 20 mg PO DAILY hydrocortisone 1% (Anti-Itch (hydrocortisone)) 1 appl topical TID PRN hydroxychloroquine (Plaquenil) 200 mg PO BID levonorgestrel (Mirena) intrauterine levothyroxine (Synthroid) 25 mcg PO DAILY minoxidil 2.5 mg PO DAILY mupirocin 2% 1 appl topical BID 7 days mycophenolate mofetil 1,000 mg (2 x 500 mg) PO BID prednisone 60 mg (3 x 20 mg) PO DAILY sulfamethoxazole-trimethoprim 400-80 mg (Bactrim) 1 tab PO 3XW HPI Comments Details: Lisa is a pleasant 27-year-old woman with a history of SLE for almost 10 years She has been referred for proteinuria. In the past she was seen by a pediatric radiologist in [place]. She did no t undergo kidney biopsy no specific diagnosis was there. Recently scheduled to see Rheumatology. She was started on prednisone 60 mg which has been tapered down to 40 mg. She is due to receive Saphnelo infusion tomorrow During routine workup she was found to have low serum complements C3 and C4 along with nephrotic range proteinuria of about 3.1 g. She had low serum protein as well. Serum creatinine was normal between 0.8 and 0.9 mg/dL. She was seen by orange picker machine operator for skin lesions. She was given minoxidil 1.25 mg. History of mucosal ulcers. She is 1 daughter age 7 years . Normal delivery. No history of miscarriage Today she has no joint pains. No shortness of breath cough hemoptysis. No history of gross hematuria. She does have foamy urination. Mild ankle edema. 10/28/23 Received Saphnelo 2 weeks ago. Doing about the same 11/18/2023 She underwent kidney biopsy which was uneventful. No new issues today. 12/09/2023 She was started on mycophenolate last week at 5 mg twice a day. She is tolerating well. No new issues. test negative prior to starting mycophenolate 01/29/24 Doing well. 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 Lupus Surgical History History of appendectomy Hx of section Family History Maternal Grandmother Diabetes Maternal Grandfather Diabetes Mother Hypothyroidism Social History Household Members: Significant Other Housing: Apartment Alcohol intake: never Patient Tobacco Use Status: Never used Tobacco Substance Use Type: Marijuana Current occupational status: employed Current occupation: [employer] Sexual orientation: Straight/Heterosexual Gender identity: Female Physical Exam Vital Signs: Last Vital Signs Pulse 113 H 01/29/24 15:38 BP 118/68 01/29/24 15:38 Pulse Ox 98 01/29/24 15:38 Oxygen Delivery Method Room Air 01/29/24 15:38 BMI result Body Mass Index 21.6 Results Reviewed Nephrology Results: Hgb 13.3 g/dl (12.0-16.0) 12/02/23 WBC 6.7 X10*3/uL (4.8-10.8) 12/02/23 Plt Count 356 X10*3/uL (160-400) 12/02/23 Sodium 139 mmol/L (135-145) 01/29/24 Potassium 4.4 mmol/L (3.3-5.1) 01/29/24 Chloride 108 mmol/L (96-108) 01/29/24 Carbon Dioxide 22 mmol/L (22-29) 01/29/24 BUN 18 mg/dL (9-16) H 01/29/24 Creatinine 0.87 mg/dL (0.5-1.4) 01/29/24 Calcium 9.9 mg/dL (8.4-10.2) 01/29/24 Urine Protein 300 (3+) mg/dL (Neg-Trace) H 12/01/23 Urine Creatinine 109.32 mg/dL 01/29/24 Protein/Creatinin Ratio 1.64 (<0.2) H 12/01/23 Assessment & Plan Assessment & Plan (1) Long-term use of immunosuppressant medication: Code(s): Z79.60 - intermediate accountant (current) use of unspecified immunomodulators and immunosuppressants Category: Medical (2) SLE (systemic lupus erythematosus): Code(s): M32.9 - Systemic lupus erythematosus, unspecified Category: Medical Qualifiers: Systemic lupus erythematosus type: other Systemic lupus erythematosus organ involvement: unspecified Qualified Code(s): M32.8 - Other forms of systemic lupus erythematosus (3) Proteinuria: Code(s): R80.9 - Proteinuria, unspecified Category: Medical Qualifiers: Proteinuria type: other Qualified Code(s): R80.8 - Other proteinuria Plan Lisa is a pleasant 27-year-old woman with a history of longstanding SLE currently has nephrotic range proteinuria of 3.1 gm with low serum albumin suggestive of nephrotic syndrome. 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 There was no global sclerosis. Tubular atrophy interstitial fibrosis 2% vascular sclerosis none. Light microscopy no collapse or crescents; no glomerular nephritis or thrombosis. No spikes or double contouring basement membrane NIH lupus nephritis activity index chronicity index 0 / 12 Electron microscopy showed foot process effacement Discussed treatment options for membranous nephropathy. She will do immunosuppression. Currently she is on prednisone. She has in the childbearing age. She is currently on contraception. We agreed on starting on mycophenolate. Started Initial dose 500 mg p.o. b.i.d. for 1 week Increased to 1 g b.i.d. starting 12/09/23 Discussed side effects including diarrhea. If she gets mycophenolate needs to be stopped I have explained this to her in detail with the help of her dough molder hand. Will monitor renal function and urine protein excretion closely. Bactrim 3 times a week for prophylaxis Concur with current management per rheumatology. Assistant Produce Manager service was used. Added Atorvastatin 10 mg QD and titrate dose: 12/09/23 Added Aspirin 12/09/23 Orders: Orders Total Protein Urine Random 01/29/24 R80.8 - Other proteinuria Creatinine Urine 24 R80.8 - Other proteinuria Creatinine Urine 2 Months M32.8 - Other forms of systemic lupus erythematosus, R80.8 - Other proteinuria, Z79.60 - custodial (current) use of unspecified immunomodulators and immunosuppressants UA and rflx microscopic 2 Months M32.8 - Other forms of systemic lupus erythematosus, R80.8 - Other proteinuria, Z79.60 - custodial (current) use of unspecified immunomodulators and immunosuppressants Total Protein Urine Random 2 Months M32.8 - Other forms of systemic lupus erythematosus, R80.8 - Other proteinuria, Z79.60 - intermediate accountant (current) use of unspecified immunomodulators and immunosuppressants Comprehensive Met. Panel 2 Months M32.8 - Other forms of systemic lupus erythematosus, R80.8 - Other proteinuria, Z79.60 - intermediate accountant (current) use of unspecified immunomodulators and immunosuppressants Complete Blood Count Auto Diff 2 Months M32.8 - Other forms of systemic lupus erythematosus, R80.8 - Other proteinuria, Z79.60 - intermediate accountant (current) use of unspecified immunomodulators and immunosuppressants Basic Metabolic Panel 01/29/24 R80.8 - Other proteinuria Lipid Panel 2 Months R80.8 - Other proteinuria Coding Level of Care Code Est Pt Level 4 (78261) Diagnoses Long-term use of immunosuppressant medication Z79.60 Other forms of systemic lupus erythematosus, unspecified organ involvement status M32.8 Systemic lupus erythematosus type: other Systemic lupus erythematosus organ involvement: unspecified Other proteinuria R80.8 Proteinuria type: other
--- NOTE | 2024-01-29 15:40 | HO.NEPHOV_ITS ---
Vital Signs 01/29/24 15:38 Height 5 ft 5 in Weight 130 lb BMI 21.6 BP 118/68 Blood Pressure Location Lt brachial Position Sitting Pulse 113 H Pulse Source Pulse Oximeter Pulse Oximetry (%) 98 Oxygen Delivery Method Room Air Intake Visit Reasons: Proteinuria/ Conf Allergies No Known Allergies Allergy (Verified 01/29/24 15:40) Medication List - Last Reconciled 01/29/24 by Valentín Wagner MD aspirin 81 mg PO DAILY atorvastatin (Lipitor) 10 mg PO DAILY betamethasone dipropionate 0.05% appl topical famotidine (Pepcid) 20 mg PO DAILY hydrocortisone 1% (Anti-Itch (hydrocortisone)) 1 appl topical TID PRN hydroxychloroquine (Plaquenil) 200 mg PO BID levonorgestrel (Mirena) intrauterine levothyroxine (Synthroid) 25 mcg PO DAILY minoxidil 2.5 mg PO DAILY mupirocin 2% 1 appl topical BID 7 days mycophenolate mofetil 1,000 mg (2 x 500 mg) PO BID prednisone 60 mg (3 x 20 mg) PO DAILY sulfamethoxazole-trimethoprim 400-80 mg (Bactrim) 1 tab PO 3XW HPI Comments Details: Lisa is a pleasant 27-year-old woman with a history of SLE for almost 10 years She has been referred for proteinuria. In the past she was seen by a dental insurance coordinator in [place]. She did not undergo kidney biopsy no specific diagnosis was there. Recently scheduled to see Rheumatology. She was started on prednisone 60 mg which has been tapered down to 40 mg. She is due to receive Saphnelo infusion tomorrow During routine workup she was found to have low serum complements C3 and C4 along with nephrotic range proteinuria of about 3.1 g. She had low serum protein as well. Serum creatinine was normal between 0.8 and 0.9 mg/dL. She was seen by window glazier helper for skin lesions. She was given minoxidil 1.25 mg. History of mucosal ulcers. She is 1 daughter age 7 years . Normal delivery. No history of miscarriage Today she has no joint pains. No shortness of breath cough hemoptysis. No history of gross hematuria. She does have foamy urination. Mild ankle edema. 10/28/23 Received Saphnelo 2 weeks ago. Doing about the same 11/18/2023 She underwent kidney biopsy which was uneventful. No new issues today. 12/09/2023 She was started on mycophenolate last week at 5 mg twice a day. She is tolerating well. No new issues. test negative prior to starting mycophenolate 01/29/24 Doing well. 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 Surgical History History of appendectomy Hx of section Family History Maternal Grandmother Diabetes Maternal Grandfather Diabetes Mother Hypothyroidism Social History Household Members: Significant Other Housing: Apartment Alcohol intake: never Patient Tobacco Use Status: Never used Tobacco Substance Use Type: Marijuana Current occupational status: employed Current occupation: [employer] Sexual orientation: Straight/Heterosexual Gender identity: Female Physical Exam Vital Signs: BMI result Body Mass Index 21.6 Const General: comfortable; No acute distress Orientation/consciousness: patient oriented x3 Eyes General: appearance normal, both eyes and all related structures Visual Jorge: normal visual jorge by confrontation Neck Neck: Yes supple and Yes no JVD Resp Effort & Inspection: normal respiratory effort and respiratory effort not decreased Auscultation: rhonchi Cardio Palpation: no palpable S3 and no palpable S4 Heart sounds: no rubs GI Inspection: Yes normal to inspection Palpation (GI): Soft to palpation Percussion: Yes normal to percussion Auscultation: normal bowel sounds General: Yes no CVA tenderness Back/Spine/Pelvis Back: no CVA tenderness Skin General skin exam: no petechiae and no purpura Neuro General: patient oriented x3 and no focal motor deficits Extrem General: No clubbing and No edema Results Reviewed Nephrology Results: Hgb 13.3 g/dl (12.0-16.0) 12/02/23 WBC 6.7 X10*3/uL (4.8-10.8) 12/02/23 Plt Count 356 X10*3/uL (160-400) 12/02/23 Sodium 142 mmol/L (135-145) 12/22/23 Potassium 3.9 mmol/L (3.3-5.1) 12/22/23 Chloride 107 mmol/L (96-108) 12/22/23 Carbon Dioxide 28 mmol/L (22-29) 12/22/23 BUN 10 mg/dL (9-16) 12/22/23 Creatinine 0.81 mg/dL (0.5-1.4) 12/22/23 Calcium 9.3 mg/dL (8.4-10.2) 12/22/23 Urine Protein 300 (3+) mg/dL (Neg-Trace) H 12/01/23 Urine Creatinine 274.60 mg/dL 12/22/23 Protein/Creatinin Ratio 1.64 (<0.2) H 12/01/23 Assessment & Plan Assessment & Plan (1) Long-term use of immunosuppressant medication: Code(s): Z79.60 - 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) use of unspecified immunomodulators and immunosup pressants Category: Medical (2) SLE (systemic lupus erythematosus): Code(s): M32.9 - Systemic lupus erythematosus, unspecified Category: Medical Qualifiers: Systemic lupus erythematosus type: other Systemic lupus erythematosus organ involvement: unspecified Qualified Code(s): M32.8 - Other forms of systemic lupus erythematosus (3) Proteinuria: Code(s): R80.9 - Proteinuria, unspecified Category: Medical Qualifiers: Proteinuria type: other Qualified Code(s): R80.8 - Other proteinuria Plan Lisa is a pleasant 27-year-old woman with a history of longstanding SLE currently has nephrotic range proteinuria of 3.1 gm with low serum albumin suggestive of nephrotic syndrome. 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 There was no global sclerosis. Tubular atrophy interstitial fibrosis 2% vascular sclerosis none. Light microscopy no collapse or crescents; no glomerular nephritis or thrombosis. No spikes or double contouring basement membrane NIH lupus nephritis activity index 2 24 chronicity index 0 / 12 Electron microscopy showed foot process effacement Discussed treatment options for membranous nephropathy. She will do immunosuppression. Currently she is on prednisone. She has in the childbearing age. She is currently on contraception. We agreed on starting on mycophenolate. Started Initial dose 500 mg p.o. b.i.d. for 1 week Increased to 1 g b.i.d. starting 12/09/23 Discussed side effects including diarrhea. If she gets mycophenolate needs to be stopped I have explained this to her in detail with the help of her senior auditor. Will monitor renal function and urine protein excretion closely. Bactrim 3 times a week for prophylaxis Concur with current management per rheumatology. Cleat Feeder service was used. 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) use of unspecified immunomodulators and immunosuppressants Complete Blood Count Auto Diff 2 Months M32.8 - Other forms of systemic lupus erythematosus, R80.8 - Other proteinuria, Z79.60 - senior care (current) use of unspecified immunomodulators and immunosuppressants Basic Metabolic Panel Today R80.8 - Other proteinuria Lipid Panel 2 Months R80.8 - Other proteinuria Coding Level of Care Code Est Pt Level 4 (47016) Diagnoses Long-term use of immunosuppressant medication Z79.60 Other forms of systemic lupus erythematosus, unspecified organ involvement status M32.8 Systemic lupus erythematosus type: other Systemic lupus erythematosus organ involvement: unspecified Other proteinuria R80.8 Proteinuria type: other
== END 2024-01-29 15:49 | disposition home or self-care (01) ==
PROVIDERS: PCP Internal Medicine; Visit Provider Internal Medicine Hypertension Specialist
DX: Z79.60 Long term (current) use of unspecified immunomodulators and immunosuppressants (principal); M32.8 Other forms of systemic lupus erythematosus; R80.8 Other proteinuria
CPT/HCPCS: 99214

== ENCOUNTER 2024-01-29 15:56 | Outpatient (REF) | payer OTHER, SELFPAY ==
[2024-01-29 18:19] LABS: Anion Gap 13 (12-20); Blood Urea Nitrogen 18 mg/dL (9-16); Calcium 9.9 mg/dL (8.4-10.2); Carbon Dioxide 22 mmol/L (22-29); Chloride 108 mmol/L (96-108); Estimated Glomerular Filt Rate > 60; Glucose Random 119 mg/dL (60-115); Potassium 4.4 mmol/L (3.3-5.1); Sodium 139 mmol/L (135-145)
[2024-01-29 18:36] LABS: Creatinine Urine 109.32 mg/dL; Total Protein Urine Random 193 mg/dL (<12)
== END 2024-01-29 15:57 | disposition home or self-care (01) ==
LOC: HO.LAB 15:56
PROVIDERS: PCP Internal Medicine; Visit Provider Internal Medicine Hypertension Specialist
DX: R80.8 Other proteinuria (principal); N89.8 Other specified noninflammatory disorders of vagina
CPT/HCPCS: 36415; 80048; 82570; 84156

== ENCOUNTER 2024-02-05 15:36 | Outpatient (AMB) | payer MEDICAID, SELFPAY ==
--- NOTE | 2024-02-05 15:51 | A.OFFVIS_ITS ---
Vital Signs 02/05/24 15:55 Height 5 ft 5 in Weight 132 lb 0.91 oz BMI 22.0 BP 122/64 Blood Pressure Location Lt brachial Position Sitting Pulse 94 Pulse Source Pulse Oximeter Pulse Oximetry (%) 99 Oxygen Delivery Method Room Air Intake Visit Reasons: SLE/Insurance inactive Intake Note: Patient presents today for follow up on SLE, she was last seen on 12/01/2023. Blood Bank Manager Required: Yes Blood Bank Manager Services: Blood Bank Manager Present Blood Bank Manager Name: Aminata [id number] Allergies No Known Allergies Allergy (Verified 02/05/24 15:52) Medication List - Last Reconciled 02/05/24 by Stefani Hayes MD aspirin 81 mg PO DAILY atorvastatin (Lipitor) 10 mg PO DAILY betamethasone dipropionate 0.05% appl topical famotidine (Pepcid) 20 mg PO DAILY hydrocortisone 1% (Anti-Itch (hydrocortisone)) 1 appl topical TID PRN hydroxychloroquine (Plaquenil) 200 mg PO DAILY levonorgestrel (Mirena) intrauterine levothyroxine (Synthroid) 25 mcg PO DAILY minoxidil 2.5 mg PO DAILY mupirocin 2% 1 appl topical BID 7 days mycophenolate mofetil 1,000 mg (2 x 500 mg) PO BID prednisone 10 mg PO DAILY sulfamethoxazole-trimethoprim 400-80 mg (Bactrim) 1 tab PO 3XW HPI Comments Details: This is a 28-year-old female with SLE who presents for follow-up. She was recently started on mycophenolate by nephrology. She remains on prednisone 10 mg daily, hydroxychloroquine 200 mg daily and gets Saphnelo infusion monthly. She states that receives steroids with the infusion. She states that she does not have a good appetite. She has some stomach upset. States that her rashes are well controlled. No fevers, no joint pains or swelling. Initial history by Carolyn Heard 09/2023: Ms. Juan 27-year-old female presents today for transfer of care for SLE. She has immigrated from [place] about a year ago and has been taking hydroxychloroquine 200 mg b.i.d.. She has an extensive rash with her lupus and usually gets pulse steroid therapy in the ER when it erupts. Her translator and interpreter in [place] was started on Benlysta at the time of her immigration but has not been able to continue the therapy. She is experiencing increased joint pains. She does stay out of the sun and wears protective clothing. --Lups 10 years --took Prednisone and Cellcept not effective - took Cellcept for two years before they tried Benlysta --then Benlysta with cellcept - only had 2 injections at time, other two injections were not used when she migrated due to non refrigeration and she was scared that would be unstable --Was on MTX but got and then was started HCQ in [place] 2016. 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 Surgical History History of appendectomy Hx of section Family History Maternal Grandmother Diabetes Maternal Grandfather Diabetes Mother Hypothyroidism Social History Household Members: Significant Other Housing: Apartment Alcohol intake: never Patient Tobacco Use Status: Never used Tobacco Substance Use Type: Marijuana Current occupational status: employed Current occupation: [employer] Sexual orientation: Straight/Heterosexual Gender identity: Female Female Reproductive History Menstrual Date of last pap smear: 05/15/23 (negative) Review of Systems Musc Denies arthralgias and Denies joint swelling Skin/Breast Denies rash Physical Exam Vital Signs: Last Vital Signs Pulse 94 02/05/24 15:55 BP 122/64 02/05/24 15:55 Pulse Ox 99 02/05/24 15:55 Oxygen Delivery Method Room Air 02/05/24 15:55 BMI result Body Mass Index 22.0 Const General: cooperative, healthy appearing and comfortable Nutritional Appearance: average body habitus Orientation/consciousness: patient oriented x3 Limitations: no limitations HEENT Head: Yes normocephalic and Yes atraumatic Mouth: moist mucous membranes Resp Effort & Inspection: normal respiratory effort and able to speak in complete sentences Auscultation: clear to auscultation bilaterally Skin Other: No active lupus rashes Hirsutism on face Neuro General: patient oriented x3 Extrem Other: No active synovitis Normal nailfold capillaroscopy Assessment & Plan Assessment & Plan (1) SLE (systemic lupus erythematosus): Comment: onset approx 2013 (rashes, membranous nephritis, +++DsDNA, +++SSa +++Sm +++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 low C3, low C4) took Prednisone and Cellcept not effective for rashes- took Cellcept for two years before they tried Benlysta --then Benlysta with cellcept - only had 2 injections at time, other two injections were not used when she migrated due to non refrigeration and she was scared that would be unstable --Was on MTX but got DC'd HCQ since 2015 Saphenlo 09/2023 very effective for skin MMF added 12/2023 by nephrology for Lupus nephritis Code(s): M32.9 - Systemic lupus erythematosus, unspecified Category: Medical Qualifiers: Systemic lupus erythematosus type: other Systemic lupus erythematosus organ involvement: unspecified Qualified Code(s): M32.8 - Other forms of systemic lupus erythematosus Plan: This is a 28-year-old female with SLE who presents for follow-up. She was recently started on CellCept by cupola melter helper. 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 Follow-up with cupola melter helper (3) Long-term use of hydroxychloroquine: Code(s): Z79.899 - Other adjunct faculty for medical terminology (current) drug therapy Category: Medical Plan: On hydroxychloroquine 200 mg daily. Advised patient to follow-up regularly with on site services specialist Plan I spent 26 minutes reviewing patient's chart, evaluating patient, ordering diagnostic workup, counseling patient and documenting in the chart Orders: Orders Complement C3 3 Months M32.8 - Other forms of systemic lupus erythematosus C Reactive Protein 3 Months M32.8 - Other forms of systemic lupus erythematosus Erythrocyte Sedimentation Rate 3 Months M32.8 - Other forms of systemic lupus erythematosus UA w Microscopic 3 Months M32.8 - Other forms of systemic lupus erythematosus Complete Blood Count Auto Diff 3 Months M32.8 - Other forms of systemic lupus erythematosus Anti DNA DS Antibody 3 Months M32.8 - Other forms of systemic lupus erythematosus Complement C4 3 Months M32.8 - Other forms of systemic lupus erythematosus Protein Creatinine Ratio, Ur 3 Months M32.8 - Other forms of systemic lupus erythematosus Comprehensive Met. Panel 3 Months M32.8 - Other forms of systemic lupus erythematosus Medications: New prednisone Take 3 tabs daily for 1 month then remain on 2 tabs daily 210 tabs 0RF hydroxychloroquine (Plaquenil) 200 mg PO DAILY 90 tabs 1RF Coding Level of Care Code Est Pt Level 4 (55025) Diagnoses Other forms of systemic lupus erythematosus, unspecified organ involvement status M32.8 Systemic lupus erythematosus type: other Systemic lupus erythematosus organ involvement: unspecified Lupus nephritis M32.14 Long-term use of hydroxychloroquine Z79.899
[2024-02-05 15:55] VITALS: BP 122/64; PULSE 94; O2SAT 99; BMI 22.0
== END 2024-02-05 16:14 | disposition home or self-care (01) ==
PROVIDERS: PCP Internal Medicine; Visit Provider Student in an Organized Health Care Education/Training Program
DX: M32.8 Other forms of systemic lupus erythematosus (principal); M32.14 Glomerular disease in systemic lupus erythematosus; Z79.899 Other long term (current) drug therapy
CPT/HCPCS: 99214

== ENCOUNTER → 2024-02-05 15:36 | Outpatient (BNVA) | payer OTHER, SELFPAY | PROVIDERS: PCP Internal Medicine; Visit Provider Student in an Organized Health Care Education/Training Program | DX: M32.8 Other forms of systemic lupus erythematosus (principal); M32.14 Glomerular disease in systemic lupus erythematosus; Z79.899 Other long term (current) drug therapy | CPT/HCPCS: 99212 ==

== ENCOUNTER 2024-03-26 12:24 | Outpatient (REF) | payer OTHER, SELFPAY ==
[2024-03-26 12:43] LABS: MANUAL DIFF FLAG NO
[2024-03-26 13:30] LABS: Basophils Absolute Auto 0.1 X10*3/uL (0.0-0.2); Eosinophils Percent Auto 0.6 % (0-4); Hematocrit 37.3 % (37.0-47.0); Hemoglobin 12.1 g/dl (12.0-16.0); Imm Gran Abs Auto 0.05 X10*3/uL (0.00-0.03); Lymphocytes Absolute Auto 1.6 X10*3/uL (1.2-4.9); Lymphocytes Percent Auto 31.4 % (20-40); Mean Corpuscular HGB Conc 32.4 g/dl (31.0-35.0); Mean Corpuscular Hemoglobin 30.3 pg (27.0-33.0); Mean Corpuscular Volume 93.5 fL (80.0-98.0); Mean Platelet Volume 9.4 fL (9.4-12.3); Monocytes Absolute Auto 0.6 X10*3/uL (0.1-1.2); Monocytes Percent Auto 11.7 % (2-11); Neutrophils Absolute Auto 2.8 x10*3/uL (2.0-8.3); Neutrophils Percent Auto 54.3 % (45-73); Platelet Count 328 X10*3/uL (160-400); Red Blood Count 3.99 X10*6/uL (4.20-5.50); Red Cell Distribution Width 13.5 % (11.0-16.0); White Blood Count 5.1 X10*3/uL (4.8-10.8)
[2024-03-26 13:36] LABS: Appearance Urine Clear; Color Urine Yellow; Glucose Urine UA Negative (Negative); Leukocyte Esterase Urine Negative (Negative); Nitrite Urine Negative (Negative); Specific Gravity - Urine 1.015 (1.005-1.025); UMIC TRIGGER UA YES; Urine Blood Moderate (2+) (Negative); Urine Ketones Negative (Negative); Urine Protein 100 (2+) mg/dL (Neg-Trace)
[2024-03-26 13:42] LABS: Bacteria Urine None Seen (None Seen); Hyaline Casts Urine 0-2 /LPF (0-2); WBC Urine 0-5 /HPF (0-5)
[2024-03-26 14:15] LABS: Alanine Aminotransferase 12 U/L (0-31); Albumin Level 4.2 g/dL (3.5-5.0); Alkaline Phosphatase 40 U/L (39-117); Anion Gap 13 (12-20); Aspartate Amino Transferase 15 U/L (5-31); Bilirubin Total 0.4 mg/dL (0.0-1.0); Blood Urea Nitrogen 11 mg/dL (9-16); Calcium 9.3 mg/dL (8.4-10.2); Carbon Dioxide 27 mmol/L (22-29); Chloride 107 mmol/L (96-108); Cholesterol 133 mg/dL (<200); Estimated Glomerular Filt Rate > 60; Glucose Random 77 mg/dL (60-115); HDL Cholesterol 52 mg/dL (>40); LDL Cholesterol Calculated 70 mg/dL (<100); Potassium 4.2 mmol/L (3.3-5.1); Sodium 143 mmol/L (135-145); Total Protein 6.5 g/dL (6.5-8.0); Triglycerides 59 mg/dL (<150)
[2024-03-26 14:15] LABS: Creatinine Urine 149.64 mg/dL; Total Protein Urine Random 95 mg/dL (<12)
== END 2024-03-26 12:25 | disposition home or self-care (01) ==
LOC: HO.LAB 12:24
PROVIDERS: PCP Internal Medicine; Visit Provider Internal Medicine Hypertension Specialist
DX: R80.8 Other proteinuria (principal); M32.8 Other forms of systemic lupus erythematosus; Z79.60 Long term (current) use of unspecified immunomodulators and immunosuppressants
CPT/HCPCS: 36415; 80053; 80061; 81001; 82570; 84156; 85025

== ENCOUNTER 2024-04-01 12:20 | Outpatient (AMB) | payer OTHER, SELFPAY ==
[2024-04-01 12:21] VITALS: BP 120/70; PULSE 110; O2SAT 99; BMI 21.1
--- NOTE | 2024-04-01 12:21 | HO.NEPHOV_ITS ---
Vital Signs 04/01/24 12:21 Height 5 ft 5 in Weight 127 lb BMI 21.1 BP 120/70 Blood Pressure Location Lt brachial Position Sitting Pulse 110 H Pulse Source Pulse Oximeter Pulse Oximetry (%) 99 Oxygen Delivery Method Room Air Intake Visit Reasons: 2 mon follow up/ Unable to reach Coding Quality Coordinator Required: Yes Coding Quality Coordinator Name: demetrio [email or web address] Accompanied by: Self / Same As Patient Allergies No Known Allergies Allergy (Verified 04/01/24 12:21) Medication List - Last Reconciled 04/01/24 by Valentín Wagner MD aspirin 81 mg PO DAILY atorvastatin (Lipitor) 10 mg PO DAILY betamethasone dipropionate 0.05% appl topical famotidine (Pepcid) 20 mg PO DAILY hydrocortisone 1% (Anti-Itch (hydrocortisone)) 1 appl topical TID PRN hydroxychloroquine (Plaquenil) 200 mg PO DAILY levonorgestrel (Mirena) intrauterine levothyroxine (Synthroid) 25 mcg PO DAILY minoxidil 2.5 mg PO DAILY mupirocin 2% 1 appl topical BID 7 days mycophenolate mofetil 1,000 mg (2 x 500 mg) PO BID prednisone 5 mg (2 x 2.5 mg) PO DAILY sulfamethoxazole-trimethoprim 400-80 mg (Bactrim) 1 tab PO 3XW HPI Comments Details: Lisa is a pleasant 27-year-old woman with a history of SLE for almost 10 years She has been referred for proteinuria. In the past she was seen by a pediatrician in [place]. She did not undergo kidney biopsy no specific diagnosis was there. Recently scheduled to see Rheumatology. She was started on prednisone 60 mg which has been tapered down to 40 mg. She is due to receive Saphnelo infusion tomorrow During routine workup she was found to have low serum complements C3 and C4 along with nephrotic range proteinuria of about 3.1 g. She had low serum protei n as well. Serum creatinine was normal between 0.8 and 0.9 mg/dL. She was seen by author agent for skin lesions. She was given minoxidil 1.25 mg. History of mucosal ulcers. She is 1 daughter age 7 years . Normal delivery. No history of miscarriage Today she has no joint pains. No shortness of breath cough hemoptysis. No history of gross hematuria. She does have foamy urination. Mild ankle edema. 10/28/23 Received Saphnelo 2 weeks ago. Doing about the same 11/18/2023 She underwent kidney biopsy which was uneventful. No new issues today. 12/09/2023 She was started on mycophenolate last week at 5 mg twice a day. She is tolerating well. No new issues. test negative prior to starting mycophenolate 01/29/24;Doing well. 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 Surgical History History of appendectomy Hx of section Family History Maternal Grandmother Diabetes Maternal Grandfather Diabetes Mother Hypothyroidism Social History Household Members: Significant Other Housing: Apartment Alcohol intake: never Patient Tobacco Use Status: Never used Tobacco Substance Use Type: Marijuana Current occupational status: employed Current occupation: [employer] Sexual orientation: Straight/Heterosexual Gender identity: Female Physical Exam Vital Signs: Last Vital Signs Pulse 110 H 04/01/24 12:21 BP 120/70 04/01/24 12:21 Pulse Ox 99 04/01/24 12:21 Oxygen Delivery Method Room Air 04/01/24 12:21 BMI result Body Mass Index 21.1 Const General: comfortable; No acute distress Orientation/consciousness: patient oriented x3 Eyes General: appearance normal, both eyes and all related structures Visual Jorge: normal visual jorge by confrontation Neck Neck: Yes supple and Yes no JVD Resp Effort & Inspection: normal respiratory effort and respiratory effort not decreased Auscultation: rhonchi Cardio Palpation: no palpable S3 and no palpable S4 Heart sounds: no rubs GI Inspection: Yes normal to inspection Palpation (GI): Soft to palpation Percussion: Yes normal to percussion Auscultation: normal bowel sounds General: Yes no CVA tenderness Back/Spine/Pelvis Back: no CVA tenderness Skin General skin exam: no petechiae and no purpura Neuro General: patient oriented x3 and no focal motor deficits Extrem General: No clubbing and No edema Results Reviewed Nephrology Results: Hgb 12.1 g/dl (12.0-16.0) 03/26/24 WBC 5.1 X10*3/uL (4.8-10.8) 03/26/24 Plt Count 328 X10*3/uL (160-400) 03/26/24 Sodium 143 mmol/L (135-145) 03/26/24 Potassium 4.2 mmol/L (3.3-5.1) 03/26/24 Chloride 107 mmol/L (96-108) 03/26/24 Carbon Dioxide 27 mmol/L (22-29) 03/26/24 BUN 11 mg/dL (9-16) 03/26/24 Creatinine 0.77 mg/dL (0.5-1.4) 03/26/24 Calcium 9.3 mg/dL (8.4-10.2) 03/26/24 Urine Protein 100 (2+) mg/dL (Neg-Trace) H 03/26/24 Urine Creatinine 149.64 mg/dL 03/26/24 Assessment & Plan Assessment & Plan (1) Long-term use of immunosuppressant medication: Code(s): Z79.60 - tank terminal gauger (current) use of unspecified immunomodulators and immunosuppressants Category: Medical (2) SLE (systemic lupus erythematosus): Comment: onset approx 2013 (rashes, membranous nephritis, +++DsDNA, +++SSa +++Sm +++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 low C3, low C4) took Prednisone and Cellcept not effective for rashes- took Cellcept for two years before they tried Benlysta --then Benlysta with cellcept - only had 2 injections at time, other two injections were not used when she migrated due to non refrigeration and she was scared that would be unstable --Was on MTX but got DC'd HCQ since 2015 Saphenlo 09/2023 very effective for skin MMF added 12/2023 by nephrology for Lupus nephritis Code(s): M32.9 - Systemic lupus erythematosus, unspecified Category: Medical Qualifiers: Systemic lupus erythematosus organ involvement: unspecified Systemic lupus erythematosus type: other Qualified Code(s): M32.8 - Other forms of systemic lupus erythematosus (3) Proteinuria: Code(s): R80.9 - Proteinuria, unspecified Category: Medical Qualifiers: Proteinuria type: other Qualified Code(s): R80.8 - Other proteinuria (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 There was no global sclerosis. Tubular atrophy interstitial fibrosis 2% vascular sclerosis none. Light microscopy no collapse or crescents; no glomerular nephritis or thrombosis. No spikes or double contouring basement membrane NIH lupus nephritis activity index chronicity index 0 / 12 Electron microscopy showed foot process effacement Discussed treatment options for membranous nephropathy. She will do immunosuppression. Currently she is on prednisone. -5 mg She has in the childbearing age. She is currently on contraception. We agreed on starting on mycophenolate. Started Initial dose 500 mg p.o. b.i.d. for 1 week Increased to 1 g b.i.d. starting 12/09/23 Continue current dose Discussed side effects including diarrhea. If she gets mycophenolate needs to be stopped I have explained this to her in detail with the help of her selvage machine operator. Will monitor renal function and urine protein excretion closely. Bactrim 3 times a week for prophylaxis Concur with current management per Rheumatology. Coding Quality Coordinator service was used. Added Atorvastatin 10 mg QD and titrate dose: 12/09/23 Cholesterol and LDL have normalized. Keep Lipitor Added Aspirin 12/09/23 Orders: Orders Sodium Urine Random 3 Months M32.14 - Glomerular disease in systemic lupus erythematosus, Z79.60 - senior living (current) use of unspecified immunomodulators and immunosuppressants Creatinine Urine 3 Months M32.14 - Glomerular disease in systemic lupus erythematosus, Z79.60 - tank terminal gauger (current) use of unspecified immunomodulators and immunosuppressants Basic Metabolic Panel 3 Months M32.14 - Glomerular disease in systemic lupus erythematosus, Z79.60 - senior living (current) use of unspecified immunomodulators and immunosuppressants Complete Blood Count Auto Diff 3 Months M32.14 - Glomerular disease in systemic lupus erythematosus, Z79.60 - tank terminal gauger (current) use of unspecified immunomodulators and immunosuppressants Coding Level of Care Code Est Pt Level 4 (32238) Complex EM visit Add On G2211 Diagnoses Long-term use of immunosuppressant medication Z79.60 Other forms of systemic lupus erythematosus, unspecified organ involvement status M32.8 Systemic lupus erythematosus organ involvement: unspecified Systemic lupus erythematosus type: other Other proteinuria R80.8 Proteinuria type: other Lupus nephritis M32.14
== END 2024-04-01 12:38 | disposition home or self-care (01) ==
LOC: HO.HKA 12:20
PROVIDERS: PCP Internal Medicine; Visit Provider Internal Medicine Hypertension Specialist
DX: M32.8 Other forms of systemic lupus erythematosus (principal); M32.14 Glomerular disease in systemic lupus erythematosus; R80.8 Other proteinuria; Z79.60 Long term (current) use of unspecified immunomodulators and immunosuppressants
CPT/HCPCS: 99214; G2211

== ENCOUNTER → 2024-04-01 12:20 | Outpatient (BNVA) | payer OTHER, SELFPAY | PROVIDERS: PCP Internal Medicine; Visit Provider Internal Medicine Hypertension Specialist | DX: R80.8 Other proteinuria (principal); M32.8 Other forms of systemic lupus erythematosus; M32.14 Glomerular disease in systemic lupus erythematosus; Z79.60 Long term (current) use of unspecified immunomodulators and immunosuppressants | CPT/HCPCS: 99212 ==

== ENCOUNTER 2024-04-20 10:49 | Outpatient (AMB) | payer OTHER, SELFPAY ==
--- NOTE | 2024-04-20 10:55 | A.OFFVIS_ITS ---
Vital Signs 04/20/24 10:58 Height 5 ft 5 in Weight 125 lb 3.561 oz BMI 20.8 BP 100/70 Blood Pressure Location Rt brachial Position Sitting Respiration 16 Pulse 94 Pulse Source Pulse Oximeter Pulse Oximetry (%) 98 Oxygen Delivery Method Room Air Intake Visit Reasons: SLE/CM Intake Note: Patient presents for SLE. Textile Machine Operator Required: Yes Textile Machine Operator Language: Tool Grinder Operator External Services: Textile Machine Operator Present Textile Machine Operator Name: Jessie [id number] Information Interpreted: non-clinical & clinical Allergies No Known Allergies Allergy (Verified 04/20/24 10:58) Medication List - Last Reconciled 04/20/24 by Stefani Hayes MD aspirin 81 mg PO DAILY atorvastatin (Lipitor) 10 mg PO DAILY betamethasone dipropionate 0.05% appl topical famotidine (Pepcid) 20 mg PO DAILY hydrocortisone 1% (Anti-Itch (hydrocortisone)) 1 appl topical TID PRN hydroxychloroquine (Plaquenil) 200 mg PO DAILY levonorgestrel (Mirena) intrauterine levothyroxine (Synthroid) 25 mcg PO DAILY minoxidil 2.5 mg PO DAILY mupirocin 2% 1 appl topical BID 7 days mycophenolate mofetil 1,000 mg (2 x 500 mg) PO BID prednisone 5 mg (2 x 2.5 mg) PO DAILY sulfamethoxazole-trimethoprim 400-80 mg (Bactrim) 1 tab PO 3XW HPI Comments Details: This is a 28-year-old female with SLE who presents for follow-up. She remains on hydroxychloroquine 200 mg daily, mycophenolate 1000 mg Twice daily, prednisone 5 mg daily and Saphnelo monthly infusions. She states that she is doing well overall. She gets intermittent bilateral knee pain with activity and some discomfort with her right wrist. No swelling. She works at [employer] About 40 hours a week. Skin rashes have completely resolved Initial history by Carolyn Heard 09/2023: Ms. Juan 27-year-old female presents today for transfer of care for SLE. She has immigrated from [place] about a year ago and has been taking hydroxychloroquine 200 mg b.i.d.. She has an extensive rash with her lupus and usually gets pulse steroid therapy in the ER when it erupts. Her rubber chemist in [place] was started on Benlysta at the time of her immigration but has not been able to continue the therapy. She is experiencing increased joint pains. She does stay out of the sun and wears protective clothing. --Lups 10 years --took Prednisone and Cellcept not effective - took Cellcept for two years before they tried Benlysta --then Benlysta with cellcept - only had 2 injections at time, other two injections were not used when she migrated due to non refrigeration and she was scared that would be unstable --Was on MTX but got and then was started HCQ in [place] 2016. 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 Sexual orientation: Straight/Heterosexual Gender identity: Female Review of Systems Musc Reports arthralgias and Denies joint swelling Skin/Breast Denies rash Physical Exam Vital Signs: Last Vital Signs Pulse 94 04/20/24 10:58 Resp 16 04/20/24 10:58 BP 100/70 04/20/24 10:58 Pulse Ox 98 04/20/24 10:58 Oxygen Delivery Method Room Air 04/20/24 10:58 BMI result Body Mass Index 20.8 Const General: cooperative, healthy appearing and comfortable Nutritional Appearance: average body habitus Orientation/consciousness: patient oriented x3 Limitations: no limitations HEENT Head: Yes normocephalic and Yes atraumatic Mouth: moist mucous membranes Resp Effort & Inspection: normal respiratory effort and able to speak in complete sentences Auscultation: clear to auscultation bilaterally Skin Other: No active lupus rashes Hirsutism on face Neuro General: patient oriented x3 Extrem Other: No active synovitis Normal nailfold capillaroscopy Assessment & Plan Assessment & Plan (1) SLE (systemic lupus erythematosus): Comment: onset approx 2013 (rashes, membranous nephritis, +++DsDNA, +++SSa +++Sm +++CYTOTECHNOLOGIST/HISTOTECHNOLOGIST low C3, low C4) took Prednisone and Cellcept not effective for rashes- took Cellcept for two years before they tried Benlysta --then Benlysta with cellcept - only had 2 injections at time, other two injections were not used when she migrated due to non refrigeration and she was scared that would be unstable --Was on MTX but got DC'd HCQ since 2015 Saphenlo 09/2023 very effective for skin MMF added 12/2023 by nephrology for membranous Lupus nephritis Code(s): M32.9 - Systemic lupus erythematosus, unspecified Category: Medical Qualifiers: Systemic lupus erythematosus type: other Systemic lupus erythematosus organ involvement: unspecified Qualified Code(s): M32.8 - Other forms of systemic lupus erythematosus Plan: This is a 28-year-old female with SLE who presents for follow-up. She is on hydroxychloroquine 200 mg daily, prednisone 5 mg daily, mycophenolate 1000 mg Twice daily and Saphnelo monthly infusions Doing very well overall. Her joint aches are likely mechanical related to her job. 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 Discussed with ravinder Richardson to lower prednisone to 2.5 mg daily (3) Long-term use of hydroxychloroquine: Code(s): Z79.899 - Other longterm (current) drug therapy Category: Medical Plan: On hydroxychloroquine 200 mg daily. Referred patient to garment tag stringer Plan I spent 26 minutes reviewing patient's chart, evaluating patient, ordering diagnostic workup, counseling patient and documenting in the chart Orders: Orders Anti DNA DS Antibody 4 Months M32.8 - Other forms of systemic lupus eryth ematosus Erythrocyte Sedimentation Rate 4 Months M32.8 - Other forms of systemic lupus erythematosus Protein Creatinine Ratio, Ur 4 Months M32.8 - Other forms of systemic lupus erythematosus UA w Microscopic 4 Months M32.8 - Other forms of systemic lupus erythematosus Complement C3 4 Months M32.8 - Other forms of systemic lupus erythematosus Complement C4 4 Months M32.8 - Other forms of systemic lupus erythematosus C Reactive Protein 4 Months M32.8 - Other forms of systemic lupus erythematosus Complete Blood Count Auto Diff 4 Months M32.8 - Other forms of systemic lupus erythematosus Comprehensive Met. Panel 4 Months M32.8 - Other forms of systemic lupus erythematosus Referrals Ophthalmology Referral Z79.899 - Other meterman (current) drug therapy Coding Level of Care Code Est Pt Level 4 (86026) Complex EM visit Add On G2211 Diagnoses Other forms of systemic lupus erythematosus, unspecified organ involvement status M32.8 Systemic lupus erythematosus type: other Systemic lupus erythematosus organ involvement: unspecified Lupus nephritis M32.14 Long-term use of hydroxychloroquine Z79.899
[2024-04-20 10:58] VITALS: BP 100/70; PULSE 94; RESP 16; O2SAT 98; BMI 20.8
== END 2024-04-20 11:17 | disposition home or self-care (01) ==
PROVIDERS: PCP Internal Medicine; Visit Provider Student in an Organized Health Care Education/Training Program
DX: M32.8 Other forms of systemic lupus erythematosus (principal); M32.14 Glomerular disease in systemic lupus erythematosus; Z79.899 Other long term (current) drug therapy
CPT/HCPCS: 99214; G2211

== ENCOUNTER → 2024-04-20 10:49 | Outpatient (BNVA) | payer OTHER, SELFPAY | PROVIDERS: PCP Internal Medicine; Visit Provider Student in an Organized Health Care Education/Training Program | DX: M32.8 Other forms of systemic lupus erythematosus (principal); M32.14 Glomerular disease in systemic lupus erythematosus; Z79.899 Other long term (current) drug therapy | CPT/HCPCS: 99212 ==

== ENCOUNTER 2024-05-20 13:41 | Outpatient (REF) | payer OTHER, SELFPAY ==
[2024-05-20 14:32] LABS: Hematocrit 35.3 % (37.0-47.0); Hemoglobin 11.9 g/dl (12.0-16.0); Mean Corpuscular HGB Conc 33.7 g/dl (31.0-35.0); Mean Corpuscular Hemoglobin 30.8 pg (27.0-33.0); Mean Corpuscular Volume 91.5 fL (80.0-98.0); Mean Platelet Volume 8.8 fL (9.4-12.3); Platelet Count 291 X10*3/uL (160-400); Red Blood Count 3.86 X10*6/uL (4.20-5.50); Red Cell Distribution Width 12.8 % (11.0-16.0); White Blood Count 8.6 X10*3/uL (4.8-10.8)
[2024-05-20 15:35] LABS: HCG Quantitative < 2 mIU/mL; TSH reflex Free T4 0.73 uIU/mL (0.32-4.0)
[2024-05-21 07:31] LABS: Syphilis Screen Nonreactive (Nonreactive)
[2024-05-21 09:22] LABS: HBsAGNum1 0.35 S/CO (0.00-0.99); HIV AB/AG Nonreactive (Nonreactive); HIV Num 1 0.06 S/CO (0.00-0.99); Hepatitis B Surface Antigen Negative (Negative); ~HepC Num1 0.16 S/CO (0.00-0.79); ~Hepatitis C Antibody Nonreactive (Nonreactive)
== END 2024-05-20 13:42 | disposition home or self-care (01) ==
LOC: HO.LAB 13:41
PROVIDERS: PCP Internal Medicine; Visit Provider Obstetrics & Gynecology
DX: Z01.411 Encounter for gynecological examination (general) (routine) with abnormal findings (principal); N93.9 Abnormal uterine and vaginal bleeding, unspecified; Z20.2 Contact with and (suspected) exposure to infections with a predominantly sexual mode of transmission
CPT/HCPCS: 36415; 84443; 84702; 85027; 86780; 86803; 87340; 87389; 99212; 99395; 99459

== ENCOUNTER 2024-05-20 13:41 | Outpatient (AMB) | payer OTHER, SELFPAY ==
--- NOTE | 2024-05-20 13:45 | MHC.OFFVIS ---
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 Complaining of intermenstrual bleeding no associated pelvic pain or any other concerns. Last Pap/HPV was ascus HPV E6 E7 positive, HPV 16/18/45 negative, colpo biopsy ECC were negative [facility] Medical History (Updated 05/20/24 @ 13:58 by Ludwig Merino MD) ASCUS with positive high risk HPV cervical Rash due to systemic lupus erythematosus (SLE) Long-term use of immunosuppressant medication SLE (systemic lupus erythematosus) Proteinuria GERD (gastroesophageal reflux disease) SLE (systemic lupus erythematosus related syndrome) Thai's disease Lupus Surgical History History of appendectomy Hx of section Family History Maternal Grandmother Diabetes Maternal Grandfather Diabetes Mother Hypothyroidism Social History Household Members: Significant Other Housing: Apartment Alcohol intake: never Patient Tobacco Use Status: Never used Tobacco Substance Use Type: Marijuana Current occupational status: employed Current occupation: [employer] Sexual orientation: Straight/Heterosexual Gender identity: Female Female Reproductive History Menstrual control method: copper IUCD Date of last pap smear: 05/15/23 History of abnormal pap smear: Yes (HPV +) Review of Systems Const All systems reviewed & are unremarkable except as noted in HPI and below Card Reports as per HPI Resp Reports as per HPI GI Reports as per HPI and Reports no additional complaints Reports as per HPI Physical Exam Const General: cooperative, healthy appearing and comfortable Chest Chest palpation & inspection: normal inspection of the chest and normal palpation of entire chest wall Breast/axilla inspection: normal inspection of the breasts and normal inspection of the axillae Breast/axilla palpation: normal palpation of the breasts, normal palpation of the axillae and no axillary lymphadenopathy Resp Effort & Inspection: normal respiratory effort Auscultation: clear to auscultation bilaterally Percussion: percussion normal Cardio Palpation: normal PMI Rate: regular rate Rhythm: regular rhythm Heart sounds: no murmurs and no rubs Peripheral pulses: Peripheral pulses 2+ throughout GI Inspection: Yes normal to inspection Palpation (GI): Soft to palpation, nontender, no guarding, not rigid and No hepatosplenomegaly present Percussion: Yes normal to percussion Auscultation: normal bowel sounds Rectal Exam - Female: deferred General: Yes bladder normal to palpation External Female Exam: No lesion Speculum Exam - Vagina: normal appearance of the vagina, normal palpation, normal vaginal discharge and not erythematous Speculum Exam - Cervix: normal appearance of the cervix, normal palpation and Other cervical findings present (IUD thread seen) Bimanual exam- vagina & uterus: normal bimanual exam, normal palpation, uterine size normal, bladder normal to palpation, consistency normal and normal palpation Bimanual Exam- Adnexa, other: normal adnexae, no masses and no tenderness Assessment & Plan Assessment & Plan (1) Well woman exam: Code(s): Z01.419 - Encounter for gynecological examination (general) (routine) without abnormal findings Category: Medical Plan: Cotesting done. Counseled the patient about the recommended dietary allowance of 1000 mg of Calcium & 600 IU of vitamin D. The patient was instructed to perform monthly self-breast exams and to schedule an annual exam in a year; All questions answered and the patient verbalized understanding. Instructed the patient to schedule annual exam in a year (2) Abnormal uterine bleeding (AUB): Comment: With ParaGard IUD Code(s): N93.9 - Abnormal uterine and vaginal bleeding, unspecified Category: Medical Plan: Co testing done, GC and chlamydia taken CBC, TSH, prolactin, HCG, and pelvic ultrasound ordered. Discussed with the patient the different causes of abnormal bleeding including thyroid disorders, uterine and ovarian pathology,and other potential causes. Discussed with the patient the work up including CBC (to r/o anemia), TSH, prolactin, pelvic Ultrasound. All questions answered and the patient verbalized understanding. Instructed the patient to schedule an appointment for follow-up. (3) Screen for STD (sexually transmitted disease): Code(s): Z11.3 - Encounter for screening for infections with a predominantly sexual mode of transmission Category: Medical Plan: STD screening tests done includes: BV panel for trichomonas, GC/CT will send patient for serology std screening for HIV, RPR, Hep b s Ag, HepC Ab. Instructions given the patient to schedule a follow-up appointment for repeat serology screen in 6 months for possible false negatives. Orders: Orders HIV Ab/Ag Today Z20.2 - Contact with and (suspected) exposure to infections with a predominantly sexual mode of transmission Hepatitis B Surface Antigen Today Z20.2 - Contact with and (suspected) exposure to infections with a predominantly sexual mode of transmission TSH reflex Free T4 Today N93.9 - Abnormal uterine and vaginal bleeding, unspecified HCG Quantitative Today N93.9 - Abnormal uterine and vaginal bleeding, unspecified Complete Blood Count no Diff Today N93.9 - Abnormal uterine and vaginal bleeding, unspecified US pelvic and transvaginal Today N93.9 - Abnormal uterine and vaginal bleeding, unspecified Hepatitis C Antibody Today Z20.2 - Contact with and (suspected) exposure to infections with a predominantly sexual mode of transmission Syphilis Screen Today Z20.2 - Contact with and (suspected) exposure to infections with a predominantly sexual mode of transmission Coding Level of Care Code Est Pt Level 3 (48051) Est Pt Prev Care 18-39y(17218) Diagnoses Well woman exam Z01.419 Abnormal uterine bleeding (AUB) N93.9 Screen for STD (sexually transmitted disease) Z11.3
[2024-05-20 13:53] VITALS: BP 110/70; BMI 24.4
== END 2024-05-20 14:01 | disposition home or self-care (01) ==
PROVIDERS: PCP Internal Medicine; Visit Provider Obstetrics & Gynecology
DX: Z01.419 Encounter for gynecological examination (general) (routine) without abnormal findings (principal); N93.9 Abnormal uterine and vaginal bleeding, unspecified
CPT/HCPCS: 99213; 99395

== ENCOUNTER 2024-05-20 14:39 | Outpatient (REF) | payer OTHER, SELFPAY ==
[2024-05-21 11:38] LABS: HPV 16,18/45 See PAP report
[2024-05-21 16:16] LABS: Bacterial Vaginosis PCR POSITIVE (Negative); Candida Group PCR NOT DETECTED (Not Detect); Candida glab krusei PCR NOT DETECTED (Not Detect); Trichomonas vaginalis PCR NOT DETECTED (Not Detect)
[2024-05-21 16:44] LABS: CT PCR NOT DETECTED (Not Detect.); NG PCR NOT DETECTED (Not Detect.)
== END 2024-05-20 14:40 | disposition home or self-care (01) ==
LOC: HO.LNP 14:39
PROVIDERS: Visit Provider Obstetrics & Gynecology
DX: Z01.419 Encounter for gynecological examination (general) (routine) without abnormal findings (principal); Z11.3 Encounter for screening for infections with a predominantly sexual mode of transmission; N93.9 Abnormal uterine and vaginal bleeding, unspecified; R87.610 Atypical squamous cells of undetermined significance on cytologic smear of cervix (ASC-US); Z87.42 Personal history of other diseases of the female genital tract
CPT/HCPCS: 0352U; 87491; 87591; 87624; 88175

== ENCOUNTER 2024-06-23 12:11 | Outpatient (REF) | payer OTHER, SELFPAY ==
[2024-06-23 12:28] LABS: MANUAL DIFF FLAG NO
[2024-06-23 12:48] LABS: Basophils Absolute Auto 0.1 X10*3/uL (0.0-0.2); Basophils Percent Auto 1.2 % (0-2); Eosinophils Absolute Auto 0.1 X10*3/uL (0.0-0.4); Hematocrit 37.1 % (37.0-47.0); Hemoglobin 12.2 g/dl (12.0-16.0); Imm Gran Abs Auto 0.07 X10*3/uL (0.00-0.03); Imm Gran Pct Auto 1.2 % (0.0-0.4); Lymphocytes Absolute Auto 1.8 X10*3/uL (1.2-4.9); Mean Corpuscular HGB Conc 32.9 g/dl (31.0-35.0); Mean Corpuscular Volume 91.4 fL (80.0-98.0); Mean Platelet Volume 9.3 fL (9.4-12.3); Monocytes Absolute Auto 0.5 X10*3/uL (0.1-1.2); Neutrophils Absolute Auto 3.3 x10*3/uL (2.0-8.3); Neutrophils Percent Auto 56.6 % (45-73); Platelet Count 358 X10*3/uL (160-400); Red Blood Count 4.06 X10*6/uL (4.20-5.50); Red Cell Distribution Width 13.1 % (11.0-16.0); White Blood Count 5.9 X10*3/uL (4.8-10.8)
[2024-06-23 13:09] LABS: Anion Gap 13 (12-20); Blood Urea Nitrogen 14 mg/dL (9-16); Calcium 9.5 mg/dL (8.4-10.2); Carbon Dioxide 23 mmol/L (22-29); Chloride 108 mmol/L (96-108); Estimated Glomerular Filt Rate > 60; Glucose Random 80 mg/dL (60-115); Potassium 4.2 mmol/L (3.3-5.1); Sodium 140 mmol/L (135-145)
[2024-06-23 13:26] LABS: Appearance Urine Clear; Color Urine Yellow; Glucose Urine UA Negative (Negative); Leukocyte Esterase Urine Negative (Negative); Nitrite Urine Negative (Negative); Specific Gravity - Urine 1.025 (1.005-1.025); UMIC TRIGGER UA YES; Urine Blood Moderate (2+) (Negative); Urine Ketones Negative (Negative); Urine Protein 100 (2+) mg/dL (Neg-Trace)
[2024-06-23 13:29] LABS: Bacteria Urine 2+ (None Seen); Hyaline Casts Urine 0-2 /LPF (0-2); WBC Urine 0-5 /HPF (0-5)
[2024-06-23 13:45] LABS: Creatinine Urine 286.04 mg/dL
== END 2024-06-23 12:12 | disposition home or self-care (01) ==
LOC: HO.LAB 12:11
PROVIDERS: PCP Internal Medicine; Visit Provider Internal Medicine Hypertension Specialist
DX: M32.14 Glomerular disease in systemic lupus erythematosus (principal); Z79.60 Long term (current) use of unspecified immunomodulators and immunosuppressants
CPT/HCPCS: 36415; 80048; 81001; 82570; 84300; 85025; 87086

== ENCOUNTER 2024-07-01 10:40 | Outpatient (AMB) | payer OTHER, SELFPAY ==
--- NOTE | 2024-07-01 10:41 | HO.NEPHOV_ITS ---
Vital Signs 07/01/24 10:42 Height 5 ft Weight 123 lb BMI 24.0 BP 102/68 Blood Pressure Location Lt brachial Position Sitting Pulse 89 Pulse Source Pulse Oximeter Pulse Oximetry (%) 100 Oxygen Delivery Method Room Air Intake Visit Reasons: Proteinuria-Conf Medical Oncology Physician Required: Yes Medical Oncology Physician Name: Teja [id number] Accompanied by: Self / Same As Patient Allergies No Known Allergies Allergy (Verified 07/01/24 10:43) Medication List - Last Reconciled 07/01/24 by Valentín Wagner MD aspirin 81 mg PO DAILY atorvastatin 10 mg PO DAILY betamethasone dipropionate 0.05% appl topical famotidine (Pepcid) 20 mg PO DAILY hydrocortisone 1% (Anti-Itch (hydrocortisone)) 1 appl topical TID PRN hydroxychloroquine (Plaquenil) 200 mg PO DAILY levonorgestrel (Mirena) intrauterine levothyroxine (Synthroid) 25 mcg PO DAILY minoxidil 2.5 mg PO DAILY mupirocin 2% 1 appl topical BID 7 days mycophenolate mofetil 1,000 mg (2 x 500 mg) PO BID prednisone 2.5 mg PO DAILY sulfamethoxazole-trimethoprim 400-80 mg (Bactrim) 1 tab PO 3XW HPI Comments Details: Lisa is a pleasant 27-year-old woman with a history of SLE for almost 10 years She has been referred for proteinuria. In the past she was seen by a auto collision repair instructor in [place]. She did not undergo kidney biopsy no specific diagnosis was there. Recently scheduled to see Rheumatology. She was started on prednisone 60 mg which has been tapered down to 40 mg. She is due to receive Saphnelo infusion tomorrow During routine workup she was found to have low serum complements C3 and C4 along with nephrotic range proteinuria of about 3.1 g. She had low serum protein as well. Serum creatinine was normal between 0.8 and 0.9 mg/dL. She was seen by speedometer mechanic for skin lesions. She was given minoxidil 1.25 mg. History of mucosal ulcers. She is 1 daughter age 7 years . Normal delivery. No history of miscarriage Today she has no joint pains. No shortness of breath cough hemoptysis. No history of gross hematuria. She does have foamy urination. Mild ankle edema. 10/28/23 Received Saphnelo 2 weeks ago. Doing about the same 11/18/2023 She underwent kidney biopsy which was uneventful. No new issues today. 12/09/2023 She was started on mycophenolate last week at 5 mg twice a day. She is mari erating well. No new issues. test negative prior to starting mycophenolate 01/29/24;Doing well. 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 Surgical History History of appendectomy Hx of section Family History Maternal Grandmother Diabetes Maternal Grandfather Diabetes Mother Hypothyroidism Social History Household Members: Significant Other Housing: Apartment Alcohol intake: never Patient Tobacco Use Status: Never used Tobacco Substance Use Type: Marijuana Current occupational status: employed Current occupation: [employer] Sexual orientation: Straight/Heterosexual Gender identity: Female Physical Exam Vital Signs: Last Vital Signs Pulse 89 07/01/24 10:42 BP 102/68 07/01/24 10:42 Pulse Ox 100 07/01/24 10:42 Oxygen Delivery Method Room Air 07/01/24 10:42 BMI result Body Mass Index 24.0 Results Reviewed Nephrology Results: Hgb 12.2 g/dl (12.0-16.0) 06/23/24 WBC 5.9 X10*3/uL (4.8-10.8) 06/23/24 Plt Count 358 X10*3/uL (160-400) 06/23/24 Sodium 140 mmol/L (135-145) 06/23/24 Potassium 4.2 mmol/L (3.3-5.1) 06/23/24 Chloride 108 mmol/L (96-108) 06/23/24 Carbon Dioxide 23 mmol/L (22-29) 06/23/24 BUN 14 mg/dL (9-16) 06/23/24 Creatinine 0.78 mg/dL (0.5-1.4) 06/23/24 Calcium 9.5 mg/dL (8.4-10.2) 06/23/24 Urine Protein 100 (2+) mg/dL (Neg-Trace) H 06/23/24 Urine Creatinine 286.04 mg/dL 06/23/24 Assessment & Plan Assessment & Plan (1) Long-term use of immunosuppressant medication: Code(s): Z79.60 - terminal supervisor (current) use of unspecified immunomodulators and immunosuppressants Category: Medical (2) SLE (systemic lupus erythematosus): Comment: onset approx 2013 (rashes, membranous nephritis, +++DsDNA, +++SSa +++Sm +++BLOCK PRESS OPERATOR low C3, low C4) took Prednisone and Cellcept not effective for rashes- took Cellcept for two ye ars before they tried Benlysta --then Benlysta with cellcept - only had 2 injections at time, other two injections were not used when she migrated due to non refrigeration and she was scared that would be unstable --Was on MTX but got DC'd HCQ since 2016 Saphenlo 09/2023 very effective for skin MMF added 12/2023 by nephrology for membranous Lupus nephritis Code(s): M32.9 - Systemic lupus erythematosus, unspecified Category: Medical Qualifiers: Systemic lupus erythematosus organ involvement: unspecified Systemic lupus erythematosus type: other Qualified Code(s): M32.8 - Other forms of systemic lupus erythematosus (3) Proteinuria: Code(s): R80.9 - Proteinuria, unspecified Category: Medical Qualifiers: Proteinuria type: other Qualified Code(s): R80.8 - Other proteinuria (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 There was no global sclerosis. Tubular atrophy interstitial fibrosis 2% vascular sclerosis none. Light microscopy no collapse or crescents; no glomerular nephritis or thrombosis. No spikes or double contouring basement membrane NIH lupus nephritis activity index chronicity index 0 / 12 Electron microscopy showed foot process effacement Discussed treatment options for membranous nephropathy. She will do immunosuppression. Currently she is on prednisone. -5 mg She has in the childbearing age. She is currently on contraception. We agreed on starting on mycophenolate. Started Initial dose 500 mg p.o. b.i.d. for 1 week Increased to 1 g b.i.d. starting 12/09/23 Continue current dose Discussed side effects including diarrhea. If she gets mycophenolate needs to be stopped I have explained this to her in detail with the help of her yeast washer. Will monitor renal function and urine protein excretion closely. Bactrim 3 times a week for prophylaxis Concur with current management per Rheumatology. Medical Oncology Physician service was used. Added Atorvastatin 10 mg QD and titrate dose: 12/09/23 Cholesterol and LDL have normalized. Keep Lipitor Added Aspirin 12/09/23 Orders: Orders Basic Metabolic Panel 3 Months Valentín Wagner MD M32.8 - Other forms of systemic lupus erythematosus, R80.8 - Other proteinuria Creatinine Urine 3 Months Valentín Wagner MD M32.8 - Other forms of systemic lupus erythematosus, R80.8 - Other proteinuria Total Protein Urine Random 3 Months Valentín Wagner MD M32.8 - Other forms of systemic lupus erythematosus, R80.8 - Other proteinuria UA and rflx microscopic 3 Months Valentín Wagner MD M32.8 - Other forms of systemic lupus erythematosus, R80.8 - Other proteinuria Medications: Changed From prednisone 5 mg (2 x 2.5 mg) PO DAILY 60 tabs 1RF To prednisone 2.5 mg PO DAILY Stefani Hayes MD Coding Level of Care Code Est Pt Level 4 (64327) Diagnoses Long-term use of immunosuppressant medication Z79.60 Other forms of systemic lupus erythematosus, unspecified organ involvement status M32.8 Systemic lupus erythematosus organ involvement: unspecified Systemic lupus erythematosus type: other Other proteinuria R80.8 Proteinuria type: other Lupus nephritis M32.14
[2024-07-01 10:42] VITALS: BP 102/68; PULSE 89; O2SAT 100; BMI 24.0
== END 2024-07-01 10:51 | disposition home or self-care (01) ==
PROVIDERS: PCP Internal Medicine; Visit Provider Internal Medicine Hypertension Specialist
DX: Z79.60 Long term (current) use of unspecified immunomodulators and immunosuppressants (principal); M32.8 Other forms of systemic lupus erythematosus; R80.8 Other proteinuria; M32.14 Glomerular disease in systemic lupus erythematosus
CPT/HCPCS: 99214

== ENCOUNTER → 2024-07-01 10:40 | Outpatient (BNVA) | payer OTHER, SELFPAY | PROVIDERS: PCP Internal Medicine; Visit Provider Internal Medicine Hypertension Specialist | DX: M32.8 Other forms of systemic lupus erythematosus (principal); M32.14 Glomerular disease in systemic lupus erythematosus; R80.8 Other proteinuria; Z79.60 Long term (current) use of unspecified immunomodulators and immunosuppressants | CPT/HCPCS: 99212 ==

== ENCOUNTER 2024-07-05 14:19 | Outpatient (REF) | payer OTHER, SELFPAY ==
--- OUTSIDE RECORDS SUMMARY | 2024-07-05 19:13 | XMS_ITS | Clinical Summary ---
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 3:16 PM EST - 05/18/2024 11:59 PM EST Hospital Encounter Radiology Department - [address] [phone] Autoimmune thyroiditis Discharge Disposition: Home or Self Care 04/27/2024 Telephone Endocrinology - [address] [phone] Manda Eugene MA Med Refill 04/24/2024 Telephone Endocrinology [address] [phone] Rik White MD from Last 3 Months [...] LAB CHEMISTRY METHOD 05/19/2024 3:04 PM EST [facility] Blood Venous blood specimen / Unknown Venipuncture / Unknown 05/19/2024 11:38 AM EST 05/19/2024 11:38 AM EST Rik White MD LAB BLOOD ORDERABLES [facility] [address] [place] [address], * Complete blood count (05/19/2024 11:38 AM EST) WBC 5.7 4.8 - 10.8 K/mcL LAB HEMETOLOGY METHOD 05/19/2024 2:10 PM [facility] RBC 3.90 3.80 - 4.80 M/mcL LAB HEMETOLOGY METHOD 05/19/2024 2:10 PM [facility] Hemoglobin 11.8 11.5 - 16.0 g/dL LAB HEMETOLOGY METHOD 05/19/2024 2:10 PM [facility] Hematocrit 36.9 35.0 - 47.0 % LAB HEMETOLOGY METHOD 05/19/2024 2:10 PM [facility] MCV 94.1 79.0 - 98.0 FL LAB HEMETOLOGY METHOD 05/19/2024 2:10 PM [facility] MCH 30.1 27.0 - 32.0 pcg LAB HEMETOLOGY METHOD 05/19/2024 2:10 PM EST [facility] MCHC 32.0 32.0 - 37.0 g/dL LAB HEMETOLOGY METHOD 05/19/2024 2:10 PM EST [facility] RDW 13.2 11.0 - 15.0 % LAB HEMETOLOGY METHOD 05/19/2024 2:10 PM EST [facility] Platelets 338 130 - 400 K/mcL LAB HEMETOLOGY METHOD 05/19/2024 2:10 PM EST [facility] MPV 9.5 7.0 - 11.0 FL LAB HEMETOLOGY METHOD 05/19/2024 2:10 PM EST [facility] NRBC 0.0 <1.0 % LAB HEMETOLOGY METHOD 05/19/2024 2:10 PM EST [facility] NRBC Absolute 0.00 <0.10 K/mcL LAB HEMETOLOGY METHOD 05/19/2024 2:10 PM EST [facility] Blood Venous blood specimen / Unknown Venipuncture / Unknown 05/19/2024 11:38 AM EST 05/19/2024 11:38 AM EST Yari PETERSON LAB BLOOD ORDERABLES [facility] [address] [place] [address], * Thyroid stimulating hormone (05/19/2024 11:38 AM EST) TSH 1.40 0.40 - 4.00 mcIU/mL LAB CHEMISTRY METHOD 05/19/2024 3:04 PM EST [facility] Blood Venous blood specimen / Unknown Venipuncture / Unknown 05/19/2024 11:38 AM EST 05/19/2024 11:38 AM EST Rik White MD LAB BLOOD [facility]ABLES [facility] [address] [place] [address], [place] [phone] * US Head Neck Soft Tissue (05/18/2024 [...] Signed Date: 05/18/2024 16:00 ET Workstation ID: [id number] Transcribed By: Self Edit Transcribed Date: 05/18/2024 [...] Signed Date: 05/18/2024 16:00 ET Workstation ID: [id number] Transcribed By: Self Edit Transcribed Date: 05/18/2024 15:58 ET Rik White MD IMG US PROCEDURES * Depression Screening (06/24/2023) Depression Screening abstracted Historical Provider [facility] E * (ABNORMAL) Lipid panel (05/08/2023) LDL/HDL Ratio 3 0 - 4 Triglycerides 61 0 - 150 mg/dL Cholesterol 180 0 - 200 mg/dL HDL 55 40 mg/dL LDL Cholesterol 113(A) 0 - 100 mg/dL Blood Venous blood specimen / Unknown Historical Provider LAB BLOOD ORDERAB LES from Last 3 Months or Most Recently Relevant to Health Maintenance Care Teams Wildlife Refuge Manager Relationship Specialty Start Date End Date Liza John MD [address] [place] [id number] PCP - General 02/28/23
== END 2024-07-05 14:20 | disposition home or self-care (01) ==
LOC: HO.LNP 14:19
PROVIDERS: PCP Internal Medicine; Visit Provider Obstetrics & Gynecology
DX: R87.610 Atypical squamous cells of undetermined significance on cytologic smear of cervix (ASC-US) (principal); R87.810 Cervical high risk human papillomavirus (HPV) DNA test positive
CPT/HCPCS: 57454; 88305

== ENCOUNTER 2024-07-05 14:19 | Outpatient (AMB) | payer OTHER, SELFPAY ==
--- NOTE | 2024-07-05 14:36 | A.OFFVIS_ITS ---
Intake Visit Reasons: Colposcopy Top Knitter Required: Yes Top Knitter Language: Parachute Marker Services: Top Knitter Present ([employer]) Information Interpreted: clinical only [employer]: [employer] Present ([employer]) Accompanied by: Self / Same As Patient Allergies No Known Allergies Allergy (Verified 07/05/24 14:37) HPI Comments Details: Presenting for ascus HPV positive/HPV 16/18 negative [facility] Medical History (Updated 07/05/24 @ 14:37 by Ludwig Merino MD) ASCUS with positive high risk HPV cervical Rash due to systemic lupus erythematosus (SLE) Long-term use of immunosuppressant medication SLE (systemic lupus erythematosus) Proteinuria GERD (gastroesophageal reflux disease) SLE (systemic lupus erythematosus related syndrome) Thai's disease Lupus Surgical History History of appendectomy Hx of section Family History Maternal Grandmother Diabetes Maternal Grandfather Diabetes Mother Hypothyroidism Social History Household Members: Significant Other Housing: Apartment Alcohol intake: never Patient Tobacco Use Status: Never used Tobacco Substance Use Type: Marijuana Current occupational status: employed Current occupation: [employer] Sexual orientation: Straight/Heterosexual Gender identity: Female Review of Systems Const All systems reviewed & are unremarkable except as noted in HPI and below Reports as per HPI and Reports no additional complaints GI Reports no additional complaints Reports no additional complaints Office Procedures Colposcopy Colposcopy: Pre-Procedure Counseling: Before beginning the procedure, I conducted comprehensive counseling with the patient. We thoroughly discussed the procedure itself, including its details, alternatives, and all associated risks. This included but not limited to the following complications such as bleeding, infection, and injury to the vagina, bladder, and vessels, as well as the potential need for transfusion with all its associated risks. Subsequently, the patient sign the consent. Pap smear result: LSIL. Urine test in office = Negative Procedure: During the procedure, the following steps were performed: A speculum was inserted, and acetic acid was applied. Colposcopy was conducted, allowing visualization of the transformation zone. Acetowhite lesions were identified at the 6+9+12+3 o'clock position. Cervical biopsies were obtained from the 6+9+12+3 o'clock position, followed by an endocervical curettage (ECC). Vaginoscopy of the upper vagina revealed no evidence of aceto-white lesions. Hemostasis was achieved using Monsel solution, and the patient tolerated the procedure well. Post-Procedure Instructions: The patient was advised to promptly contact the office or the after hours answering service or go to the emergency room if experiencing a temperature exceeding 100.4?F, abdominal pain, nausea/vomiting, or bleeding. Additionally, the patient was instructed to abstain from vaginal intercourse and bathtub use. The patient confirmed understanding of these instructions. Discharge Instructions: The patient was instructed to schedule a follow-up appointment in 2 weeks for further evaluation and management. Please note that this note was generated using a voice recognition program, and errors may have occurred during lace and textiles restorer. 12579-[id number] of cervix including upper vagina with biopsy and ECC Procedure code (CPT) selection complete Assessment & Plan Assessment & Plan (1) ASCUS with positive high risk HPV cervical: Code(s): R87.610 - Atypical squamous cells of undetermined significance on cytologic smear of cervix (ASC-US); R87.810 - Cervical high risk human papillomavirus (HPV) DNA test positive Category: Medical Plan: Discussed with the patient the result of her abnormal pap, its significance, risk of progression, persistence, and regression. the false positive/negative rate of a Pap smear as a screening test in detecting cervical cancer and the indication for a diagnostic test -colposcopy, biopsy, endocervical curettage. The patient verbalized understanding and agreed with the plan, all questions answered. Colpo/biopsy/ECC done, see procedure note Orders: Orders AMB Colposcopy Today R87.610 - Atypical squamous cells of undetermined significance on cytologic smear of cervix (ASC-US), R87.810 - Cervical high risk human papillomavirus (HPV) DNA test positive Coding Level of Care Code Procedure Only Diagnoses ASCUS with positive high risk HPV cervical R87.610; R87.810 CPT Codes Colposcopy - CPT: 00510-Scrrpabek of cervix including upper vagina with biopsy and ECC ([id number])
--- OUTSIDE RECORDS SUMMARY | 2024-07-05 18:48 | XMS_ITS | Clinical Summary ---
Author Organization [address] Address [address] [place] [address] Phone Care Team Providers Care Epic Cadence Specialists Name Role Phone Liza John MD Primary Care Prov ider Allergies No known active allergies Medications Medication Sig Dispensed Refills Start Date End Date Status hydroxychloroquine 400 mg tablet Take 1 Tablet by mouth daily. Active predniSONE (DELTASONE) 10 mg tablet Take 1 Tablet by mouth daily. Active predniSONE (DELTASONE) 50 mg tablet Take 1 Tablet by mouth daily. Active levothyroxine (Synthroid) 25 mcg tabletIndications:Kam shimoto's thyroiditis Take 1 tablet (25 mcg total) by mouth 1 (one) time each day before breakfast. Take 1 Tablet by mouth daily. 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 Systemic lupus 05/07/2023 Encounters Date Type Department Care Team Description 05/24/2024 2:00 PM EST Office Visit Endocrinology - [address] [phone] Rik White MD Thai's thyroiditis 05/18/2024 3:16 PM EST - 05/18/2024 11:59 PM EST Hospital Encounter Radiology Department - [address] [phone] Autoimmune thyroiditis Discharge Disposition: Home or Self Care 04/27/2024 Telephone Endocrinology - [address] [phone] Manda Eugene MA Med Refill 04/24/2024 Telephone Endocrinology [address] [phone] Rik White MD from Last 3 Months Immunizations Name Administration Dates Next Due Influenza Quadravalent, MDCK , 0.5ml, preservative free (Flucelvax) 6mo and older 05/07/2023 Surgical History Surgery Date Site/Laterality Comments SECTION PROCEDURE: HISTORICAL DELIVERY APPENDECTOMY PROCEDURE: HISTORICAL APPENDECTOMY Medical History Medical History Date Comments Systemic lupus (CMS/HCC) DX:Syst emic lupus (HCC) Thai's thyroiditis DX:Tarik elfego's thyroiditis Family History Medical History Relation Name Comments No Known Problems Brother 1 No Known Problems Brother 2 No Known Problems Daughter No Known Problems Father No Known Problems Maternal Grandfather No Known Problems Maternal Grandmother Thyroid disease Mother Thai's No Known Problems Paternal Grandfather No Known Problems Paternal Grandmother No Known Problems Sister Breast cancer Neg Hx Colon cancer Neg Hx Ovarian cancer Neg Hx Relation Name Status Comments Brother 1 Alive Brother 2 Alive Daughter Alive Father Alive Maternal Grandfather Maternal Grandmother Mother Alive Paternal Grandfather Paternal Grandmother Alive Sister Alive Social History Tobacco Use Types Packs/Day Years Used Date Smoking Tobacco: Never Smokeless Tobacco: Never Tobacco Cessation:Counseling Given: Not Answered Alcohol Use Standard Drinks/Week Comments Not Currently 0 (1 standard drink = 0.6 oz pur e alcohol) Sex and Gender Information Value Date Recorded Sex Assigned at Not on file Gender Identity Not on file Sexual Orientation Not on file Job Start Date Occupation Industry Not on file Not on file Not on file Obstetrics History Last Filed Vital Signs Vital Sign Reading Time Taken Comments Blood Pressure 120/80 05/24/2024 2:06 PM EST Pulse 83 05/24/2024 2:06 PM EST Temperature 36.3 ??C (97.3 ??F) 05/24/2024 2:06 PM ES T Respiratory Rate - - Oxygen Saturation 97% 05/24/2024 2:06 PM EST Inhaled Oxygen Concentration - - Weight 57.2 kg (126 lb) 05/24/2024 2:06 PM EST Height 165.1 cm (5' 5 ) 05/24/2024 2:06 PM EST Body Mass Index 20.97 05/24/2024 2:06 PM EST Plan of Treatment Health Maintenance Due Date Last Done Comments COVID-19 Vaccine (#1) 1998 DTaP,Tdap,and Td Vaccines (1 - Tdap) 2012 Hepatitis B Vaccines (1 of 3 - 19+ 3-dose series) 2012 Cervical Cancer Screening: P ap Smear 2014 HIV Screening 07/04/2023 Hepatitis C Screening 07/04/2023 Social Influencers of Health Screening 07/04/2023 Influenza Vaccine (#1) 2024 05/07/2023 Depression Screening 06/24/2024 06/24/2023 Cholesterol Screening (Lipid Panel) 05/08/2028 05/08/2023 HIB Vaccines Aged Out No longer eligi ble based on patient's age to complete this topic HPV Vaccines Aged Out No longer eligi ble based on patient's age to complete this topic Hepatitis A Vaccines Aged Out No long er eligible based on patient's age to complete this topic IPV Vaccines Aged Out No longer eligi ble based on patient's age to complete this topic MMR Vaccines Aged Out No longer eligi ble based on patient's age to complete this topic Meningococcal ACWY Vaccine Aged Out N o longer eligible based on patient's age to complete this topic Pneumococcal Vaccine: Pediat rics (0 to 5 Years) and At-Risk Patients (6 to 64 Years) Aged Out No longer eligi ble based on patient's age to complete this topic RSV Immunization Patients Un gareth 20 months Aged Out No longer eligible b ased on patient's age to complete this topic Varicella Vaccines Aged Out No longer eligible based on patient's age to complete this topic Procedures Procedure Name Priority Date/Time Associated Diagnosis Comments THYROID STIMULATING HORMONE WITH REFLEX TO FREE T4 AND FREE T3 Routine 05/19/2024 11:38 AM EST Chronic lymphocytic thyroiditis THYROID STIMULATING HORMONE Routine 05/19/2024 11:38 AM EST Chronic lymphocytic thyroiditis COMPLETE BLOOD COUNT Routine 05/19/2024 11:38 AM EST Anemia, unspecified US HEAD NECK SOFT TISSUE Routine 05/18/2024 3:31 PM EST Autoimmune thyroiditis HM DEPRESSION SCREENING Routine 06/24/2023 LIPID PANEL Routine 05/08/2023 from Last 3 Months or Most Recently Relevant to Health Maintenance Results * Thyroid stimulating hormone with reflex to free t4 and free t3 (05/19/2024 11:38 AM EST) TSH 1.40 0.40 - 4.00 mcIU/mL LAB CHEMISTRY METHOD 05/19/2024 3:04 PM EST [facility] Blood Venous blood specimen / Unknown Venipuncture / Unknown 05/19/2024 11:38 AM EST 05/19/2024 11:38 AM EST Rik White MD LAB BLOOD ORDERABLES [facility] [address] [place] [address], * Complete blood count (05/19/2024 11:38 AM EST) WBC 5.7 4.8 - 10.8 K/mcL LAB HEMETOLOGY METHOD 05/19/2024 2:10 PM [facility] RBC 3.90 3.80 - 4.80 M/mcL LAB HEMETOLOGY METHOD 05/19/2024 2:10 PM [facility] Hemoglobin 11.8 11.5 - 16.0 g/dL LAB HEMETOLOGY METHOD 05/19/2024 2:10 PM [facility] Hematocrit 36.9 35.0 - 47.0 % LAB HEMETOLOGY METHOD 05/19/2024 2:10 PM [facility] MCV 94.1 79.0 - 98.0 FL LAB HEMETOLOGY METHOD 05/19/2024 2:10 PM [facility] MCH 30.1 27.0 - 32.0 pcg LAB HEMETOLOGY METHOD 05/19/2024 2:10 PM EST [facility] MCHC 32.0 32.0 - 37.0 g/dL LAB HEMETOLOGY METHOD 05/19/2024 2:10 PM EST [facility] RDW 13.2 11.0 - 15.0 % LAB HEMETOLOGY METHOD 05/19/2024 2:10 PM EST [facility] Platelets 338 130 - 400 K/mcL LAB HEMETOLOGY METHOD 05/19/2024 2:10 PM EST [facility] MPV 9.5 7.0 - 11.0 FL LAB HEMETOLOGY METHOD 05/19/2024 2:10 PM EST [facility] NRBC 0.0 <1.0 % LAB HEMETOLOGY METHOD 05/19/2024 2:10 PM EST [facility] NRBC Absolute 0.00 <0.10 K/mcL LAB HEMETOLOGY METHOD 05/19/2024 2:10 PM EST [facility] Blood Venous blood specimen / Unknown Venipuncture / Unknown 05/19/2024 11:38 AM EST 05/19/2024 11:38 AM EST Yari PETERSON LAB BLOOD ORDERABLES [facility] [address] [place] [address], * Thyroid stimulating hormone (05/19/2024 11:38 AM EST) TSH 1.40 0.40 - 4.00 mcIU/mL LAB CHEMISTRY METHOD 05/19/2024 3:04 PM EST [facility] Blood Venous blood specimen / Unknown Venipuncture / Unknown 05/19/2024 11:38 AM EST 05/19/2024 11:38 AM EST Rik White MD LAB BLOOD ORDERABLES [facility] ([facility]) [facility] [address] [place] [address], [place] [phone] * US Head Neck Soft Tissue (05/18/2024 3:31 PM EST) Anatomical Region Laterality Modality Head and Neck Ultrasound 05/18/2024 3:58 PM EST Impressions 05/18/2024 4:00 PM EST No discrete thyroid nodules. No sonographic evidence of hyperemia. -------- FINAL REPORT -------- Dictated By: Guerita Woodruff Dictated Date: 05/18/2024 15:58 ET Assigned Physician: Guerita Woodruff Reviewed and Electronically Signed By: Guerita Woodruff Signed Date: 05/18/2024 16:00 ET Workstation ID: [id number] Transcribed By: Self Edit Transcribed Date: 05/18/2024 15:58 ET Narrative 05/18/2024 4:00 PM EST THYROID ULTRASOUND INDICATION: THAI'S THYROIDITIS TECHNIQUE: Ultrasound evaluation of the thyroid gland was performed with mendez scale and color Doppler imaging. COMPARISON: None FINDINGS: RIGHT THYROID: Right thyroid lobe demonstrates ??homogeneous echotexture measuring 3.8 x 1.3 x 1.4 cm. No thyroid nodules greater than 0.5 cm identified. ?? LEFT THYROID: Left thyroid lobe demonstrates ??homogeneous echotexture measuring 3.4 x 0.8 x 1.7 cm. ??No thyroid nodules greater than 0.5 cm identified. ISTHMUS: The isthmus measures 0.3 cm. VASCULARITY: Color doppler demonstrates normal blood flow to thyroid gland. Procedure Note Guerita Woodruff MD - 05/18/2024 THYROID ULTRASOUND INDICATION: THAI'S THYROIDITIS TECHNIQUE: Ultrasound evaluation of the thyroid gland was performed withgray scale and color Doppler imaging. COMPARISON: None FINDINGS: RIGHT THYROID: Right thyroid lobe demonstrates homogeneous echotexturemeasuring 3.8 x 1.3 x 1.4 cm. No thyroid nodules greater than 0.5 cmidentified. LEFT THYROID: Left thyroid lobe demonstrates homogeneous echotexturemeasuring 3.4 x 0.8 x 1.7 cm. No thyroid nodules greater than 0.5 cmidentified. ISTHMUS: The isthmus measures 0.3 cm. VASCULARITY: Color doppler demonstrates normal blood flow to thyroidgland. IMPRESSION: No discrete thyroid nodules. No sonographic evidence of hyperemia. -------- FINAL REPORT -------- Dictated By: Guerita Woodruff Dictated Date: 05/18/2024 15:58 ET Assigned Physician: Guerita Woodruff Reviewed and Electronically Signed By: Guerita Woodruff Signed Date: 05/18/2024 16:00 ET Workstation ID: [id number] Transcribed By: Self Edit Transcribed Date: 05/18/2024 15:58 ET Rik White MD IMG US PROCEDURES * Depression Screening (06/24/2023) Depression Screening abstracted Historical Provider [facility] E * (ABNORMAL) Lipid panel (05/08/2023) LDL/HDL Ratio 3 0 - 4 Triglycerides 61 0 - 150 mg/dL Cholesterol 180 0 - 200 mg/dL HDL 55 40 mg/dL LDL Cholesterol 113(A) 0 - 100 mg/dL Blood Venous blood specimen / Unknown Historical Provider LAB BLOOD ORDERAB LES from Last 3 Months or Most Recently Relevant to Health Maintenance Care Teams Epic Cadence Specialists Relationship Specialty Start Date End Date Liza John MD [address] [place] [id number] PCP - General 02/28/23
== END 2024-07-05 14:55 | disposition home or self-care (01) ==
LOC: HO.HWS 14:19
PROVIDERS: PCP Internal Medicine; Visit Provider Obstetrics & Gynecology
DX: R87.610 Atypical squamous cells of undetermined significance on cytologic smear of cervix (ASC-US) (principal); R87.810 Cervical high risk human papillomavirus (HPV) DNA test positive
CPT/HCPCS: 57454

== ENCOUNTER 2024-07-19 10:46 | Outpatient (AMB) | payer OTHER, SELFPAY ==
[2024-07-19 10:50] VITALS: BMI 24.0
--- NOTE | 2024-07-19 10:50 | MHC.OFFVIS ---
Vital Signs 07/19/24 10:50 Height 5 ft Weight 123 lb BMI 24.0 Intake Visit Reasons: Colpo results Allergies No Known Allergies Allergy (Verified 07/05/24 14:37) HPI Comments Details: Presenting post colpo for follow-up. The patient is doing well with no complaints. The pathology showed the following: A. Cervix, 3 o'clock, biopsy: Squamous mucosa within normal limits; no endocervical epithelium identified. B. Cervix, 6 o'clock, biopsy: Squamous epithelium within normal limits; no endocervical epithelium identified. C. Cervix, 9 o'clock, biopsy: Squamous mucosa within normal limits; no endocervical epithelium present. D. Cervix, 12 o'clock, biopsy: Squamous mucosa within normal limits; no endocervical epithelium present. E. Endocervix, curettage: - Low-grade squamous intraepithelial lesion (SUNNY 1). - Background inflamed cervical transformation zone mucosa. COMMENT: The findings are concordant with the patient's recent Pap/cytology specimen ([id number]; ASCUS with positive HR HPV) - slide reviewed [facility] Medical History (Updated 07/19/24 @ 10:52 by Ludwig Merino MD) ASCUS with positive high risk HPV cervical Rash due to systemic lupus erythematosus (SLE) Long-term use of immunosuppressant medication SLE (systemic lupus erythematosus) Proteinuria GERD (gastroesophageal reflux disease) SLE (systemic lupus erythematosus related syndrome) Thai's disease Lupus Surgical History History of appendectomy Hx of section Family History Maternal Grandmother Diabetes Maternal Grandfather Diabetes Mother Hypothyroidism Social History Household Members: Significant Other Housing: Apartment Alcohol intake: never Patient Tobacco Use Status: Never used Tobacco Substance Use Type: Marijuana Current occupational status: employed Current occupation: [employer] Sexual orientation: Straight/Heterosexual Gender identity: Female Review of Systems Const All systems reviewed & are unremarkable except as noted in HPI and below Reports as per HPI and Reports no additional complaints GI Reports no additional complaints Reports no additional complaints Assessment & Plan Assessment & Plan (1) Dysplasia of cervix, low grade (SUNNY 1): Code(s): N87.0 - Mild cervical dysplasia Category: Medical Plan: Discussed with the patient the pathology results of the colposcopy biopsies & endocervical curettage ( mild dysplasia-SUNNY 1). Discussed with the patient the sensitivity specificity, positive and negative predictive value in detecting cervical cancer in addition discussed the regression, persistence and progression rates. Recommended co-testing in 12 months, if cytology and or HPV are abnormal will proceed was colposcopy biopsy and endocervical curettage, if lesions gets worse or stays persistent for 2 years will proceed with loop electric excision procedure. Instructions given to the patient to schedule a co test appointment in 1 year. All questions answered the patient verbalized understanding. Coding Level of Care Code Est Pt Level 3 (29167) Diagnoses Dysplasia of cervix, low grade (SUNNY 1) N87.0
== END 2024-07-19 10:57 | disposition home or self-care (01) ==
LOC: HO.HWS 10:46
PROVIDERS: PCP Internal Medicine; Visit Provider Obstetrics & Gynecology
DX: N87.0 Mild cervical dysplasia (principal)
CPT/HCPCS: 99213

== ENCOUNTER → 2024-07-19 10:46 | Outpatient (BNVA) | payer OTHER, SELFPAY | PROVIDERS: PCP Internal Medicine; Visit Provider Obstetrics & Gynecology | DX: N87.0 Mild cervical dysplasia (principal) | CPT/HCPCS: 99212 ==

== ENCOUNTER 2024-08-16 11:18 | Outpatient (REF) | payer OTHER, SELFPAY ==
[2024-08-16 11:34] LABS: MANUAL DIFF FLAG NO
[2024-08-16 12:24] LABS: Appearance Urine Clear; Color Urine Yellow; Glucose Urine UA Negative (Negative); Leukocyte Esterase Urine Negative (Negative); Nitrite Urine Negative (Negative); Specific Gravity - Urine 1.025 (1.005-1.025); UMIC TRIGGER UA YES; Urine Blood Small (1+) (Negative); Urine Ketones Negative (Negative); Urine Protein 100 (2+) mg/dL (Neg-Trace)
[2024-08-16 12:26] LABS: Basophils Absolute Auto 0.1 X10*3/uL (0.0-0.2); Basophils Percent Auto 1.3 % (0-2); Eosinophils Absolute Auto 0.1 X10*3/uL (0.0-0.4); Eosinophils Percent Auto 1.1 % (0-4); Hemoglobin 12.6 g/dl (12.0-16.0); Imm Gran Abs Auto 0.03 X10*3/uL (0.00-0.03); Imm Gran Pct Auto 0.5 % (0.0-0.4); Lymphocytes Absolute Auto 1.6 X10*3/uL (1.2-4.9); Mean Corpuscular HGB Conc 33.2 g/dl (31.0-35.0); Mean Corpuscular Hemoglobin 30.9 pg (27.0-33.0); Mean Corpuscular Volume 93.1 fL (80.0-98.0); Mean Platelet Volume 9.9 fL (9.4-12.3); Monocytes Absolute Auto 0.5 X10*3/uL (0.1-1.2); Monocytes Percent Auto 8.7 % (2-11); Neutrophils Absolute Auto 3.3 x10*3/uL (2.0-8.3); Neutrophils Percent Auto 59.4 % (45-73); Platelet Count 324 X10*3/uL (160-400); Red Blood Count 4.08 X10*6/uL (4.20-5.50); Red Cell Distribution Width 13.7 % (11.0-16.0); White Blood Count 5.5 X10*3/uL (4.8-10.8)
[2024-08-16 12:29] LABS: Bacteria Urine Trace (None Seen); Hyaline Casts Urine 0-2 /LPF (0-2); WBC Urine 0-5 /HPF (0-5)
--- OUTSIDE RECORDS SUMMARY | 2024-08-16 12:58 | XMS_ITS | Clinical Summary ---
Author Organization [address] Address [address] [place] [address] Phone Care Team Providers Care Manager Of Case Management Name Role Phone Liza John MD Primary Care Prov ider Allergies No known active allergies Medications hydroxychloroqui ne 400 mg tablet Take 1 Tablet by mouth daily. Active predniSONE (DELTASONE) 10 mg tablet Take 1 Tablet by mouth daily. Active predniSONE (DELTASONE) 50 mg tablet Take 1 Tablet by mouth daily. Active levothyroxine (Synthroid) 25 mcg tabletIndication s:Thai's thyroiditis Take 1 tablet (25 mcg total) by mouth 1 (one) time each day before breakfast. Take 1 Tablet by mouth daily. 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 3:16 PM EST - 05/18/2024 11:59 PM EST Hospital Encounter Radiology Department - [address] [phone] Autoimmune thyroiditis Discharge Disposition: Home or Self Care from Last 3 Months Immunizations Name Administration [...] drink = 0.6 oz pur e alcohol) Comments Unknown Sex and Gender Information Value Date Recorded Sex Assigned at Not on file Legal Sex Female 8:54 PM EST Gender Identity Not on file Sexual Orientation Not on file Obstetrics History Last Filed [...] patient's age to complete this topic Meningococcal B Vacine Aged Out No lo nger eligible based on patient's age to complete [...] Routine 05/18/2024 3:31 PM EST Autoimmune thyroiditis DEPRESSION SCREENING Routine 06/24/2023 LIPID PANEL Routine 05/08/2023 from Last 3 Months or Most Recently Relevant to Health Maintenance Results * Thyroid stimulating hormone with reflex to free t4 and free t3 (05/19/2024 11:38 AM EST) TSH 1.40 0.40 - 4.00 mcIU/mL LAB CHEMISTRY METHOD 05/19/2024 3:04 PM EST [facility] Blood Venous blood specimen / Unknown Venipuncture / Unknown 05/19/2024 11:38 AM EST 05/19/2024 11:38 AM EST us Rik White MD LAB BLOOD ORDERABLES Final Resul t [facility] [address] [place] [address], [place] [phone] * Complete blood count (05/19/2024 11:38 AM EST) Pathologist [facility] WBC 5.7 4.8 - 10.8 K/mcL LAB HEMETOLOGY METHOD 05/19/2024 2:10 PM [facility] RBC 3.90 3.80 - 4.80 M/mcL LAB HEMETOLOGY METHOD 05/19/2024 2:10 PM [facility] Hemoglobin 11.8 11.5 - 16.0 g/dL LAB HEMETOLOGY METHOD 05/19/2024 2:10 PM [facility] Hematocrit 36.9 35.0 - 47.0 % LAB HEMETOLOGY METHOD 05/19/2024 2:10 PM [facility] MCV 94.1 79.0 - 98.0 FL LAB HEMETOLOGY METHOD 05/19/2024 2:10 PM [facility] MCH 30.1 27.0 - 32.0 pcg LAB HEMETOLOGY METHOD 05/19/2024 2:10 PM [facility] MCHC 32.0 32.0 - 37.0 g/dL LAB HEMETOLOGY METHOD 05/19/2024 2:10 PM EST [facility] RDW 13.2 11.0 - 15.0 % LAB HEMETOLOGY METHOD 05/19/2024 2:10 PM EST [facility] Platelets 338 130 - 400 K/mcL LAB HEMETOLOGY METHOD 05/19/2024 2:10 PM EST [facility] MPV 9.5 7.0 - 11.0 FL LAB HEMETOLOGY METHOD 05/19/2024 2:10 PM EST [facility] NRBC 0.0 <1.0 % LAB HEMETOLOGY METHOD 05/19/2024 2:10 PM EST [facility] NRBC Absolute 0.00 <0.10 K/mcL LAB HEMETOLOGY METHOD 05/19/2024 2:10 PM EST [facility] Blood Venous blood specimen / Unknown Venipuncture / Unknown 05/19/2024 11:38 AM EST 05/19/2024 11:38 AM EST us Yari PETERSON LAB BLOOD ORDERABLES Final Resul t [facility] [address] [place] [address], [place] [phone] * Thyroid stimulating hormone (05/19/2024 11:38 AM EST) TSH 1.40 0.40 - 4.00 mcIU/mL LAB CHEMISTRY METHOD 05/19/2024 3:04 PM EST [facility] Blood Venous blood specimen / Unknown Venipuncture / Unknown 05/19/2024 11:38 AM EST 05/19/2024 11:38 AM EST us Rik White MD LAB BLOOD ORDERABLES Final Resul t [facility] [address] [place] [address], * US Head Neck Soft Tissue (05/18/2024 [...] Signed Date: 05/18/2024 16:00 ET Workstation ID: [id number] Transcribed By: Self Edit Transcribed Date: 05/18/2024 [...] Signed Date: 05/18/2024 16:00 ET Workstation ID: [id number] Transcribed By: Self Edit Transcribed Date: 05/18/2024 15:58 ET Rik White MD IMG US PROCEDURES Final Result * Depression Screening (06/24/2023) Depression Screening abstracted Historical Provider HEALTH MAINTENANCE Final Result * (ABNORMAL) Lipid panel (05/08/2023) LDL/HDL Ratio 3 0 - 4 Triglycerides 61 0 - 150 mg/dL Cholesterol 180 0 - 200 mg/dL HDL 55 >=40 mg/dL LDL Cholesterol 113(A) 0 - 100 mg/dL Blood Venous blood specimen / Unknown Historical Provider LAB BLOOD ORDERABLES Aleta l Result from Last 3 Months or Most Recently Relevant to Health Maintenance Insurance [facility] Care Teams Manager Of Case Management Relationship Specialty Start Date End Date Liza John MD [address] [place] [id number] PCP - General 02/28/23
[2024-08-16 13:07] LABS: Alanine Aminotransferase 16 U/L (0-31); Albumin Level 4.4 g/dL (3.5-5.0); Alkaline Phosphatase 59 U/L (39-117); Anion Gap 10 (12-20); Aspartate Amino Transferase 20 U/L (5-31); Bilirubin Total 0.5 mg/dL (0.0-1.0); Blood Urea Nitrogen 14 mg/dL (9-16); C Reactive Protein 0.14 mg/dL (< or = 0.50); Calcium 9.6 mg/dL (8.4-10.2); Carbon Dioxide 26 mmol/L (22-29); Chloride 109 mmol/L (96-108); Estimated Glomerular Filt Rate > 60; Glucose Random 80 mg/dL (60-115); Sodium 141 mmol/L (135-145); Total Protein 7.4 g/dL (6.5-8.0)
[2024-08-16 13:36] LABS: Erythrocyte Sedimentation Rate 6 MM/HR (0-20)
[2024-08-16 14:06] LABS: Creatinine Urine 253.05 mg/dL; Protein/Creatinine Ratio, Ur 0.32 (<0.2); Total Protein Urine Random 81 mg/dL (<12)
[2024-08-17 16:19] LABS: Anti DNA DS Antibody 114 IU/mL
[2024-08-17 23:12] LABS: Complement C3 110 mg/dL (83-193)
== END 2024-08-16 11:19 | disposition home or self-care (01) ==
LOC: HO.LAB 11:18
PROVIDERS: PCP Internal Medicine; Visit Provider Student in an Organized Health Care Education/Training Program
DX: M32.8 Other forms of systemic lupus erythematosus (principal)
CPT/HCPCS: 36415; 80053; 81001; 82570; 84156; 85025; 85652; 86140; 86160; 86225

== ENCOUNTER 2024-08-19 12:32 | Outpatient (AMB) | payer OTHER, SELFPAY ==
[2024-08-19 12:40] VITALS: BP 116/70; PULSE 101; O2SAT 98; BMI 23.2
--- NOTE | 2024-08-19 12:40 | MHC.OFFVIS ---
Vital Signs 08/19/24 12:40 Height 5 ft Weight 119 lb BMI 23.2 BP 116/70 Blood Pressure Location Lt brachial Position Sitting Pulse 101 H Pulse Source Pulse Oximeter Pulse Oximetry (%) 98 Oxygen Delivery Method Room Air Intake Visit Reasons: SLE Intake Note: Patient last seen by Doctor Stefani Hayes on 04/20/24. Presents today for SLE follow up and test results. Patient also has paperwork to be filled out, and is aware of the timeframe. Managing Cognitive Engineer Name: [phone] Hernandez Allergies No Known Allergies Allergy (Verified 08/19/24 12:46) Medication List - Last Reconciled 08/19/24 by Joy Quevedo MD anifrolumab-fnia 300 mg IV Q4W aspirin 81 mg PO DAILY atorvastatin 10 mg PO DAILY hydrocortisone 1% (Anti-Itch (hydrocortisone)) 1 appl topical TID PRN hydroxychloroquine (Plaquenil) 200 mg PO DAILY levonorgestrel (Mirena) intrauterine levothyroxine (Synthroid) 25 mcg PO DAILY minoxidil 2.5 mg PO DAILY mycophenolate mofetil 1,000 mg (2 x 500 mg) PO BID prednisone 2.5 mg PO DAILY sulfamethoxazole-trimethoprim 400-80 mg (Bactrim) 1 tab PO 3XW HPI Comments Details: patient is a 28-year-old female with hyperlipidemia, 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 At that time she was on hydroxychloroquine 200 mg daily, mycophenolate 1000 mg twice a day, prednisolone 5 mg daily and Saphnelo monthly infusions. At that time she was doing well overall. Working at [employer]. Reported intermittent bilateral knee pain especially with walking up and down stairs as well as some right wrist discomfort especially after a hard day at work otherwise doing well. Prednisone was decreased to 2.5 mg daily today, patient continues to report she is doing well. Noted that after starting the infusions her rashes have improved her joint pain has improved as well. Requesting disability paperwork to be filled out and a letter to be written. 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 Rheumatologic History: onset approx 2013 (rashes, membranous nephritis, +++DsDNA, +++SSa +++Sm +++MANAGER MANAGEMENT low C3, low C4) took Prednisone and Cellcept not effective for rashes- took Cellcept for two years before they tried Benlysta --then Benlysta with cellcept - only had 2 injections at time, other two injections were not used when she migrated due to non refrigeration and she was scared that would be unstable --Was on MTX but got DC'd HCQ since 2016 Saphenlo 09/2023 very effective for skin MMF added 12/2023 by nephrology for membranous Lupus nephritis Initial history by Carolyn Heard 09/2023: Ms. Juan 27-year-old female presents today for transfer of care for SLE. She has immigrated from [place] about a year ago and has been taking hydroxychloroquine 200 mg b.i.d.. She has an extensive rash with her lupus and usually gets pulse steroid therapy in the ER when it erupts. 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 She is experiencing increased joint pains. She does stay out of the sun and wears protective clothing. --Lups 10 years --took Prednisone and Cellcept not effective - took Cellcept for two years before they tried Benlysta --then Benlysta with cellcept - only had 2 injections at time, other two injections were not used when she migrated due to non refrigeration and she was scared that would be unstable --Was on MTX but got and then was started HCQ in 2015. --Pepcid needed prednisone; has upset Stomach Current Rheumatology Medication(s): Prednisone 2.5 mg daily Mycophenolate 1000 mg b.i.d. Plaquenil 200 mg daily Anifrolumab 300 mg IV monthly [facility], [facility] Medical History (Updated 08/19/24 @ 13:19 by Joy Quevedo MD) ASCUS with positive high risk HPV cervical Rash due to systemic lupus erythematosus (SLE) Long-term use of immunosuppressant medication SLE (systemic lupus erythematosus) Proteinuria GERD (gastroesophageal reflux disease) Thai's disease Lupus Surgical History History of appendectomy Hx of section Family History Maternal Grandmother Diabetes Maternal Grandfather Diabetes Mother Hypothyroidism Social History Household Members: Significant Other Housing: Apartment Alcohol intake: never Patient Tobacco Use Status: Never used Tobacco Substance Use Type: Marijuana Current occupational status: employed Current occupation: [employer] Sexual orientation: Straight/Heterosexual Gender identity: Female Review of Systems Const Details: Review of Systems Constitutional: Denies fever, chills, weight loss ENT: Denies vision changes, eye pain or eye redness, dental caries, dry mouth GI: Denies nausea, vomiting, diarrhea, abdominal pain, change in BM Pulm: Denies SOB, MOSS, hemoptysis, wheezing Cards: Denies chest pain, palpitations Skin: Denies Raynaud's, rash, nail changes, photosensitivity, SHOVEL MECHANIC: Denies headaches, weakness, paresthesias, recurrent falls MSK: as per HPI All other systems reviewed and are unremarkable except noted above Physical Exam Vital Signs: Last Vital Signs Pulse 101 H 08/19/24 12:40 BP 116/70 08/19/24 12:40 Pulse Ox 98 08/19/24 12:40 Oxygen Delivery Method Room Air 08/19/24 12:40 BMI result Body Mass Index 23.2 Vital signs reviewed Physical Examination CONSTITUITIONAL Patient alert and cooperative. Well appearing and in no apparent painful distress HEENT Conjunctiva and sclera clear. Pupils equal round and reactive to light. No lymphadenopathy. CHEST/RESPIRATORY SYSTEM Normal respiratory effort and able to speak in complete sentences. Clear to auscultation bilaterally. No crackles, rales, rhonchi, wheezes heard. CARDIAC SYSTEM Regular rate and rhythm. S1 and S2 heard no murmurs. Radial pulses intact bilaterally MSK Hands: Good utilization specialist strength bilaterally. No deformities noted. No synovitis noted to the MCPs, PIPs or DIPs. No tenderness to palpation of these joints. Wrists: Full range of motion at the wrists without pain. No tenderness to palpation or synovitis noted to the wrists. Elbows: Full range of motion without pain. No tenderness, weakness, swelling, increased warmth or erythema. Shoulders: Full range of motion without pain. No tenderness, weakness, swelling, increased warmth or erythema. Hips: Full range of motion without pain. Hip bursa: No tenderness to palpation Knees: Full range of motion. No tenderness, swelling, increased warmth or erythema.?No effusion or crepitations Ankles: Full range of motion. No tenderness, swelling, increased warmth or erythema.? Feet: Negative squeeze test. No tenderness to palpation or swelling of the MTPs. Tender points:?No tenderness to palpation of the bilateral trapezius, supraspinatus, greater trochanters, anterior costochondral junctions, bilateral gluteal areas, bilateral suboccipital muscle insertions SKIN Skin intact without rashes. Results Reviewed Results Reviewed: Laboratory Tests 08/16/24 11:31 WBC 5.5 RBC 4.08 L Hgb 12.6 Hct 38.0 ESR 6 Sodium 141 Potassium 4.0 Chloride 109 H Carbon Dioxide 26 BUN 14 Creatinine 0.72 AST 20 ALT 16 Alkaline Phosphatase 59 C-Reactive Protein 0.14 Total Protein 7.4 Albumin 4.4 Immunology labs 12/01/23 08/16/24 11:26 11:31 Double Strand DNA Ab 154 H 114 H Complement C3 59 L 110 Complement C4 14 L 26 Urine Studies 08/16/24 11:30 Urine Color Yellow Urine Protein 100 (2+) H Urine Blood Small (1+) H Urine RBC 6-10 H U Random Total Protein 81 H Urine Creatinine 253.05 Protein/Creatinin Ratio 0.32 H Assessment & Plan Assessment & Plan (1) SLE (systemic lupus erythematosus): Comment: onset approx 2013 (rashes, membranous nephritis, +++DsDNA, +++SSa +++Sm +++MANAGER MANAGEMENT low C3, low C4) took Prednisone and Cellcept not effective for rashes- took Cellcept for two years before they tried Benlysta --then Benlysta with cellcept - only had 2 injections at time, other two injections were not used when she migrated due to non refrigeration and she was scared that would be unstable --Was on MTX but got DC'd HCQ since 2016 Saphenlo 09/2023 very effective for skin MMF added 12/2023 by nephrology for membranous Lupus nephritis Code(s): M32.9 - Systemic lupus erythematosus, unspecified Category: Medical Qualifiers: Systemic lupus erythematosus type: other Systemic lupus erythematosus organ involvement: unspecified Qualified Code(s): M32.8 - Other forms of systemic lupus erythematosus Plan: #SLE Patient is a 28-year-old female with 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 Currently on Plaquenil, 7 lb infusions and mycophenolate per renal. Today patient's lupus is in remission with no evidence of synovitis on examination, no rashes or oral ulcers. Overall doing well. We will continue medication as prescribed letter written at patient's request and disability forms filled out Plan - Plaquenil 200mg daily - Prednisone 2.5mg daily - Saphnelo infusions every 4 weeks - MMF as per renal - RTC 4 months - Labs before visit: CBC, CMP, ESR, CRP, C3, C4, dsDNA, UA, UPC (2) Long-term use of hydroxychloroquine: Code(s): Z79.899 - Other longterm (current) drug therapy Category: Medical Plan: #Long-term Use of Hydroxychloroquine Discussed with patient the risks and benefits of hydroxychloroquine in managing the rheumatic condition Benefits include: - Reduced pain, reduce mortality, maintenance of remission and reduction of flares Risks include: - GI upset, skin hyperpigmentation, retinal toxicity (especially after more than 5 years of use), myopathy Advised yearly ophthalmology visits (3) Long-term use of immunosuppressant medication: Code(s): Z79.60 - longterm (current) use of unspecified immunomodulators and immunosuppressants Category: Medical Plan: #Long-term use Anifrolumab Discussed with patient the risks and benefits of hydroxychloroquine in managing the rheumatic condition Benefits include: - Reduced pain, reduce mortality, maintenance of remission and reduction of flares Risks include: - Increased susceptibility to serious infections particularly viral infections like herpes zoster (shingles), respiratory tract infections and infusion related reactions Plan I spent 45 minutes reviewing the record and labs, taking a history, examining the patient, discussing the treatment plan, ordering diagnostic work up, filling out disability paperwork and composing letter at patient's request and documenting in the medical record Orders: Orders Complement C3 4 Months E55.9 - Vitamin D deficiency, unspecified, M32.8 - Other forms of systemic lupus erythematosus Complete Blood Count Auto Diff 4 Months E55.9 - Vitamin D deficiency, unspecified, M32.8 - Other forms of systemic lupus erythematosus Comprehensive Met. Panel 4 Months E55.9 - Vitamin D deficiency, unspecified, M32.8 - Other forms of systemic lupus erythematosus Erythrocyte Sedimentation Rate 4 Months E55.9 - Vitamin D deficiency, unspecified, M32.8 - Other forms of systemic lupus erythematosus Protein Creatinine Ratio, Ur 4 Months E55.9 - Vitamin D deficiency, unspecified, M32.8 - Other forms of systemic lupus erythematosus UA w Microscopic 4 Months E55.9 - Vitamin D deficiency, unspecified, M32.8 - Other forms of systemic lupus erythematosus Vitamin D 25-OH (D2 and D3) 4 Months E55.9 - Vitamin D deficiency, unspecified, M32.8 - Other forms of systemic lupus erythematosus Complement C4 4 Months E55.9 - Vitamin D deficiency, unspecified, M32.8 - Other forms of systemic lupus erythematosus C Reactive Protein 4 Months E55.9 - Vitamin D deficiency, unspecified, M32.8 - Other forms of systemic lupus erythematosus Anti DNA DS Antibody 4 Months E55.9 - Vitamin D deficiency, unspecified, M32.8 - Other forms of systemic lupus erythematosus Referrals Infusion Center Notification M32.8 - Other forms of systemic lupus erythematosus Medications: Refilled prednisone 2.5 mg PO DAILY 90 tabs 1RF M32.8 - Other forms of systemic lupus erythematosus hydroxychloroquine (Plaquenil) 200 mg PO DAILY 90 tabs 1RF Coding Level of Care Code Est Pt Level 5 (47682) Complex EM visit Add On G2211 Diagnoses Other forms of systemic lupus erythematosus, unspecified organ involvement status M32.8 Systemic lupus erythematosus type: other Systemic lupus erythematosus organ involvement: unspecified Long-term use of hydroxychloroquine Z79.899 Long-term use of immunosuppressant medication Z79.60
--- OUTSIDE RECORDS SUMMARY | 2024-08-19 15:49 | XMS_ITS | Clinical Summary ---
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 us Historical Provider LAB BLOOD ORDERABLES Aleta l Result * Depression Screening (06/24/2023) Pathologist [facility] Depression Screening abstracted us Historical Provider HEALTH MAINTENANCE Final Result * (ABNORMAL) Lipid panel (05/08/2023) LDL/HDL Ratio 3 0 - 4 Triglycerides 61 0 - 150 mg/dL Cholesterol 180 0 - 200 mg/dL HDL 55 >=40 mg/dL LDL Cholesterol 113(A) 0 - 100 mg/dL Blood Venous blood specimen / Unknown us Historical Provider LAB BLOOD ORDERABLES Aleta l Result from Last 3 Months or Most Recently Relevant to Health Maintenance Insurance [facility] [employer] PLAN Care Teams Creping Machine Operator Helper Relationship Specialty Start Date End Date Liza John MD [address] [place] [address] PCP - General 02/28/23
== END 2024-08-19 13:17 | disposition home or self-care (01) ==
LOC: HO.RHE 12:32
PROVIDERS: PCP Internal Medicine; Visit Provider Student in an Organized Health Care Education/Training Program
DX: M32.8 Other forms of systemic lupus erythematosus (principal); Z79.899 Other long term (current) drug therapy; Z79.60 Long term (current) use of unspecified immunomodulators and immunosuppressants
CPT/HCPCS: 99215; G2211

== ENCOUNTER → 2024-08-19 12:32 | Outpatient (BNVA) | payer OTHER, SELFPAY | PROVIDERS: PCP Internal Medicine; Visit Provider Student in an Organized Health Care Education/Training Program | DX: M32.8 Other forms of systemic lupus erythematosus (principal); E55.9 Vitamin D deficiency, unspecified; Z79.60 Long term (current) use of unspecified immunomodulators and immunosuppressants; Z79.899 Other long term (current) drug therapy | CPT/HCPCS: 99212 ==

== ENCOUNTER 2024-08-27 13:36 | Outpatient (REF) | payer OTHER, SELFPAY ==
--- NOTE | ~2024-08-27 | US_ITS ---
CLINICAL HISTORY: N93.9 - Abnormal uterine and vaginal bleeding, unspecified US pelvis transvaginal and transabdominal Comparison: CT/NC/SR - CT ABDOMEN PELVIS W IV CON - 12/20/22 17:25 EDT Findings: Transvaginal scanning performed. Anteverted uterus is 8.9 x 5.6 x 7.1 cm length. Normal myometrium. Endometrium is partially obscured by an appropriately placed IUD. No significant endometrial thickening appreciated. Right ovary 5.2 x 2.6 x 2.6 cm. This contains an anechoic cyst with a single thin septation measuring 19 x 18 x 21 mm. An additional thick-walled cystic lesion measures 2.4 x 1.8 x 1.8 cm in likely represents a corpus luteum. Left ovary 2.8 x 1.5 x 2.4 cm. Multiple normal follicles. Normal color Doppler of both ovaries. Trace free fluid in the cul-de-sac, likely physiologic. IMPRESSION: 1. IUD appears to be in appropriate position. No significant endometrial thickening identified. 2. Anechoic cystic lesion in the right ovary containing a single thin septation adjacent to a corpus luteum. Consider a follow-up ultrasound in 6-8 weeks to assess for resolution. This document has been electronically signed by: Marah Salinas MD on 08/28/2024 09:00:19
--- OUTSIDE RECORDS SUMMARY | 2024-08-27 15:54 | XMS_ITS | Clinical Summary ---
Author Organization [address] Address [address] [place] [phone] Phone Care Team Providers Care Burn Center Nurse Name Role Phone Liza John MD Primary Care Prov ider Allergies No known active allergies Medications hydroxychloroqui ne 400 mg tablet Take 1 Tablet by mouth daily. Active predniSONE (DELTASONE) 10 mg tablet Take 1 Tablet by mouth daily. Active predniSONE (DELTASONE) 50 mg tablet Take 1 Tablet by mouth daily. Active levothyroxine (Synthroid) 25 mcg tabletIndication s:Thia's thyroiditis Take 1 tablet (25 mcg total) by mouth 1 (one) time each day before breakfast. Take 1 Tablet by mouth daily. 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 Historical Provider LAB BLOOD ORDERABLES Aleta l Result * Depression Screening (06/24/2023) [facility] Depression Screening abstracted Historical Provider HEALTH MAINTENANCE Final Result * (ABNORMAL) Lipid panel (05/08/2023) [facility] LDL/HDL Ratio 3 0 - 4 Triglycerides 61 0 - 150 mg/dL Cholesterol 180 0 - 200 mg/dL HDL 55 >=40 mg/dL LDL Cholesterol 113(A) 0 - 100 mg/dL Blood Venous blood specimen / Unknown us Historical Provider LAB BLOOD ORDERABLES Aleta l Result from Last 3 Months or Most Recently Relevant to Health Maintenance Insurance [facility] [employer] Care Teams Burn Center Nurse Relationship Specialty Start Date End Date Liza John MD [address] [place] [address] PCP - General 02/28/23
== END 2024-08-27 13:37 | disposition home or self-care (01) ==
LOC: HO.HMGCX 13:36
PROVIDERS: PCP Internal Medicine; Visit Provider Obstetrics & Gynecology
DX: N93.9 Abnormal uterine and vaginal bleeding, unspecified (principal)
CPT/HCPCS: 76830; 76856

== ENCOUNTER → 2024-08-27 13:38 | Outpatient (BNV) | payer OTHER, SELFPAY | PROVIDERS: PCP Internal Medicine; Visit Provider Radiology Diagnostic Radiology | DX: N83.291 Other ovarian cyst, right side (principal); Z97.5 Presence of (intrauterine) contraceptive device | CPT/HCPCS: 76830; 76856 ==

== ENCOUNTER 2024-09-16 08:07 | Outpatient (AMB) | payer OTHER, SELFPAY ==
--- OUTSIDE RECORDS SUMMARY | 2024-09-16 08:12 | XMS_ITS | Clinical Summary ---
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 Systemic lupus (CMS/HCC V24, CMS/HCC V28) 2022 Immunizations Name Administration Dates Next Due Influenza Quadravalent, MDCK , 0.5ml, preservative free (Flucelvax) 6mo and older 05/07/2023 Surgical History Surgery Date Site/Laterality Comments SECTION PROCEDURE: HISTORICAL DELIVERY APPENDECTOMY PROCEDURE: HISTORICAL APPENDECTOMY Medical History Medical History Date Comments Systemic lupus (CMS/HCC V24, CMS/HCC V28) DX:Systemic lupus (HCC) Thai's thyroiditis DX:Tarik elfego's thyroiditis [...] 05/24/2024 2:06 PM EST Plan of Treatment Upcoming Encounters Date Type Department Care Team (Late st Contact Info) Description 11/29/2024 9:30 AM EDT Office Visit Adult Medicine [address] [phone] Liza John MD [address] [place] [phone] Health Maintenance Due Date Last Done Comments [...] age to complete this topic Meningococcal B Vaccine Aged Out No l onger eligible based on patient's age to complete [...] Name Priority Date/Time Associated Diagnosis Comments EXTERNAL ULTRASOUND REPORT Routine 08/27/2024 9:44 AM EDT EXTERNAL CLINICAL LAB Routine 08/18/2024 11:07 AM EDT EXTERNAL CLINICAL LAB Routine 08/18/2024 11:06 AM EDT EXTERNAL CLINICAL LAB Routine 08/17/2024 1:42 PM EDT DEPRESSION SCREENING Routine 06/24/2023 LIPID PANEL Routine 05/08/2023 from Last 3 Months or Most Recently Relevant to Health Maintenance Results * External Ultrasound Report (08/27/2024 9:44 AM EDT) Anatomical Region Laterality Modality Ultrasound us Historical Provider MD F[facility]EDMAN US PROCEDURES Final R esult * External clinical lab (08/18/2024 11:07 AM EDT) Only the most recent of3 resultswithin the time period is included. Historical Provider LAB BLOOD ORDERABLES Aleta l Result * Depression Screening (06/24/2023) Depression Screening abstracted [facility] Provider HEALTH MAINTENANCE Final Result * (ABNORMAL) [...] Most Recently Relevant to Health Maintenance Insurance [facility] [place] [id number] Care Teams Nurse Wound Relationship Specialty Start Date End Date Liza John MD [address] [place] [phone] PCP - General 02/28/23
--- NOTE | 2024-09-16 08:16 | A.OFFVIS_ITS ---
Vital Signs 09/16/24 08:18 Height 5 ft Weight 118 lb BMI 23.0 BP 122/68 Intake Visit Reasons: u/s results Product Safety And Standards Engineer Required: Yes Product Safety And Standards Engineer Language: Printing Worker Supervisor Services: Product Safety And Standards Engineer Present (in person) Product Safety And Standards Engineer Name: Reyna CHACON Information Interpreted: non-clinical & clinical Accompanied by: Self / Same As Patient Allergies No Known Allergies Allergy (Verified 09/16/24 08:19) Is last menstrual period known: Yes Last menstrual period: 08/31/24 HPI Comments Details: The patient is presenting for follow-up to discuss the results of her abnormal uterine bleeding workup and options of treatment. The patient has menstrual cycles are back to normal regular not heavy The following workup was done.: H&H= 12.6/38 TSH, hCG, GC and chlamydia were negative. Co testing was done in 06/01 was ASCUS HPV high-risk positive, colpo biopsy ECC showed SUNNY 1, the patient is scheduled for repeat co testing in a year Pelvic ultrasound showed the following: Transvaginal scanning performed. Anteverted uterus is 8.9 x 5.6 x 7.1 cm length. Normal myometrium. Endometrium is partially obscured by an appropriately placed IUD. No significant endometrial thickening appreciated. Right ovary 5.2 x 2.6 x 2.6 cm. This contains an anechoic cyst with a single thin septation measuring 19 x 18 x 21 mm. An additional thick-walled cystic lesion measures 2.4 x 1.8 x 1.8 cm in likely represents a corpus luteum. Left ovary 2.8 x 1.5 x 2.4 cm. Multiple normal follicles. Normal color Doppler of both ovaries. Trace free fluid in the cul-de-sac, likely physiologic. [facility] Medical History ASCUS with positive high risk HPV cervical Rash due to systemic lupus erythematosus (SLE) Long-term use of immunosuppressant medication SLE (systemic lupus erythematosus) Proteinuria GERD (gastroesophageal reflux disease) Thai's disease Lupus Surgical History History of appendectomy Hx of section Family History Maternal Grandmother Diabetes Maternal Grandfather Diabetes Mother Hypothyroidism Social History Household Members: Significant Other Housing: Apartment Alcohol intake: never Patient Tobacco Use Status: Never used Tobacco Substance Use Type: Marijuana Current occupational status: employed Current occupation: [employer] Sexual orientation: Straight/Heterosexual Gender identity: Female Female Reproductive History Menstrual Date of last menstrual period: 08/31/24 control method: progestin IUCD Review of Systems Const All systems reviewed & are unremarkable except as noted in HPI and below Reports as per HPI and Reports no additional complaints GI Reports no additional complaints Reports no additional complaints Physical Exam Vital Signs: Last Vital Signs BP 122/68 09/16/24 08:18 BMI result Body Mass Index 23.0 Assessment & Plan Assessment & Plan (1) Dysplasia of cervix, low grade (SUNNY 1): Code(s): N87.0 - Mild cervical dysplasia Category: Medical Plan: Discussed with the patient the pathology results of the colposcopy biopsies & endocervical curettage ( mild dysplasia-SUNNY 1). Discussed with the patient the sensitivity specificity, positive and negative predictive value in detecting cervical cancer in addition discussed the regression, persistence and progression rates. Recommended co-testing in 12 months, if cytology and or HPV are abnormal will proceed was colposcopy biopsy and endocervical curettage. Instructions given to the patient to schedule a co test appointment in 1 year. All questions answered the patient verbalized understanding. (2) Abnormal uterine bleeding (AUB): Comment: With ParaGard IUD Resolved Code(s): N93.9 - Abnormal uterine and vaginal bleeding, unspecified Category: Medical Plan: Instructions given the patient to call in case of irregular or heavier menstrual cycles then will proceed with endometrial biopsy to rule out endometrial pathology including endometrial hyperplasia and/or malignancy. All questions answered, the patient verbalized understanding. (3) Complex ovarian cyst: Code(s): N83.299 - Other ovarian cyst, unspecified side Category: Medical Plan: Discussed with the patient the complex ovarian cyst by ultrasound. Discussed with the patient the Ultrasound findings, the main limitation of transvaginal ultrasonography alone as a diagnostic tool to distinguish benign from malignant masses relates to its lack of specificity and low positive predictive value for cancer. The differential diagnosis discussed with the patient includes the following but not limited to: benign and malignant gynecological and non-gynecological causes. Laboratory evaluation include UPT and GC/CT , serum tumor marker CA 125 . Discussed with the patient options of treatment , including laparoscopy ovarian cystectomy/oophorectomy vs. expectant management with repeat US in repeating pelvic US in 12 weeks from previous US. If the ovarian complex cyst is persistent larger and / or more complex looking, will refer to gynecologic Onco logy. All pros, cons, risks and benefits of each approach were discussed with the patient including but not limited to a delay in the diagnosis and treatment of ovarian cancer affecting the prognosis; The patient decided to go ahead with expectant management. Instructions given the patient to schedule a 3 months follow-up ultrasound appointment. All questions were answered & the patient verbalized understanding and agreed with the plan. Orders: Orders US pelvic and transvaginal 3 Months N83.299 - Other ovarian cyst, unspecified side Coding Level of Care Code Est Pt Level 3 (82761) Diagnoses Dysplasia of cervix, low grade (SUNNY 1) N87.0 Abnormal uterine bleeding (AUB) N93.9 Complex ovarian cyst N83.299
[2024-09-16 08:18] VITALS: BP 122/68; BMI 23.0
== END 2024-09-16 08:36 | disposition home or self-care (01) ==
LOC: HO.HWS 08:07
PROVIDERS: PCP Internal Medicine; Visit Provider Obstetrics & Gynecology
DX: N87.0 Mild cervical dysplasia (principal); N93.9 Abnormal uterine and vaginal bleeding, unspecified; N83.299 Other ovarian cyst, unspecified side
CPT/HCPCS: 99213

== ENCOUNTER → 2024-09-16 08:07 | Outpatient (BNVA) | payer OTHER, SELFPAY | PROVIDERS: PCP Internal Medicine; Visit Provider Obstetrics & Gynecology | DX: N87.0 Mild cervical dysplasia (principal); N93.9 Abnormal uterine and vaginal bleeding, unspecified; N83.299 Other ovarian cyst, unspecified side | CPT/HCPCS: 99212 ==

== ENCOUNTER 2024-09-20 11:42 | Outpatient (REF) | payer OTHER, SELFPAY ==
--- OUTSIDE RECORDS SUMMARY | 2024-09-20 14:55 | XMS_ITS | Clinical Summary ---
Author Organization [address] Address [address] [place] [phone] Phone Care Team Providers Care Supervisor Welding Equipment Repairer Name Role Phone Liza John MD Primary [...] 9:30 AM EDT Office Visit Adult Medicine [address] [phone] Liza John MD [address] [place] [phone] Health Maintenance Due Date Last Done Comments [...] * Depression Screening (06/24/2023) Depression Screening abstracted [facility] Provider HEALTH MAINTENANCE Final Result [...] Most Recently Relevant to Health Maintenance Insurance [facility] [place] [phone] Care Teams Supervisor Welding Equipment Repairer Relationship Specialty Start Date End Date Liza John MD [address] [place] [phone] PCP - General 02/28/23
[2024-09-20 16:08] LABS: Appearance Urine Clear; Color Urine Dark Yellow; Glucose Urine UA Negative (Negative); Leukocyte Esterase Urine Negative (Negative); Nitrite Urine Negative (Negative); PH 6.5 (5.0-9.0); Specific Gravity - Urine 1.025 (1.005-1.025); UMIC TRIGGER UA YES; Urine Blood Large (3+) (Negative); Urine Ketones Trace mg/dL (Negative); Urine Protein 100 (2+) mg/dL (Neg-Trace)
[2024-09-20 16:14] LABS: Bacteria Urine 1+ (None Seen); Hyaline Casts Urine 0-2 /LPF (0-2); RBC Urine >20 /HPF (0-2); WBC Urine 0-5 /HPF (0-5)
[2024-09-20 16:23] LABS: Anion Gap 13 (12-20); Blood Urea Nitrogen 10 mg/dL (9-16); Calcium 9.3 mg/dL (8.4-10.2); Carbon Dioxide 24 mmol/L (22-29); Chloride 105 mmol/L (96-108); Estimated Glomerular Filt Rate > 60; Glucose Random 86 mg/dL (60-115); Sodium 138 mmol/L (135-145)
[2024-09-20 16:37] LABS: Creatinine Urine 293.38 mg/dL; Total Protein Urine Random 122 mg/dL (<12)
[2024-09-20 17:51] LABS: Influenza A PCR NEGATIVE (Negative); Influenza B PCR NEGATIVE (Negative); Resp Syncy Virus RNA Qual PCR NEGATIVE (Negative); SARS COV2 PCR INHOUSE NEGATIVE (Negative)
== END 2024-09-20 11:43 | disposition home or self-care (01) ==
LOC: HO.LAB 11:42
PROVIDERS: PCP Student in an Organized Health Care Education/Training Program; Referring Provider Internal Medicine Hypertension Specialist; Visit Provider Nurse Practitioner Family
DX: M32.8 Other forms of systemic lupus erythematosus (principal); R80.8 Other proteinuria; J06.9 Acute upper respiratory infection, unspecified
CPT/HCPCS: 0241U; 36415; 80048; 81001; 82570; 84156; 99212

== ENCOUNTER 2024-09-20 11:42 | Outpatient (AMB) | payer OTHER, SELFPAY ==
--- NOTE | 2024-09-20 12:39 | AM.OFFWIN_ITS ---
Intake Vital Signs 09/20/24 12:41 Weight 121 lb BP 120/80 Blood Pressure Location Rt brachial Position Sitting Pulse 120 H Pulse Source Pulse Oximeter Temp 99.0 F Temp Source Oral Pulse Oximetry (%) 99 Oxygen Delivery Method Room Air Intake Visit Reasons: EP Flu like symptoms Intake Note: Patient here for body aches, headaches, sinus pressure and congestion that has been present for 2 days. Patient Tobacco Use Status: Never used Tobacco Physician Asst Required: Yes Allergies No Known Allergies Allergy (Verified 09/20/24 12:43) Do you need a note to return to daycare/school/sports/work: Yes HPI HPI Comments History of Present Illness Details 28 y/o Female Patient who presents to [facility] walk in clinic with c/o body aches, headaches, sinus pressure and congestion that has been present for 2 days. [facility] Medical History (Updated 09/20/24 @ 12:50 by Noemi Phelps NP) Acute respiratory disease ASCUS with positive high risk HPV cervical Rash due to systemic lupus erythematosus (SLE) Long-term use of immunosuppressant medication SLE (systemic lupus erythematosus) Proteinuria GERD (gastroesophageal reflux disease) Thai's disease Lupus Surgical History History of appendectomy Hx of section Family History Maternal Grandmother Diabetes Maternal Grandfather Diabetes Mother Hypothyroidism Social History Household Members: Significant Other Housing: Apartment Alcohol intake: never Patient Tobacco Use Status: Never used Tobacco Substance Use Type: Marijuana Current occupational status: employed Current occupation: [employer] Sexual orientation: Straight/Heterosexual Gender identity: Female Review of Systems Const All systems reviewed & are unremarkable except as noted in HPI and below Physical Exam Vital Signs: Last Vital Signs Temp 99.0 F 09/20/24 12:41 Pulse 120 H 09/20/24 12:41 BP 120/80 09/20/24 12:41 Pulse Ox 99 09/20/24 12:41 Oxygen Delivery Method Room Air 09/20/24 12:41 Const General: no acute distress; No comfortable Orientation/consciousness: patient oriented x3 HEENT Head: Yes normocephalic Ears: external ears normal and TM abnormal erythematous bilateral and with fluid behind the TM bilateral General nose exam: Nasal discharge present Face and sinus: Yes sinuses nontender Mouth: moist mucous membranes Throat: Yes uvula midline Resp Effort & Inspection: normal respiratory effort and able to speak in complete sentences Auscultation: clear to auscultation bilaterally, no crackles, no rales, no rhonchi and no wheezes Cardio Heart sounds: S1 normal heart sound present and S2 normal heart sound present Neuro General: patient oriented x3 Assessment & Plan Assessment & Plan (1) Acute respiratory disease: Code(s): J06.9 - Acute upper respiratory infection, unspecified Plan: Ordered SARs Rest and hydrate well with warm fluids Acetaminophen for pain relief Orders: Orders SARS-CoV2/FLU/RSV Today J06.9 - Acute upper respiratory infection, unspecified Medications: New acetaminophen 1,000 mg (2 x 500 mg) PO Q6H PRN 30 caps 0RF pain J06.9 - Acute upper respiratory infection, unspecified Coding Level of Care Code Est Pt Level 4 (11901) Diagnoses Acute respiratory disease J06.9 Time Spent (min) 20
[2024-09-20 12:41] VITALS: BP 120/80; PULSE 120; TEMP 37.2; O2SAT 99
--- OUTSIDE RECORDS SUMMARY | 2024-09-20 13:44 | XMS_ITS | Clinical Summary ---
Author Organization [address] Address [address] [place] [phone] Phone Care Team Providers Care Acid Tank Liner Name Role Phone Liza John MD Primary [...] 9:30 AM EDT Office Visit Adult Medicine [address] [phone] Liza John MD [address] [place] [phone] Health Maintenance Due Date Last Done Comments COVID-19 Vaccine (#1) 1998 DTaP,Tdap,and Td Vaccines (1 - Tdap) 2012 Hepatitis B Vaccines (1 of 3 - 19+ 3-dose series) 2012 Cervical Cancer Screening: P ap Smear 2014 HIV Screening 07/04/2023 Hepatitis C Screening 07/04/2023 Social Influencers of Health Screening 07/04/2023 Depression Screening 06/24/2024 06/24/2023 Influenza Vaccine (Season Ended) 2025 05/07/20 Cholesterol Screening (Lipid Panel) 05/08/2028 05/08/2023 HIB [...] * Depression Screening (06/24/2023) Depression Screening abstracted [facility] Provider HEALTH MAINTENANCE Final Result * (ABNORMAL) [...] Most Recently Relevant to Health Maintenance Insurance [facility] Care Teams Acid Tank Liner Relationship Specialty Start Date End Date Liza John MD [address] [place] [phone] PCP - General 02/28/23
== END 2024-09-20 13:06 | disposition home or self-care (01) ==
PROVIDERS: PCP Student in an Organized Health Care Education/Training Program; Visit Provider Nurse Practitioner Family
DX: J06.9 Acute upper respiratory infection, unspecified (principal)

== ENCOUNTER 2024-10-12 13:06 | Emergency (ER) | payer OTHER, SELFPAY ==
[2024-10-12 13:27] VITALS: BP 143/87; PULSE 93; RESP 18; TEMP 36.4; O2SAT 99; BMI 19.8
--- NOTE | 2024-10-12 13:34 | ED.GENADULT ---
HPI - General Adult General Chief complaint: Abdominal Pain Stated complaint: stomach pain Time Seen by Provider: 10/12/24 16:55 History of Present Illness ED Provider: Don Louis MD HPI narrative: This is a 28-year-old female with lupus on multiple medications see below. She has never had any diagnosed gastrointestinal issues reports small amount of blood mixed with stool earlier today. Yesterday she had some cramping abdominal discomfort and left work early. Pain was rather diffuse mostly relieved after moving her bowels yesterday. Today bowel movement had blood anal receptive intercourse. Denies any knowledge of history of hemorrhoids but she has self-described chronic constipation. Related Data Home Medications ?Medication ?Instructions ?Recorded ?Confirmed levonorgestrel 21 mcg/24 hr (up to intrauterine 09/09/23 08/19/24 8 years) 52 mg intrauterine device (Mirena) hydrocortisone 1 % topical cream 1 appl topical TID PRN 09/18/23 08/19/24 (Anti-Itch (hydrocortisone)) minoxidil 2.5 mg tablet 2.5 mg PO DAILY 12/22/23 08/19/24 anifrolumab-fnia 300 mg/2 mL (150 300 mg IV Q4W 08/19/24 08/19/24 mg/mL) intravenous solution Previous Rx's ?Medication ?Instructions ?Recorded levothyroxine 25 mcg tablet 25 mcg PO DAILY #30 tabs 05/27/23 (Synthroid) aspirin 81 mg tablet,delayed 81 mg PO DAILY #90 tabs 12/09/23 release mycophenolate mofetil 500 mg tablet 1,000 mg (2 x 500 mg) PO BID #180 05/26/24 tabs atorvastatin 10 mg tablet 10 mg PO DAILY #90 tabs 07/01/24 hydroxychloroquine 200 mg tablet 200 mg PO DAILY #90 tabs 08/19/24 (Plaquenil) prednisone 2.5 mg tablet 2.5 mg PO DAILY #90 tabs 08/19/24 acetaminophen 500 mg capsule 1,000 mg (2 x 500 mg) PO Q6H PRN 09/20/24 pain #30 caps Allergies Allergy/AdvReac Type Severity Reaction Status Date / Time No Known Allergies Allergy Verified 10/12/24 13:29 PMFSH Past Medical History COUNT INCLUDES [facility] Narrative: Lupus, Medications: Aspirin, CellCept, Plaquenil, minoxidil, prednisone no other anticoagulants Medical History (Updated 10/13/24 @ 00:00 by Background Rosalia) Acute respiratory disease ASCUS with positive high risk HPV cervical Rash due to systemic lupus erythematosus (SLE) Long-term use of immunosuppressant medication SLE (systemic lupus erythematosus) Proteinuria GERD (gastroesophageal reflux disease) Thai's disease Lupus Surgical History History of appendectomy Hx of section Family History Family History Maternal Grandmother Diabetes Maternal Grandfather Diabetes Mother Hypothyroidism Social History Social History Household Members: Significant Other Housing: Apartment Alcohol intake: never Patient Tobacco Use Status: Never used Tobacco Smoked in Last 30 Days: No Use of substances other than those prescribed or required for medical reasons: No Substance Use Type: Marijuana Any prior treatment program specific to substance use: No Advance Directives: No Advance Directives Information Provided: No Do you have a plan to hurt others: No Plan Current occupational status: employed Current occupation: [employer] Sexual orientation: Straight/Heterosexual Gender identity: Female Physical Exam ED Vital Signs: Vital Signs - 24 hr 10/12/24 13:27 10/12/24 18:01 Temperature 97.5 F 98 F Pulse Rate 93 71 Respiratory Rate 18 17 Blood Pressure 143/87 H 114/76 Pulse Oximetry 99 98 Oxygen Delivery Method Room Air Room Air BMI result Body Mass Index 19.8 Const Other: EXAM: Gen: Alert, awake, well appearing, well hydrated. Head: Atraumatic Eyes: Anicteric, Normal conjunctiva. ENT: Moist mucosa, no pallor. ? Neck: Supple. Respiratory: Breathing comfortably, No distress.Clear to auscultation bilaterally, symmetric chest expansion, No wheeze, rales, ronchi. Cardiovascular: Regular rate and rhythm. No murmurs or rub. Well perfused periphery, warm extremities. No edema. ? Abdominal: Soft, no objective distension. No palpable masses or obvious organomegaly. Mild left lower quadrant tenderness, no guarding, no rebound tenderness or other peritoneal findings. Patient offered but declines rectal exam : No flank tenderness. Neuro: Alert. Gross movement of all extremities intact. ? Vital signs: See flowsheet Course Course Course Narrative: RME; 28 yold female presents to the ED for abdominal pain and blood in stool. patient states no dysuria or hematuria. patient states no fever, chills, or urinary symptoms. labs ordered Medical Decision Making Medical Decision Making MDM Narrative: 28-year-old female with 1 episode of BRBPR. Minimal abdominal tenderness. No history of inflammatory bowel disease or rectal bleeding. No anal or rectal trauma described. Patient declined rectal exam. Chronic constipation described we discussed Epsom salt baths and close PCP follow-up Reassuring lab work here return precautions for heavy bleeding severe pain or worsening patient acknowledges Lab Data 10/12/24 14:53 10/12/24 14:53 Labs: Lab Results 10/12/24 Range/Units 14:53 WBC 7.4 (4.8-10.8) X10*3/uL RBC 3.92 L (4.20-5.50) X10*6/uL Hgb 12.1 (12.0-16.0) g/dl Hct 35.6 L (37.0-47.0) % MCV 90.8 (80.0-98.0) fL MCH 30.9 (27.0-33.0) pg MCHC 34.0 (31.0-35.0) g/dl RDW 13.2 (11.0-16.0) % Plt Count 322 (160-400) X10*3/uL MPV 9.0 L (9.4-12.3) fL Immature Gran % (Auto) 0.4 (0.0-0.4) % Neut % (Auto) 66.0 (45-73) % Lymph % (Auto) 23.6 (20-40) % Hardy % (Auto) 6.5 (2-11) % Eos % (Auto) 2.4 (0-4) % Baso % (Auto) 1.1 (0-2) % Lymph # (Auto) 1.7 (1.2-4.9) X10*3/uL Hardy # (Auto) 0.5 (0.1-1.2) X10*3/uL Eos # (Auto) 0.2 (0.0-0.4) X10*3/uL Baso # (Auto) 0.1 (0.0-0.2) X10*3/uL Abs Immat Gran (auto) 0.03 (0.00-0.03) X10*3/uL Absolute Neuts (auto) 4.9 (2.0-8.3) x10*3/uL Absolute Nucleated RBC 0.000 (0.0-0.012) X10*3/uL Nucleated RBC % (auto) 0.0 (0.0-0.2) /100WBC PT 11.8 (10.9-12.4) SEC INR 1.0 (0.9-1.1) APTT 36.3 (26.0-36.8) SEC Sodium 140 (135-145) mmol/L Potassium 3.7 (3.3-5.1) mmol/L Chloride 105 (96-108) mmol/L Carbon Dioxide 28 (22-29) mmol/L Anion Gap 11 L (12-20) BUN 10 (9-16) mg/dL Creatinine 0.72 (0.5-1.4) mg/dL Estim Creat Clear Calc 97.3 Estimated GFR > 60 Random Glucose 124 H (60-115) mg/dL Calcium 9.2 (8.4-10.2) mg/dL Total Bilirubin 0.5 (0.0-1.0) mg/dL AST 19 (5-31) U/L ALT 13 (0-31) U/L Alkaline Phosphatase 59 (39-117) U/L Total Protein 6.6 (6.5-8.0) g/dL Albumin 4.1 (3.5-5.0) g/dL Lipase 24 (8-78) U/L Discharge Plan Discharge Clinical Impression: Painless rectal bleeding Patient Disposition: Home, Self-Care Instructions: Rectal Bleeding (ED) Additional Instructions: DISCHARGE DIAGNOSES: Rectal bleeding small volume HISTORY OF PRESENTATION: ?Chronic constipation, pain yesterday, the bleeding EMERGENCY DEPARTMENT COURSE,TESTS, TREATMENTS: While in the ED today he did basic blood work which was reassuring showed no signs of anemia or significant blood loss we offered but you had declined rectal examination DISCHARGE MEDICATIONS: ?[We have made no changes to your regular medication regimen] FOLLOW-UP: ?Call your primary or general physician soon as possible to discuss your symptoms, your ED visit and to discuss follow up plans Call your primary doctor for follow up INSTRUCTIONS ?& RETURN PRECAUTIONS: If any symptoms change first call your primary physician, if it is after-hours your primary doctors office should have a provider bonderite operator you can speak with. If the symptoms are severe or very concerning to you then call 911 or return to the ED. As crust it may help to take an [id number] stool softener or try Epsom salt baths get yourself Epsom salt miss 1 cup with a bath about 6 in tall for 20 minutes several times per day. Drink plenty of fluid he had green leafy vegetables and other fiber Source Don Louis MD Emergency Physician [facility] Prescriptions: No Action mycophenolate mofetil 500 mg tablet 1,000 mg PO BID Qty: 180 2RF levothyroxine [Synthroid] 25 mcg tablet 25 mcg PO DAILY Qty: 30 0RF hydrocortisone [Anti-Itch (HC)] 1 % cream 1 appl topical TID PRN minoxidil 2.5 mg tablet 2.5 mg PO DAILY Mirena 21 mcg/24 hours (8 yrs) 52 mg intrauterine device intrauterine aspirin 81 mg tablet,delayed release (DR/EC) 81 mg PO DAILY Qty: 90 3RF atorvastatin 10 mg tablet 10 mg PO DAILY Qty: 90 1RF hydroxychloroquine [Plaquenil] 200 mg tablet 200 mg PO DAILY Qty: 90 1RF prednisone 2.5 mg tablet 2.5 mg PO DAILY Qty: 90 1RF anifrolumab-fnia 300 mg/2 mL (150 mg/mL) solution 300 mg IV Q4W acetaminophen 500 mg capsule 1,000 mg PO Q6H PRN (Reason: pain) Qty: 30 0RF Interventions: ED Discharge Assessment Last Done: 10/12/24 18:01 Discharge Date/Time: 10/12/24 18:02 Print Language: Latvian
[2024-10-12 14:59] LABS: MANUAL DIFF FLAG NO
[2024-10-12 15:00] LABS: Basophils Absolute Auto 0.1 X10*3/uL (0.0-0.2); Basophils Percent Auto 1.1 % (0-2); Eosinophils Absolute Auto 0.2 X10*3/uL (0.0-0.4); Eosinophils Percent Auto 2.4 % (0-4); Hematocrit 35.6 % (37.0-47.0); Hemoglobin 12.1 g/dl (12.0-16.0); Imm Gran Abs Auto 0.03 X10*3/uL (0.00-0.03); Imm Gran Pct Auto 0.4 % (0.0-0.4); Lymphocytes Absolute Auto 1.7 X10*3/uL (1.2-4.9); Lymphocytes Percent Auto 23.6 % (20-40); Mean Corpuscular Hemoglobin 30.9 pg (27.0-33.0); Mean Corpuscular Volume 90.8 fL (80.0-98.0); Monocytes Absolute Auto 0.5 X10*3/uL (0.1-1.2); Monocytes Percent Auto 6.5 % (2-11); Neutrophils Absolute Auto 4.9 x10*3/uL (2.0-8.3); Platelet Count 322 X10*3/uL (160-400); Red Blood Count 3.92 X10*6/uL (4.20-5.50); Red Cell Distribution Width 13.2 % (11.0-16.0); White Blood Count 7.4 X10*3/uL (4.8-10.8)
[2024-10-12 15:05] LABS: Prothrombin Time 11.8 SEC (10.9-12.4)
[2024-10-12 15:08] LABS: Partial Thromboplastin Time 36.3 SEC (26.0-36.8)
[2024-10-12 15:21] LABS: Alanine Aminotransferase 13 U/L (0-31); Albumin Level 4.1 g/dL (3.5-5.0); Anion Gap 11 (12-20); Aspartate Amino Transferase 19 U/L (5-31); Bilirubin Total 0.5 mg/dL (0.0-1.0); Blood Urea Nitrogen 10 mg/dL (9-16); Calcium 9.2 mg/dL (8.4-10.2); Carbon Dioxide 28 mmol/L (22-29); Chloride 105 mmol/L (96-108); Creatinine Clr Calc Pharmacy 97.3; Estimated Glomerular Filt Rate > 60; Glucose Random 124 mg/dL (60-115); Lipase 24 U/L (8-78); Potassium 3.7 mmol/L (3.3-5.1); Sodium 140 mmol/L (135-145); Total Protein 6.6 g/dL (6.5-8.0)
--- NOTE | 2024-10-12 16:57 | ED_ITS ---
HPI - Abdominal Pain General Chief Complaint: Abdominal Pain Stated Complaint: stomach pain Time Seen by Provider: 10/12/24 16:55 History of Present Illness ED Provider: Don Louis MD HPI narrative: 28-year-old female Related Data Home Medications ?Medication ?Instructions ?Recorded ?Confirmed levonorgestrel 21 mcg/24 hr (up to intrauterine 09/09/23 08/19/24 8 years) 52 mg intrauterine device (Mirena) hydrocortisone 1 % topical cream 1 appl topical TID PRN 09/18/23 08/19/24 (Anti-Itch (hydrocortisone)) minoxidil 2.5 mg tablet 2.5 mg PO DAILY 12/22/23 08/19/24 anifrolumab-fnia 300 mg/2 mL (150 300 mg IV Q4W 08/19/24 08/19/24 mg/mL) intravenous solution Previous Rx's ?Medication ?Instructions ?Recorded levothyroxine 25 mcg tablet 25 mcg PO DAILY #30 tabs 05/27/23 (Synthroid) aspirin 81 mg tablet,delayed 81 mg PO DAILY #90 tabs 12/09/23 release mycophenolate mofetil 500 mg tablet 1,000 mg (2 x 500 mg) PO BID #180 05/26/24 tabs atorvastatin 10 mg tablet 10 mg PO DAILY #90 tabs 07/01/24 hydroxychloroquine 200 mg tablet 200 mg PO DAILY #90 tabs 08/19/24 (Plaquenil) prednisone 2.5 mg tablet 2.5 mg PO DAILY #90 tabs 08/19/24 acetaminophen 500 mg capsule 1,000 mg (2 x 500 mg) PO Q6H PRN 09/20/24 pain #30 caps Allergies Allergy/AdvReac Type Severity Reaction Status Date / Time No Known Allergies Allergy Verified 10/12/24 13:29 FOR[facility]LY [facility] Past Medical History Medical History (Updated 10/12/24 @ 17:44 by Don Louis MD) Acute respiratory disease ASCUS with positive high risk HPV cervical Rash due to systemic lupus erythematosus (SLE) Long-term use of immunosuppressant medication SLE (systemic lupus erythematosus) Proteinuria GERD (gastroesophageal reflux disease) Thai's disease Lupus Surgical History History of appendectomy Hx of section Family History Family History Maternal Grandmother Diabetes Maternal Grandfather Diabetes Mother Hypothyroidism Social History Social History Household Members: Significant Other Housing: Apartment Alcohol intake: never Patient Tobacco Use Status: Never used Tobacco Smoked in Last 30 Days: No Use of substances other than those prescribed or required for medical reasons: No Substance Use Type: Marijuana Any prior treatment program specific to substance use: No Advance Directives: No Advance Directives Information Provided: No Do you have a plan to hurt others: No Plan Current occupational status: employed Current occupation: [employer] Sexual orientation: Straight/Heterosexual Gender identity: Female Physical Exam ED Vital Signs: Vital Signs - 24 hr 10/12/24 13:27 10/12/24 18:01 Temperature 97.5 F 98 F Pulse Rate 93 71 Respiratory Rate 18 17 Blood Pressure 143/87 H 114/76 Pulse Oximetry 99 98 Oxygen Delivery Method Room Air Room Air BMI result Body Mass Index 19.8 Const Other: EXAM: Gen: Alert, awake, well appearing, well hydrated. Head: Atraumatic Eyes: Anicteric, Normal conjunctiva. ENT: Moist mucosa, no pallor. ? Neck: Supple. Respiratory: Breathing comfortably, No distress.Clear to auscultation bilaterally, symmetric chest expansion, No wheeze, rales, ronchi. Cardiovascular: Regular rate and rhythm. No murmurs or rub. Well perfused periphery, warm extremities. No edema. ? Abdominal: Soft, no objective distension. No palpable masses or obvious organomegaly. No focal tenderness, no guarding, no rebound tenderness or other peritoneal findings. : No flank tenderness. Neuro: Alert. Gross movement of all extremities intact. ? Vital signs: See flowsheet Medical Decision Making Medical Decision Making MDM Narrative: 28-year-old female with small amount of rectal bleeding likely hemorrhoidal. Small volume. Abdomen minimally tender left lower quadrant low clinical suspicion of severe or emergent adnexal or other pelvic pathology. Stool softener [id number], return precautions and counseling provided. Reassuring lab work. Lab Data 10/12/24 14:53 10/12/24 14:53 Labs: Lab Results 10/12/24 Range/Units 14:53 WBC 7.4 (4.8-10.8) X10*3/uL RBC 3.92 L (4.20-5.50) X10*6/uL Hgb 12.1 (12.0-16.0) g/dl Hct 35.6 L (37.0-47.0) % MCV 90.8 (80.0-98.0) fL MCH 30.9 (27.0-33.0) pg MCHC 34.0 (31.0-35.0) g/dl RDW 13.2 (11.0-16.0) % Plt Count 322 (160-400) X10*3/uL MPV 9.0 L (9.4-12.3) fL Immature Gran % (Auto) 0.4 (0.0-0.4) % Neut % (Auto) 66.0 (45-73) % Lymph % (Auto) 23.6 (20-40) % Coryell % (Auto) 6.5 (2-11) % Eos % (Auto) 2.4 (0-4) % Baso % (Auto) 1.1 (0-2) % Lymph # (Auto) 1.7 (1.2-4.9) X10*3/uL Coryell # (Auto) 0.5 (0.1-1.2) X10*3/uL Eos # (Auto) 0.2 (0.0-0.4) X10*3/uL Baso # (Auto) 0.1 (0.0-0.2) X10*3/uL Abs Immat Gran (auto) 0.03 (0.00-0.03) X10*3/uL Absolute Neuts (auto) 4.9 (2.0-8.3) x10*3/uL Absolute Nucleated RBC 0.000 (0.0-0.012) X10*3/uL Nucleated RBC % (auto) 0.0 (0.0-0.2) /100WBC PT 11.8 (10.9-12.4) SEC INR 1.0 (0.9-1.1) APTT 36.3 (26.0-36.8) SEC Sodium 140 (135-145) mmol/L Potassium 3.7 (3.3-5.1) mmol/L Chloride 105 (96-108) mmol/L Carbon Dioxide 28 (22-29) mmol/L Anion Gap 11 L (12-20) BUN 10 (9-16) mg/dL Creatinine 0.72 (0.5-1.4) mg/dL Estim Creat Clear Calc 97.3 Estimated GFR > 60 Random Glucose 124 H (60-115) mg/dL Calcium 9.2 (8.4-10.2) mg/dL Total Bilirubin 0.5 (0.0-1.0) mg/dL AST 19 (5-31) U/L ALT 13 (0-31) U/L Alkaline Phosphatase 59 (39-117) U/L Total Protein 6.6 (6.5-8.0) g/dL Albumin 4.1 (3.5-5.0) g/dL Lipase 24 (8-78) U/L Discharge Plan Discharge Clinical Impression: Painless rectal bleeding Patient Disposition: Home, Self-Care Instructions: Rectal Bleeding (ED) Additional Instructions: _ DISCHARGE DIAGNOSES: Rectal bleeding small volume HISTORY OF PRESENTATION: ?Chronic constipation, pain yesterday, the bleeding EMERGENCY DEPARTMENT COURSE,TESTS, TREATMENTS: While in the ED today he did basic blood work which was reassuring showed no signs of anemia or significant blood loss we offered but you had declined rectal examination DISCHARGE MEDICATIONS: ?[We have made no changes to your regular medication regimen] FOLLOW-UP: ?Call your primary or general physician soon as possible to discuss your symptoms, your ED visit and to discuss follow up plans Call your primary doctor for follow up INSTRUCTIONS ?& RETURN PRECAUTIONS: If any symptoms change first call your primary physician, if it is after-hours your primary doctors office should have a provider automation manager you can speak with. If the symptoms are severe or very concerning to you then call 911 or return to the ED. As crust it may help to take an ohdq-ghf-quhxlty stool softener or try Epsom salt baths get yourself Epsom salt miss 1 cup with a bath about 6 in tall for 20 minutes several times per day. Drink plenty of fluid he had green leafy vegetables and other fiber Source Don Luois MD Emergency Physician [facility] Prescriptions: No Action mycophenolate mofetil 500 mg tablet 1,000 mg PO BID Qty: 180 2RF levothyroxine [Synthroid] 25 mcg tablet 25 mcg PO DAILY Qty: 30 0RF hydrocortisone [Anti-Itch (HC)] 1 % cream 1 appl topical TID PRN minoxidil 2.5 mg tablet 2.5 mg PO DAILY Mirena 21 mcg/24 hours (8 yrs) 52 mg intrauterine device intrauterine aspirin 81 mg tablet,delayed release (DR/EC) 81 mg PO DAILY Qty: 90 3RF atorvastatin 10 mg tablet 10 mg PO DAILY Qty: 90 1RF hydroxychloroquine [Plaquenil] 200 mg tablet 200 mg PO DAILY Qty: 90 1RF prednisone 2.5 mg tablet 2.5 mg PO DAILY Qty: 90 1RF anifrolumab-fnia 300 mg/2 mL (150 mg/mL) solution 300 mg IV Q4W acetaminophen 500 mg capsule 1,000 mg PO Q6H PRN (Reason: pain) Qty: 30 0RF Interventions: ED Discharge Assessment Last Done: 10/12/24 18:01 Discharge Date/Time: 10/12/24 18:02 Print Language: Portuguese
--- OUTSIDE RECORDS SUMMARY | 2024-10-12 17:17 | XMS_ITS | Clinical Summary ---
Author Organization [address] Address [address] [place] [phone] Phone Care Team Providers Care Box Toe Flanger Stitchdowns Name Role Phone iLza John MD Primary Care Prov ider Allergies [...] 9:30 AM EDT Office Visit Adult Medicine [address] [phone] Liza John MD [address] [place] [phone] Health Maintenance Due Date Last Done Comments [...] * Depression Screening (06/24/2023) Depression Screening abstracted [facility] Provider HEALTH MAINTENANCE Final Result * [...] Most Recently Relevant to Health Maintenance Insurance [facility] [place] [phone] Care Teams Box Toe Flanger Stitchdowns Relationship Specialty Start Date End Date Liza John MD [address] [place] [address] [phone] PCP - General 02/28/23
[2024-10-12 17:29] LABS: Alkaline Phosphatase 59 U/L (39-117)
[2024-10-12 18:01] VITALS: BP 114/76; PULSE 71; RESP 17; TEMP 36.6; O2SAT 98
== END 2024-10-12 18:02 | disposition home or self-care (01) ==
PROVIDERS: Physician Assistant; Emergency Provider Emergency Medicine; PCP Internal Medicine
DX: K62.5 Hemorrhage of anus and rectum (principal); R10.32 Left lower quadrant pain; M32.9 Systemic lupus erythematosus, unspecified; Z79.60 Long term (current) use of unspecified immunomodulators and immunosuppressants; Z79.899 Other long term (current) drug therapy
CPT/HCPCS: 36415; 80053; 83690; 85025; 85610; 85730; 99283; 99284

== ENCOUNTER 2024-10-15 14:53 | Outpatient (AMB) | payer OTHER, SELFPAY ==
[2024-10-15 14:54] VITALS: BP 110/62; BMI 20.1
--- NOTE | 2024-10-15 14:54 | HO.NEPHOV_ITS ---
Vital Signs 10/15/24 14:54 Height 5 ft 5 in Weight 121 lb BMI 20.1 BP 110/62 Blood Pressure Location Rt brachial Position Sitting Intake Visit Reasons: R/S 09/30/2024 Conf Cane Packer Required: Yes Cane Packer Name: [email or web address] [id number] Accompanied by: Self / Same As Patient Allergies No Known Allergies Allergy (Verified 10/15/24 14:55) Medication List - Last Reconciled 10/15/24 by Valentín Wagner MD acetaminophen 1,000 mg (2 x 500 mg) PO Q6H PRN anifrolumab-fnia 300 mg IV Q4W aspirin 81 mg PO DAILY atorvastatin 10 mg PO DAILY hydrocortisone 1% (Anti-Itch (hydrocortisone)) 1 appl topical TID PRN hydroxychloroquine (Plaquenil) 200 mg PO DAILY levonorgestrel (Mirena) intrauterine levothyroxine (Synthroid) 25 mcg PO DAILY minoxidil 2.5 mg PO DAILY mycophenolate mofetil 1,000 mg (2 x 500 mg) PO BID prednisone 2.5 mg PO DAILY sulfamethoxazole-trimethoprim 400-80 mg 1 tab PO 3XW HPI Comments Details: Lisa is a pleasant 28-year-old woman with a history of SLE for almost 10 years She has been referred for proteinuria. In the past she was seen by a certified pediatric nurse practitioner in [place]. She did not undergo kidney biopsy no specific diagnosis was there. Recently scheduled to see Rheumatology. She was started on prednisone 60 mg which has been tapered down to 40 mg. She is due to receive Saphnelo infusion tomorrow During routine workup she was found to have low serum complements C3 and C4 a long with nephrotic range proteinuria of about 3.1 g. She had low serum protein as well. Serum creatinine was normal between 0.8 and 0.9 mg/dL. She was seen by time clock inspector for skin lesions. She was given minoxidil 1.25 mg. History of mucosal ulcers. She is 1 daughter age 7 years . Normal delivery. No history of miscarriage Today she has no joint pains. No shortness of breath cough hemoptysis. No history of gross hematuria. She does have foamy urination. Mild ankle edema. 10/28/23;Received Saphnelo 2 weeks ago. Doing about the same 11/18/2023 ;She underwent kidney biopsy which was uneventful. No new issues today. 12/09/2023; She was started on mycophenolate last week at 5 mg twice a day. She is tolerating well. No new issues. test negative prior to starting mycophenolate 01/29/24;Doing well. Tolerating meds;Started going to gym 04/01/24; Compliant with meds;No new issues 07/01/24 ;Doing well ;Prednisone decreased to 2.5 mg by Rheum 10/15/24: Recently had flu like symptoms . I was not imformed Resolved. Lost 10 lbs [facility] Medical History (Updated 10/13/24 @ 00:00 by Veda Lindsey) Acute respiratory disease ASCUS with positive high risk HPV cervical Rash due to systemic lupus erythematosus (SLE) Long-term use of immunosuppressant medication SLE (systemic lupus erythematosus) Proteinuria GERD (gastroesophageal reflux disease) Thai's disease Lupus Surgical History History of appendectomy Hx of section Family History Maternal Grandmother Diabetes Maternal Grandfather Diabetes Mother Hypothyroidism Social History Household Members: Significant Other Housing: Apartment Alcohol intake: never Patient Tobacco Use Status: Never used Tobacco Substance Use Type: Marijuana Current occupational status: employed Current occupation: [employer] Sexual orientation: Straight/Heterosexual Gender identity: Female Physical Exam Vital Signs: Last Vital Signs BP 110/62 10/15/24 14:54 BMI result Body Mass Index 20.1 Const General: comfortable; No acute distress Orientation/consciousness: patient oriented x3 Eyes General: appearance normal, both eyes and all related structures Visual Jorge: normal visual jorge by confrontation Neck Neck: Yes supple and Yes no JVD Resp Effort & Inspection: normal respiratory effort and respiratory effort not decreased Cardio Palpation: no palpable S3 and no palpable S4 Heart sounds: no rubs GI Inspection: Yes normal to inspection Palpation (GI): Soft to palpation Percussion: Yes normal to percussion Auscultation: normal bowel sounds General: Yes no CVA tenderness Back/Spine/Pelvis Back: no CVA tenderness Skin General skin exam: no petechiae and no purpura Neuro General: patient oriented x3 and no focal motor deficits Extrem General: No clubbing and No edema Results Reviewed Nephrology Results: Hgb 12.1 g/dl (12.0-16.0) 10/12/24 WBC 7.4 X10*3/uL (4.8-10.8) 10/12/24 Plt Count 322 X10*3/uL (160-400) 10/12/24 Sodium 140 mmol/L (135-145) 10/12/24 Potassium 3.7 mmol/L (3.3-5.1) 10/12/24 Chloride 105 mmol/L (96-108) 10/12/24 Carbon Dioxide 28 mmol/L (22-29) 10/12/24 BUN 10 mg/dL (9-16) 10/12/24 Creatinine 0.72 mg/dL (0.5-1.4) 10/12/24 Calcium 9.2 mg/dL (8.4-10.2) 10/12/24 Urine Protein 100 (2+) mg/dL (Neg-Trace) H 09/20/24 Urine Creatinine 293.38 mg/dL 09/20/24 Protein/Creatinin Ratio 0.32 (<0.2) H 08/16/24 Assessment & Plan Assessment & Plan (1) Long-term use of immunosuppressant medication: Code(s): Z79.60 - long term care pharmacist (current) use of unspecified immunomodulators and immunosuppressants Category: Medical (2) SLE (systemic lupus erythematosus): Comment: onset approx 2013 (rashes, membranous nephritis, +++DsDNA, +++SSa +++Sm +++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 low C3, low C4) took Prednisone and Cellcept not effective for rashes- took Cellcept for two years before they tried Benlysta --then Benlysta with cellcept - only had 2 injections at time, other two injections were not used when she migrated due to non refrigeration and she was scared that would be unstable --Was on MTX but got DC'd HCQ since 2016 Saphenlo 09/2023 very effective for skin MMF added 12/2023 by nephrology for membranous Lupus nephritis Code(s): M32.9 - Systemic lupus erythematosus, unspecified Category: Medical Qualifiers: Systemic lupus erythematosus type: other Systemic lupus erythematosus organ involvement: unspecified Qualified Code(s): M32.8 - Other forms of systemic lupus erythematosus (3) Proteinuria: Code(s): R80.9 - Proteinuria, unspecified Category: Medical Qualifiers: Proteinuria type: other Qualified Code(s): R80.8 - Other proteinuria (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 There was no global sclerosis. Tubular atrophy interstitial fibrosis 2% vascular sclerosis none. Light microscopy no collapse or crescents; no glomerular nephritis or thrombosis. No spikes or double contouring basement membrane NIH lupus nephritis activity index chronicity index 0 12 Electron microscopy showed foot process effacement Discussed treatment options for membranous nephropathy. She will do immunosuppression. Currently she is on prednisone. -5 mg She has in the childbearing age. She is currently on contraception. We agreed on starting on mycophenolate. Started Initial dose 500 mg p.o. b.i.d. for 1 week Increased to 1 g b.i.d. starting 12/09/23 Continue current dose Discussed side effects including diarrhea. If she gets mycophenolate needs to be stopped I have explained this to her in detail with the help of her crabbing machine operator. Will monitor renal function and urine protein excretion closely. Bactrim 3 times a week for prophylaxis Concur with current management per Rheumatology. Cane Packer service was used. Added Atorvastatin 10 mg QD and titrate dose: 12/09/23 Cholesterol and LDL have normalized. Keep Lipitor Added Aspirin 12/09/23 No changes today Orders: Orders Basic Metabolic Panel 3 Months M32.14 - Glomerular disease in systemic lupus erythematosus, R80.8 - Other proteinuria Total Protein Urine Random 3 Months M32.14 - Glomerular disease in systemic lupus erythematosus, R80.8 - Other proteinuria Complete Blood Count no Diff 3 Months M32.14 - Glomerular disease in systemic lupus erythematosus, R80.8 - Other proteinuria Creatinine Urine 3 Months M32.14 - Glomerular disease in systemic lupus erythematosus, R80.8 - Other proteinuria UA and rflx microscopic 3 Months M32.14 - Glomerular disease in systemic lupus erythematosus, R80.8 - Other proteinuria Coding Level of Care Code Est Pt Level 4 (69164) Diagnoses Long-term use of immunosuppressant medication Z79.60 Other forms of systemic lupus erythematosus, unspecified organ involvement status M32.8 Systemic lupus erythematosus type: other Systemic lupus erythematosus organ involvement: unspecified Other proteinuria R80.8 Proteinuria type: other Lupus nephritis M32.14
--- OUTSIDE RECORDS SUMMARY | 2024-10-15 14:55 | XMS_ITS | Clinical Summary ---
Author Organization [address] Address [address] [place] [phone] Phone Care Team Providers Care Physical Plant Manager Name Role Phone Liza John MD [...] 9:30 AM EDT Office Visit Adult Medicine [address] [phone] Liza John MD [address] [place] [phone] Health Maintenance Due Date Last Done Comments [...] * Depression Screening (06/24/2023) Depression Screening abstracted [facility] Provider HEALTH MAINTENANCE Final Result [...] Most Recently Relevant to Health Maintenance Insurance [facility] Care Teams Physical Plant Manager Relationship Specialty Start Date End Date Liza John MD [address] [place] [address] [phone] PCP - General 02/28/23
== END 2024-10-15 15:09 | disposition home or self-care (01) ==
LOC: HO.HKA 14:53
PROVIDERS: PCP Student in an Organized Health Care Education/Training Program; Visit Provider Internal Medicine Hypertension Specialist
DX: Z79.60 Long term (current) use of unspecified immunomodulators and immunosuppressants (principal); M32.8 Other forms of systemic lupus erythematosus; R80.8 Other proteinuria; M32.14 Glomerular disease in systemic lupus erythematosus
CPT/HCPCS: 99214

== ENCOUNTER → 2024-10-15 14:53 | Outpatient (BNVA) | payer OTHER, SELFPAY | PROVIDERS: PCP Student in an Organized Health Care Education/Training Program; Visit Provider Internal Medicine Hypertension Specialist | DX: M32.8 Other forms of systemic lupus erythematosus (principal); R80.8 Other proteinuria; M32.14 Glomerular disease in systemic lupus erythematosus; Z79.60 Long term (current) use of unspecified immunomodulators and immunosuppressants | CPT/HCPCS: 99212 ==

== ENCOUNTER 2024-12-16 12:48 | Outpatient (REF) | payer OTHER, SELFPAY ==
--- NOTE | ~2024-12-16 | US_ITS ---
CLINICAL HISTORY: N83.299 - Other ovarian cyst, unspecified side Ultrasound of the female pelvis Comparison: US - US PELVIC AND TRANSVAGINAL - 08/27/24 13:43 EDT Technique: Grayscale ultrasound with assistance of color Doppler. Transabdominal scanning performed for overall anatomy. Transvaginal scanning performed for better anatomic delineation. Findings: Anteverted uterus measures 9.0 x 5.9 x 7.1 cm. Unremarkable myometrium. No fibroid is seen. IUD is properly positioned in the endometrium, the endometrium is not well seen because of the IUD, grossly unremarkable. Normal cervix. Right ovary is normal in size, 3.8 x 2.9 x 2.4 cm. Minimally complex cyst with thin avascular septation 2.4 x 2.1 x 1.9 cm, previously 2.1 x 1.9 x 1.8 cm. Previously seen corpus luteum resolved. No abnormal vascular flow. Normal left ovary, 3.6 x 1.9 x 2.7 cm. No abnormal vascular flow. Small free fluid in the pelvis. Impression: 1. Right ovarian minimally complex cyst mildly enlarged. 2. Small free fluid in the pelvis, most likely physiologic. This document has been electronically signed by: Anamaria Alvarez MD on 12/17/2024 13:29:20
--- OUTSIDE RECORDS SUMMARY | 2024-12-16 12:53 | XMS_ITS | Clinical Summary ---
Author Organization [address] Address [address] [place] [phone] Phone Care Team Providers Care Back Filler Operator Name Role Phone Liza John MD Primary Care Prov ider Allergies No known active allergies Medications hydroxychloroqu ine 400 mg tablet Take 1 Tablet by mouth daily. Active levothyroxine (Synthroid) 25 mcg tabletIndicatio ns:Thai's thyroiditis Take 1 tablet (25 mcg total) by mouth 1 (one) time each day before breakfast. Take 1 Tablet by mouth daily. Synthroid Brand name only, no alternate 90 tablet 3 4 Active predniSONE (DELTASONE) 2.5 mg tablet Take 1 tablet (2.5 mg total) by mouth 1 (one) time each day. Active anifrolumab-fni a (SAPHNELO) injection Infuse 2 mL (300 mg total) into a venous catheter 1 (one) time. Every 4 weeks Active mycophenolate (CELLCEPT) 500 mg tablet Take 2 tablets (1,000 mg total) by mouth 2 (two) times a day. Active predniSONE (DELTASONE) 10 mg tablet Take 1 Tablet by mouth daily. 11/30/19 25 Discontinu ed(Therapy completed) predniSONE (DELTASONE) 50 mg tablet Take 1 Tablet by mouth daily. 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 Assessment & Plan (11/29/2024 9:57 AM EDT): Systemic lupus (CMS/HCC V24, CMS/[facility] V28) 2022 Assessment & Plan (11/29/2024 9:57 AM EDT): Encounters Date Type Department Care Team Description 11/29/2024 9:30 AM EDT Office Visit Adult Medicine [address] [phone] Liza John MD Thai's thyroiditis (Primary Dx); Drug-induced systemic lupus erythematosus, unspecified organ involvement status ([facility] V24) from Last 3 Months Immunizations Name Administration Dates Next Due Influenza Quadravalent, MDCK , 0.5ml, preservative free (Flucelvax) 6mo and older 05/07/2023 Surgical History Surgery Date Site/Laterality Comments SECTION PROCEDURE: HISTORICAL DELIVERY APPENDECTOMY PROCEDURE: HISTORICAL APPENDECTOMY Medical History Medical History Date Comments Systemic lupus ([facility] V24, [facility] V28) DX:Systemic lupus (HCC) Thai's thyroiditis DX:Tarik [...] = 0.6 oz pur e alcohol) Comments No Sex and Gender Information Value Date Recorded Sex Assigned at Not on file Legal Sex Female 8:54 PM EST Gender Identity Not on file Sexual Orientation Not on file Obstetrics History Last Filed Vital Signs Vital Sign Reading Time Taken Comments Blood Pressure 89/59 11/29/2024 9:35 AM EDT Pulse 91 11/29/2024 9:35 AM EDT Temperature 37.2 C (98.9 F) 11/29/2024 9:35 AM EDT Respiratory Rate 14 11/29/2024 9:35 AM EDT Oxygen Saturation 97% 05/24/2024 2:06 PM EST Inhaled Oxygen Concentration - - Weight 53.8 kg (118 lb 9.6 oz) 11/29/2024 9:35 A M EDT Height 165.1 cm (5' 5 ) 11/29/2024 9:35 AM EDT Body Mass Index 19.74 11/29/2024 9:35 AM EDT Plan of Treatment Upcoming Encounters Date Type Department Care Team (Late st Contact Info) Description 05/31/2025 2:00 PM EST Office Visit Adult Medicine [address] [phone] Liza John MD [address] [place] [address] [phone] Health Maintenance Due Date Last Done Comments COVID-19 Vaccine (#1) 1998 DTaP,Tdap,and Td Vaccines (1 - Tdap) 2012 Hepatitis B Vaccines (1 of 3 - 19+ 3-dose series) 2012 Pneumococcal Vaccine: Pediat rics (0 to 5 Years) and At-Risk Patients (6 to 49 Years) (1 of 2 - PCV) 2012 Cervical Cancer Screening: P ap Smear 2014 HIV Screening 07/04/2023 Hepatitis C Screening 07/04/2023 Social Influencers of Health Screening 07/04/2023 Depression Screening 06/24/2024 06/24/2023 Influenza Vaccine (#1) 2025 05/07/2023 Cholesterol Screening (Lipid Panel) 05/08/2028 05/08/2023 HIB [...] Procedure Name Priority Date/Time Associated Diagnosis Comments DEPRESSION SCREENING Routine 06/24/2023 LIPID PANEL Routine 05/08/2023 from Last 3 Months or Most Recently Relevant to Health Maintenance Results * Depression Screening (06/24/2023) Pathologist [facility] Depression Screening abstracted Historical Provider HEALTH MAINTENANCE [...] Most Recently Relevant to Health Maintenance Insurance [facility] Care Teams Back Filler Operator Relationship Specialty Start Date End Date Liza John MD [address] [place] [phone] PCP - General 02/28/23
[2024-12-16 16:03] LABS: Appearance Urine Clear; Glucose Urine UA Negative (Negative); PH 6.0 (5.0-9.0); Specific Gravity - Urine <= 1.005 (1.005-1.025); UMIC TRIGGER UA YES
[2024-12-16 16:18] LABS: MANUAL DIFF FLAG NO
[2024-12-16 16:24] LABS: Hematocrit 33.2 % (37.0-47.0); Hemoglobin 11.2 g/dl (12.0-16.0); Imm Gran Abs Auto 0.02 X10*3/uL (0.00-0.03); Imm Gran Pct Auto 0.3 % (0.0-0.4); Lymphocytes Absolute Auto 1.7 X10*3/uL (1.2-4.9); Mean Corpuscular HGB Conc 33.7 g/dl (31.0-35.0); Mean Corpuscular Hemoglobin 30.7 pg (27.0-33.0); Mean Corpuscular Volume 91.0 fL (80.0-98.0); NRBC Abs Auto 0.000 X10*3/uL (0.0-0.012); NRBC Pct Auto 0.0 /100WBC (0.0-0.2); Platelet Count 272 X10*3/uL (160-400); Red Blood Count 3.65 X10*6/uL (4.20-5.50); White Blood Count 6.1 X10*3/uL (4.8-10.8)
[2024-12-16 16:41] LABS: Alanine Aminotransferase 15 U/L (0-31); Albumin Level 4.3 g/dL (3.5-5.0); Alkaline Phosphatase 47 U/L (39-117); Anion Gap 10 (12-20); Aspartate Amino Transferase 23 U/L (5-31); Blood Urea Nitrogen 8 mg/dL (9-16); Calcium 8.9 mg/dL (8.4-10.2); Carbon Dioxide 27 mmol/L (22-29); Chloride 105 mmol/L (96-108); Estimated Glomerular Filt Rate > 60; Potassium 3.6 mmol/L (3.3-5.1); Sodium 138 mmol/L (135-145); Total Protein 6.3 g/dL (6.5-8.0)
[2024-12-16 17:02] LABS: Total Protein Urine Random < 7 mg/dL (<12)
[2024-12-21 16:33] LABS: Vitamin D 25-OH, D2 <4 ng/mL; Vitamin D 25-OH, D3 37 ng/mL; Vitamin D 25-OH, Total 37 ng/mL (30-100)
== END 2024-12-16 12:49 | disposition home or self-care (01) ==
LOC: HO.HMGCX 12:48
PROVIDERS: PCP Internal Medicine; Referring Provider Student in an Organized Health Care Education/Training Program; Visit Provider Obstetrics & Gynecology
DX: S01.511A Laceration without foreign body of lip, initial encounter (principal); E55.9 Vitamin D deficiency, unspecified; M32.8 Other forms of systemic lupus erythematosus; N83.299 Other ovarian cyst, unspecified side; W50.0XXA Accidental hit or strike by another person, initial encounter; Y93.67 Activity, basketball
CPT/HCPCS: 36415; 76830; 76856; 80053; 81001; 82306; 82570; 84156; 85025; 85652; 86140; 86160; 86225; 99202

== ENCOUNTER → 2024-12-16 12:53 | Outpatient (BNV) | payer OTHER, SELFPAY | PROVIDERS: PCP Internal Medicine; Referring Provider Student in an Organized Health Care Education/Training Program; Visit Provider Radiology Diagnostic Radiology | DX: N83.291 Other ovarian cyst, right side (principal) | CPT/HCPCS: 76830; 76856 ==

== ENCOUNTER 2024-12-16 13:26 | Outpatient (AMB) | payer OTHER, SELFPAY ==
[2024-12-16 13:27] VITALS: BP 98/76; PULSE 82; TEMP 37.1; O2SAT 99; BMI 19.8
--- NOTE | 2024-12-16 13:27 | MHC.OFFWIV ---
Intake Vital Signs 12/16/24 13:27 Height 5 ft 5 in Weight 119 lb BMI 19.8 BP 98/76 Blood Pressure Location Lt brachial Position Sitting Pulse 82 Pulse Source Pulse Oximeter Temp 98.8 F Temp Source Oral Pulse Oximetry (%) 99 Oxygen Delivery Method Room Air Intake Visit Reasons: EP pain inside lips due to an injury with a ball Intake Note: Patient present with open mouth sore times 2 months from an elbow while playing basketball Patient Tobacco Use Status: Never used Tobacco Flavoring Machine Operator Required: Yes Is last menstrual period known: Yes Last menstrual period: 12/05/24 Post menopausal: No Patient : No Allergies No Known Allergies Allergy (Verified 12/16/24 13:32) HPI HPI Comments History of Present Illness Details Indonesian video customer service trainer used for this visit. History - The patient is a 29-year-old female presenting with a persistent lip laceration. - The injury occurred two months ago during a basketball game when the patient was struck by an elbow, resulting in a tooth cutting the lip. - The laceration has not healed despite attempts with Listerine rinses, analgesics for mouth ulcers, and protective patches and other topical treatments. - The patient has not used hydrogen peroxide but has been maintaining oral hygiene with toothpaste and Listerine. - The patient recently moved from [place] and does not have a local dentist. Physical Exam General: Cooperative, healthy appearing, comfortable, no acute distress and well developed Orientation: Patient oriented x3 Limitations: No limitations Head: Normal to inspection Ears: Hearing grossly normal bilaterally Nose: Normal External nose present Face and sinus: Normal facial exam Mouth: left sided inner bottom lip has a 0.5cm linear laceration, no drainage, no erythema, white tissue surrounding the laceration, no signs of infection Eyes: Appearance normal, both eyes and all related structures Neck: Normal visual inspection and Yes full ROM Respiratory: Normal respiratory effort and able to speak in complete sentences. Skin: no rashes or lesions noted Neuro: Patient oriented x3 Extremities: moving all extremities normally [facility] Medical History (Updated 12/16/24 @ 13:57 by Ana Berrios PA-C) Acute respiratory disease ASCUS with positive high risk HPV cervical Rash due to systemic lupus erythematosus (SLE) Long-term use of immunosuppressant medication SLE (systemic lupus erythematosus) Proteinuria GERD (gastroesophageal reflux disease) Thai's disease Lupus Surgical History History of appendectomy Hx of section Family History Maternal Grandmother Diabetes Maternal Grandfather Diabetes Mother Hypothyroidism Social History Household Members: Significant Other Housing: Apartment Alcohol intake: never Patient Tobacco Use Status: Never used Tobacco Substance Use Type: Marijuana Patient : No Current occupational status: employed Current occupation: [employer] Sexual orientation: Straight/Heterosexual Gender identity: Female Female Reproductive History Menstrual Date of last menstrual period: 12/05/24 Review of Systems Const All systems reviewed & are unremarkable except as noted in HPI and below Physical Exam Vital Signs: Last Vital Signs Temp 98.8 F 12/16/24 13:27 Pulse 82 12/16/24 13:27 BP 98/76 12/16/24 13:27 Pulse Ox 99 12/16/24 13:27 Oxygen Delivery Method Room Air 12/16/24 13:27 BMI result Body Mass Index 19.8 Assessment & Plan Assessment & Plan (1) Laceration of lip with other complication: Code(s): S01.511A - Laceration without foreign body of lip, initial encounter Qualifiers: Encounter type: initial encounter Qualified Code(s): S01.511A - Laceration without foreign body of lip, initial encounter Plan: Patient was informed and verbally consented to the use of an ambient scribe for clinic note documentation during this visit Non healing Lip Laceration - Discontinue use of Listerine and other products; recommend warm salt water rinses to promote healing. - If no improvement in one week, follow up with primary care physician or consult a log snaker or dentist. Coding Level of Care Code New Pt Level 3 (12797) Diagnoses Laceration of lip with other complication, initial encounter S01.511A Encounter type: initial encounter
== END 2024-12-16 14:36 | disposition home or self-care (01) ==
PROVIDERS: PCP Internal Medicine; Visit Provider Physician Assistant
DX: S01.511A Laceration without foreign body of lip, initial encounter (principal)

== ENCOUNTER 2024-12-28 14:28 | Outpatient (AMB) | payer OTHER, SELFPAY ==
--- NOTE | 2024-12-28 14:33 | A.OFFVIS_ITS ---
Vital Signs 12/28/24 14:42 Height 5 ft 5 in Weight 120 lb 9.486 oz BMI 20.1 BP 102/58 L Blood Pressure Location Lt brachial Position Sitting Pulse 87 Pulse Source Pulse Oximeter Pulse Oximetry (%) 98 Oxygen Delivery Method Room Air Intake Visit Reasons: SLE Intake Note: Patient presents for SLE follow up. Binder Fixer Required: Yes Binder Fixer Language: Tool Builder Services: Binder Fixer Present Binder Fixer Name: Juan [id number] Information Interpreted: non-clinical & clinical Allergies No Known Allergies Allergy (Verified 12/28/24 14:41) Medication List - Last Reconciled 12/28/24 by Joy Quevedo MD acetaminophen 1,000 mg (2 x 500 mg) PO Q6H PRN anifrolumab-fnia 300 mg IV Q4W aspirin 81 mg PO DAILY atorvastatin 10 mg PO DAILY hydroxychloroquine (Plaquenil) 200 mg PO DAILY levonorgestrel (Mirena) intrauterine levothyroxine (Synthroid) 25 mcg PO DAILY minoxidil 2.5 mg PO DAILY mycophenolate mofetil 1,000 mg (2 x 500 mg) PO BID prednisone 2.5 mg PO DAILY sulfamethoxazole-trimethoprim 400-80 mg 1 tab PO 3XW HPI Comments Details: patient is a 28-year-old female with hyperlipidemia, 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 here today for follow-up Interval History: Patient last seen 08/19/24 with me - Doing well - Improved rashes and joint pain after starting infusions - disability paperwork filled out Today, - Continues to do well - needs a different disability paperwork to be filled out Rheumatologic History: onset approx 2013 (rashes, membranous nephritis, +++DsDNA, +++SSa +++Sm +++MANAGER ACCOUNT MANAGEMENT low C3, low C4) took Prednisone and Cellcept not effective for rashes- took Cellcept for two years before they tried Benlysta --then Benlysta with cellcept - only had 2 injections at time, other two injections were not used when she migrated due to non refrigeration and she was scared that would be unstable --Was on MTX but got DC'd HCQ since 2016 Saphenlo 09/2023 very effective for skin MMF added 12/2023 by nephrology for membranous Lupus nephritis Initial history by Carolyn Heard 09/2023: Ms. Juan 27-year-old female presents today for transfer of care for SLE. She has immigrated from [place] about a year ago and has been taking hydroxychloroquine 200 mg b.i.d.. She has an extensive rash with her lupus and usually gets pulse steroid therapy in the ER when it erupts. 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 She is experiencing increased joint pains. She does stay out of the sun and wears protective clothing. --Lupus 10 years --took Prednisone and Cellcept not effective - took Cellcept for two years before they tried Benlysta --then Benlysta with cellcept - only had 2 injections at time, other two injections were not used when she migrated due to non refrigeration and she was scared that would be unstable --Was on MTX but got and then was started HCQ in [place] 2015. --Pepcid needed prednisone; has upset Stomach Current Rheumatology Medication(s): Prednisone 2.5 mg daily Mycophenolate 1000 mg b.i.d. Plaquenil 200 mg daily Anifrolumab 300 mg IV monthly [facility] Medical History (Updated 12/16/24 @ 13:57 by Ana Berrios PA-C) Acute respiratory disease ASCUS with positive high risk HPV cervical Rash due to systemic lupus erythematosus (SLE) Long-term use of immunosuppressant medication SLE (systemic lupus erythematosus) Proteinuria GERD (gastroesophageal reflux disease) Thai's disease Lupus Surgical History History of appendectomy Hx of section Family History Maternal Grandmother Diabetes Maternal Grandfather Diabetes Mother Hypothyroidism Social History Household Members: Significant Other Housing: Apartment Alcohol intake: never Patient Tobacco Use Status: Never used Tobacco Substance Use Type: Marijuana Current occupational status: employed Current occupation: [employer] Sexual orientation: Straight/Heterosexual Gender identity: Female Review of Systems Const Details: Review of Systems Constitutional: Denies fever, chills, weight loss ENT: Denies vision changes, eye pain or eye redness, dental caries, dry mouth GI: Denies nausea, vomiting, diarrhea, abdominal pain, change in BM Pulm: Denies SOB, MOSS, hemoptysis, wheezing Cards: Denies chest pain, palpitations Skin: Denies Raynaud's, rash, nail changes, photosensitivity, SEISMOLOGY TEACHER: Denies headaches, weakness, paresthesias, recurrent falls MSK: as per HPI All other systems reviewed and are unremarkable except noted above Physical Exam Exam Exam: Vital signs reviewed Physical Examination CONSTITUITIONAL Patient alert and cooperative. Well appearing and in no apparent painful distress HEENT Conjunctiva and sclera clear. No lymphadenopathy. CHEST/RESPIRATORY SYSTEM Normal respiratory effort and able to speak in complete sentences. Clear to auscultation bilaterally. No crackles, rales, rhonchi, wheezes heard. CARDIAC SYSTEM Regular rate and rhythm. S1 and S2 heard no murmurs. Radial pulses intact bilaterally MSK Hands * Right Hand: Able to make a fist. No swelling or tenderness to palpation of these joints. No deformities noted. * Left Hand: Able to make a fist. No swelling or tenderness to palpation of these joints. No deformities noted. Wrists * Right Wrist: Full ROM. 70 degrees of wrist flexion, 80 degrees of wrist extension. No swelling or TTP * Left Wrist: Full ROM. 70 degrees of wrist flexion, 80 degrees of wrist extension. No swelling or TTP Elbows * Right Elbow: Full ROM. No swelling or TTP. No TTP of the medial and lateral epicondyles * Left Elbow: Full ROM. No swelling or TTP. No TTP of the medial and lateral epicondyles Shoulders * Right shoulder: Full ROM. No swelling noted. No TTP of the AC joint, subacromial bursa or posterior shoulder * Left shoulder: Full ROM. No swelling noted. No TTP of the AC joint, subacromial bursa or posterior shoulder Hips * Right hip: Good ROM. No pain elicited with hip flexion/internal rotation/external rotation * Left hip: Good ROM. No pain elicited with hip flexion/internal rotation/external rotation Hip bursa: No tenderness to palpation bilaterally Knees * Right knee: Full ROM. No swelling noted. No TTP of the knee joint lie or pes anserine bursa * Left knee: Full ROM. No swelling noted. No TTP of the knee joint lie or pes anserine bursa. Ankles * Right ankle: Good ankle dorsiflexion and plantar flexion. No swelling. No TTP of the ankle joint * Left ankle: Good ankle dorsiflexion and plantar flexion. No swelling. No TTP of the ankle joint Feet * Right foot: Negative squeeze test * Left foot: Negative squeeze test Tender points? * No tenderness to palpation of the bilateral trapezius, supraspinatus, anterior costochondral junctions, bilateral suboccipital muscle insertions SKIN No rashes Vital Signs: Last Vital Signs Pulse 87 12/28/24 14:42 BP 102/58 L 12/28/24 14:42 Pulse Ox 98 12/28/24 14:42 Oxygen Delivery Method Room Air 12/28/24 14:42 BMI result Body Mass Index 20.1 Results Reviewed Results Reviewed: Laboratory Tests 12/16/24 12:55 WBC 6.1 RBC 3.65 L Hgb 11.2 L Hct 33.2 L Plt Count 272 ESR 5 Sodium 138 Potassium 3.6 Chloride 105 Carbon Dioxide 27 BUN 8 L Creatinine 0.72 AST 23 ALT 15 C-Reactive Protein < 0.10 25-OH Vitamin D Total 37 Laboratory Tests 08/16/24 12/16/24 11:31 12:55 Double Strand DNA Ab 114 H 101 H Complement C3 110 105 Complement C4 26 23 Assessment & Plan Assessment & Plan (1) SLE (systemic lupus erythematosus): Comment: onset approx 2013 (rashes, membranous nephritis, +++DsDNA, +++SSa +++Sm +++MANAGER ACCOUNT MANAGEMENT low C3, low C4) took Prednisone and Cellcept not effective for rashes- took Cellcept for two years before they tried Benlysta --then Benlysta with cellcept - only had 2 injections at time, other two injections were not used when she migrated due to non refrigeration and she was scared that would be unstable --Was on MTX but got DC'd HCQ since 2016 Saphenlo 09/2023 very effective for skin MMF added 12/2023 by nephrology for membranous Lupus nephritis Code(s): M32.9 - Systemic lupus erythematosus, unspecified Category: Medical Qualifiers: Systemic lupus erythematosus type: other Systemic lupus erythematosus organ involvement: unspecified Qualified Code(s): M32.8 - Other forms of systemic lupus erythematosus Plan: #SLE Patient is a 28-year-old female with 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 Currently on Plaquenil, saphnelo infusions and mycophenolate. Today patient's lupus is in remission with no evidence of synovitis on examination, no rashes or oral ulcers. Overall doing well. We will continue medication as prescribed dsDNA trending down Plan - Plaquenil 200mg daily - Prednisone 2.5mg daily - Saphnelo infusions every 4 weeks - MMF as per renal - RTC 4 months - Labs before visit: CBC, CMP, ESR, CRP, C3, C4, dsDNA, UA, UPC (2) Long-term use of hydroxychloroquine: Code(s): Z79.899 - Other fdc (current) drug therapy Category: Medical Plan: #Long-term Use of Hydroxychloroquine Discussed with patient the risks and benefits of hydroxychloroquine in managing the rheumatic condition Benefits include: - Reduced pain, reduce mortality, maintenance of remission and reduction of flares Risks include: - GI upset, skin hyperpigmentation, retinal toxicity (especially after more than 5 years of use), myopathy Advised yearly ophthalmology visits (3) Long-term use of immunosuppressant medication: Code(s): Z79.60 - half-way (current) use of unspecified immunomodulators and immunosuppressants Category: Medical Plan: #Long-term use Anifrolumab Discussed with patient the risks and benefits of hydroxychloroquine in managing the rheumatic condition Benefits include: - Reduced pain, reduce mortality, maintenance of remission and reduction of flares Risks include: - Increased susceptibility to serious infections particularly viral infections like herpes zoster (shingles), respiratory tract infections and infusion related reactions Plan I spent 40 minutes reviewing the record and labs, taking a history, examining the patient, discussing the treatment plan, ordering diagnostic work up, filling out another disability paperwork for [employer] and documenting in the medical record Medications: Refilled mycophenolate mofetil 1,000 mg (2 x 500 mg) PO BID 180 tabs 2RF prednisone 2.5 mg PO DAILY 90 tabs 1RF M32.8 - Other forms of systemic lupus erythematosus hydroxychloroquine (Plaquenil) 200 mg PO DAILY 90 tabs 1RF Coding Level of Care Code Est Pt Level 5 (92472) Complex EM visit Add On G2211 Diagnoses Other forms of systemic lupus erythematosus, unspecified organ involvement status M32.8 Systemic lupus erythematosus type: other Systemic lupus erythematosus organ involvement: unspecified Long-term use of hydroxychloroquine Z79.899 Long-term use of immunosuppressant medication Z79.60
[2024-12-28 14:42] VITALS: BP 102/58; PULSE 87; O2SAT 98; BMI 20.1
--- OUTSIDE RECORDS SUMMARY | 2024-12-28 15:43 | XMS_ITS | Clinical Summary ---
Author Organization [address] Address [address] [place] [phone] Phone Care Team Providers Care Filter Changing Technician Name Role Phone Liza John MD Primary [...] 9:57 AM EDT): Systemic lupus (CMS/HCC V24, CMS/[facility] V28) 2022 Assessment & Plan (11/29/2024 9:57 AM EDT): Encounters Date Type Department Care Team Description 11/29/2024 9:30 AM EDT Office Visit Adult Medicine [address] [phone] Liza John MD Thai's thyroiditis (Primary Dx); Drug-induced systemic lupus erythematosus, unspecified organ involvement status ([facility] V24) from Last 3 Months Immunizations Name Administration Dates Next Due Influenza Quadravalent, MDCK , 0.5ml, preservative free (Flucelvax) 6mo and older 05/07/2023 Surgical History Surgery Date Site/Laterality Comments SECTION PROCEDURE: HISTORICAL DELIVERY APPENDECTOMY PROCEDURE: HISTORICAL APPENDECTOMY Medical History Medical History Date Comments Systemic lupus ([facility] V24, [facility] V28) DX:Systemic lupus (HCC) Thai's thyroiditis DX:Tarik [...] 2:00 PM EST Office Visit Adult Medicine [address] [phone] Liza John MD [address] [place] [address] [phone] Health Maintenance Due Date Last Done Comments [...] Influencers of Health Screening 07/04/2023 Depression Screening 06/09/2024 06/24/2023 Influenza Vaccine (#1) 2025 05/07/2023 Cholesterol [...] Maintenance Results * Depression Screening (06/24/2023) Pathologist [facility] Depression Screening abstracted Historical [...] Most Recently Relevant to Health Maintenance Insurance [facility] Care Teams Filter Changing Technician Relationship Specialty Start Date End Date Liza John MD [address] [place] [id number] PCP - General 02/28/23
--- OUTSIDE RECORDS SUMMARY | 2024-12-28 15:43 | XMS_ITS | Clinical Summary ---
Author Organization [facility] Address [address] [place] [phone] Phone Care Team Providers Care Ibm Websphere Commerce Consultant Name Role Phone Pcp, Unknown Primary Care Provider Unavailabl e Social History Tobacco Use Types Packs/Day Years Used Date Smoking Tobacco: Never Assessed Comments Unknown Sex and Gender Information Value Date Recorded Sex Assigned at Not on file Legal Sex Female 9:05 AM EST Gender Identity Not on file Sexual Orientation Not on file Plan of Treatment Not on file Medical Devices Not on file Insurance [employer] [place], [place] [id number] ALLANCE ACO [facility] [employer] [facility] [employer] ALL[employer] [facility]CO [facility] Care Teams Ibm Websphere Commerce Consultant Relationship Specialty Start Date End Date Pcp, Unknown PCP - General 06/24/23 Additional Source Comments The information contained in this document represents components of the legal health record. It is not the complete legal health record.[facility]
== END 2024-12-28 15:21 | disposition home or self-care (01) ==
LOC: HO.RHE 14:28
PROVIDERS: PCP Internal Medicine; Visit Provider Student in an Organized Health Care Education/Training Program
DX: M32.8 Other forms of systemic lupus erythematosus (principal); Z79.899 Other long term (current) drug therapy; Z79.60 Long term (current) use of unspecified immunomodulators and immunosuppressants
CPT/HCPCS: 99215; G2211

== ENCOUNTER → 2024-12-28 14:28 | Outpatient (BNVA) | payer OTHER, SELFPAY | PROVIDERS: PCP Internal Medicine; Visit Provider Student in an Organized Health Care Education/Training Program | DX: M32.8 Other forms of systemic lupus erythematosus (principal); Z79.899 Other long term (current) drug therapy; Z79.60 Long term (current) use of unspecified immunomodulators and immunosuppressants; E78.5 Hyperlipidemia, unspecified | CPT/HCPCS: 99212 ==

== ENCOUNTER 2024-12-29 07:30 | Outpatient (REF) | payer OTHER, SELFPAY ==
[2024-12-29 09:39] LABS: Hematocrit 37.2 % (37.0-47.0); Hemoglobin 12.3 g/dl (12.0-16.0); Mean Corpuscular HGB Conc 33.1 g/dl (31.0-35.0); Mean Corpuscular Hemoglobin 30.5 pg (27.0-33.0); Mean Corpuscular Volume 92.3 fL (80.0-98.0); NRBC Abs Auto 0.000 X10*3/uL (0.0-0.012); NRBC Pct Auto 0.0 /100WBC (0.0-0.2); Platelet Count 299 X10*3/uL (160-400); Red Blood Count 4.03 X10*6/uL (4.20-5.50); White Blood Count 5.5 X10*3/uL (4.8-10.8)
[2024-12-29 10:00] LABS: Appearance Urine Clear; Glucose Urine UA Negative (Negative); PH 6.5 (5.0-9.0); Specific Gravity - Urine 1.020 (1.005-1.025); UMIC TRIGGER UA YES
[2024-12-29 10:26] LABS: Anion Gap 11 (12-20); Blood Urea Nitrogen 10 mg/dL (9-16); Calcium 9.5 mg/dL (8.4-10.2); Carbon Dioxide 25 mmol/L (22-29); Chloride 108 mmol/L (96-108); Estimated Glomerular Filt Rate > 60; Potassium 4.0 mmol/L (3.3-5.1); Sodium 140 mmol/L (135-145)
[2024-12-29 11:25] LABS: Total Protein Urine Random 20 mg/dL (<12)
[2024-12-30 09:34] LABS: CA-125 40 U/mL (<35)
== END 2024-12-29 07:31 | disposition home or self-care (01) ==
LOC: HO.LAB 07:30
PROVIDERS: PCP Internal Medicine; Referring Provider Internal Medicine Hypertension Specialist; Visit Provider Obstetrics & Gynecology
DX: N83.291 Other ovarian cyst, right side (principal); R80.8 Other proteinuria; M32.14 Glomerular disease in systemic lupus erythematosus
CPT/HCPCS: 36415; 80048; 81001; 81003; 82570; 84156; 85027; 86304; 99212

== ENCOUNTER 2024-12-29 07:30 | Outpatient (AMB) | payer OTHER, SELFPAY ==
--- OUTSIDE RECORDS SUMMARY | 2024-12-29 07:32 | XMS_ITS | Clinical Summary ---
Author Organization [facility] Address [address] [place] [phone] Phone Care Team Providers Care Scientist Engineer Name Role Phone Pcp, Unknown Primary Care [...] file Medical Devices Not on file Insurance [employer] [address] [place], [place] [id number] ALLANCE ACO [facility] [employer] [facility] [employer] [facility]CO [facility] ACO Care Teams Scientist Engineer Relationship Specialty Start Date End Date Pcp, Unknown PCP - General 06/24/23 Additional Source Comments The information contained in this document represents components of the legal health record. It is not the complete legal health record.[facility]
--- OUTSIDE RECORDS SUMMARY | 2024-12-29 07:32 | XMS_ITS ---
Author Name [facility] Organization Unknown Care Team Organization Name Specialty Phone Email Start Date End Da te [facility] Liza Rahman Primary Care 04/08/2023 01/26/2024 [facility] Kim Primary Care 03/12/2023 01/26/2024
--- OUTSIDE RECORDS SUMMARY | 2024-12-29 07:32 | XMS_ITS | Clinical Summary ---
Author Organization [address] Address [address] [place] [phone] Phone Care Team Providers Care Counseling Case Manager Name Role Phone Liza John MD [...] mouth 1 (one) time each day. Active anifrolumab-fnia (SAPHNELO) injection Infuse 2 mL (300 mg total) into a venous catheter 1 (one) time. Every 4 weeks Active mycophenolate (CELLCEPT) 500 mg tablet Take 2 tablets (1,000 mg total) by mouth 2 (two) times a day. Active Active Problems Problem Noted Date Diagnosed Date Thai's thyroiditis 05/07/2023 Assessment & Plan (11/29/2024 9:57 AM EDT): Systemic lupus (CMS/HCC V24, CMS/HCC V28) 2022 Assessment & Plan (11/29/2024 9:57 AM EDT): Encounters Date Type Department Care Team Description 11/29/2024 9:30 AM EDT Office Visit Adult Medicine [address] [phone] Liza John MD Thai's thyroiditis (Primary Dx); Drug-induced systemic lupus erythematosus, unspecified organ involvement status ([facility] V24) from Last 3 Months Immunizations Name Administration Dates Next Due Influenza Quadravalent, MDCK , 0.5ml, preservative free (Flucelvax) 6mo and older 05/07/2023 Surgical History Surgery Date Site/Laterality Comments SECTION PROCEDURE: HISTORICAL DELIVERY APPENDECTOMY PROCEDURE: HISTORICAL APPENDECTOMY Medical History Medical History Date Comments Systemic lupus ([facility] V24, [facility] V28) DX:Systemic lupus (HCC) Thai's [...] 2:00 PM EST Office Visit Adult Medicine [facility] [address] [place] [phone] Liza John MD [address] [place] [phone] Health Maintenance Due Date Last Done Comments [...] Health Maintenance Results * Depression Screening (06/24/2023) Depression Screening abstracted [...] Recently Relevant to Health Maintenance Insurance [facility] Care Teams Counseling Case Manager Relationship Specialty Start Date End Date Liza John MD [address] [place] [address] [phone] PCP - General 02/28/23
--- NOTE | 2024-12-29 07:42 | MHC.OFFVIS ---
Vital Signs 12/29/24 07:43 Height 5 ft 5 in Weight 120 lb BMI 20.0 Intake Visit Reasons: ultrasound results Bullet Lubricating Machine Operator Required: Yes Bullet Lubricating Machine Operator Language: Strategic Account Executive Services: Bullet Lubricating Machine Operator Present (in person) Bullet Lubricating Machine Operator Name: Reyna CHACON Information Interpreted: non-clinical & clinical Accompanied by: Self / Same As Patient Allergies No Known Allergies Allergy (Verified 12/29/24 07:44) Is last menstrual period known: Yes Last menstrual period: 12/05/24 HPI Comments Details: Presenting for follow-up ultrasound regarding right complex ovarian cyst seen in 08/31. Recent ultrasound done in 12/31 showed the following: Anteverted uterus measures 9.0 x 5.9 x 7.1 cm. Unremarkable myometrium. No fibroid is seen. IUD is properly positioned in the endometrium, the endometrium is not well seen because of the IUD, grossly unremarkable. Normal cervix. Right ovary is normal in size, 3.8 x 2.9 x 2.4 cm. Minimally complex cyst with thin avascular septation 2.4 x 2.1 x 1.9 cm, previously 2.1 x 1.9 x 1.8 cm. Previously seen corpus luteum resolved. No abnormal vascular flow. Normal left ovary, 3.6 x 1.9 x 2.7 cm. No abnormal vascular flow. Small free fluid in the pelvis. [facility] Medical History Acute respiratory disease ASCUS with positive high risk HPV cervical Rash due to systemic lupus erythematosus (SLE) Long-term use of immunosuppressant medication SLE (systemic lupus erythematosus) Proteinuria GERD (gastroesophageal reflux disease) Thai's disease Lupus Surgical History History of appendectomy Hx of section Family History Maternal Grandmother Diabetes Maternal Grandfather Diabetes Mother Hypothyroidism Social History Household Members: Significant Other Housing: Apartment Alcohol intake: never Patient Tobacco Use Status: Never used Tobacco Substance Use Type: Marijuana Current occupational status: employed Current occupation: [employer] Sexual orientation: Straight/Heterosexual Gender identity: Female Female Reproductive History Menstrual Date of last menstrual period: 12/05/24 Review of Systems Const All systems reviewed & are unremarkable except as noted in HPI and below Reports as per HPI and Reports no additional complaints GI Reports no additional complaints Reports no additional complaints Physical Exam Vital Signs: BMI result Body Mass Index 20.0 Assessment & Plan Assessment & Plan (1) Complex ovarian cyst: Comment: Persistent Code(s): N83.299 - Other ovarian cyst, unspecified side Category: Medical Plan: Discussed with the patient the persistent complex ovarian cyst solid component by Ultrasound. The differential diagnosis discussed with the patient includes the following but not limited to: benign and malignant gynecological and non-gynecological. Discussed with the patient that per ACOG guidelines, when a patient with a suspicious or persistent complex adnexal mass requires surgical evaluation, a physician trained to appropriately stage and debulk ovarian cancer should perform the operation. Surgical exploration should be performed in a hospital facility that has the necessary support and consultative services to optimize the patient?s outcome. When a malignant ovarian tumor is discovered incidentally, a gynecologic oncologist should be consulted intraoperatively. Recommended CA 125 and to proceed with laparoscopic ovarian cystectomy/possible oophorectomy. Informed the patient that there is no gynecologic oncologist available on staff at [facility] , therefore the patient will be referred to an OBGYN practice [facility] where during surgery there is immediate access to a gynecologic oncologist intraoperatively in case there was any suspicion or evidence of malignancy. The patient elected to be referred to an OBGYN at [facility]. Instructed the patient to call our office back in case a referral appointment is not scheduled, missed or canceled so that we will assist on rescheduling another appointment, the patient verbalized understanding agreed with the plan. Orders: Orders CA-125 Today N83.299 - Other ovarian cyst, unspecified side Coding Level of Care Code Est Pt Level 3 (66790) Diagnoses Complex ovarian cyst N83.299
== END 2024-12-29 08:01 | disposition home or self-care (01) ==
LOC: HO.HWS 07:30
PROVIDERS: PCP Internal Medicine; Visit Provider Obstetrics & Gynecology
DX: N83.299 Other ovarian cyst, unspecified side (principal)
CPT/HCPCS: 99213

== ENCOUNTER 2024-12-30 14:15 | Outpatient (AMB) | payer OTHER, SELFPAY ==
--- NOTE | 2024-12-30 14:16 | A.OFFVIS_ITS ---
Intake Visit Reasons: Labs results Outside Installer Apprentice Required: Yes Outside Installer Apprentice Language: Unit Assistant Services: Outside Installer Apprentice Present (in person) Outside Installer Apprentice Name: Reyna HCACON Information Interpreted: non-clinical & clinical Allergies No Known Allergies Allergy (Verified 12/30/24 14:17) HPI Comments Details: Presenting for follow-up. 08/31 pelvic ultrasound showed right complex ovarian cyst Follow-up pelvic done in 12/31 showed the following: Anteverted uterus measures 9.0 x 5.9 x 7.1 cm. Unremarkable myometrium. No fibroid is seen. IUD is properly positioned in the endometrium, the endometrium is not well seen because of the IUD, grossly unremarkable. Normal cervix. Right ovary is normal in size, 3.8 x 2.9 x 2.4 cm. Minimally complex cyst with thin avascular septation 2.4 x 2.1 x 1.9 cm, previously 2.1 x 1.9 x 1.8 cm. Previously seen corpus luteum resolved. No abnormal vascular flow. Normal left ovary, 3.6 x 1.9 x 2.7 cm. No abnormal vascular flow. Small free fluid in the pelvis. CA 125 was 40 PFS Medical History Acute respiratory disease ASCUS with positive high risk HPV cervical Rash due to systemic lupus erythematosus (SLE) Long-term use of immunosuppressant medication SLE (systemic lupus erythematosus) Proteinuria GERD (gastroesophageal reflux disease) Thai's disease Lupus Surgical History History of appendectomy Hx of section Family History Maternal Grandmother Diabetes Maternal Grandfather Diabetes Mother Hypothyroidism Social History Household Members: Significant Other Housing: Apartment Alcohol intake: never Patient Tobacco Use Status: Never used Tobacco Substance Use Type: Marijuana Current occupational status: employed Current occupation: [employer] Sexual orientation: Straight/Heterosexual Gender identity: Female Review of Systems Const All systems reviewed & are unremarkable except as noted in HPI and below Reports as per HPI and Reports no additional complaints GI Reports no additional complaints Reports no additional complaints Telehealth Telehealth Telehealth Platform: Telephone Location of provider rendering services: practice address Location of patient: address on file Patient Identification confirmed using: Name, : Yes Telehealth method: video Patient verbally consented to treatment: Yes Patient verbally consented to billing insurance company: Yes Patient informed of any privacy concerns related to visit: Yes Minutes spent on Phone/Video with Pt.: 3 Assessment & Plan Assessment & Plan (1) Complex ovarian cyst: Comment: Persistent with elevated CA 125 Code(s): N83.299 - Other ovarian cyst, unspecified side Category: Medical Plan: Discussed with the patient the persistent complex ovarian cyst by Ultrasound with elevated CA 125. The differential diagnosis discussed with the patient includes the following but not limited to: benign and malignant gynecological and non-gynecological. Discussed with the patient that CA 125 is a protein associated with epithelial ovarian malignancies, but also frequently expressed at lower levels by nonmalignant tissue. Elevation of CA 125 levels may occur in nonmalignant gynecologic conditions, and in non-gynecologic cancers, It is most useful in postmenopausal women and in identifying non mucinous epithelial cancer. The CA 125 level is elevated in 80% of patients with epithelial ovarian cancer but in o nly 50% of patients with stage I disease. The overall sensitivity of CA 125 testing in distinguishing benign from malignant adnexal masses reportedly ranges from 61% to 90%; discussed with the patient the specificity, positive predictive value and negative predictive value. Will refer to [facility] gynecologic Oncology for further management Appointment scheduled is Dr. Abraham on 01/11/25 at 09:00, the patient is aware I spent a total of 20 minutes reviewing the chart, talking to the patient via video and documenting in the medical record. Orders: Referrals Gynecologic Oncology Referral N83.299 - Other ovarian cyst, unspecified side Coding Level of Care Code Est Pt Level 3 (95541) Diagnoses Complex ovarian cyst N83.299
--- OUTSIDE RECORDS SUMMARY | 2024-12-30 14:17 | XMS_ITS | Clinical Summary ---
Author Organization [address] Address [address] [place] [phone] Phone Care Team Providers Care Land Checker Name Role Phone Liza John MD Primary [...] 9:30 AM EDT Office Visit Adult Medicine [address] [phone] Liza John MD Thai's thyroiditis (Primary Dx); Drug-induced systemic lupus erythematosus, unspecified organ involvement status ([facility] V24) from Last 3 Months Immunizations Name Administration Dates Next Due Influenza Quadravalent, MDCK , 0.5ml, preservative free (Flucelvax) 6mo and older 05/07/2023 Surgical History Surgery Date Site/Laterality Comments SECTION PROCEDURE: HISTORICAL DELIVERY APPENDECTOMY PROCEDURE: HISTORICAL APPENDECTOMY Medical History Medical History Date Comments Systemic lupus ([facility] V24, [facility] V28) DX:Systemic lupus (HCC) Thai's thyroiditis DX:Tarik [...] 2:00 PM EST Office Visit Adult Medicine [facility] [address] [place] [phone] Liza John MD [address] [place] [phone] Health Maintenance Due Date Last Done Comments [...] Insurance [facility] Care Teams Land Checker Relationship Specialty Start Date End Date Liza John MD [address] [place] [address] [phone] PCP - General 02/28/23
--- OUTSIDE RECORDS SUMMARY | 2024-12-30 14:17 | XMS_ITS | Clinical Summary ---
Author Organization [facility] Address [address] [place] [phone] Phone Care Team Providers Care Cloth Drier Name Role Phone Pcp, Unknown Primary Care [...] file Medical Devices Not on file Insurance [email or web address] A[email or web address] [address] [place], [place] [address]Y ALLANCE ACO [facility] [employer] [facility]CO [facility] [employer] [facility] Care Teams Cloth Drier Relationship Specialty Start Date End Date Pcp, Unknown PCP - General 06/24/23 Additional Source Comments The information contained in this document represents components of the legal health record. It is not the complete legal health record.[facility]
== END 2024-12-30 15:23 | disposition home or self-care (01) ==
LOC: HO.HWS 14:15
PROVIDERS: PCP Internal Medicine; Visit Provider Obstetrics & Gynecology
DX: N83.299 Other ovarian cyst, unspecified side (principal)
CPT/HCPCS: 99213

== ENCOUNTER → 2024-12-30 14:15 | Outpatient (BNVA) | payer OTHER, SELFPAY | PROVIDERS: PCP Internal Medicine; Visit Provider Obstetrics & Gynecology | DX: N83.291 Other ovarian cyst, right side (principal); Z97.5 Presence of (intrauterine) contraceptive device | CPT/HCPCS: 99212 ==

== ENCOUNTER 2025-01-13 10:20 | Outpatient (AMB) | payer OTHER, SELFPAY ==
[2025-01-13 10:22] VITALS: BP 110/62; PULSE 95; O2SAT 99; BMI 19.8
--- NOTE | 2025-01-13 10:22 | HO.NEPHOV_ITS ---
Vital Signs 01/13/25 10:22 Height 5 ft 5 in Weight 119 lb BMI 19.8 BP 110/62 Blood Pressure Location Lt brachial Position Sitting Pulse 95 Pulse Source Pulse Oximeter Pulse Oximetry (%) 99 Oxygen Delivery Method Room Air Intake Visit Reasons: FU/ Conf Market Relationship Manager Required: Yes Market Relationship Manager Name: [email or web address] [phone] Accompanied by: Self / Same As Patient Allergies No Known Allergies Allergy (Verified 01/13/25 10:24) Medication List - Last Reconciled 01/13/25 by Valentín Wagner MD acetaminophen 1,000 mg (2 x 500 mg) PO Q6H PRN anifrolumab-fnia 300 mg IV Q4W aspirin 81 mg PO DAILY atorvastatin 10 mg PO DAILY copper (ParaGard T 380A) intrauterine hydroxychloroquine (Plaquenil) 200 mg PO DAILY levothyroxine (Synthroid) 25 mcg PO DAILY minoxidil 2.5 mg PO DAILY mycophenolate mofetil 1,000 mg (2 x 500 mg) PO BID prednisone 2.5 mg PO DAILY HPI Comments Details: Lisa is a pleasant 28-year-old woman with a history of SLE for almost 10 years She has been referred for proteinuria. In the past she was seen by a protection specialist in [place]. She did not undergo kidney biopsy no specific diagnosis was there. Recently scheduled to see Rheumatology. She was started on prednisone 60 mg which has been tapered down to 40 mg. She is due to receive Saphnelo infusion tomorrow During routine workup she was found to have low serum complements C3 and C4 along with nephrotic range proteinuria of about 3.1 g. She had low serum protein as well. Serum creatinine was normal between 0.8 and 0.9 mg/dL. She was seen by power plant operations manager for skin lesions. She was given minoxidil 1.25 mg. History of mucosal ulcers. She is 1 daughter age 7 years . Normal delivery. No history of miscarriage Today she has no joint pains. No shortness of breath cough hemoptysis. No history of gross hematuria. She does have foamy urination. Mild ankle edema. 10/28/23;Received Saphnelo 2 weeks ago. Doing about the same 11/18/2023 ;She underwent kidney biopsy which was uneventful. No new issues today. 12/09/2023; She was started on mycophenolate last week at 5 mg twice a day. She is tolerating well. No new issues. test negative prior to starting mycophenolate 01/29/24;Doing well. Tolerating meds;Started going to gym 04/01/24; Compliant with meds;No new issues 07/01/24 ;Doing well ;Prednisone decreased to 2.5 mg by Rheum 10/15/24: Recently had flu like symptoms . I was not imformed Resolved. Lost 10 lbs 01/13/25 Doing well On Prednisone 2.5 mg QD [facility] Medical History Acute respiratory disease ASCUS with positive high risk HPV cervical Rash due to systemic lupus erythematosus (SLE) Long-term use of immunosuppressant medication SLE (systemic lupus erythematosus) Proteinuria GERD (gastroesophageal reflux disease) Thai's disease Lupus Surgical History History of appendectomy Hx of section Family History Maternal Grandmother Diabetes Maternal Grandfather Diabetes Mother Hypothyroidism Social History Household Members: Significant Other Housing: Apartment Alcohol intake: never Patient Tobacco Use Status: Never used Tobacco Substance Use Type: Marijuana Current occupational status: employed Current occupation: [employer] Sexual orientation: Straight/Heterosexual Gender identity: Female Physical Exam Vital Signs: Last Vital Signs Pulse 95 01/13/25 10:22 BP 110/62 01/13/25 10:22 Pulse Ox 99 01/13/25 10:22 Oxygen Delivery Method Room Air 01/13/25 10:22 BMI result Body Mass Index 19.8 Const General: comfortable; No acute distress Orientation/consciousness: patient oriented x3 Eyes General: appearance normal, both eyes and all related structures Visual Jorge: normal visual jorge by confrontation Neck Neck: Yes supple and Yes no JVD Resp Effort & Inspection: normal respiratory effort and respiratory effort not decreased Cardio Palpation: no palpable S3 and no palpable S4 Heart sounds: no rubs GI Inspection: Yes normal to inspection Palpation (GI): Soft to palpation Percussion: Yes normal to percussion Auscultation: normal bowel sounds General: Yes no CVA tenderness Back/Spine/Pelvis Back: no CVA tenderness Skin General skin exam: no petechiae and no purpura Neuro General: patient oriented x3 and no focal motor deficits Extrem General: No clubbing and No edema Results Reviewed Nephrology Results: Hgb, (12.0-16.0) 12.3 g/dl 12/29/24 WBC, (4.8-10.8) 5.5 X10*3/uL 12/29/24 Plt Count, (160-400) 299 X10*3/uL 12/29/24 Sodium, (135-145) 140 mmol/L 12/29/24 Potassium, (3.3-5.1) 4.0 mmol/L 12/29/24 Chloride, (96-108) 108 mmol/L 12/29/24 Carbon Dioxide, (22-29) 25 mmol/L 12/29/24 BUN, (9-16) 10 mg/dL 12/29/24 Creatinine, (0.5-1.4) 0.71 mg/dL 12/29/24 Calcium, (8.4-10.2) 9.5 mg/dL Δ 12/29/24 Urine Protein, (Neg-Trace) 30 (1+) mg/dL H 12/29/24 Urine Creatinine 160.50 mg/dL 12/29/24 Protein/Creatinin Ratio TNP 12/16/24 Assessment & Plan Assessment & Plan (1) Long-term use of immunosuppressant medication: Code(s): Z79.60 - retirement (current) use of unspecified immunomodulators and immunosuppressants Category: Medical (2) SLE (systemic lupus erythematosus): Comment: onset approx 2013 (rashes, membranous nephritis, +++DsDNA, +++SSa +++Sm +++DELIVERY ROOM CLERK low C3, low C4) took Prednisone and Cellcept not effective for rashes- took Cellcept for two years before they tried Benlysta --then Benlysta with cellcept - only had 2 injections at time, other two injections were not used when she migrated due to non refrigeration and she was scared that would be unstable --Was on MTX but got DC'd HCQ since 2016 Saphenlo 09/2023 very effective for skin MMF added 12/2023 by nephrology for membranous Lupus nephritis Code(s): M32.9 - Systemic lupus erythematosus, unspecified Category: Medical Qualifiers: Systemic lupus erythematosus organ involvement: unspecified Systemic lupus erythematosus type: other Qualified Code(s): M32.8 - Other forms of systemic lupus erythematosus (3) Proteinuria: Code(s): R80.9 - Proteinuria, unspecified Category: Medical Qualifiers: Proteinuria type: other Qualified Code(s): R80.8 - Other proteinuria (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 There was no global sclerosis. Tubular atrophy interstitial fibrosis 2% vascular sclerosis none. Light microscopy no collapse or crescents; no glomerular nephritis or thrombosis. No spikes or double contouring basement membrane NIH lupus nephritis activity index chronicity index 0 / 12 Electron microscopy showed foot process effacement Discussed treatment options for membranous nephropathy. She will do immunosuppression. Currently she is on prednisone. -5 mg She has in the childbearing age. She is currently on contraception. We agreed on starting on mycophenolate. Started Initial dose 500 mg p.o. b.i.d. for 1 week Increased to 1 g b.i.d. starting 12/09/23 Continue current dose On Prednisone 2.5 mgQD Discussed side effects including diarrhea. If she gets mycophenolate needs to be stopped I have explained this to her in detail with the help of her seismic interpreter. Will monitor renal function and urine protein excretion closely. Bactrim 3 times a week for prophylaxis Concur with current management per Rheumatology. Market Relationship Manager service was used. Added Atorvastatin 10 mg QD and titrate dose: 12/09/23 Cholesterol and LDL have normalized. Keep Lipitor Added Aspirin 12/09/23 No changes today Orders: Orders Basic Metabolic Panel 3 Months M32.8 - Other forms of systemic lupus erythematosus Creatinine Urine 3 Months M32.8 - Other forms of systemic lupus erythematosus UA and rflx microscopic 3 Months M32.8 - Other forms of systemic lupus erythematosus Total Protein Urine Random 3 Months M3.8 - Other forms of systemic lupus erythematosus Coding Level of Care Code Est Pt Level 4 (68753) Diagnoses Long-term use of immunosuppressant medication Z79.60 Other forms of systemic lupus erythematosus, unspecified organ involvement status M32.8 Systemic lupus erythematosus organ involvement: unspecified Systemic lupus erythematosus type: other Other proteinuria R80.8 Proteinuria type: other Lupus nephritis M32.14
--- OUTSIDE RECORDS SUMMARY | 2025-01-13 10:50 | XMS_ITS | Encounter Summary ---
Author Organization [facility] Address [address] [place] [address] Care Team Providers Care Bundler Name Role Phone Liza John MD Primary Care Prov ider Reason for Visit * Reason Onset Date Comments Medication Problem 01/07/2025 Encounter Details Date Type Department Care Team ([facility] st Contact Info) Description 01/07/2025 Telephone [facility] - [address] [phone] Rik White MD [address] [place] [phone] Medication Problem Social History Tobacco Use Types Packs/Day Years Used Date Smoking Tobacco: Never Smokeless Tobacco: Never Alcohol Use Standard Drinks/Week Comments Not Currently 0 (1 standard drink = 0.6 oz pur e alcohol) Comments No Sex and Gender Information Value Date Recorded Sex Assigned at Not on file Legal Sex Female 8:54 PM EST Gender Identity Not on file Sexual Orientation Not on file documented as of this encounter Ordered Prescriptions Prescription Sig Dispense Quantity Refills Last Filled Start Date End Date Synthroid 25 mcg tabletIndications :Thai's thyroiditis Take 1 tablet (25 mcg total) by mouth 1 (one) time each day before breakfast. Synthroid Brand name only, no substitution 90 tablet 3 01/12/2025 documented in this encounter Progress Notes * Rik White MD - 01/12/2025 11:39 AM EDT Rx addendid and sent * Danielle Farrhko - 01/07/2025 12:04 PM EDT Medication Problem: What is the name of the medication patient is having a problem with?: levothyroxine (Synthroid) What is the problem?: For brand name Synthroid you have to prescribe synthroid with ALINE 1 'no substitution' otherwise patient legally getting levothyroxine Who is calling about the problem? : Fax from [facility] Who prescribed this medication for the patient? Dr. White Who is patients PCP?: Liza Scott MD Payor: [employer] PLAN / Plan: [facility] MEDICAID / Product Type: *No Product type* / documented in this encounter Plan of Treatment Upcoming Encounters Date Type Department Care Team (Late st Contact Info) Description 05/31/2025 2:00 PM EST Office Visit Adult Medicine [address] [phone] Liza John MD [address] [place] [phone] documented as of this encounter Visit Diagnoses Diagnosis Thai's thyroiditis Chronic lymphocytic thyroiditis documented in this encounter Discontinued Medications Medication Sig Discontinue Reason Start Date End Da te levothyroxine (Synthroid) 25 mcg tabletIndications:Tarik elfego's thyroiditis Take 1 tablet (25 mcg total) by mouth 1 (one) time each day before breakfast. Take 1 Tablet by mouth daily. Synthroid Brand name only, no alternate Reorder 05/24/2024 01/12/2025 documented as of this encounter Care Teams Bundler Relationship Specialty Start Date End Date Liza John MD [address] [place] [phone] PCP - General 02/28/23 documented as of this encounter
--- OUTSIDE RECORDS SUMMARY | 2025-01-13 10:50 | XMS_ITS | Clinical Summary ---
Author Organization [facility] Address [address] [place] [phone] Phone Care Team Providers Care Fire Manager Name Role Phone Pcp, Unknown Primary Care [...] file Medical Devices Not on file Insurance [employer] [address] [place], [place] [id number] ALLANCE ACO [facility] [employer] ALLANCE ACO [facility] [employer] ALLANCE ACO [facility] ACO Care Teams Fire Manager Relationship Specialty Start Date End Date Pcp, Unknown PCP - General 06/24/23 Additional Source Comments The information contained in this document represents components of the legal health record. It is not the complete legal health record.[facility]
== END 2025-01-13 10:38 | disposition home or self-care (01) ==
LOC: HO.HKA 10:20
PROVIDERS: PCP Student in an Organized Health Care Education/Training Program; Visit Provider Internal Medicine Hypertension Specialist
DX: Z79.60 Long term (current) use of unspecified immunomodulators and immunosuppressants (principal); M32.8 Other forms of systemic lupus erythematosus; R80.8 Other proteinuria; M32.14 Glomerular disease in systemic lupus erythematosus
CPT/HCPCS: 99214

== ENCOUNTER → 2025-01-13 10:20 | Outpatient (BNVA) | payer OTHER, SELFPAY | PROVIDERS: PCP Student in an Organized Health Care Education/Training Program; Visit Provider Internal Medicine Hypertension Specialist | DX: M32.14 Glomerular disease in systemic lupus erythematosus (principal); R80.8 Other proteinuria; M32.8 Other forms of systemic lupus erythematosus; Z79.60 Long term (current) use of unspecified immunomodulators and immunosuppressants | CPT/HCPCS: 99212 ==

== ENCOUNTER 2025-01-20 09:31 | Outpatient (AMB) | payer OTHER, SELFPAY ==
[2025-01-20 09:42] VITALS: BP 110/80; PULSE 86; TEMP 37.3; O2SAT 98; BMI 19.7
--- NOTE | 2025-01-20 09:42 | AM.OFFWIN_ITS ---
Intake Vital Signs 01/20/25 09:42 01/20/25 09:42 Height 5 ft 5 in 5 ft 5 in Weight 118 lb 2 oz BMI 19.7 BP 110/80 Blood Pressure Location Lt brachial Position Sitting Pulse 86 Pulse Source Pulse Oximeter Temp 99.2 F Temp Source Oral Pulse Oximetry (%) 98 Oxygen Delivery Method Room Air Intake Visit Reasons: EP-rt wrist pain/stiffness Patient Tobacco Use Status: Never used Tobacco Truck Operator Required: Yes Is last menstrual period known: Yes Last menstrual period: 01/01/25 Post menopausal: No Patient : No Allergies No Known Allergies Allergy (Verified 01/20/25 09:48) Do you need a note to return to daycare/school/sports/work: Yes HPI HPI Comments History of Present Illness Details 29 y/o Female patient who presents to [facility] walk in clinic with c/o Right wrist Pain and stiffness since this morning. She does have h/o Lupus and currently being managed by Rheumatology. Reports that she does get some Flare- ups atleast once a month. Denies injury or trauma. [facility] Medical History (Updated 01/20/25 @ 10:36 by Noemi Phelps NP) Wrist pain, right Acute respiratory disease ASCUS with positive high risk HPV cervical Rash due to systemic lupus erythematosus (SLE) Long-term use of immunosuppressant medication SLE (systemic lupus erythematosus) Proteinuria GERD (gastroesophageal reflux disease) Thai's disease Lupus Surgical History History of appendectomy Hx of section Family History Maternal Grandmother Diabetes Maternal Grandfather Diabetes Mother Hypothyroidism Social History Household Members: Significant Other Housing: Apartment Alcohol intake: never Patient Tobacco Use Status: Never used Tobacco Substance Use Type: Marijuana Patient : No Current occupational status: employed Current occupation: [employer] Sexual orientation: Straight/Heterosexual Gender identity: Female Female Reproductive History Menstrual Date of last menstrual period: 01/01/25 Review of Systems Const All systems reviewed & are unremarkable except as noted in HPI and below Physical Exam Vital Signs: Last Vital Signs Temp 99.2 F 01/20/25 09:42 Pulse 86 01/20/25 09:42 BP 110/80 01/20/25 09:42 Pulse Ox 98 01/20/25 09:42 Oxygen Delivery Method Room Air 01/20/25 09:42 BMI result Body Mass Index 19.7 Const General: no acute distress Nutritional Appearance: thin Orientation/consciousness: patient oriented x3 Neuro General: patient oriented x3, gait normal and moves all extremities Extrem Right upper extremity: normal capillary refill and wrist Details: normal to inspection, tenderness and abnormal ROM Details: pain with active ROM during and pain with passive ROM during; no swelling and no crepitus Left upper extremity: normal to inspection, full ROM and normal capillary refill Psych Speech and movement: Normal speech and movement present Assessment & Plan Assessment & Plan (1) Wrist pain, right: Code(s): M25.531 - Pain in right wrist Plan: Advised to call her Rheumatology for f/u if pain not improving. Acetaminophen and NSAIDs for pain relief. Ice/Hot Continue on your Lupus medications as prescribed. Coding Level of Care Code Est Pt Level 4 (61168) Diagnoses Wrist pain, right M25.531 Time Spent (min) 20
--- OUTSIDE RECORDS SUMMARY | 2025-01-20 10:06 | XMS_ITS | Clinical Summary ---
Author Organization [facility] Address [address] [place] [id number] Phone Care Team Providers Care Tourist Agent Name Role Phone Pcp, Unknown Primary Care [...] file Medical Devices Not on file Insurance [employer] [address] [place], [place] [id number] ALLANCE [employer] [facility] [employer] Care Teams Tourist Agent Relationship Specialty Start Date End Date Pcp, Unknown PCP - General 06/24/23 Additional Source Comments The information contained in this document represents components of the legal health record. It is not the complete legal health record.[facility]
--- OUTSIDE RECORDS SUMMARY | 2025-01-20 10:06 | XMS_ITS | Clinical Summary ---
Author Organization [address] Address [address] [place] [phone] Phone Care Team Providers Care High School Principal Name Role Phone Liza John MD Primary Care Prov ider Allergies No known active allergies Medications hydroxychloroqu ine 400 mg tablet Take 1 Tablet by mouth daily. Active predniSONE (DELTASONE) 2.5 mg tablet Take 1 tablet (2.5 mg total) by mouth 1 (one) time each day. Active anifrolumab-fni a (SAPHNELO) injection Infuse 2 mL (300 mg total) into a venous catheter 1 (one) time. Every 4 weeks Active mycophenolate (CELLCEPT) 500 mg tablet Take 2 tablets (1,000 mg total) by mouth 2 (two) times a day. Active Synthroid 25 mcg tabletIndicatio ns:Thai's thyroiditis Take 1 tablet (25 mcg total) by mouth 1 (one) time each day before breakfast. Synthroid Brand name only, no substitution 90 tablet 3 01/13/20 25 Active levothyroxine (Synthroid) 25 mcg tabletIndicatio ns:Thai's thyroiditis Take 1 tablet (25 mcg total) by mouth 1 (one) time each day before breakfast. Take 1 Tablet by mouth daily. 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 Assessment & Plan (11/29/2024 9:57 AM EDT): Systemic lupus ([facility] V24, [facility] V28) 2022 Assessment & Plan (11/29/2024 9:57 AM EDT): Encounters Date Type Department Care Team Description 01/07/[address] [phone] Rik White MD Medication Problem 11/29/2024 9:30 AM EDT Office Visit Adult Medicine [facility] - [address] [phone] Liza John MD Thai's thyroiditis (Primary Dx); Drug-induced systemic lupus erythematosus, unspecified organ involvement status ([facility] V24) from Last 3 Months Immunizations Name Administration Dates Next Due Influenza Quadravalent, MDCK , 0.5ml, preservative free (Flucelvax) 6mo and older 05/07/2023 Surgical History Surgery Date Site/Laterality Comments SECTION PROCEDURE: HISTORICAL DELIVERY APPENDECTOMY PROCEDURE: HISTORICAL APPENDECTOMY Medical History Medical History Date Comments Systemic lupus ([facility] V24, [facility] V28) DX:Systemic lupus (HCC) Thai's thyroiditis DX:Tarik [...] 2:00 PM EST Office Visit Adult Medicine [address] [phone] Liza John MD [address] [place] [address] Health Maintenance Due Date Last Done Comments [...] Maintenance Results * Depression Screening (06/24/2023) Pathologist [facility] Depression Screening abstracted Historical Provider HEALTH MAINTENANCE [...] Most Recently Relevant to Health Maintenance Insurance [facility] Care Teams High School Principal Relationship Specialty Start Date End Date Liza John MD [address] [place] [id number] PCP - General 02/28/23
== END 2025-01-20 10:53 | disposition home or self-care (01) ==
PROVIDERS: PCP Student in an Organized Health Care Education/Training Program; Visit Provider Nurse Practitioner Family
DX: M25.531 Pain in right wrist (principal)

== ENCOUNTER → 2025-01-20 09:31 | Outpatient (BNVA) | payer OTHER, SELFPAY | PROVIDERS: PCP Student in an Organized Health Care Education/Training Program; Visit Provider Nurse Practitioner Family | DX: M25.531 Pain in right wrist (principal); M25.631 Stiffness of right wrist, not elsewhere classified | CPT/HCPCS: 99212 ==

== ENCOUNTER 2025-01-26 12:52 | Outpatient (AMB) | payer OTHER, SELFPAY ==
--- NOTE | 2025-01-26 13:09 | MHC.OFFVIS ---
Vital Signs 01/26/25 13:11 Height 5 ft 5 in Weight 118 lb BMI 19.6 Intake Visit Reasons: vaginal discharge Automatic Riveting Machine Operator Required: Yes Automatic Riveting Machine Operator Language: Down Filler Services: Automatic Riveting Machine Operator Present (in person) Automatic Riveting Machine Operator Name: Reyna CHACON Information Interpreted: non-clinical & clinical Bonding Molder: Bonding Molder Present (Reyna CHACON) Accompanied by: Self / Same As Patient Allergies No Known Allergies Allergy (Verified 01/26/25 13:12) HPI Comments Details: Presenting complaining of vulvovaginal itching associated which is discharge with no foul odor [facility] Medical History Wrist pain, right Acute respiratory disease ASCUS with positive high risk HPV cervical Rash due to systemic lupus erythematosus (SLE) Long-term use of immunosuppressant medication SLE (systemic lupus erythematosus) Proteinuria GERD (gastroesophageal reflux disease) Thai's disease Lupus Surgical History History of appendectomy Hx of section Family History Maternal Grandmother Diabetes Maternal Grandfather Diabetes Mother Hypothyroidism Social History Household Members: Significant Other Housing: Apartment Alcohol intake: never Patient Tobacco Use Status: Never used Tobacco Substance Use Type: Marijuana Current occupational status: employed Current occupation: [employer] Sexual orientation: Straight/Heterosexual Gender identity: Female Review of Systems Const All systems reviewed & are unremarkable except as noted in HPI and below Physical Exam Vital Signs: BMI result Body Mass Index 19.6 General: Yes no CVA tenderness External Female Exam: normal external appearance and normal appearance of the urethra Speculum Exam - Vagina: normal appearance of the vagina, normal palpation, no lesions and no masses Speculum Exam - Cervix: normal appearance of the cervix, normal palpation, no lesions, no masses and nontender Bimanual exam- vagina & uterus: normal bimanual exam, normal palpation, uterine size normal, normal palpation, uterine shape normal, No Cervical tenderness present and non-tender Bimanual Exam- Adnexa, other: normal adnexae Back/Spine/Pelvis Back: no CVA tenderness Assessment & Plan Assessment & Plan (1) Vulvovaginitis: Code(s): N76.0 - Acute vaginitis Category: Medical Plan: GC/CT, Bacterial Vaginosis panel taken, Terazol 0.8% q.h.s. for 3 days was sent to the patient's pharmacy. The patient was instructed to call if symptoms don't improve in 48 hours. Medications: New terconazole 0.8% 1 appful vaginal BEDTIME 20 grams 0RF 3 days Coding Level of Care Code Est Pt Level 3 (21973) Diagnoses Vulvovaginitis N76.0
[2025-01-26 13:11] VITALS: BMI 19.6
--- OUTSIDE RECORDS SUMMARY | 2025-01-26 13:43 | XMS_ITS | Clinical Summary ---
Author Organization [facility] Address [address] [place] [phone] Phone Care Team Providers Care Broadcaster Name Role Phone Pcp, Unknown Primary Care [...] file Medical Devices Not on file Insurance [employer] [address] [place], [place] [id number] ALLANCE ACO [facility] [employer] ALLANCE ACO [facility] [employer] ALLANCE ACO [facility] ACO Care Teams Broadcaster Relationship Specialty Start Date End Date Pcp, Unknown PCP - General 06/24/23 Additional Source Comments The information contained in this document represents components of the legal health record. It is not the complete legal health record.[facility]
--- OUTSIDE RECORDS SUMMARY | 2025-01-26 13:43 | XMS_ITS | Clinical Summary ---
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 Assessment & Plan (11/29/2024 9:57 AM EDT): Systemic lupus ([facility] V24, [facility] V28) 2022 Assessment & Plan (11/29/2024 9:57 AM EDT): Encounters Date Type Department Care Team Description 01/07/2025 Telephone [address]ocrinology [address] [phone] Rik White MD Medication Problem 11/29/2024 9:30 AM EDT Office Visit Adult Medicine [address] [phone] Liza John MD Thai's thyroiditis (Primary Dx); Drug-induced systemic lupus erythematosus, unspecified organ involvement status ([facility] V24) from Last 3 Months Immunizations Name Administration Dates Next Due Influenza Quadravalent, MDCK , 0.5ml, preservative free (Flucelvax) 6mo and older 05/07/2023 Surgical History Surgery Date Site/Laterality Comments SECTION PROCEDURE: HISTORICAL DELIVERY APPENDECTOMY PROCEDURE: HISTORICAL APPENDECTOMY Medical History Medical History Date Comments Systemic lupus ([facility] V24, [facility] V28) DX:Systemic lupus (HCC) Thai's [...] 2:00 PM EST Office Visit Adult Medicine [address] [phone] Liza John MD [address] [place] [phone] Health Maintenance Due Date Last Done Comments [...] Maintenance Results * Depression Screening (06/24/2023) Pathologist [facility] Depression Screening abstracted Historical Provider HEALTH MAINTENANCE Final Result * (ABNORMAL) Lipid panel (05/08/2023) Pathologist [facility] LDL/HDL Ratio 3 0 - 4 Triglycerides 61 0 - 150 mg/dL Cholesterol 180 0 - 200 mg/dL HDL 55 >=40 mg/dL LDL Cholesterol 113(A) 0 - 100 mg/dL Blood Venous blood specimen / Unknown Historical Provider LAB BLOOD ORDERABLES Aleta l Result from Last 3 Months or Most Recently Relevant to Health [place] [address] [facility] Care Teams Boat Hoist Operator Relationship Specialty Start Date End Date Liza John MD [address] [place] [address] PCP - General 02/28/23
== END 2025-01-26 13:40 | disposition home or self-care (01) ==
LOC: HO.HWS 12:53
PROVIDERS: PCP Student in an Organized Health Care Education/Training Program; Visit Provider Obstetrics & Gynecology
DX: N76.0 Acute vaginitis (principal)
CPT/HCPCS: 99213

== ENCOUNTER 2025-01-26 12:52 | Outpatient (REF) | payer OTHER, SELFPAY ==
[2025-01-26 21:16] LABS: Bacterial Vaginosis PCR POSITIVE (Negative); Candida Group PCR DETECTED (Not Detect); Candida glab krusei PCR NOT DETECTED (Not Detect); Trichomonas vaginalis PCR NOT DETECTED (Not Detect)
[2025-01-26 22:12] LABS: CT PCR NOT DETECTED (Not Detect.); NG PCR NOT DETECTED (Not Detect.)
== END 2025-01-26 12:53 | disposition home or self-care (01) ==
LOC: HO.LNP 12:52
PROVIDERS: PCP Student in an Organized Health Care Education/Training Program; Visit Provider Obstetrics & Gynecology
DX: N76.0 Acute vaginitis (principal); Z11.8 Encounter for screening for other infectious and parasitic diseases; Z11.3 Encounter for screening for infections with a predominantly sexual mode of transmission
CPT/HCPCS: 81515; 87491; 87591; 99212

== ENCOUNTER 2025-04-12 09:17 | Outpatient (REF) | payer OTHER, SELFPAY ==
[2025-04-12 09:55] LABS: Appearance Urine Clear; Glucose Urine UA Negative (Negative); PH 5.5 (5.0-9.0); Specific Gravity - Urine >= 1.030 (1.005-1.025); UMIC TRIGGER UA YES
--- OUTSIDE RECORDS SUMMARY | 2025-04-12 10:07 | XMS_ITS | Clinical Summary ---
Author Organization [facility] Address [address] [place] [phone] Phone Care Team Providers Care Transport Specialist Name Role Phone Pcp, Unknown Primary Care [...] file Medical Devices Not on file Insurance [employer] [address] [place], [place] [id number] ALLANCE ACO [facility] [employer] ALLANCE ACO [employer].[facility] [employer] ALLANCE ACO [facility] ACO Care Teams Transport Specialist Relationship Specialty Start Date End Date Pcp, Unknown PCP - General 06/24/23 Additional Source Comments The information contained in this document represents components of the legal health record. It is not the complete legal health record.[facility]
[2025-04-12 10:48] LABS: Anion Gap 9 (12-20); Blood Urea Nitrogen 12 mg/dL (9-16); Calcium 8.8 mg/dL (8.4-10.2); Carbon Dioxide 24 mmol/L (22-29); Chloride 111 mmol/L (96-108); Estimated Glomerular Filt Rate > 60; Potassium 3.9 mmol/L (3.3-5.1); Sodium 140 mmol/L (135-145)
[2025-04-12 10:57] LABS: Total Protein Urine Random 63 mg/dL (<12)
== END 2025-04-12 09:18 | disposition home or self-care (01) ==
LOC: HO.LAB 09:17
PROVIDERS: PCP Internal Medicine; Visit Provider Internal Medicine Hypertension Specialist
DX: M32.14 Glomerular disease in systemic lupus erythematosus (principal); M32.8 Other forms of systemic lupus erythematosus
CPT/HCPCS: 36415; 80048; 81001; 82570; 84156

== ENCOUNTER 2025-04-19 10:48 | Outpatient (AMB) | payer OTHER, SELFPAY ==
[2025-04-19 10:52] VITALS: BP 102/64; PULSE 95; O2SAT 100; BMI 20.1
--- NOTE | 2025-04-19 10:52 | HO.NEPHOV_ITS ---
Vital Signs 04/19/25 10:52 Height 5 ft 5 in Weight 121 lb BMI 20.1 BP 102/64 Blood Pressure Location Lt brachial Position Sitting Pulse 95 Pulse Source Pulse Oximeter Pulse Oximetry (%) 100 Oxygen Delivery Method Room Air Intake Visit Reasons: 3 MO FU Printed Circuit Boards Beveler Required: Yes Printed Circuit Boards Beveler Name: Dilip [id number] Accompanied by: Self / Same As Patient Allergies No Known Allergies Allergy (Verified 04/19/25 10:53) Medication List - Last Reconciled 04/19/25 by Valentín Wagner MD acetaminophen 1,000 mg (2 x 500 mg) PO Q6H PRN anifrolumab-fnia 300 mg IV Q4W aspirin 81 mg PO DAILY atorvastatin 10 mg PO DAILY copper (ParaGard T 380A) intrauterine hydroxychloroquine (Plaquenil) 200 mg PO DAILY levothyroxine (Synthroid) 25 mcg PO DAILY metronidazole 500 mg PO BID 7 days minoxidil 2.5 mg PO DAILY mycophenolate mofetil 1,000 mg (2 x 500 mg) PO BID prednisone 2.5 mg PO DAILY terconazole 0.8% 1 appful vaginal BEDTIME 3 days HPI Comments Details: Lisa is a pleasant 28-year-old woman with a history of SLE for almost 10 years She has been referred for proteinuria. In the past she was seen by a pediatric medical assistant in [place]. She did not undergo kidney biopsy no specific diagnosis was there. Recently scheduled to see Rheumatology. She was started on prednisone 60 mg which has been tapered down to 40 mg. She is due to receive Saphnelo infusion tomorrow During routine workup she was found to have low serum complements C3 and C4 along with nephrotic range proteinuria of about 3.1 g. She had low serum protein as well. Serum creatinine was normal between 0.8 and 0.9 mg/dL. She was seen by district traffic chief for skin lesions. She was given minoxidil 1.25 mg. History of mucosal ulcers. She is 1 daughter age 7 years . Normal delivery. No history of miscarriage Today she has no joint pains. No shortness of breath cough hemoptysis. No history of gross hematuria. She does have foamy urination. Mild ankle edema. 10/28/23;Received Saphnelo 2 weeks ago. Doing about the same 11/18/2023 ;She underwent kidney biopsy which was uneventful. No new issues today. 12/09/2023; She was started on mycophenolate last week at 5 mg twice a day. She is tolerating well. No new issues. test negative prior to starting mycophenolate 01/29/24;Doing well. Tolerating meds;Started going to gym 04/01/24; Compliant with meds;No new issues 07/01/24 ;Doing well ;Prednisone decreased to 2.5 mg by Rheum 10/15/24: Recently had flu like symptoms . I was not imformed Resolved. Lost 10 lbs 01/13/25 ;Doing well ;On Prednisone 2.5 mg QD 04/19/25 Overall doing well. Non ew issues. No edema NO joint pains [facility] Medical History Wrist pain, right Acute respiratory disease ASCUS with positive high risk HPV cervical Rash due to systemic lupus erythematosus (SLE) Long-term use of immunosuppressant medication SLE (systemic lupus erythematosus) Proteinuria GERD (gastroesophageal reflux disease) Thai's disease Lupus Surgical History History of appendectomy Hx of section Family History Maternal Grandmother Diabetes Maternal Grandfather Diabetes Mother Hypothyroidism Social History Household Members: Significant Other Housing: Apartment Alcohol intake: never Patient Tobacco Use Status: Never used Tobacco Substance Use Type: Marijuana Current occupational status: employed Current occupation: [employer] Sexual orientation: Straight/Heterosexual Gender identity: Female Physical Exam Vital Signs: Last Vital Signs Pulse 95 04/19/25 10:52 BP 102/64 04/19/25 10:52 Pulse Ox 100 04/19/25 10:52 Oxygen Delivery Method Room Air 04/19/25 10:52 BMI result Body Mass Index 20.1 Comfortable Neck supple no JVD. Lungs entry equal no rales. Heart S1-S2 heard no gallop or rub. Abdomen soft nontender. Neuro alert awake oriented. No asterixis. Extremities no edema. Const General: comfortable; No acute distress Orientation/consciousness: patient oriented x3 Eyes General: appearance normal, both eyes and all related structures Visual Jorge: normal visual jorge by confrontation Neck Neck: Yes supple and Yes no JVD Resp Effort & Inspection: normal respiratory effort and respiratory effort not decreased Cardio Palpation: no palpable S3 and no palpable S4 Heart sounds: no rubs GI Inspection: Yes normal to inspection Palpation (GI): Soft to palpation Percussion: Yes normal to percussion Auscultation: normal bowel sounds General: Yes no CVA tenderness Back/Spine/Pelvis Back: no CVA tenderness Skin General skin exam: no petechiae and no purpura Neuro General: patient oriented x3 and no focal motor deficits Extrem General: No clubbing and No edema Results Reviewed Nephrology Results: Sodium, (135-145) 140 mmol/L 04/12/25 Potassium, (3.3-5.1) 3.9 mmol/L 04/12/25 Chloride, (96-108) 111 mmol/L H 04/12/25 Carbon Dioxide, (22-29) 24 mmol/L 04/12/25 BUN, (9-16) 12 mg/dL 04/12/25 Creatinine, (0.5-1.4) 0.74 mg/dL 04/12/25 Calcium, (8.4-10.2) 8.8 mg/dL Δ 04/12/25 Urine Protein, (Neg-Trace) 100 (2+) mg/dL H 04/12/25 Urine Creatinine 383.33 mg/dL 04/12/25 Assessment & Plan Assessment & Plan (1) SLE (systemic lupus erythematosus): Comment: onset approx 2013 (rashes, membranous nephritis, +++DsDNA, +++SSa +++Sm +++TRANSFORMATION MANAGER low C3, low C4) took Prednisone and Cellcept not effective for rashes- took Cellcept for two years before they tried Benlysta --then Benlysta with cellcept - only had 2 injections at time, other two injections were not used when she migrated due to non refrigeration and she was scared that would be unstable --Was on MTX but got DC'd HCQ since 2016 Saphenlo 09/2023 very effective for skin MMF added 12/2023 by nephrology for membranous Lupus nephritis Code(s): M32.9 - Systemic lupus erythematosus, unspecified Category: Medical Qualifiers: Systemic lupus erythematosus organ involvement: unspecified Systemic lupus erythematosus type: other Qualified Code(s): M32.8 - Other forms of systemic lupus erythematosus (2) Proteinuria: Code(s): R80.9 - Proteinuria, unspecified Category: Medical Qualifiers: Proteinuria type: other Qualified Code(s): R80.8 - Other proteinuria (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 There was no global sclerosis. Tubular atrophy interstitial fibrosis 2% vascular sclerosis none. Light microscopy no collapse or crescents; no glomerular nephritis or thrombosis. No spikes or double contouring basement membrane NIH lupus nephritis activity index chronicity index 0 12 Electron microscopy showed foot process effacement Discussed treatment options for membranous nephropathy. She will do immunosuppression. Currently she is on prednisone. -5 mg She has in the childbearing age. She is currently on contraception. We agreed on starting on mycophenolate. Started Initial dose 500 mg p.o. b.i.d. for 1 week Increased to 1 g b.i.d. starting 12/09/23 Continue current dose On Prednisone 2.5 mgQD Discussed side effects including diarrhea. If she gets mycophenolate needs to be stopped I have explained this to her in detail with the help of her language interpreter. Will monitor renal function and urine protein excretion closely. Bactrim 3 times a week for prophylaxis Concur with current management per Rheumatology. Printed Circuit Boards Beveler service was used. Atorvastatin 10 mg QD Cholesterol and LDL have normalized. Repeat Lipid panel No changes today Orders: Orders Lipid Panel 3 Months M32.14 - Glomerular disease in systemic lupus erythematosus, R80.8 - Other proteinuria Complete Blood Count Auto Diff 3 Months M32.14 - Glomerular disease in systemic lupus erythematosus, R80.8 - Other proteinuria Total Protein Urine Random 3 Months M32.14 - Glomerular disease in systemic lupus erythematosus, R80.8 - Other proteinuria Creatinine Urine 3 Months M32.14 - Glomerular disease in systemic lupus erythematosus, R80.8 - Other proteinuria Basic Metabolic Panel 3 Months M32.14 - Glomerular disease in systemic lupus erythematosus, R80.8 - Other proteinuria UA and rflx microscopic 3 Months M32.14 - Glomerular disease in systemic lupus erythematosus, R80.8 - Other proteinuria Coding Level of Care Code Est Pt Level 4 (11056) Diagnoses Other forms of systemic lupus erythematosus, unspecified organ involvement status M32.8 Systemic lupus erythematosus organ involvement: unspecified Systemic lupus erythematosus type: other Other proteinuria R80.8 Proteinuria type: other Lupus nephritis M32.14
--- OUTSIDE RECORDS SUMMARY | 2025-04-19 12:56 | XMS_ITS | Clinical Summary ---
Author Organization [address] Address [address] [place] [phone] Phone Care Team Providers Care Table Assembler Metal Name Role Phone Liza John MD Primary [...] name only, no alternate 90 tablet 3 5 Active Synthroid 25 mcg tabletIndicatio ns:Thai's thyroiditis Take 1 tablet (25 mcg total) by mouth 1 (one) time each day before breakfast. 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 Assessment & Plan (11/29/2024 9:57 AM EDT): Systemic lupus (CMS/HCC V24, CMS/HCC V28) 2022 Assessment & Plan (11/29/2024 9:57 AM EDT): Immunizations Immunization Administration Dates Next Due Influenza Quadravalent, MDCK , 0.5ml, preservative free (Flucelvax) 6mo and older 05/07/2023 Surgical History Surgery Date Site/Laterality Comments SECTION PROCEDURE: HISTORICAL DELIVERY APPENDECTOMY PROCEDURE: HISTORICAL APPENDECTOMY Medical History Medical History Date Comments Systemic lupus ([facility] V24, [facility] V28) DX:Systemic lupus ([facility]) Thai's thyroiditis DX:Tarik elfego's thyroiditis Family History [...] 11/29/2024 9:35 AM EDT Plan of Treatment Health Maintenance Due Date Last Done Comments COVID-19 Vaccine (#1) 1998 DTaP,Tdap,and Td Vaccines (1 - Tdap) 2012 Hepatitis B Vaccines (1 of 3 - 19+ 3-dose series) 2012 Pneumococcal Vaccine: Pediat rics (0 to 5 Years) and At-Risk Patients (6 to 49 Years) (1 of 2 - PCV) 2012 Cervical Cancer Screening: P ap Smear 2014 HPV Vaccines (1 - Risk 3-dos e SCDM series) 2020 HIV Screening 07/04/2023 Hepatitis C Screening 07/04/2023 Social Influencers of Health Screening 07/04/2023 Depression Screening 06/09/2024 06/24/2023 Influenza Vaccine (#1) 2025 05/07/2023 Cholesterol Screening (Lipid Panel) 05/08/2028 05/08/2023 RSV Immunization Adult Patie nts (1 - 1-dose 75+ series) 2068 HIB Vaccines Aged Out No longer eligi [...] * Depression Screening (06/24/2023) Depression Screening abstracted us Historical Provider HEALTH [...] Most Recently Relevant to Health Maintenance Insurance [facility] [id number] Care Teams Table Assembler Metal Relationship Specialty Start Date End Date Liza John MD [address] [place] [phone] PCP - General 02/28/23
--- OUTSIDE RECORDS SUMMARY | 2025-04-19 12:56 | XMS_ITS | Clinical Summary ---
Author Organization [facility] Address [address] [place] [phone] Phone Care Team Providers Care Auto Body Technician Name Role Phone Pcp, Unknown Primary Care [...] file Medical Devices Not on file Insurance [place] [address] [place], [place] [id number] ALLANCE A[employer] [facility] Care Teams Auto Body Technician Relationship Specialty Start Date End Date Pcp, Unknown PCP - General 06/24/23 Additional Source Comments The information contained in this document represents components of the legal health record. It is not the complete legal health record.[facility]
== END 2025-04-19 11:11 | disposition home or self-care (01) ==
LOC: HO.HKA 10:49
PROVIDERS: PCP Student in an Organized Health Care Education/Training Program; Visit Provider Internal Medicine Hypertension Specialist
DX: M32.8 Other forms of systemic lupus erythematosus (principal); R80.8 Other proteinuria; M32.14 Glomerular disease in systemic lupus erythematosus
CPT/HCPCS: 99214

== ENCOUNTER → 2025-04-19 10:48 | Outpatient (BNVA) | payer OTHER, SELFPAY | PROVIDERS: PCP Student in an Organized Health Care Education/Training Program; Visit Provider Internal Medicine Hypertension Specialist | DX: M32.14 Glomerular disease in systemic lupus erythematosus (principal); R80.8 Other proteinuria; M32.8 Other forms of systemic lupus erythematosus | CPT/HCPCS: 99212 ==

== ENCOUNTER 2025-05-24 13:51 | Outpatient (REF) | payer OTHER, SELFPAY ==
[2025-05-24 18:08] LABS: Bacterial Vaginosis PCR NEGATIVE (Negative); Candida Group PCR NOT DETECTED (Not Detect); Candida glab krusei PCR NOT DETECTED (Not Detect); Trichomonas vaginalis PCR NOT DETECTED (Not Detect)
[2025-05-24 18:20] LABS: CT PCR NOT DETECTED (Not Detect.); NG PCR NOT DETECTED (Not Detect.)
[2025-05-25 04:46] LABS: HIV Num 1 0.08 S/CO (0.00-0.99); ~HepC Num1 0.27 S/CO (0.00-0.79); ~Hepatitis C Antibody Nonreactive (Nonreactive)
[2025-05-25 04:55] LABS: Syphilis Screen Nonreactive (Nonreactive)
[2025-05-26 13:26] LABS: HBsAGNum1 0.20 S/CO (0.00-0.99); Hepatitis B Surface Antigen Negative (Negative)
== END 2025-05-24 13:52 | disposition home or self-care (01) ==
LOC: HO.LNP 13:51
PROVIDERS: PCP Internal Medicine; Visit Provider Obstetrics & Gynecology
DX: Z01.419 Encounter for gynecological examination (general) (routine) without abnormal findings (principal); Z20.2 Contact with and (suspected) exposure to infections with a predominantly sexual mode of transmission; R87.610 Atypical squamous cells of undetermined significance on cytologic smear of cervix (ASC-US); R87.810 Cervical high risk human papillomavirus (HPV) DNA test positive
CPT/HCPCS: 81515; 86780; 86803; 87340; 87389; 87491; 87591; 87626; 88175

== ENCOUNTER 2025-05-24 13:51 | Outpatient (AMB) | payer OTHER, SELFPAY ==
--- NOTE | 2025-05-24 13:54 | A.OFFVIS_ITS ---
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 Requesting STD screen Last Pap/HPV was ascus HPV positive, colpo biopsy ECC SUNNY 1 [facility] Medical History Wrist pain, right Acute respiratory disease ASCUS with positive high risk HPV cervical Rash due to systemic lupus erythematosus (SLE) Long-term use of immunosuppressant medication SLE (systemic lupus erythematosus) Proteinuria GERD (gastroesophageal reflux disease) Thai's disease Lupus Surgical History History of appendectomy Hx of section Family History Maternal Grandmother Diabetes HTN (hypertension) Maternal Grandfather Diabetes Mother Hypothyroidism Social History Household Members: Significant Other Housing: Apartment Alcohol intake: never Patient Tobacco Use Status: Never used Tobacco Use of substances other than those prescribed or required for medical reasons: No Current occupational status: employed Current occupation: [employer] Sexually active: Yes Sexual orientation: Straight/Heterosexual Gender identity: Female Female Reproductive History Menstrual Total pregnancies: 1 Full term: 1 Number of Living Children: 1 Date of last pap smear: 05/21/24 History of abnormal pap smear: Yes (Ascus , HPV +) Review of Systems Const All systems reviewed & are unremarkable except as noted in HPI and below Card Reports as per HPI Resp Reports as per HPI GI Reports as per HPI and Reports no additional complaints Reports as per HPI Physical Exam Vital Signs: BMI result Body Mass Index 19.0 Const General: cooperative, healthy appearing and comfortable Chest Chest palpation & inspection: normal inspection of the chest and normal palpation of entire chest wall Breast/axilla inspection: normal inspection of the breasts and normal inspection of the axillae Breast/axilla palpation: normal palpation of the breasts, normal palpation of the axillae and no axillary lymphadenopathy Resp Effort & Inspection: normal respiratory effort Auscultation: clear to auscultation bilaterally Percussion: percussion normal Cardio Palpation: normal PMI Rate: regular rate Rhythm: regular rhythm Heart sounds: no murmurs and no rubs Peripheral pulses: Peripheral pulses 2+ throughout GI Inspection: Yes normal to inspection Palpation (GI): Soft to palpation, nontender, no guarding, not rigid and No hepatosplenomegaly present Percussion: Yes normal to percussion Auscultation: normal bowel sounds Rectal Exam - Female: deferred General: Yes bladder normal to palpation External Female Exam: No lesion Speculum Exam - Vagina: normal appearance of the vagina, normal palpation, normal vaginal discharge and not erythematous Speculum Exam - Cervix: normal appearance of the cervix and normal palpation Bimanual exam- vagina & uterus: normal bimanual exam, normal palpation, uterine size normal, bladder normal to palpation, consistency normal and normal palpation Bimanual Exam- Adnexa, other: normal adnexae, no masses and no tenderness Assessment & Plan Assessment & Plan (1) Well woman exam: Comment: SUNNY 1 since 06/01 Code(s): Z01.419 - Encounter for gynecological examination (general) (routine) without abnormal findings Category: Medical Plan: Cotesting done. Counseled the patient about the recommended dietary allowance of 1000 mg of Calcium & 600 IU of vitamin D. The patient was instructed to perform monthly self-breast exams and to schedule an annual exam in a year; All questions answered and the patient verbalized understanding. Instructed the patient to schedule annual exam in a year (2) Screen for STD (sexually transmitted disease): Code(s): Z11.3 - Encounter for screening for infections with a predominantly sexual mode of transmission Category: Medical Plan: STD screening tests done includes: BV panel for trichomonas, GC/CT will send patient for serology std screening for HIV, RPR, Hep b s Ag, HepC Ab. Instructions given the patient to schedule a follow-up appointment for repeat serology screen in 6 months for possible false negatives. Orders: Orders Hepatitis C Antibody Today Z20.2 - Contact with and (suspected) exposure to infections with a predominantly sexual mode of transmission Hepatitis B Surface Antigen Today Z20.2 - Contact with and (suspected) exposure to infections with a predominantly sexual mode of transmission HIV Ab/Ag Today Z20.2 - Contact with and (suspected) exposure to infections with a predominantly sexual mode of transmission Syphilis Screen Today Z20.2 - Contact with and (suspected) exposure to infections with a predominantly sexual mode of transmission Coding Level of Care Code Est Pt Level 3 (33331) New Pt Prev Care 18-39yr(75365 Diagnoses Well woman exam Z01.419 Screen for STD (sexually transmitted disease) Z11.3
[2025-05-24 13:56] VITALS: BP 98/62; BMI 19.0
--- OUTSIDE RECORDS SUMMARY | 2025-05-24 18:02 | XMS_ITS | Clinical Summary ---
Author Organization [facility] [address] [place] [address] [place] [phone] Phone Care Team Providers Care Floorworker Lasting Name Role Phone Liza John MD Primary [...] Plan (11/29/2024 9:57 AM EDT): Systemic lupus 05/07/2023 Assessment & Plan (11/29/2024 9:57 AM EDT): Encounters Date Type Department Care Team Description 05/10/2025 Telephone Endocrinology - [address] [phone] Rik White MD from Last 3 Months Immunizations Immunization Administration Dates Next Due Influenza Quadravalent, MDCK , 0.5ml, preservative free (Flucelvax) 6mo and older 05/07/2023 Surgical History Surgery Date Site/Laterality Comments SECTION PROCEDURE: HISTORICAL DELIVERY APPENDECTOMY PROCEDURE: HISTORICAL APPENDECTOMY Medical History Medical History Date Comments Systemic lupus (CMS/HCC V24, CMS/HCC V28) DX:Systemic lupus (HCC) Thai's thyroiditis DX:Tairk elfego's thyroiditis Family History Medical History Relation [...] on file Sexual Orientation Not on file Last Filed Vital Signs Vital Sign Reading [...] Name Priority Date/Time Associated Diagnosis Comments EXTERNAL LAB - COLLECTION AND HANDLING Routine 04/12/2025 9:12 AM EST HM DEPRESSION SCREENING Routine 06/24/2023 LIPID PANEL Routine 05/08/2023 from Last 3 Months or Most Recently Relevant to Health Maintenance Results * External lab - collection and handling (04/12/2025 9:12 AM EST) Blood Venous blood specimen / Unknown Historical [...] mg/dL Blood Venous blood specimen / Unknown [facility] Provider LAB BLOOD ORDERABLES Aleta l Result from Last 3 Months or Most Recently Relevant to Health Maintenance Insurance [employer] Care Teams Floorworker Lasting Relationship Specialty Start Date End Date Liza John MD [address] [place] [address] PCP - General 02/28/23
--- OUTSIDE RECORDS SUMMARY | 2025-05-24 18:02 | XMS_ITS | Encounter Summary ---
Author Organization [facility] Address [address] [place] [address] Care Team Providers Care Laundry Agent Name Role Phone Liza John MD Primary Care Prov ider Reason for Visit * Reason Onset Date Comments PRIOR AUTHORIZATION 05/10/2025 Encounter Details Date Type Department Care Team ([facility] st Contact Info) Description 05/10/2025 Telephone [facility] [address] [place] [address] Rik White MD [address] [place] [address] Social History Tobacco Use Types Packs/Day Years [...] on file documented as of this encounter Progress Notes * Shirley Pineda MA - 05/16/2025 4:03 PM EST Approved today by [employer] 2017 CaseId:[id number];Status:Approved;Review Type:Prior Auth;Coverage Start Date:05/16/2025;Coverage EndDate:05/16/2026; Effective Date: 05/16/2025 Authorization Expiration Date: 05/16/2026 SYNTHROID APPROVED * Shirley Pineda MA - 05/16/2025 1:53 PM EST PA for synthroid initiated on CMM DX. Thai's thyroiditis * Danielle House - 05/16/2025 1:25 PM EST [employer] on file is active. [phone] * Shirley Pineda MA - 05/13/2025 9:19 AM EST Please update patient insurance information. .Please Reply Back to [facility] Name Shirley Pineda [facility] Prior Ext: [phone] * Danielle House - 05/10/2025 2:15 PM EST Endocrine Call Primary endocrine provider: Dr. Rik White MD Is the endocrine provider in the office toady?: no Who is calling? Fax from [facility]. If not the patient or parent/guardian please check for authorization to share/verbal release. Why is the person calling? Prior authorization. Medications or glucose meter supplies. Please routeto prior authorization pool (p [id number]). Which supply is the concern? Synthroid Prior Authorization for Medication-do not complete and send this encounter unless you have the fax from the pharmacy. Is this a Cover My Meds request: Yes -- Angel Code [id number] Name of Medication Synthroid Dose of Medication 25 MCG What is the RX # from the faxed refill? How does patient take this med? : Take 1 tablet (25 mcg total) by mouth 1 (one) time each day before breakfast. Synthroid Brand name only, no substitution What Pharmacy did the fax come from: [facility] Pharmacy fax #: [phone] documented in this encounter Plan of Treatment Not on file documented as of this encounter Visit Diagnoses Not on filedocumented in this encounter Care Teams Laundry Agent Relationship Specialty Start Date End Date Liza John MD [address] [place] [phone] PCP - General 02/28/23 documented as of this encounter
--- OUTSIDE RECORDS SUMMARY | 2025-05-24 18:02 | XMS_ITS | Clinical Summary ---
Author Organization [facility] Address [address] [place] [phone] Phone Care Team Providers Care Senior Accounting Associate Name Role Phone Pcp, Unknown Primary Care [...] file Medical Devices Not on file Insurance [employer] [address] [address] [place], [place] [id number] ALLANCE [facility]CO [facility] Care Teams Senior Accounting Associate Relationship Specialty Start Date End Date Pcp, Unknown PCP - General 06/24/23 Additional Source Comments The information contained in this document represents components of the legal health record. It is not the complete legal health record.[facility]
== END 2025-05-24 14:14 | disposition home or self-care (01) ==
LOC: HO.HWS 13:52
PROVIDERS: PCP Internal Medicine; Visit Provider Obstetrics & Gynecology
DX: Z01.419 Encounter for gynecological examination (general) (routine) without abnormal findings (principal); Z11.3 Encounter for screening for infections with a predominantly sexual mode of transmission
CPT/HCPCS: 99213; 99395; 99459